=== PATIENT | male | born 1945 | race Caucasian/White ===

== ENCOUNTER 2017-01-31 20:17 | Emergency (ER) | payer MEDICARE ==
[2017-01-31 20:42] VITALS: RESP 18
[2017-01-31] MEDS ORDERED: RX INFO: IV CONTRAST WAS GIVEN 1 EACH MISC MISCELLANE PRN (20:49)
[2017-01-31 21:46] LABS: Basophils # (A) 0.1 k/uL (0-0.2); Basophils % (A) 1 %; CH 26.7; CHCM 32.7; Eosinophils # (A) 0.5 k/uL (0-0.7); Eosinophils % (A) 5 %; HCT 34.7 % (39.0-53.0); HDW 2.99; HGB 11.7 gm/dL (13.0-17.5); Luc # (Auto) 0.22; Luc % (Auto) 2; Lymphocytes # (A) 2.4 k/uL (1.0-4.8); Lymphocytes % (A) 26 %; MCH 27.7 pg (25.0-35.0); MCHC 33.8 g/dL (31.0-37.0); MCV 82.1 fL (80.0-100.0); Monocytes # (A) 0.6 k/uL (0-1.0); Monocytes % (A) 6 %; Neutrophils # (A) 5.6 k/uL (1.3-7.7); Neutrophils % (A) 60 %; RBC 4.22 m/uL (4.30-5.90); RDW 13.6 % (11.5-15.5); WBC 9.3 k/uL (3.8-10.6); WBC (Perox) 9.37
[2017-01-31 21:48] LABS: Appearance,Urine Turbid (Clear); Bilirubin,Urine Negative (Negative); Glucose,Urine (UA) 4+ (Negative); Ketones,Urine Negative (Negative); Leukocyte Esterase,Urine Large (Negative); Nitrite,Urine Positive (Negative); PH, Urine 5.5 (5.0-8.0); Particle Count 62348; Protein,Urine 2+ (Negative); RBC,Urine >182 /hpf (0-5); Specific Gravity,Urine 1.014 (1.001-1.035); UA Billing (MACRO vs. MICRO) MICRO; Urobilinogen,Urine <2.0 mg/dL (<2.0); WBC,Urine >182 /hpf (0-5)
[2017-01-31 22:07] LABS: INR 1.1 (<1.1); Partial Thromboplastin Time 26.6 sec (22.0-30.0); Prothrombin Time 11.2 sec (9.0-12.0)
[2017-01-31 22:24] LABS: Anion Gap 14 mmol/L; Blood Urea Nitrogen 19 mg/dL (9-20); Calcium 9.1 mg/dL (8.4-10.2); Carbon Dioxide 23 mmol/L (22-30); Chloride 102 mmol/L (98-107); Glucose 229 mg/dL (74-99); Non-African American GFR(MDRD) >60 (>60 ml/min/1.73 sqM); Potassium 4.3 mmol/L (3.5-5.1); Sodium 139 mmol/L (137-145)
--- NOTE | 2017-01-31 23:39 | CT ---
Exam: CT ABDOMEN + PELVIS With Contrast History: Hematuria. History of bladder cancer. Comparison: None provided. Technique: Continuous axial images of the abdomen and pelvis are obtained after administration of intravenous contrast. Coronal and sagittal reformatting was provided. Findings: There is consolidation in the right lower lobe suspicious for pneumonia in the right clinical setting. Recommend follow-up after appropriate therapy to ensure resolution and exclude the possibility of an underlying malignancy. High attenuation material in the gallbladder probably represents biliary excretion of intravenous contrast. Sludge is considered less likely. The liver, spleen, pancreas, adrenal glands, and left kidney show no substantial abnormality. There is borderline hydronephrosis of the right kidney with minimal right perirenal edema. No radiopaque ureteral stone is seen. Minimal right hydroureter is identified. There is diffuse wall thickening of the urinary bladder, even when allowing for underdistention. The prostate measures approximately 5 cm in transverse dimension. There is no dilated loop of bowel to suggest obstruction. A large amount of stool is seen in the colon, could represent mild constipation. The appendix is unremarkable. Calcific atherosclerosis is seen. No evidence for aortic aneurysm or dissection. No lymphadenopathy identified. No aggressive appearing osseous process noted. Minimal erosion and subcortical sclerosis at L4- L5 is probably due to degenerative disc disease. Impression: 1. Wall thickening of the urinary bladder, suspicious for malignancy. Correlate with urinalysis. 2. Borderline right hydronephrosis. No radiopaque ureteral stones. 3. Nonspecific consolidation in the right lower lobe may be due to aspiration or pneumonia. Recommend follow-up 6 weeks after appropriate therapy to ensure resolution and exclude underlying malignancy. DLP = 1571.20 mGycm One or more of the following dose reduction techniques were used: automated exposure control, adjustment of the mA and/or kV according to patient size, use of iterative reconstruction technique.
--- NOTE | 2017-02-01 00:17 | ED ---
General Adult HPI - General Chief complaint: Urogenital Stated complaint: Possible Bladder Infection Time Seen by Provider: 01/31/17 20:34 Source: family, EMS, RN notes reviewed Mode of arrival: EMS Limitations: altered mental status - History of Present Illness Initial comments: 69-year-old male with past medical history of CAD, CVA, remote history of bladder carcinoma presents with hematuria. Patient is cared for by his daughter and . He is currently on Cymbalta status post stroke. Patient's daughter first noticed pink urine in his depends which became more bloody today. She denies fever. Patient does not have a Costello catheter. He is not currently on any treatment for bladder cancer. Patient is unable to contribute to history. - Related Data Previous Rx's Medication Instructions Recorded Ciprofloxacin HCl [Cipro] 500 mg PO Q12HR #20 tablet 02/01/17 Allergies Allergy/AdvReac Type Severity Reaction Status Date / Time Sulfa (Sulfonamide Allergy Unknown Verified 01/31/17 20:45 Antibiotics) Review of Systems ROS Statement: Those systems with pertinent positive or pertinent negative responses have been documented in the HPI. ROS Other: All systems not noted in ROS Statement are negative. Respiratory: Denies: cough Gastrointestinal: Denies: nausea, vomiting Genitourinary: Reports: hematuria Past Medical History Past Medical History: Cancer, CVA/TIA, Diabetes Mellitus Additional Past Medical History / Comment(s): bladder cancer, Stroke, Black spots on lung. History of Any Multi-Drug Resistant Organisms: None Reported Past Surgical History: Bladder Surgery, Heart Catheterization With Stent Additional Past Surgical History / Comment(s): Open heart surgery, bipass, Past Psychological History: No Psychological Hx Reported Smoking Status: Former smoker Past Alcohol Use History: None Reported Past Drug Use History: None Reported General Exam Limitations: altered mental status General appearance: in no apparent distress Head exam: Present: atraumatic, normocephalic Eye exam: Present: normal appearance, PERRL ENT exam: Present: mucous membranes moist Respiratory exam: Present: normal lung sounds bilaterally. Absent: respiratory distress Cardiovascular Exam: Present: regular rate, normal rhythm GI/Abdominal exam: Present: soft. Absent: distended, tenderness exam: Present: normal inspection. Absent: testicular tenderness, urethral discharge, scrotal swelling, vertical testicular lie Neurological exam: Present: altered, other (Patient at baseline mental status) Psychiatric exam: Present: flat affect Skin exam: Present: warm, dry Course Vital Signs 01/31/17 01/31/17 01/31/17 20:35 21:44 23:12 Temperature 97.7 F Pulse Rate 68 71 73 Respiratory 18 18 18 Rate Blood Pressure 166/79 145/69 177/82 O2 Sat by Pulse 97 97 97 Oximetry 01/31/17 23:57 Temperature Pulse Rate 76 Respiratory 18 Rate Blood Pressure 165/81 O2 Sat by Pulse 96 Oximetry Medical Decision Making - Medical Decision Making 71-year-old male presenting with hematuria. Patient is a result of her stroke prophylaxis. He does have a history of CVA and is unable to contribute to the history. Patient's daughter who takes care of him states he had pink progressing to read urine over the past 24 hours. There is no external penile lesions, no signs of trauma. Computed tomography scan of the abdomen and pelvis reveals thickening of the bladder, mild right-sided hydro-. Urinalysis is positive for nitrates, and elevated diureses and RBCs. Urine culture is sent. Case is discussed with urology on-call in the patient will be started on antibiotics and discharged for outpatient follow-up. Patient's daughter will bring her father for evaluation with worsening symptoms or hemorrhage. 71-year-old male with hematuria, likely secondary to urinary tract infection. Bladder thickening on x-ray may be chronic or maybe related to recurrent malignancy. Patient will follow-up with urology as an outpatient. - Lab Data Result diagrams: 01/31/17 21:15 01/31/17 22:00 Lab Results 01/31/17 01/31/17 01/31/17 Range/Units 21:15 21:15 22:00 WBC 9.3 (3.8-10.6) k/uL RBC 4.22 L (4.30-5.90) m/uL Hgb 11.7 L (13.0-17.5) gm/dL Hct 34.7 L (39.0-53.0) % MCV 82.1 (80.0-100.0) fL MCH 27.7 (25.0-35.0) pg MCHC 33.8 (31.0-37.0) g/dL RDW 13.6 (11.5-15.5) % Plt Count 226 (150-450) k/uL Neutrophils % 60 % Lymphocytes % 26 % Monocytes % 6 % Eosinophils % 5 % Basophils % 1 % Neutrophils # 5.6 (1.3-7.7) k/uL Lymphocytes # 2.4 (1.0-4.8) k/uL Monocytes # 0.6 (0-1.0) k/uL Eosinophils # 0.5 (0-0.7) k/uL Basophils # 0.1 (0-0.2) k/uL PT (9.0-12.0) sec INR (<1.1) APTT (22.0-30.0) sec Sodium (137-145) mmol/L Potassium (3.5-5.1) mmol/L Chloride (98-107) mmol/L Carbon Dioxide (22-30) mmol/L Anion Gap mmol/L BUN (9-20) mg/dL Creatinine (0.66-1.25) mg/dL Est GFR (MDRD) Af Amer (>60 ml/min/1.73 sqM) Est GFR (MDRD) Non-Af (>60 ml/min/1.73 sqM) Glucose (74-99) mg/dL Calcium (8.4-10.2) mg/dL Urine Color Light Red Urine Appearance Turbid (Clear) Urine pH 5.5 (5.0-8.0) Ur Specific Strawberry 1.014 (1.001-1.035) Urine Protein 2+ H (Negative) Urine Glucose (UA) 4+ H (Negative) Urine Ketones Negative (Negative) Urine Blood Large H (Negative) Urine Nitrite Positive (Negative) Urine Bilirubin Negative (Negative) Urine Urobilinogen <2.0 (<2.0) mg/dL Ur Leukocyte Esterase Large H (Negative) Urine RBC >182 H (0-5) /hpf Urine WBC >182 H (0-5) /hpf Urine WBC Clumps Many H (None) /hpf Blood Type AB Positive Blood Type Recheck CABO Indicated Antibody Screen NEGATIVE Spec Expiration Date 02/03/2017231401/31/17 01/31/17 Range/Units 22:00 22:00 WBC (3.8-10.6) k/uL RBC (4.30-5.90) m/uL Hgb (13.0-17.5) gm/dL Hct (39.0-53.0) % MCV (80.0-100.0) fL MCH (25.0-35.0) pg MCHC (31.0-37.0) g/dL RDW (11.5-15.5) % Plt Count (150-450) k/uL Neutrophils % % Lymphocytes % % Monocytes % % Eosinophils % % Basophils % % Neutrophils # (1.3-7.7) k/uL Lymphocytes # (1.0-4.8) k/uL Monocytes # (0-1.0) k/uL Eosinophils # (0-0.7) k/uL Basophils # (0-0.2) k/uL PT 11.2 (9.0-12.0) sec INR 1.1 (<1.1) APTT 26.6 (22.0-30.0) sec Sodium 139 (137-145) mmol/L Potassium 4.3 (3.5-5.1) mmol/L Chloride 102 (98-107) mmol/L Carbon Dioxide 23 (22-30) mmol/L Anion Gap 14 mmol/L BUN 19 (9-20) mg/dL Creatinine 0.80 (0.66-1.25) mg/dL Est GFR (MDRD) Af Amer >60 (>60 ml/min/1.73 sqM) Est GFR (MDRD) Non-Af >60 (>60 ml/min/1.73 sqM) Glucose 229 H (74-99) mg/dL Calcium 9.1 (8.4-10.2) mg/dL Urine Color Urine Appearance (Clear) Urine pH (5.0-8.0) Ur Specific Strawberry (1.001-1.035) Urine Protein (Negative) Urine Glucose (UA) (Negative) Urine Ketones (Negative) Urine Blood (Negative) Urine Nitrite (Negative) Urine Bilirubin (Negative) Urine Urobilinogen (<2.0) mg/dL Ur Leukocyte Esterase (Negative) Urine RBC (0-5) /hpf Urine WBC (0-5) /hpf Urine WBC Clumps (None) /hpf Blood Type Blood Type Recheck Antibody Screen Spec Expiration Date Disposition Clinical Impression: Urinary tract infection, Hematuria due to acute cystitis, Epididymitis Disposition: HOME SELF-CARE Condition: Good Instructions: Urinary Tract Infection in Men (ED) Prescriptions: Ciprofloxacin HCl [Cipro] 500 mg PO Q12HR #20 tablet Referrals: Rg Glynn MD [Primary Care Provider] - 1-2 days Sandeep Kulkarni MD [STAFF PHYSICIAN] - 1-2 days Time of Disposition: 00:17
[2017-02-01 00:36] VITALS: BP 164/79; PULSE 75; TEMP 97.4
== END 2017-02-01 00:59 | disposition home or self-care (01) ==
LOC: EC 20:17
DX: N30.01 Acute cystitis with hematuria (principal); N45.1 Epididymitis; R41.82 Altered mental status, unspecified; Z87.891 Personal history of nicotine dependence; Z79.899 Other long term (current) drug therapy; Z88.2 Allergy status to sulfonamides; Z85.51 Personal history of malignant neoplasm of bladder; Z86.73 Personal history of transient ischemic attack (TIA), and cerebral infarction without residual deficits; Z98.890 Other specified postprocedural states
CPT/HCPCS: 51798; 36415; 86900; 86901; 80048; 85025; 85610; 85730; 86850; 81001; 87086; 87077; 87186; 74177; 99284; Q9967

== ENCOUNTER → 2017-02-19 | Outpatient (CLI) | payer MEDICARE ==
[2017-02-19 10:00] LABS: Basophils # (A) 0.1 k/uL (0-0.2); Basophils % (A) 1 %; CH 26.8; CHCM 32.5; Eosinophils # (A) 0.4 k/uL (0-0.7); Eosinophils % (A) 5 %; HCT 37.9 % (39.0-53.0); HDW 2.69; HGB 12.3 gm/dL (13.0-17.5); Luc # (Auto) 0.14; Luc % (Auto) 2; Lymphocytes # (A) 2.1 k/uL (1.0-4.8); Lymphocytes % (A) 23 %; MCH 26.9 pg (25.0-35.0); MCHC 32.4 g/dL (31.0-37.0); MCV 82.9 fL (80.0-100.0); Mean Platelet Volume 8.5; Monocytes # (A) 0.5 k/uL (0-1.0); Monocytes % (A) 5 %; Neutrophils # (A) 5.7 k/uL (1.3-7.7); Neutrophils % (A) 64 %; RBC 4.57 m/uL (4.30-5.90); RDW 14.1 % (11.5-15.5); WBC 8.9 k/uL (3.8-10.6); WBC (Perox) 8.69
[2017-02-19 11:02] LABS: ALT 33 U/L (21-72); AST 18 U/L (17-59); Alkaline Phosphatase 118 U/L (38-126); Anion Gap 13 mmol/L; Blood Urea Nitrogen 10 mg/dL (9-20); Carbon Dioxide 28 mmol/L (22-30); Chloride 101 mmol/L (98-107); Cholesterol 109 mg/dL (<200); Creatine Kinase 26 U/L (55-170); Glucose 137 mg/dL (74-99); HDL Cholesterol 48 mg/dL (40-60); Non-African American GFR(MDRD) >60 (>60 ml/min/1.73 sqM); Potassium 4.6 mmol/L (3.5-5.1); Sodium 142 mmol/L (137-145); Total Bilirubin 0.9 mg/dL (0.2-1.3); Total Protein 7.1 g/dL (6.3-8.2); Triglycerides 121 mg/dL (<150)
== END ==
LOC: LABWHC1 08:35
PROVIDERS: ATTEND Family Medicine
DX: E78.5 Hyperlipidemia, unspecified (principal); Z12.5 Encounter for screening for malignant neoplasm of prostate; Z11.59 Encounter for screening for other viral diseases
CPT/HCPCS: 80061; 80053; 82550; 85025; 36415; G0103

== ENCOUNTER 2017-02-28 17:32 | Inpatient (IN) | payer MEDICARE ==
[2017-02-28 17:52] VITALS: RESP 18
[2017-02-28 18:07] LABS: Basophils # (A) 0.1 k/uL (0-0.2); Basophils % (A) 1 %; CHCM 32.8; Eosinophils # (A) 0.4 k/uL (0-0.7); Eosinophils % (A) 4 %; HCT 32.5 % (39.0-53.0); HDW 2.72; HGB 10.6 gm/dL (13.0-17.5); Luc # (Auto) 0.15; Luc % (Auto) 2; Lymphocytes % (A) 21 %; MCHC 32.6 g/dL (31.0-37.0); MCV 82.9 fL (80.0-100.0); Mean Platelet Volume 8.4; Monocytes # (A) 0.5 k/uL (0-1.0); Monocytes % (A) 5 %; Neutrophils # (A) 6.6 k/uL (1.3-7.7); Neutrophils % (A) 68 %; RBC 3.92 m/uL (4.30-5.90); RDW 14.3 % (11.5-15.5); WBC 9.8 k/uL (3.8-10.6); WBC (Perox) 10.19
[2017-02-28 18:21] LABS: INR 1.1 (<1.2); Partial Thromboplastin Time 26.6 sec (22.0-30.0); Prothrombin Time 11.1 sec (9.0-12.0)
[2017-02-28 18:22] LABS: ALT 29 U/L (21-72); AST 13 U/L (17-59); Alkaline Phosphatase 101 U/L (38-126); Anion Gap 10 mmol/L; Blood Urea Nitrogen 14 mg/dL (9-20); Calcium 8.8 mg/dL (8.4-10.2); Carbon Dioxide 27 mmol/L (22-30); Chloride 102 mmol/L (98-107); Glucose 208 mg/dL (74-99); Magnesium 1.2 mg/dL (1.6-2.3); Non-African American GFR(MDRD) >60 (>60 ml/min/1.73 sqM); Potassium 4.2 mmol/L (3.5-5.1); Sodium 139 mmol/L (137-145); Total Bilirubin 0.5 mg/dL (0.2-1.3); Total Protein 6.1 g/dL (6.3-8.2)
[2017-02-28 18:31] LABS: Creatine Kinase 26 U/L (55-170)
[2017-02-28 18:44] LABS: Creatine Kinase MB 0.6 ng/mL (0.0-2.4); Troponin I <0.012 ng/mL (0.000-0.034)
[2017-02-28] MEDS ORDERED: ASPIRIN 325 MG TAB PO STA (19:10)
--- NOTE | 2017-02-28 19:13 | XR ---
EXAMINATION TYPE: XR chest 2V DATE OF EXAM: 02/28/2017 COMPARISON: CT abdomen and pelvis January 31, 2017. HISTORY: Chest pain and irregular heartbeat. TECHNIQUE: Frontal and lateral views of the chest are obtained. FINDINGS: Sternal wires are present. Metallic Aortic valve is noted. There is chronic parenchymal ch ryan with right infrahilar triangular wedge-shaped opacity on frontal view less well seen on lateral view. This appears to correspond to peripheral round atelectasis or infiltrate on recent CT. Underlyi ng mass is not excluded. Consider nonemergent PET/CT correlation. No new infiltrate, pleural effusion , or pneumothorax is seen. The cardiac silhouette size is within normal limits. The osseous structu res are intact. IMPRESSION: Chronic posterior right basilar triangular shaped consolidation. No new infiltrate is s een.
[2017-02-28] MEDS: MAGNESIUM SULFATE-D5W PMX 1 GM in DEXTROSE/WATER 1 100ML.BAG IVPB SCH ×2 (19:39→22:30)
[2017-02-28 19:46] LABS: Glucose,Whole Blood 193 mg/dL (75-99)
[2017-02-28] MEDS ORDERED: NALOXONE 0.4 MG/ML 1 ML VIAL IV PRN (19:50)
[2017-02-28] MEDS ORDERED: ONDANSETRON 4 MG/2 ML VIAL IVP PRN (19:50)
--- NOTE | 2017-02-28 20:13 | ED ---
General Adult HPI - General Chief complaint: Chest Pain Stated complaint: Chest Pain Time Seen by Provider: 02/28/17 17:34 Source: patient, family, EMS, RN notes reviewed, old records reviewed Mode of arrival: EMS Limitations: no limitations - History of Present Illness Initial comments: 71-year-old male with history of CAD status post CABG, CVA with residual aphasia and remote history of bladder cancer presents with chest pain. Patient is a poor historian. He is unable to articulate his exact symptoms. He is able to answer some basic questions. Denies chest pain at the time my evaluation. Denies nausea or radiating symptoms. Patient's is at bedside , she states he was holding his chest complaining of pain. This is atypical for the patient. He has not had a cardiac workup in many years. - Related Data Home Medications Medication Instructions Recorded Confirmed Albuterol Sulfate [Proventil Hfa] 1 - 2 puff INHALATION RT-Q6H PRN 02/28/1712/10 Amoxicillin/Potassium Clav 1 tab PO Q12HR 02/28/17 02/28/17 [Augmentin 875-125 Tablet] Apixaban [Eliquis] 5 mg PO BID 02/28/17 02/28/17 Aspirin 81 mg PO MOFR 02/28/17 02/28/17 Atorvastatin Calcium [Lipitor] 40 mg PO HS 02/28/17 02/28/17 Cranberry Fruit Extract [Cranberry] 500 mg PO BID 02/28/17 02/28/17 Docusate [Colace] 100 mg PO DAILY PRN 02/28/17 02/28/17 Insulin Glargine [Lantus] 22 unit SQ BID 02/28/17 02/28/17 Metoprolol Tartrate [Lopressor] 25 mg PO BID 02/28/17 02/28/17 Multivitamins, Thera [Multivitamin 1 tab PO DAILY 02/28/17 02/28/17 (formulary)] Nortriptyline HCl [Pamelor] 25 mg PO HS 02/28/17 02/28/17 Omeprazole [PriLOSEC] 40 mg PO DAILY 02/28/17 02/28/17 metFORMIN HCL [metFORMIN HCL ER] 1,000 mg PO DAILY 02/28/17 02/28/17 sitaGLIPtin [Januvia] 100 mg PO DAILY 02/28/17 02/28/17 Allergies Allergy/AdvReac Type Severity Reaction Status Date / Time Sulfa (Sulfonamide Allergy Unknown Verified 02/28/17 18:02 Antibiotics) Review of Systems ROS Statement: Those systems with pertinent positive or pertinent negative responses have been documented in the HPI. ROS Other: All systems not noted in ROS Statement are negative. Past Medical History Past Medical History: Cancer, CVA/TIA, Diabetes Mellitus Additional Past Medical History / Comment(s): bladder cancer, Stroke, Black spots on lung. History of Any Multi-Drug Resistant Organisms: None Reported Past Surgical History: Bladder Surgery, Heart Catheterization With Stent Additional Past Surgical History / Comment(s): Open heart surgery, bypass, Past Psychological History: No Psychological Hx Reported Smoking Status: Former smoker Past Alcohol Use History: None Reported Past Drug Use History: None Reported General Exam Limitations: no limitations General appearance: alert, in no apparent distress Head exam: Present: atraumatic, normocephalic Eye exam: Present: normal appearance, PERRL ENT exam: Present: mucous membranes moist Neck exam: Present: normal inspection, full ROM. Absent: meningismus Respiratory exam: Present: normal lung sounds bilaterally. Absent: respiratory distress Cardiovascular Exam: Present: regular rate, normal rhythm GI/Abdominal exam: Present: soft. Absent: distended, tenderness Extremities exam: Present: normal inspection, normal capillary refill. Absent: pedal edema Neurological exam: Present: alert. Absent: motor sensory deficit Psychiatric exam: Present: normal affect, normal mood Skin exam: Present: warm, dry. 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 No old EKG to compare. Medical Decision Making - Medical Decision Making 71-year-old male presenting with chest pain. Patient is not able to give a complete history due to his baseline mental status and history of CVA. Patient is able to state that his chest pain is resolving emergency department. EKG shows right bundle branch block, nonspecific changes, there is no old EKG for comparison. Chest x-ray shows no acute process. Laboratory studies reveal stable hemoglobin improved from previous ER visit, initial cardiac enzymes are unremarkable. Patient is given an aspirin. Laboratory studies do reveal a magnesium level I.2 which is replaced. Given the patient's inability to articulate exactly history of his chest pain. He will be placed in observation for serial troponins and cardiology evaluation. Diagnosis: Chest pain - Lab Data Result diagrams: 02/28/17 17:57 02/28/17 17:57 Lab Results 02/28/17 02/28/17 02/28/17 Range/Units 17:57 17:57 17:57 WBC 9.8 (3.8-10.6) k/uL RBC 3.92 L (4.30-5.90) m/uL Hgb 10.6 L (13.0-17.5) gm/dL Hct 32.5 L (39.0-53.0) % MCV 82.9 (80.0-100.0) fL MCH 27.0 (25.0-35.0) pg MCHC 32.6 (31.0-37.0) g/dL RDW 14.3 (11.5-15.5) % Plt Count 273 (150-450) k/uL Neutrophils % 68 % Lymphocytes % 21 % Monocytes % 5 % Eosinophils % 4 % Basophils % 1 % Neutrophils # 6.6 (1.3-7.7) k/uL Lymphocytes # 2.0 (1.0-4.8) k/uL Monocytes # 0.5 (0-1.0) k/uL Eosinophils # 0.4 (0-0.7) k/uL Basophils # 0.1 (0-0.2) k/uL PT (9.0-12.0) sec INR (<1.2) APTT (22.0-30.0) sec Sodium 139 (137-145) mmol/L Potassium 4.2 (3.5-5.1) mmol/L Chloride 102 (98-107) mmol/L Carbon Dioxide 27 (22-30) mmol/L Anion Gap 10 mmol/L BUN 14 (9-20) mg/dL Creatinine 0.80 (0.66-1.25) mg/dL Est GFR (MDRD) Af Amer >60 (>60 ml/min/1.73 sqM) Est GFR (MDRD) Non-Af >60 (>60 ml/min/1.73 sqM) Glucose 208 H (74-99) mg/dL POC Glucose (mg/dL) (75-99) mg/dL POC Glu Insurance Sales Specialist ID Calcium 8.8 (8.4-10.2) mg/dL Magnesium 1.2 L (1.6-2.3) mg/dL Total Bilirubin 0.5 (0.2-1.3) mg/dL AST 13 L (17-59) U/L ALT 29 (21-72) U/L Alkaline Phosphatase 101 (38-126) U/L Total Creatine Kinase 26 L (55-170) U/L CK-MB (CK-2) 0.6 (0.0-2.4) ng/mL CK-MB (CK-2) Rel Index 2.3 Troponin I <0.012 (0.000-0.034) ng/mL NT-Pro-B Natriuret Pep pg/mL Total Protein 6.1 L (6.3-8.2) g/dL Albumin 3.4 L (3.5-5.0) g/dL Lipase 18 L (23-300) U/L 02/28/17 02/28/17 02/28/17 Range/Units 17:57 17:57 19:39 WBC (3.8-10.6) k/uL RBC (4.30-5.90) m/uL Hgb (13.0-17.5) gm/dL Hct (39.0-53.0) % MCV (80.0-100.0) fL MCH (25.0-35.0) pg MCHC (31.0-37.0) g/dL RDW (11.5-15.5) % Plt Count (150-450) k/uL Neutrophils % % Lymphocytes % % Monocytes % % Eosinophils % % Basophils % % Neutrophils # (1.3-7.7) k/uL Lymphocytes # (1.0-4.8) k/uL Monocytes # (0-1.0) k/uL Eosinophils # (0-0.7) k/uL Basophils # (0-0.2) k/uL PT 11.1 (9.0-12.0) sec INR 1.1 (<1.2) APTT 26.6 (22.0-30.0) sec Sodium (137-145) mmol/L Potassium (3.5-5.1) mmol/L Chloride (98-107) mmol/L Carbon Dioxide (22-30) mmol/L Anion Gap mmol/L BUN (9-20) mg/dL Creatinine (0.66-1.25) mg/dL Est GFR (MDRD) Af Amer (>60 ml/min/1.73 sqM) Est GFR (MDRD) Non-Af (>60 ml/min/1.73 sqM) Glucose (74-99) mg/dL POC Glucose (mg/dL) 193 H (75-99) mg/dL POC Glu Insurance Sales Specialist ID Reyna Youngblood Calcium (8.4-10.2) mg/dL Magnesium (1.6-2.3) mg/dL Total Bilirubin (0.2-1.3) mg/dL AST (17-59) U/L ALT (21-72) U/L Alkaline Phosphatase (38-126) U/L Total Creatine Kinase (55-170) U/L CK-MB (CK-2) (0.0-2.4) ng/mL CK-MB (CK-2) Rel Index Troponin I (0.000-0.034) ng/mL NT-Pro-B Natriuret Pep 679 pg/mL Total Protein (6.3-8.2) g/dL Albumin (3.5-5.0) g/dL Lipase (23-300) U/L Disposition Clinical Impression: Chest pain Disposition: ADMITTED IP TO THIS [facility] Condition: Stable Referrals: None,Stated [Primary Care Provider] - 1-2 days Decision to Admit Reason: Admit from EC Decision Date: 02/28/17 Decision Time: 20:10
[2017-02-28] MEDS: INSULIN GLARGINE 100 UNIT/ML 10 ML VIAL SQ SCH (21:31)
[2017-02-28 21:32] LABS: Glucose,Whole Blood 165 mg/dL (75-99)
[2017-02-28 21:38] VITALS: BMI 24.6
[2017-02-28] MEDS: APIXABAN 5 MG TAB PO SCH (22:06)
[2017-02-28] MEDS: ATORVASTATIN 40 MG TAB PO SCH (22:06)
[2017-02-28] MEDS: METOPROLOL TARTRATE 25 MG TAB PO SCH (22:06)
[2017-02-28] MEDS: DEXTROSE 5%-0.45% NACL 1,000 ML IV SCH (22:31)
[2017-03-01 00:02] LABS: Creatine Kinase 25 U/L (55-170)
[2017-03-01 00:15] LABS: Creatine Kinase MB 0.6 ng/mL (0.0-2.4); Troponin I <0.012 ng/mL (0.000-0.034)
[2017-03-01 06:41] LABS: Glucose,Whole Blood 153 mg/dL (75-99)
[2017-03-01 07:08] LABS: Basophils # (A) 0.1 k/uL (0-0.2); Basophils % (A) 1 %; CH 26.9; CHCM 32.4; Eosinophils # (A) 0.3 k/uL (0-0.7); Eosinophils % (A) 3 %; HCT 34.1 % (39.0-53.0); HDW 2.73; Luc # (Auto) 0.14; Luc % (Auto) 1; Lymphocytes # (A) 1.8 k/uL (1.0-4.8); Lymphocytes % (A) 17 %; MCH 26.9 pg (25.0-35.0); MCHC 32.4 g/dL (31.0-37.0); MCV 83.3 fL (80.0-100.0); Mean Platelet Volume 8.6; Monocytes # (A) 0.5 k/uL (0-1.0); Monocytes % (A) 5 %; Neutrophils # (A) 7.6 k/uL (1.3-7.7); Neutrophils % (A) 73 %; RBC 4.09 m/uL (4.30-5.90); RDW 14.1 % (11.5-15.5); WBC 10.5 k/uL (3.8-10.6); WBC (Perox) 10.98
[2017-03-01 07:32] LABS: Anion Gap 9 mmol/L; Blood Urea Nitrogen 12 mg/dL (9-20); Calcium 9.1 mg/dL (8.4-10.2); Carbon Dioxide 29 mmol/L (22-30); Chloride 102 mmol/L (98-107); Glucose 165 mg/dL (74-99); Magnesium 1.6 mg/dL (1.6-2.3); Non-African American GFR(MDRD) >60 (>60 ml/min/1.73 sqM); Potassium 4.1 mmol/L (3.5-5.1); Sodium 140 mmol/L (137-145)
[2017-03-01 07:33] LABS: Creatine Kinase 24 U/L (55-170)
[2017-03-01 07:45] LABS: Creatine Kinase MB 0.6 ng/mL (0.0-2.4); Troponin I <0.012 ng/mL (0.000-0.034)
[2017-03-01] MEDS: INSULIN GLARGINE 100 UNIT/ML 10 ML VIAL SQ SCH ×2 (09:13→20:28)
[2017-03-01] MEDS: METOPROLOL TARTRATE 25 MG TAB PO SCH ×2 (09:14→20:20)
[2017-03-01] MEDS: APIXABAN 5 MG TAB PO SCH ×2 (09:14→20:20)
[2017-03-01 10:07] LABS: Hemoglobin A1C 9.2 % (4.2-6.1)
[2017-03-01 11:49] LABS: Glucose,Whole Blood 138 mg/dL (75-99)
--- NOTE | 2017-03-01 12:19 | P.CRDCN ---
History of Present Illness Consult date: 03/01/17 Chief complaint: Chest discomfort History of present illness: This is a pleasant 72-year-old male patient who never seen a leather sponger here in town who used to see a leather sponger at [place] was brought by his to the hospital because of chest discomfort. The patient suffered from a large stroke in June 2016 and since then he has been almost bedridden and wheelchair-bound. The story was taken from his was bedside with him. The patient has very poor communication to take the history from. He was at home yesterday when he started experiencing chest discomfort for. The decided to bring him to the emergency room. The EKG showed sinus rhythm with RBBB. The cardiac enzymes were checked and came in to be unremarkable. Please note that the patient is known to have CAD where he underwent CABG and stenting in the past at [place] but we don't have any details on that at this point. In view of the patient's poor functional status I recommended proceeding with a conservative medical approach and medical treatment only. I'm going to add Imdur to the current medical treatment. Obtain an echocardiogram was Doppler. Follow-up with the patient. Past Medical History Past Medical History: Cancer, CVA/TIA, Diabetes Mellitus Additional Past Medical History / Comment(s): bladder cancer, Stroke, Black spots on lung. difficulty with speech and balance after stroke History of Any Multi-Drug Resistant Organisms: None Reported Past Surgical History: Bladder Surgery, Coronary Bypass/CABG, Heart Catheterization With Stent Additional Past Surgical History / Comment(s): Open heart surgery, bypass, aortic valve replacement, loop recorder Past Anesthesia/Blood Transfusion Reactions: No Reported Reaction Date of Last Stent Placement:: 1989 Past Psychological History: No Psychological Hx Reported Smoking Status: Former smoker Past Alcohol Use History: None Reported Past Drug Use History: None Reported - Past Family History Father Family Medical History: Cancer Additional Family Medical History / Comment(s): prostate cancer Mother Family Medical History: Dementia, Hypertension Medications and Allergies Home Medications Medication Instructions Recorded Confirmed Type Albuterol Sulfate [Proventil Hfa] 1 - 2 puff INHALATION RT-Q6H PRN 02/28/1712/10 History Amoxicillin/Potassium Clav 1 tab PO Q12HR 02/28/17 02/28/17 History [Augmentin 875-125 Tablet] Apixaban [Eliquis] 5 mg PO BID 02/28/17 02/28/17 History Aspirin 81 mg PO MOFR 02/28/17 02/28/17 History Atorvastatin Calcium [Lipitor] 40 mg PO HS 02/28/17 02/28/17 History Cranberry Fruit Extract [Cranberry] 500 mg PO BID 02/28/17 02/28/17 History Docusate [Colace] 100 mg PO DAILY PRN 02/28/17 02/28/17 History Insulin Glargine [Lantus] 22 unit SQ BID 02/28/17 02/28/17 History Metoprolol Tartrate [Lopressor] 25 mg PO BID 02/28/17 02/28/17 History Multivitamins, Thera [Multivitamin 1 tab PO DAILY 02/28/17 02/28/17 History (formulary)] Nortriptyline HCl [Pamelor] 25 mg PO HS 02/28/17 02/28/17 History Omeprazole [PriLOSEC] 40 mg PO DAILY 02/28/17 02/28/17 History metFORMIN HCL [metFORMIN HCL ER] 1,000 mg PO DAILY 02/28/17 02/28/17 History sitaGLIPtin [Januvia] 100 mg PO DAILY 02/28/17 02/28/17 History Allergies Allergy/AdvReac Type Severity Reaction Status Date / Time Sulfa (Sulfonamide Allergy Unknown Verified 02/28/17 18:02 Antibiotics) Physical Exam Vitals: Vital Signs Temp Pulse Pulse Pulse Resp BP BP 03/01/17 11:51 96.7 F L 65 18 164/89 03/01/17 08:00 96.7 F L 69 18 146/74 03/01/17 04:00 97.1 F L 66 18 147/75 03/01/17 00:00 97.0 F L 70 18 140/76 02/28/17 21:32 98.1 F 72 18 156/88 02/28/17 21:20 98.1 F 72 18 156/88 02/28/17 20:33 97.3 F L 68 18 158/67 02/28/17 19:06 97.7 F 69 18 161/71 02/28/17 18:00 65 02/28/17 17:48 98.5 F 66 18 169/68 Pulse Ox 03/01/17 11:51 100 03/01/17 08:00 98 03/01/17 04:00 100 03/01/17 00:00 100 02/28/17 21:32 98 02/28/17 21:20 98 02/28/17 20:33 97 02/28/17 19:06 99 02/28/17 18:00 02/28/17 17:48 100 Intake and Output 02/28/17 03/01/17 03/01/17 22:59 06:59 14:59 Intake Total 550 Balance 550 Intake: Intake, IV Titration 550 Amount Dextrose 5%-0.45% NaCl 1, 450 000 ml @ 75 mls/hr IV . [id number] [facility] Rx#:[id number] Magnesium Sulfate-D5w Pmx 100 1 gm In Dextrose/Water 1 100ml.bag @ 100 mls/hr IVPB Q1H [facility] Rx#: [id number] Other: Weight 82.5 kg 83 kg - Constitutional General appearance: no acute distress - Respiratory Respiratory: bilateral: diminished - Cardiovascular Rhythm: regular Heart sounds: normal: S1, S2 Results 03/01/17 06:17 03/01/17 06:17 Cardiac Enzymes 02/28/17 02/28/17 02/28/17 Range/Units 17:57 17:57 23:28 AST 13 L (17-59) U/L CK-MB (CK-2) 0.6 0.6 (0.0-2.4) ng/mL Troponin I <0.012 <0.012 (0.000-0.034) ng/mL 03/01/17 Range/Units 06:17 AST (17-59) U/L CK-MB (CK-2) 0.6 (0.0-2.4) ng/mL Troponin I <0.012 (0.000-0.034) ng/mL Coagulation 02/28/17 Range/Units 17:57 PT 11.1 (9.0-12.0) sec APTT 26.6 (22.0-30.0) sec CBC 02/28/17 03/01/17 Range/Units 17:57 06:17 WBC 9.8 10.5 (3.8-10.6) k/uL RBC 3.92 L 4.09 L (4.30-5.90) m/uL Hgb 10.6 L 11.0 L (13.0-17.5) gm/dL Hct 32.5 L 34.1 L (39.0-53.0) % Plt Count 273 274 (150-450) k/uL Comprehensive Metabolic Panel 02/28/17 03/01/17 Range/Units 17:57 06:17 Sodium 139 140 (137-145) mmol/L Potassium 4.2 4.1 (3.5-5.1) mmol/L Chloride 102 102 (98-107) mmol/L Carbon Dioxide 27 29 (22-30) mmol/L BUN 14 12 (9-20) mg/dL Creatinine 0.80 0.76 (0.66-1.25) mg/dL Glucose 208 H 165 H (74-99) mg/dL Calcium 8.8 9.1 (8.4-10.2) mg/dL AST 13 L (17-59) U/L ALT 29 (21-72) U/L Alkaline Phosphatase 101 (38-126) U/L Total Protein 6.1 L (6.3-8.2) g/dL Albumin 3.4 L (3.5-5.0) g/dL Current Medications Generic Name Dose Route Start Last Admin Trade Name Freq PRN Reason Stop Dose Admin Apixaban 5 mg 02/28/17 21:00 03/01/17 09:14 Eliquis PO 5 mg BID [facility] Administration Aspirin 81 mg 03/02/17 19:53 Aspirin PO MOFR [facility] Atorvastatin Calcium 40 mg 02/28/17 21:00 02/28/17 22:06 Lipitor PO 40 mg HS [facility] Administration Dextrose/Sodium Chloride 1,000 mls @ 75 mls/hr 02/28/17 20:00 02/28/17 22:31 Dextrose 5%-1/2ns Iv Soln IV 75 mls/hr .[id number] [facility] Administration Insulin Glargine 22 unit 02/28/17 21:00 03/01/17 09:13 Lantus SQ Not Given BID [facility] Metoprolol Tartrate 25 mg 02/28/17 21:00 03/01/17 09:14 Lopressor PO 25 mg BID [facility] Administration Naloxone HCl 0.2 mg 02/28/17 19:50 Narcan IV Q2M PRN Opioid Reversal Ondansetron HCl 4 mg 02/28/17 19:50 Zofran IVP Q8HR PRN Nausea And Vomiting Intake and Output 02/28/17 03/01/17 03/01/17 22:59 06:59 14:59 Intake Total 550 Balance 550 Intake: Intake, IV Titration 550 Amount Dextrose 5%-0.45% NaCl 1, 450 000 ml @ 75 mls/hr IV . [id number] [facility] Rx#:[id number] Magnesium Sulfate-D5w Pmx 100 1 gm In Dextrose/Water 1 100ml.bag @ 100 mls/hr IVPB Q1H [facility] Rx#: [id number] Other: Weight 82.5 kg 83 kg 03/01/17 06:17 03/01/17 06:17 Assessment and Plan Plan: This is a pleasant 71-year-old gentleman with a known CAD and prior CABG and stenting as well as prior history of stroke with a consequences of poor functional capacity presented to the hospital with chest discomfort. He was ruled out for acute coronary event. I recommended to proceed was a conservative medical approach. I will add Imdur to the current medical treatment. Obtain an echo was Doppler. Follow-up with the patient.
[2017-03-01] MEDS ORDERED: ALBUTEROL NEBULIZED 2.5 MG/3 ML INHALATION PRN (13:04)
[2017-03-01] MEDS ORDERED: DOCUSATE 100 MG CAP PO PRN (13:04)
--- NOTE | 2017-03-01 14:38 | P.HPIM ---
History of Present Illness 71-year-old gentleman came with previous history of coronary artery disease and CABG in [place] [facility] came in with complaints of chest pain brought in by his patient is externally poor historian patient had similar chest pain apparently yesterday which improved at this point of time patient was evaluated by cardiology. Patient had right bundle branch block on the EKG without any significant acute ST-T wave changes. Patient troponins are negative. Patient when questioned further he still has minimal chest pain started after eating a. To be gastroesophageal reflux disease in the epigastric area appears to be acid burn. Patient had a major stroke in June 2016 after which patient has significant memory issues and speech abnormalities because of which is a poor historian and patient is mostly wheelchair bound and extremely poor functional status secondary to stroke. Cardiology evaluated the patient is recommending conservative medical management with addition of him due to his present medical regimen. Patient blood sugars were low and patient was started on D5 because of which I'm holding his sitagliptin and metformin will be continued patient D5 will be discontinued at this time. Review of Systems Rest of the review of systems as mentioned above and patient is extremely poor historian as mentioned above. Past Medical History Past Medical History: Cancer, CVA/TIA, Diabetes Mellitus Additional Past Medical History / Comment(s): bladder cancer, Stroke, Black spots on lung. difficulty with speech and balance after stroke History of Any Multi-Drug Resistant Organisms: None Reported Past Surgical History: Bladder Surgery, Coronary Bypass/CABG, Heart Catheterization With Stent Additional Past Surgical History / Comment(s): Open heart surgery, bypass, aortic valve replacement, loop recorder Past Anesthesia/Blood Transfusion Reactions: No Reported Reaction Date of Last Stent Placement:: 1989 Past Psychological History: No Psychological Hx Reported Smoking Status: Former smoker Past Alcohol Use History: None Reported Past Drug Use History: None Reported - Past Family History Father Family Medical History: Cancer Additional Family Medical History / Comment(s): prostate cancer Mother Family Medical History: Dementia, Hypertension Medications and Allergies Home Medications Medication Instructions Recorded Confirmed Type Albuterol Sulfate [Proventil Hfa] 1 - 2 puff INHALATION RT-Q6H PRN 02/28/1712/10 History Amoxicillin/Potassium Clav 1 tab PO Q12HR 02/28/17 02/28/17 History [Augmentin 875-125 Tablet] Apixaban [Eliquis] 5 mg PO BID 02/28/17 02/28/17 History Aspirin 81 mg PO MOFR 02/28/17 02/28/17 History Atorvastatin Calcium [Lipitor] 40 mg PO HS 02/28/17 02/28/17 History Cranberry Fruit Extract [Cranberry] 500 mg PO BID 02/28/17 02/28/17 History Docusate [Colace] 100 mg PO DAILY PRN 02/28/17 02/28/17 History Insulin Glargine [Lantus] 22 unit SQ BID 02/28/17 02/28/17 History Metoprolol Tartrate [Lopressor] 25 mg PO BID 02/28/17 02/28/17 History Multivitamins, Thera [Multivitamin 1 tab PO DAILY 02/28/17 02/28/17 History (formulary)] Nortriptyline HCl [Pamelor] 25 mg PO HS 02/28/17 02/28/17 History Omeprazole [PriLOSEC] 40 mg PO DAILY 02/28/17 02/28/17 History metFORMIN HCL [metFORMIN HCL ER] 1,000 mg PO DAILY 02/28/17 02/28/17 History sitaGLIPtin [Januvia] 100 mg PO DAILY 02/28/17 02/28/17 History Allergies Allergy/AdvReac Type Severity Reaction Status Date / Time Sulfa (Sulfonamide Allergy Unknown Verified 02/28/17 18:02 Antibiotics) Physical Exam Vitals: Vital Signs Temp Pulse Pulse Pulse Resp BP BP 03/01/17 11:51 96.7 F L 65 18 164/89 03/01/17 08:00 96.7 F L 69 18 146/74 03/01/17 04:00 97.1 F L 66 18 147/75 03/01/17 00:00 97.0 F L 70 18 140/76 02/28/17 21:32 98.1 F 72 18 156/88 02/28/17 21:20 98.1 F 72 18 156/88 02/28/17 20:33 97.3 F L 68 18 158/67 02/28/17 19:06 97.7 F 69 18 161/71 02/28/17 18:00 65 02/28/17 17:48 98.5 F 66 18 169/68 Pulse Ox 03/01/17 11:51 100 03/01/17 08:00 98 03/01/17 04:00 100 03/01/17 00:00 100 02/28/17 21:32 98 02/28/17 21:20 98 02/28/17 20:33 97 02/28/17 19:06 99 02/28/17 18:00 02/28/17 17:48 100 Intake and Output 02/28/17 03/01/17 03/01/17 22:59 06:59 14:59 Intake Total 550 Balance 550 Intake: Intake, IV Titration 550 Amount Dextrose 5%-0.45% NaCl 1, 450 000 ml @ 75 mls/hr IV . [id number] [facility] Rx#:[id number] Magnesium Sulfate-D5w Pmx 100 1 gm In Dextrose/Water 1 100ml.bag @ 100 mls/hr IVPB Q1H [facility] Rx#: [id number] Other: Weight 82.5 kg 83 kg PHYSICAL EXAMINATION: GENERAL: The patient is alert and able to assess his orientation because of above-mentioned reasons patient does have significant speech abnormalities which are chronic, not in any acute distress. Well developed, well nourished. HEENT: Pupils are round and equally reacting to light. EOMI. No scleral icterus. No conjunctival pallor. Normocephalic, atraumatic. No pharyngeal erythema. No thyromegaly. CARDIOVASCULAR: S1 and S2 present. No murmurs, rubs, or gallops. PULMONARY: Chest is clear to auscultation, no wheezing or crackles. ABDOMEN: Soft, nontender, nondistended, normoactive bowel sounds. No palpable organomegaly. MUSCULOSKELETAL: No joint swelling or deformity. EXTREMITIES: No cyanosis, clubbing, or pedal edema. NEUROLOGICAL: Gross neurological examination did not reveal any new focal deficits. SKIN: No rashes. Results CBC & Chem 7: 03/01/17 06:17 03/01/17 06:17 Labs: Abnormal Lab Results - Last 24 Hours (Table) 02/28/17 02/28/17 02/28/17 Range/Units 17:57 17:57 17:57 RBC 3.92 L (4.30-5.90) m/uL Hgb 10.6 L (13.0-17.5) gm/dL Hct 32.5 L (39.0-53.0) % Glucose 208 H (74-99) mg/dL POC Glucose (mg/dL) (75-99) mg/dL Hemoglobin A1c (4.2-6.1) % Magnesium 1.2 L (1.6-2.3) mg/dL AST 13 L (17-59) U/L Total Creatine Kinase 26 L (55-170) U/L Total Protein 6.1 L (6.3-8.2) g/dL Albumin 3.4 L (3.5-5.0) g/dL Lipase 18 L (23-300) U/L 02/28/17 02/28/17 02/28/17 Range/Units 19:39 21:31 23:28 RBC (4.30-5.90) m/uL Hgb (13.0-17.5) gm/dL Hct (39.0-53.0) % Glucose (74-99) mg/dL POC Glucose (mg/dL) 193 H 165 H (75-99) mg/dL Hemoglobin A1c (4.2-6.1) % Magnesium (1.6-2.3) mg/dL AST (17-59) U/L Total Creatine Kinase 25 L (55-170) U/L Total Protein (6.3-8.2) g/dL Albumin (3.5-5.0) g/dL Lipase (23-300) U/L 03/01/17 03/01/17 03/01/17 Range/Units 06:13 : 06:17 RBC 4.09 L (4.30-5.90) m/uL Hgb 11.0 L (13.0-17.5) gm/dL Hct 34.1 L (39.0-53.0) % Glucose 165 H (74-99) mg/dL POC Glucose (mg/dL) 153 H (75-99) mg/dL Hemoglobin A1c (4.2-6.1) % Magnesium (1.6-2.3) mg/dL AST (17-59) U/L Total Creatine Kinase (55-170) U/L Total Protein (6.3-8.2) g/dL Albumin (3.5-5.0) g/dL Lipase (23-300) U/L 08/06/17 08/06/17 08/06/17 Range/Units 06:17 06:17 11:47 RBC (4.30-5.90) m/uL Hgb (13.0-17.5) gm/dL Hct (39.0-53.0) % Glucose (74-99) mg/dL POC Glucose (mg/dL) 138 H (75-99) mg/dL Hemoglobin A1c 9.2 H (4.2-6.1) % Magnesium (1.6-2.3) mg/dL AST (17-59) U/L Total Creatine Kinase 24 L (55-170) U/L Total Protein (6.3-8.2) g/dL Albumin (3.5-5.0) g/dL Lipase (23-300) U/L Thrombosis Risk Factor Assmnt - Choose All That Apply Each Risk Factor Represents 2 Points: Age 61-74 years Thrombosis Risk Factor Assessment Total Risk Factor Score: 2 Thrombosis Risk Factor Assessment Level: Low Risk Assessment and Plan Plan: #1 chest pain: Appears to be gastroesophageal reflux disease although patient is an not a reliable historian cardiology evaluated the patient and added isosorbide mononitrate to his regimen unstable angina cannot be ruled out at this point of time. Patient will be started on Protonix.. #2 cerebrovascular accident last year. Continue with antibiotic therapy and a statin. #3 coronary artery disease status post coronary artery bypass grafting in the past: Continue with his home regimen along with isosorbide mononitrate #4 type 2 diabetes mellitus: Low blood sugars this can use it and continue metformin. #5 history of bladder cancer which is in remission. #6 extremely poor functional status due to his previous stroke and possible vascular dementia
[2017-03-01] MEDS: DEXTROSE 5%-0.45% NACL 1,000 ML IV SCH ×2 (14:48→20:27)
[2017-03-01] MEDS: metFORMIN 500 MG TAB PO SCH (17:19)
[2017-03-01 17:22] LABS: Glucose,Whole Blood 204 mg/dL (75-99)
[2017-03-01] MEDS: ATORVASTATIN 40 MG TAB PO SCH (20:20)
[2017-03-01 20:21] LABS: Glucose,Whole Blood 253 mg/dL (75-99)
[2017-03-01] MEDS ORDERED: NON-FORMULARY DRUG (Cranberry Fruit Extract [Cranberry] 500 MG) PO SCH (21:00)
[2017-03-01] MEDS ORDERED: NORTRIPTYLINE 25 MG CAP PO SCH (21:00)
[2017-03-02 05:58] LABS: Glucose,Whole Blood 123 mg/dL (75-99)
[2017-03-02] MEDS: metFORMIN 500 MG TAB PO SCH (06:14)
[2017-03-02] MEDS: METOPROLOL TARTRATE 25 MG TAB PO SCH (08:19)
[2017-03-02] MEDS: INSULIN GLARGINE 100 UNIT/ML 10 ML VIAL SQ SCH (08:19)
[2017-03-02] MEDS: APIXABAN 5 MG TAB PO SCH (08:20)
[2017-03-02] MEDS ORDERED: ISOSORBIDE MONONITRATE ER 30 MG TAB.ER.24H PO SCH (09:00)
[2017-03-02 10:29] LABS: Glucose,Whole Blood 132 mg/dL (75-99)
[2017-03-02] MEDS: DEXTROSE 5%-0.45% NACL 1,000 ML IV SCH (10:49)
[2017-03-02 11:25] LABS: Glucose,Whole Blood 150 mg/dL (75-99)
[2017-03-02] MEDS: MAGNESIUM SULFATE-D5W PMX 1 GM in DEXTROSE/WATER 1 100ML.BAG IVPB SCH ×2 (11:40→12:46)
--- NOTE | 2017-03-02 12:29 | P.PN ---
Subjective Principal diagnosis: CAD This is a pleasant 72-year-old male patient who never seen a network director here in town who used to see a network director at [facility] was brought by his to the hospital because of chest discomfort. The patient suffered from a large stroke in June 2016 and since then he has been almost bedridden and wheelchair-bound. The story was taken from his was bedside with him. The patient has very poor communication to take the history from. He was at home yesterday when he started experiencing chest discomfort for. The decided to bring him to the emergency room. The EKG showed sinus rhythm with RBBB. The cardiac enzymes were checked and came in to be unremarkable. Please note that the patient is known to have CAD where he underwent CABG and stenting in the past at [place] but we don't have any details on that at this point. In view of the patient's poor functional status I recommended proceeding with a conservative medical approach and medical treatment only. The echocardiogram still pending. The patient was started on Imdur. Objective - Vital Signs Vital signs: Vital Signs Temp 98.1 F 03/02/17 08:20 Pulse 77 03/02/17 08:20 Resp 18 03/02/17 08:20 BP 128/65 03/02/17 08:20 Pulse Ox 93 L 03/02/17 08:20 Intake & Output 03/01/17 03/02/17 03/02/17 18:59 06:59 18:59 Intake Total 600 360 Balance 600 360 Weight 82 kg Intake: Intake, IV Titration 600 Amount Dextrose 5%-0.45% NaCl 1, 600 000 ml @ 75 mls/hr IV . [id number] [facility] Rx#:[id number] Oral 360 Other: # Voids 1 - Constitutional General appearance: Present: no acute distress - Respiratory Respiratory: bilateral: diminished - Cardiovascular Rhythm: regular Heart sounds: normal: S1, S2 - Labs CBC & Chem 7: 03/01/17 06:17 03/01/17 06:17 Labs: Abnormal Lab Results - Last 24 Hours (Table) 03/01/17 03/01/17 03/02/17 Range/Units 17:05 20:19 05:56 POC Glucose (mg/dL) 204 H 253 H 123 H (75-99) mg/dL 03/02/17 03/02/17 Range/Units 10:15 11:23 POC Glucose (mg/dL) 132 H 150 H (75-99) mg/dL Assessment and Plan Plan: This is a pleasant 71-year-old gentleman with a known CAD and prior CABG and stenting as well as prior history of stroke with a consequences of poor functional capacity presented to the hospital with chest discomfort. He was ruled out for acute coronary event. I recommended to proceed was a conservative medical approach. Continues Imdur. Obtain an echo was Doppler. Follow-up with the patient.
[2017-03-02 12:38] VITALS: BP 115/63; PULSE 68; TEMP 97.4
--- NOTE | 2017-03-02 14:38 | P.DS ---
Providers Date of admission: 02/28/17 19:50 Attending physician: Keysha Christianson Consults: 02/28/17 19:51 Consult Physician Urgent Consulting Provider: Silvia Tsai Consult Reason/Comments: Chest Pain Do you want consulting provider notified?: Yes, Notify in am Primary care physician: Stated None Hospital Course: 71-year-old gentleman came with previous history of coronary artery disease and CABG in [facility] came in with complaints of chest pain brought in by his patient is externally poor historian patient had similar chest pain apparently yesterday which improved at this point of time patient was evaluated by cardiology. Patient had right bundle branch block on the EKG without any significant acute ST-T wave changes. Patient troponins are negative. Patient when questioned further he still has minimal chest pain started after eating a. To be gastroesophageal reflux disease in the epigastric area appears to be acid burn. Patient had a major stroke in June 2016 after which patient has significant memory issues and speech abnormalities because of which is a poor historian and patient is mostly wheelchair bound and extremely poor functional status secondary to stroke. Cardiology evaluated the patient is recommending conservative medical management with addition of him due to his present medical regimen. Patient blood sugars were low and patient was started on D5 because of which I'm holding his sitagliptin and metformin will be continued patient D5 will be discontinued at this time. 03/02/2017 Patient is clinically doing well no more chest pain. Patient will be discharged today. GENERAL: The patient is alert and able to assess his orientation because of above-mentioned reasons patient does have significant speech abnormalities which are chronic, not in any acute distress. Well developed, well nourished. HEENT: Pupils are round and equally reacting to light. EOMI. No scleral icterus. No conjunctival pallor. Normocephalic, atraumatic. No pharyngeal erythema. No thyromegaly. CARDIOVASCULAR: S1 and S2 present. No murmurs, rubs, or gallops. PULMONARY: Chest is clear to auscultation, no wheezing or crackles. ABDOMEN: Soft, nontender, nondistended, normoactive bowel sounds. No palpable organomegaly. MUSCULOSKELETAL: No joint swelling or deformity. EXTREMITIES: No cyanosis, clubbing, or pedal edema. NEUROLOGICAL: Gross neurological examination did not reveal any new focal deficits. SKIN: No rashes. #1 chest pain: Appears to be gastroesophageal reflux disease although patient is an not a reliable historian cardiology evaluated the patient and added isosorbide mononitrate to his regimen unstable angina cannot be ruled out at this point of time. Patient will continue his Protonix upon discharge #2 cerebrovascular accident last year. Continue with antibiotic therapy and a statin. #3 coronary artery disease status post coronary artery bypass grafting in the past: Continue with his home regimen along with isosorbide mononitrate #4 type 2 diabetes mellitus: Low blood sugars this can use it and continue metformin. #5 history of bladder cancer which is in remission. #6 extremely poor functional status due to his previous stroke and possible vascular dementia Patient Condition at Discharge: Stable Plan - Discharge Summary New Discharge Prescriptions: New Isosorbide Mononitrate ER [Imdur] 30 mg PO DAILY #30 tab Continue sitaGLIPtin [Januvia] 100 mg PO DAILY metFORMIN HCL [metFORMIN HCL ER] 1,000 mg PO DAILY Cranberry Fruit Extract [Cranberry] 500 mg PO BID Multivitamins, Thera [Multivitamin (formulary)] 1 tab PO DAILY Docusate [Colace] 100 mg PO DAILY PRN PRN Reason: Constipation Omeprazole [PriLOSEC] 40 mg PO DAILY Albuterol Sulfate [Proventil Hfa] 1 - 2 puff INHALATION RT-Q6H PRN PRN Reason: Shortness Of Breath Nortriptyline HCl [Pamelor] 25 mg PO HS Metoprolol Tartrate [Lopressor] 25 mg PO BID Atorvastatin Calcium [Lipitor] 40 mg PO HS Aspirin 81 mg PO MOFR Apixaban [Eliquis] 5 mg PO BID Changed Insulin Glargine [Lantus] 10 unit SQ HS #0 Discontinued Amoxicillin/Potassium Clav [Augmentin 875-125 Tablet] 1 tab PO Q12HR Discharge Medication List Albuterol Sulfate [Proventil Hfa] 1 - 2 puff INHALATION RT-Q6H PRN 02/28/17 [ History] Apixaban [Eliquis] 5 mg PO BID 02/28/17 [History] Aspirin 81 mg PO MOFR 02/28/17 [History] Atorvastatin Calcium [Lipitor] 40 mg PO HS 02/28/17 [History] Cranberry Fruit Extract [Cranberry] 500 mg PO BID 02/28/17 [History] Docusate [Colace] 100 mg PO DAILY PRN 02/28/17 [History] Metoprolol Tartrate [Lopressor] 25 mg PO BID 02/28/17 [History] Multivitamins, Thera [Multivitamin (formulary)] 1 tab PO DAILY 02/28/17 [History ] Nortriptyline HCl [Pamelor] 25 mg PO HS 02/28/17 [History] Omeprazole [PriLOSEC] 40 mg PO DAILY 02/28/17 [History] metFORMIN HCL [metFORMIN HCL ER] 1,000 mg PO DAILY 02/28/17 [History] sitaGLIPtin [Januvia] 100 mg PO DAILY 02/28/17 [History] Insulin Glargine [Lantus] 10 unit SQ HS #0 03/02/17 [Rx] Isosorbide Mononitrate ER [Imdur] 30 mg PO DAILY #30 tab 03/02/17 [Rx] Follow up Appointment(s)/Referral(s): [facility], [NON-STAFF] - None,Stated [Primary Care Provider] - 3 Days Patient Instructions/Handouts: Chest Pain (DC) Discharge Disposition: HOME WITH HOME HEALTH SERVICES
--- NOTE | 2017-03-02 16:20 | ECHOF ---
Referral Reason:chest pain MEASUREMENTS -------- HEIGHT: 177.8 cm WEIGHT: 81.6 kg BP: 133/83 RVIDd: 3.2 cm (< 3.3) IVSd: 1.1 cm (0.6 - 1.1) LVIDd: 4.0 cm (3.9 - 5.3) LVPWd: 1.2 cm (0.6 - 1.1) IVSs: 1.6 cm LVIDs: 3.0 cm LVPWs: 1.4 cm LA Diam: 3.9 cm (2.7 - 3.8) Ao Diam: 3.1 cm (2.0 - 3.7) MV EXCURSION: 9.892 mm (> 18.000) MV EF SLOPE: 27 mm/s (70 - 150) EPSS: 0.5 cm MV E Gilberto: 0.53 m/s MV DecT: 444 ms MV A Gilberto: 0.72 m/s MV E/A Ratio: 0.74 AV maxP.89 mmHg AV meanP.04 mmHg RAP: 5.00 mmHg RVSP: 24.64 mmHg FINDINGS -------- Sinus rhythm. This was a technically difficult study with suboptimal views. The left ventricular size is normal. There is borderline concentric left ventricular hypertrophy. Overall left ventricular systolic function is normal with, an EF between 60 - 65 %. The right ventricle is normal in size. The left atrial size is normal. The right atrium was not well visualized. 1.5mg of Definity was utilized for enhancement of images Peak/mean gradient across the Aortic Valve is 11.89mmHg / 7.04mmHg. Normally functioning bioprosthetic valve. Mild mitral annular calcification present. Mild tricuspid regurgitation present. Right ventricular systolic pressure is normal at < 35 mmHg. There is no pulmonic regurgitation present. The aortic root size is normal. Normal inferior vena cava with normal inspiratory collapse consistent with estimated right atrial pressure of 5 mmHg. There is no pericardial effusion. CONCLUSIONS -------- 1. Sinus rhythm. 2. Peak/mean gradient across the Aortic Valve is 11.89mmHg / 7.04mmHg. 3. Normally functioning bioprosthetic valve. 4. Mild mitral annular calcification present. 5. Mild tricuspid regurgitation present. 6. Right ventricular systolic pressure is normal at < 35 mmHg. 7. There is no pulmonic regurgitation present. 8. The aortic root size is normal. 9. Normal inferior vena cava with normal inspiratory collapse consistent with estimated right atrial pressure of 5 mmHg. 10. There is no pericardial effusion. 11. This was a technically difficult study with suboptimal views. 12. The left ventricular size is normal. 13. There is borderline concentric left ventricular hypertrophy. 14. Overall left ventricular systolic function is normal with, an EF between 60 - 65 %. 15. The right ventricle is normal in size. 16. The left atrial size is normal. 17. The right atrium was not well visualized. 18. 1.5mg of Definity was utilized for enhancement of images PLUMBING INSPECTOR: Isabel Fernández RDCS
[2017-03-02] MEDS ORDERED: ASPIRIN 81 MG CHEW PO SCH (19:53)
== END 2017-03-02 14:34 | disposition home health service (06) | DRG 303 ==
LOC: EC 17:32 → 6SEL 19:50
PROVIDERS: ADMIT Hospitalist; ATTEND Hospitalist
DX: I25.110 Atherosclerotic heart disease of native coronary artery with unstable angina pectoris (principal); F01.50 Vascular dementia, unspecified severity, without behavioral disturbance, psychotic disturbance, mood disturbance, and anxiety; E11.9 Type 2 diabetes mellitus without complications; K21.9 Gastro-esophageal reflux disease without esophagitis; I45.10 Unspecified right bundle-branch block; I69.393 Ataxia following cerebral infarction; I69.328 Other speech and language deficits following cerebral infarction; I69.320 Aphasia following cerebral infarction; Z85.51 Personal history of malignant neoplasm of bladder; Z95.1 Presence of aortocoronary bypass graft; Z99.3 Dependence on wheelchair; Z79.899 Other long term (current) drug therapy; Z79.82 Long term (current) use of aspirin; Z79.4 Long term (current) use of insulin; Z79.01 Long term (current) use of anticoagulants; Z80.42 Family history of malignant neoplasm of prostate; Z82.49 Family history of ischemic heart disease and other diseases of the circulatory system; Z87.891 Personal history of nicotine dependence; Z95.2 Presence of prosthetic heart valve; Z86.79 Personal history of other diseases of the circulatory system; Z88.2 Allergy status to sulfonamides; Z95.5 Presence of coronary angioplasty implant and graft; Z81.8 Family history of other mental and behavioral disorders
CPT/HCPCS: 36415; 71020; 80048; 80053; 82550; 82553; 83036; 83690; 83735; 83880; 84484; 85025; 85610; 85730; 93005; 93306; 96365; 99285

== ENCOUNTER 2017-03-03 14:28 | Inpatient (IN) | payer MEDICARE ==
[2017-03-03 15:00] LABS: Basophils # (A) 0.1 k/uL (0-0.2); Basophils % (A) 1 %; CH 27.1; CHCM 32.7; Eosinophils # (A) 0.3 k/uL (0-0.7); Eosinophils % (A) 3 %; HCT 32.6 % (39.0-53.0); HDW 2.69; HGB 10.3 gm/dL (13.0-17.5); Luc # (Auto) 0.22; Luc % (Auto) 3; Lymphocytes % (A) 25 %; MCH 26.4 pg (25.0-35.0); MCHC 31.6 g/dL (31.0-37.0); MCV 83.3 fL (80.0-100.0); Mean Platelet Volume 8.6; Monocytes # (A) 0.5 k/uL (0-1.0); Monocytes % (A) 6 %; Neutrophils % (A) 62 %; RBC 3.91 m/uL (4.30-5.90); RDW 14.4 % (11.5-15.5); WBC 8.1 k/uL (3.8-10.6); WBC (Perox) 8.77
[2017-03-03 15:10] LABS: ALT 25 U/L (21-72); AST 15 U/L (17-59); Alkaline Phosphatase 95 U/L (38-126); Anion Gap 11 mmol/L; Blood Urea Nitrogen 15 mg/dL (9-20); Calcium 8.7 mg/dL (8.4-10.2); Carbon Dioxide 25 mmol/L (22-30); Chloride 103 mmol/L (98-107); Glucose 226 mg/dL (74-99); INR 1.1 (<1.2); Non-African American GFR(MDRD) >60 (>60 ml/min/1.73 sqM); Partial Thromboplastin Time 25.8 sec (22.0-30.0); Potassium 4.2 mmol/L (3.5-5.1); Prothrombin Time 11.3 sec (9.0-12.0); Sodium 139 mmol/L (137-145); Total Bilirubin 0.6 mg/dL (0.2-1.3); Total Protein 6.1 g/dL (6.3-8.2)
[2017-03-03 15:25] LABS: Creatine Kinase 24 U/L (55-170)
--- NOTE | 2017-03-03 15:33 | CT ---
EXAMINATION TYPE: CT brain wo con DATE OF EXAM: 03/03/2017 COMPARISON: NONE HISTORY: Altered mental status. CT DLP: 1159.00 mGycm Automated exposure control for dose reduction was used. FINDINGS: There is extensive generalized degenerative change. Periventricular low attenuation is nonspecific bu t most typical remote microvascular ischemia. Focal area of abnormal signal within the basal ganglia suggestive of remote lacunar infarction. No midline shift or mass effect. No acute hemorrhage. Changes of chronic sinusitis noted. Calvarium intact. IMPRESSION: DEGENERATIVE AND NONSPECIFIC WHITE MATTER CHANGES. MOST LIKELY IN THE BASES REMOTE MICROVASCULAR ISCH EMIA. IF THERE IS CONCERN FOR ACUTE ISCHEMIA CORRELATE WITH MRI CLINICALLY WARRANTED.
--- NOTE | 2017-03-03 15:35 | XR ---
EXAMINATION TYPE: XR chest 2V DATE OF EXAM: 03/03/2017 COMPARISON: Prior chest x-ray 02/28/[address] 01/31/2017 HISTORY: Altered mental status TECHNIQUE: Frontal and lateral views of the chest are obtained. FINDINGS: Patient is rotated. Patient is post median sternotomy. Cardiomediastinal silhouette, pulmo nary vascularity and anastasiya are stable. Chronic pleural thickening suspected at the right costophrenic angle. There is an overlying recorder. Patient is status post cardiac valve replacement. Prominent hector ng volumes compatible with underlying COPD. IMPRESSION: Findings in the right lung base may represent round atelectasis. Follow-up to assess for stability. Postop changes.
[2017-03-03 15:37] LABS: Creatine Kinase MB 0.6 ng/mL (0.0-2.4); Troponin I <0.012 ng/mL (0.000-0.034)
[2017-03-03] MEDS ORDERED: ASPIRIN 325 MG TAB PO STA (16:43)
[2017-03-03] MEDS ORDERED: DOCUSATE 100 MG CAP PO PRN (16:47)
--- NOTE | 2017-03-03 16:56 | ED ---
General Adult HPI - General Chief complaint: Weakness Stated complaint: Altered Mental Status Time Seen by Provider: 03/03/17 14:34 Source: family, EMS, RN notes reviewed, old records reviewed Mode of arrival: EMS Limitations: language barrier, altered mental status - History of Present Illness Initial comments: 72-year-old male presents with right arm weakness. Patient awoke at 9 AM with these symptoms. He is accompanied by his who is able to give history. Patient has baseline aphasia and dementia. Patient had previous stroke with right upper extremity weakness according to his which resolved with physical therapy. This morning he was unable to move his right arm at all. This improved throughout the morning at the time of arrival patient has equal bilateral upper extremity strength. Patient's denies any nausea vomiting or diarrhea. Patient was evaluated several days ago in the hospital for chest pain. Denies any recurrent chest pain. According to patient's his mental status is at baseline. Patient will answer simple questions. But complete history is difficult secondary to aphasia and dementia. - Related Data Home Medications Medication Instructions Recorded Confirmed Albuterol Sulfate [Proventil Hfa] 1 - 2 puff INHALATION RT-Q6H PRN 02/28/1703/12 Apixaban [Eliquis] 5 mg PO BID 02/28/17 03/03/17 Aspirin 81 mg PO MOFR 02/28/17 03/03/17 Atorvastatin Calcium [Lipitor] 40 mg PO HS 02/28/17 03/03/17 Cranberry Fruit Extract [Cranberry] 500 mg PO BID 02/28/17 03/03/17 Docusate [Colace] 100 mg PO DAILY PRN 02/28/17 03/03/17 Metoprolol Tartrate [Lopressor] 25 mg PO BID 02/28/17 03/03/17 Multivitamins, Thera [Multivitamin 1 tab PO DAILY 02/28/17 03/03/17 (formulary)] Nortriptyline HCl [Pamelor] 25 mg PO HS 02/28/17 03/03/17 Omeprazole [PriLOSEC] 40 mg PO DAILY 02/28/17 03/03/17 metFORMIN HCL [metFORMIN HCL ER] 1,000 mg PO DAILY 02/28/17 03/03/17 sitaGLIPtin [Januvia] 100 mg PO DAILY 02/28/17 03/03/17 Previous Rx's Medication Instructions Recorded Insulin Glargine [Lantus] 10 unit SQ HS #0 03/02/17 Isosorbide Mononitrate ER [Imdur] 30 mg PO DAILY #30 tab 03/02/17 Allergies Allergy/AdvReac Type Severity Reaction Status Date / Time Sulfa (Sulfonamide Allergy Unknown Verified 03/03/17 15:09 Antibiotics) Review of Systems ROS Statement: Those systems with pertinent positive or pertinent negative responses have been documented in the HPI. Limitations: ROS unobtainable due to patients medical condition Past Medical History Past Medical History: Cancer, CVA/TIA, Diabetes Mellitus Additional Past Medical History / Comment(s): bladder cancer, Stroke, Black spots on lung. difficulty with speech and balance after stroke History of Any Multi-Drug Resistant Organisms: None Reported Past Surgical History: Bladder Surgery, Coronary Bypass/CABG, Heart Catheterization With Stent Additional Past Surgical History / Comment(s): Open heart surgery, bypass, aortic valve replacement, loop recorder Past Anesthesia/Blood Transfusion Reactions: No Reported Reaction Date of Last Stent Placement:: 1989 Past Psychological History: No Psychological Hx Reported Smoking Status: Former smoker Past Alcohol Use History: None Reported Past Drug Use History: None Reported - Past Family History Father Family Medical History: Cancer Additional Family Medical History / Comment(s): prostate cancer Mother Family Medical History: Dementia, Hypertension General Exam Limitations: language barrier, altered mental status General appearance: alert, in no apparent distress Head exam: Present: atraumatic, normocephalic Eye exam: Present: normal appearance, PERRL, EOMI. Absent: scleral icterus ENT exam: Present: normal exam, mucous membranes moist Neck exam: Present: normal inspection. Absent: tenderness, meningismus Respiratory exam: Present: normal lung sounds bilaterally. Absent: respiratory distress Cardiovascular Exam: Present: regular rate, normal rhythm GI/Abdominal exam: Present: soft. Absent: distended, tenderness, guarding Extremities exam: Present: normal inspection, normal capillary refill. Absent: pedal edema Neurological exam: Present: alert (No facial weakness, bilateral upper extremities are weak, however symmetric, bilateral lower extremities show no focal weakness) Psychiatric exam: Present: normal affect, normal mood Skin exam: Present: warm, dry. Absent: cyanosis, diaphoretic Course Vital Signs 03/03/17 03/03/17 14:39 15:38 Temperature 97.0 F L 97.1 F L Pulse Rate 71 81 Pulse Rate [ 88 Manual Qa Tester ] Respiratory 18 18 Rate Blood Pressure 167/79 156/70 O2 Sat by Pulse 99 98 Oximetry EKG Findings - EKG Comments: EKG Findings:: EKG shows normal sinus rhythm ventricular 72, MN interval 202, QRS 138, QTC 43, there is a right bundle branch block, no signs of acute ischemia Medical Decision Making - Medical Decision Making 71-year-old male presenting with right upper extremity weakness. Patient's neurological examination is nonfocal, there is no gaze deviation, no facial asymmetry or facial droop, bilateral upper extremities are weak but symmetric, bilateral lower extremities symmetric. By history the patient did have flaccid right upper extremity paralysis, according to his he was unable to move this arm at all. He does have a history of CVA and according to his his previous stroke left his right arm weak, however improved with physical therapy. Head CT shows no intracranial hemorrhage or acute process, chest x-ray is negative for focal pneumonia or acute finding. Laboratory studies are unremarkable. Patient is given bedside swallow study and given full-strength aspirin. Patient will be admitted for neurology evaluation. Diagnosis: TIA - Lab Data Result diagrams: 03/03/17 14:51 03/03/17 14:51 Lab Results 03/03/17 03/03/17 03/03/17 Range/Units 14:51 14:51 14:51 WBC 8.1 (3.8-10.6) k/uL RBC 3.91 L (4.30-5.90) m/uL Hgb 10.3 L (13.0-17.5) gm/dL Hct 32.6 L (39.0-53.0) % MCV 83.3 (80.0-100.0) fL MCH 26.4 (25.0-35.0) pg MCHC 31.6 (31.0-37.0) g/dL RDW 14.4 (11.5-15.5) % Plt Count 267 (150-450) k/uL Neutrophils % 62 % Lymphocytes % 25 % Monocytes % 6 % Eosinophils % 3 % Basophils % 1 % Neutrophils # 5.0 (1.3-7.7) k/uL Lymphocytes # 2.0 (1.0-4.8) k/uL Monocytes # 0.5 (0-1.0) k/uL Eosinophils # 0.3 (0-0.7) k/uL Basophils # 0.1 (0-0.2) k/uL PT (9.0-12.0) sec INR (<1.2) APTT (22.0-30.0) sec Sodium 139 (137-145) mmol/L Potassium 4.2 (3.5-5.1) mmol/L Chloride 103 (98-107) mmol/L Carbon Dioxide 25 (22-30) mmol/L Anion Gap 11 mmol/L BUN 15 (9-20) mg/dL Creatinine 0.77 (0.66-1.25) mg/dL Est GFR (MDRD) Af Amer >60 (>60 ml/min/1.73 sqM) Est GFR (MDRD) Non-Af >60 (>60 ml/min/1.73 sqM) Glucose 226 H (74-99) mg/dL Calcium 8.7 (8.4-10.2) mg/dL Total Bilirubin 0.6 (0.2-1.3) mg/dL AST 15 L (17-59) U/L ALT 25 (21-72) U/L Alkaline Phosphatase 95 (38-126) U/L Total Creatine Kinase 24 L (55-170) U/L CK-MB (CK-2) 0.6 (0.0-2.4) ng/mL CK-MB (CK-2) Rel Index 2.5 Troponin I <0.012 (0.000-0.034) ng/mL Total Protein 6.1 L (6.3-8.2) g/dL Albumin 3.5 (3.5-5.0) g/dL 03/03/17 Range/Units 14:51 WBC (3.8-10.6) k/uL RBC (4.30-5.90) m/uL Hgb (13.0-17.5) gm/dL Hct (39.0-53.0) % MCV (80.0-100.0) fL MCH (25.0-35.0) pg MCHC (31.0-37.0) g/dL RDW (11.5-15.5) % Plt Count (150-450) k/uL Neutrophils % % Lymphocytes % % Monocytes % % Eosinophils % % Basophils % % Neutrophils # (1.3-7.7) k/uL Lymphocytes # (1.0-4.8) k/uL Monocytes # (0-1.0) k/uL Eosinophils # (0-0.7) k/uL Basophils # (0-0.2) k/uL PT 11.3 (9.0-12.0) sec INR 1.1 (<1.2) APTT 25.8 (22.0-30.0) sec Sodium (137-145) mmol/L Potassium (3.5-5.1) mmol/L Chloride (98-107) mmol/L Carbon Dioxide (22-30) mmol/L Anion Gap mmol/L BUN (9-20) mg/dL Creatinine (0.66-1.25) mg/dL Est GFR (MDRD) Af Amer (>60 ml/min/1.73 sqM) Est GFR (MDRD) Non-Af (>60 ml/min/1.73 sqM) Glucose (74-99) mg/dL Calcium (8.4-10.2) mg/dL Total Bilirubin (0.2-1.3) mg/dL AST (17-59) U/L ALT (21-72) U/L Alkaline Phosphatase (38-126) U/L Total Creatine Kinase (55-170) U/L CK-MB (CK-2) (0.0-2.4) ng/mL CK-MB (CK-2) Rel Index Troponin I (0.000-0.034) ng/mL Total Protein (6.3-8.2) g/dL Albumin (3.5-5.0) g/dL Disposition Clinical Impression: TIA (transient ischemic attack) Disposition: ADMITTED IP TO THIS [facility] Condition: Stable Referrals: Rg Valdes MD [Primary Care Provider] - 1-2 days Decision to Admit Reason: Admit from EC Decision Date: 03/03/17 Decision Time: 16:55
[2017-03-03] MEDS: SODIUM CHLORIDE 0.9% 1,000 ML IV SCH (17:10)
[2017-03-03 20:49] LABS: Glucose,Whole Blood 125 mg/dL (75-99)
--- NOTE | 2017-03-03 21:11 | US ---
EXAMINATION TYPE: US carotid duplex BILAT DATE OF EXAM: 03/03/2017 COMPARISON: NONE CLINICAL HISTORY: Stenosis. EXAM MEASUREMENTS: RIGHT: Peak Systolic Velocity (PSV) cm/sec ----- Right CCA: 42 ----- Right ICA: 88.9 ----- Right ECA: 90.5 ICA/CCA ratio: 2.1 RIGHT: End Diastole cm/sec ----- Right CCA: 8.6 ----- Right ICA: 21.9 ----- Right ECA: 0 LEFT: Peak Systolic Velocity (PSV) cm/sec ----- Left CCA: 67.1 ----- Left ICA: 105 ----- Left ECA: 101.8 ICA/CCA ratio: 1.6 LEFT: End Diastole cm/sec ----- Left CCA: 14.8 ----- Left ICA: 17 ----- Left ECA: 6.1 VERTEBRALS (direction of flow): Right Vertebral: Antegrade Left Vertebral: Antegrade Exam limited due to patient unable to move neck IMPRESSION: Exam is slightly limited secondary to patient mobility. 1. Mildly elevated right internal carotid artery to common carotid artery ratio and minimal richardson scal e plaquing of the right carotid artery and carotid bulb corresponding to stenosis of approximately 50 %. 2. No evidence of hemodynamically significant stenosis on the left.
[2017-03-03] MEDS: APIXABAN 5 MG TAB PO SCH (21:45)
[2017-03-03] MEDS: NORTRIPTYLINE 25 MG CAP PO SCH (21:45)
[2017-03-03] MEDS: INSULIN GLARGINE 100 UNIT/ML 10 ML VIAL SQ SCH (21:45)
[2017-03-03] MEDS: METOPROLOL TARTRATE 25 MG TAB PO SCH (21:45)
[2017-03-03] MEDS: ATORVASTATIN 40 MG TAB PO SCH (21:45)
[2017-03-04 06:00] LABS: Glucose,Whole Blood 111 mg/dL (75-99)
[2017-03-04 06:19] LABS: Cholesterol 100 mg/dL (<200); HDL Cholesterol 35 mg/dL (40-60)
[2017-03-04] MEDS: APIXABAN 5 MG TAB PO SCH ×2 (08:46→20:39)
[2017-03-04] MEDS: METOPROLOL TARTRATE 25 MG TAB PO SCH ×2 (08:46→20:39)
[2017-03-04] MEDS: LINAGLIPTIN 5 MG TABLET PO SCH (08:46)
[2017-03-04] MEDS: metFORMIN 500 MG TAB PO SCH ×2 (08:46→18:41)
[2017-03-04] MEDS: ASPIRIN 325 MG TAB PO SCH (08:47)
--- NOTE | 2017-03-04 10:02 | CONS ---
DATE OF CONSULTATION: 03/03/2017 CHIEF COMPLAINT: Stroke. HISTORY OF PRESENT ILLNESS: Mr. Jalloh is a pleasant 71-year-old male who is being evaluated today on 03/03/2017 by the Neurology Service per the request of Dr. Beverly for a stroke. The patient was brought into [facility] emergency room after he was noticed to be having right arm weakness. The patient is a poor historian and no family member is present at the time of my evaluation. According to the chart, the patient has a previous history of a stroke which left him with right upper extremity weakness but this did resolve after extensive physical therapy. He has also been having recurrent chest pain but a recent workup was negative for any acute heart disease. A CT scan of the brain was done on this admission which showed no acute abnormalities. There was evidence of small vessel ischemic changes. His CBC shows anemia with a hemoglobin of 10.3 and hematocrit of 32%. His comprehensive metabolic profile was normal except for hyperglycemia at 226. At the time of my evaluation, the patient is sitting up in his bed and appears to be in no acute distress. He appears to be having a mixed aphasia but his baseline is unknown. PAST MEDICAL HISTORY: Stroke, paroxysmal atrial fibrillation, diabetes, bladder cancer, coronary artery disease, history of coronary artery bypass grafting, history of aortic valve replacement, history of bladder surgery. SOCIAL HISTORY: The patient is a former smoker. There is no history of any alcohol or drug use. FAMILY HISTORY: Positive for cancer, dementia and hypertension. Home medications reviewed in the chart. ALLERGIES: SULFA DRUGS. REVIEW OF SYSTEMS: Unable to obtain due to mixed aphagia. PHYSICAL EXAM: Vital signs show a temperature of 97.1, pulse 71, respiration 18, blood pressure 182/84. GENERAL APPEARANCE: The patient is a well-developed, elderly male who appears to be in no acute distress. HEENT: Normocephalic, atraumatic, no obvious facial asymmetry is seen. Neck is supple with no masses felt. CARDIOVASCULAR: Regular rate and rhythm. ABDOMEN: Nontender, nondistended. Extremities showed trace edema with no clubbing seen. NEUROLOGICAL EXAM: The patient is awake and oriented to person only. Language testing showed reduced fluency and difficulty with naming and repetition. He also has some difficulties with comprehension as he sometimes follows simple commands and other times does not during the examination. Strength appears to be 4+/5 in the right upper extremity and 5-/5 elsewhere. No tremors or seizure- like activity is seen. No facial asymmetry is noticed on cranial nerve testing. IMPRESSION: 1. Acute ischemic stroke, left middle cerebral artery distribution. 2 Mixed aphagia. 3. Right upper extremity weakness. 4. Paroxysmal atrial fibrillation. 5. Anemia. RECOMMENDATION: The patient does appear to have suffered an acute ischemic stroke with mild right upper extremity weakness and a mixed aphagia. Again, his exact baseline is unknown but he is having language difficulties on my examination. The patient is already on anticoagulation therapy with Eliquis and he is also on aspirin 81 mg daily. He is not having any swallowing difficulties. Continue aspirin and Eliquis. I do recommend a Cardiology consultation. I will order an MRI of the brain without contrast along with a fasting lipid panel, EEG, and serum homocysteine level. I will consult Speech Therapy and Physical Therapy. Continue IV hydration as tolerated. I will continue to follow with you. Further recommendations to follow. Thank you for allowing me to participate in the care of your patient. If you have any questions, please feel free to contact me. CHADD
[2017-03-04] MEDS ORDERED: ALBUTEROL NEBULIZED 2.5 MG/3 ML INHALATION PRN (11:15)
[2017-03-04 11:52] LABS: Glucose,Whole Blood 122 mg/dL (75-99)
--- NOTE | 2017-03-04 11:57 | P.HPIM ---
History of Present Illness 71-year-old gentleman was recently discharged from my service after he was evaluated for chest pain. Patient started having weakness history morning in the left upper arm patient does have increase in weakness upon exam on my exam yesterday he had 4 x 5 strength now around 2 x 5 strength in the left upper limb. Patient had history of massive cerebrovascular accident around number June last year with residual weakness in the right side. Patient right limb strength does not did not appear to have changed. Patient is extremely poor historian because of which I'm not able to get any kind of history from the patient. Patient chest pain is questionable at this time. Patient was evaluated for this chest pain during his previous hospitalization and cardiology recommended isosorbide mononitrate. Which will be continued. Patient is already on anticoagulation with aliquis and also aspirin. The patient is already on statin as well was evaluated by neurology unable to get an MRI because of his of the monitor he has. Nothing much can be done except for physical therapy because of which will obtain physical therapy consultation patient may need to be discharged to subacute rehabilitation. Review of Systems Unable to obtain due to his clinical condition and rest of the review of systems are negative except those mentioned in HPI Past Medical History Past Medical History: Coronary Artery Disease (CAD), Cancer, CVA/TIA, Diabetes Mellitus, Hyperlipidemia, Hypertension Additional Past Medical History / Comment(s): bladder cancer, PT POOR HISTORIAN SINCE Stroke JUN 2016.HAS difficulty with speech and balance after stroke affected rt side(did recieved pt ), previously charted "black spots on lung" History of Any Multi-Drug Resistant Organisms: None Reported Past Surgical History: Bladder Surgery, Coronary Bypass/CABG, Heart Catheterization With Stent Additional Past Surgical History / Comment(s): Open heart surgery, bypass, aortic valve replacement, loop recorder Past Anesthesia/Blood Transfusion Reactions: No Reported Reaction Date of Last Stent Placement:: 1989 Smoking Status: Former smoker - Past Family History Father Family Medical History: Cancer Additional Family Medical History / Comment(s): prostate cancer Mother Family Medical History: Dementia, Hypertension Medications and Allergies Home Medications Medication Instructions Recorded Confirmed Type Albuterol Sulfate [Proventil Hfa] 1 - 2 puff INHALATION RT-Q6H PRN 02/28/1703/12 History Apixaban [Eliquis] 5 mg PO BID 02/28/17 03/03/17 History Aspirin 81 mg PO MOFR 02/28/17 03/03/17 History Atorvastatin Calcium [Lipitor] 40 mg PO HS 02/28/17 03/03/17 History Cranberry Fruit Extract [Cranberry] 500 mg PO BID 02/28/17 03/03/17 History Docusate [Colace] 100 mg PO DAILY PRN 02/28/17 03/03/17 History Metoprolol Tartrate [Lopressor] 25 mg PO BID 02/28/17 03/03/17 History Multivitamins, Thera [Multivitamin 1 tab PO DAILY 02/28/17 03/03/17 History (formulary)] Nortriptyline HCl [Pamelor] 25 mg PO HS 02/28/17 03/03/17 History Omeprazole [PriLOSEC] 40 mg PO DAILY 02/28/17 03/03/17 History metFORMIN HCL [metFORMIN HCL ER] 1,000 mg PO DAILY 02/28/17 03/03/17 History sitaGLIPtin [Januvia] 100 mg PO DAILY 02/28/17 03/03/17 History Allergies Allergy/AdvReac Type Severity Reaction Status Date / Time Sulfa (Sulfonamide Allergy Unknown Verified 03/03/17 15:09 Antibiotics) Physical Exam Vitals: Vital Signs Temp Pulse Pulse Pulse Resp BP BP 03/04/17 08:00 97.7 F 74 16 03/04/17 03:28 96.9 F L 65 17 03/04/17 00:00 97.1 F L 60 17 178/83 03/03/17 20:00 97.1 F L 72 17 03/03/17 19:11 163/106 03/03/17 17:44 198/90 03/03/17 17:40 97.1 F L 71 18 182/84 03/03/17 16:52 97.9 F 71 18 173/60 03/03/17 15:38 97.1 F L 81 88 18 156/70 03/03/17 14:39 97.0 F L 71 18 167/79 BP Pulse Ox 03/04/17 08:00 180/73 98 03/04/17 03:28 196/87 97 03/04/17 00:00 180/84 95 03/03/17 20:00 123/58 96 03/03/17 19:11 03/03/17 17:44 03/03/17 17:40 99 03/03/17 16:52 03/03/17 15:38 98 03/03/17 14:39 99 Intake and Output 03/03/17 03/04/17 03/04/17 22:59 06:59 14:59 Intake Total 50 400 Balance 50 400 Intake: IV 50 400 Sodium Chloride 0.9% 1, 50 400 000 ml @ 50 mls/hr IV . Q20H [facility] Rx#:[id number] Other: Voiding Method Diaper Diaper Diaper # Voids 2 Weight 82 kg PHYSICAL EXAMINATION: GENERAL: The patient is alert and unable to assess orientation, not in any acute distress. Well developed, well nourished. HEENT: Pupils are round and equally reacting to light. EOMI. No scleral icterus. No conjunctival pallor. Normocephalic, atraumatic. No pharyngeal erythema. No thyromegaly. CARDIOVASCULAR: S1 and S2 present. No murmurs, rubs, or gallops. PULMONARY: Chest is clear to auscultation, no wheezing or crackles. ABDOMEN: Soft, nontender, nondistended, normoactive bowel sounds. No palpable organomegaly. MUSCULOSKELETAL: No joint swelling or deformity. EXTREMITIES: No cyanosis, clubbing, or pedal edema. NEUROLOGICAL: Patient has aphasia which is chronic. May be a little bit worse compared to previous hospitalization. Patient has 2 x 5 strength in the right upper extremity and 4 x 5 strength in the right lower extremity. SKIN: No rashes. Results CBC & Chem 7: 03/03/17 14:51 03/03/17 14:51 Labs: Abnormal Lab Results - Last 24 Hours (Table) 03/03/17 03/03/17 03/03/17 Range/Units 14:51 14:51 14:51 RBC 3.91 L (4.30-5.90) m/uL Hgb 10.3 L (13.0-17.5) gm/dL Hct 32.6 L (39.0-53.0) % Glucose 226 H (74-99) mg/dL POC Glucose (mg/dL) (75-99) mg/dL AST 15 L (17-59) U/L Total Creatine Kinase 24 L (55-170) U/L Total Protein 6.1 L (6.3-8.2) g/dL HDL Cholesterol (40-60) mg/dL 03/03/17 03/04/17 03/04/17 Range/Units 20:47 05:40 05:55 RBC (4.30-5.90) m/uL Hgb (13.0-17.5) gm/dL Hct (39.0-53.0) % Glucose (74-99) mg/dL POC Glucose (mg/dL) 125 H 111 H (75-99) mg/dL AST (17-59) U/L Total Creatine Kinase (55-170) U/L Total Protein (6.3-8.2) g/dL HDL Cholesterol 35 L (40-60) mg/dL Thrombosis Risk Factor Assmnt - Choose All That Apply Each Factor Represents 1 point: Medical pt on bed rest Other Risk Factors: Yes Each Risk Factor Represents 2 Points: Age 61-74 years, Patient confined to bed, Malignancy Other congenital or acquired thrombophilia - If yes, enter type in comment: No Thrombosis Risk Factor Assessment Total Risk Factor Score: 7 Thrombosis Risk Factor Assessment Level: High Risk Assessment and Plan Plan: 1 cerebrovascular accident, he appears to have new stroke involving the left cerebral hemisphere and right side of the body. Patient is already on anticoagulations statin be on which nothing can be done but patient may benefit from physical therapy and discharged to subacute rehabilitation. #2 atrial fibrillation presently rate controlled patient is on anti-correlation as mentioned above 3 Questionable history of chest pain patient was evaluated by cardiology during previous hospitalization and no further intervention is being planned except for review. Dose of which can be increased upon discharge. #4 coronary artery disease. #5 type 2 diabetes mellitus: Patient will continue his home regimen. His blood sugars are well controlled now. Titration depending on blood sugars. #6 history of bladder cancer in remission #7 next and a poor function status and possible vascular dementia patient definitely will benefit from subacute rehabilitation since his new stroke.
--- NOTE | 2017-03-04 16:57 | P.PN ---
Subjective Principal diagnosis: Patient is a pleasant 71-year-old male who is being followed by the neurology service for stroke. Patient had right arm weakness and was brought to the emergency room for further evaluation. Patient is a poor historian and no family members present at the time of my evaluation. According to staff and chart, patient has history of prior stroke with left him with right upper extremity weakness. Reportedly, patient had recent negative workup for any acute heart disease. Computed tomography scan of the brain was done on admission which showed no acute abnormalities. CT did show evidence of small vessel ischemic changes. At the time of my evaluation, patient is resting comfortably in bed and appears to be in no acute distress. Patient is minimally conversant. No family or caregivers present at this time to confirm what his baseline actually is. Objective - Vital Signs Vital signs: Vital Signs Temp 99.0 F 03/04/17 16:00 Pulse 78 03/04/17 16:00 Resp 17 03/04/17 16:00 BP 188/88 03/04/17 11:46 Pulse Ox 98 03/04/17 16:00 Intake & Output 03/03/17 03/04/17 03/04/17 18:59 06:59 18:59 Intake Total 450 550 Balance 450 550 Weight 82.1 kg 82 kg Intake: IV 450 Sodium Chloride 0.9% 1, 450 000 ml @ 50 mls/hr IV . Q20H [facility] Rx#:[id number] Intake, IV Titration 350 Amount Sodium Chloride 0.9% 1, 350 000 ml @ 50 mls/hr IV . Q20H [facility] Rx#:[id number] Oral 200 Other: Voiding Method Diaper Diaper # Voids 2 - Exam PHYSICAL EXAM: GENERAL APPEARANCE: Patient is a well-developed, male who appears to be in no acute distress. HEENT: Normocephalic, atraumatic, no facial asymmetry is seen. Neck is supple with no masses felt. CARDIOVASCULAR: Regular rate and rhythm. ABDOMEN: Nontender, nondistended. EXTREMITIES: Show no edema or clubbing. NEUROLOGICAL EXAM: Patient is awake, alert, and oriented to person and place. Patient cannot recall the year. Patient intermittently follows simple commands. Patient has difficulty with naming and repetition. Strength is 5-/5 in all 4 extremities. No obvious facial asymmetry is noted on cranial nerve testing. No tremors or seizure-like activity is noted. - Labs CBC & Chem 7: 03/03/17 14:51 03/03/17 14:51 Labs: Abnormal Lab Results - Last 24 Hours (Table) 03/03/17 03/04/17 03/04/17 Range/Units 20:47 05:40 05:55 POC Glucose (mg/dL) 125 H 111 H (75-99) mg/dL HDL Cholesterol 35 L (40-60) mg/dL 03/04/17 Range/Units 11:44 POC Glucose (mg/dL) 122 H (75-99) mg/dL HDL Cholesterol (40-60) mg/dL Assessment and Plan Plan: Impression: 1. Acute ischemic stroke, left middle cerebral artery distribution 2. Mixed aphasia 3. Right upper extremity weakness 4. Paroxysmal atrial fibrillation 5. Anemia Recommendation: Patient does appear to have suffered an acute ischemic stroke with mild right upper extremity weakness and mixed aphasia. Patient continues to have language difficulties on exam. I recommend continuing Eliquis and aspirin 81 mg daily. MRI has been ordered and results are pending. Homocystine level was 8.9 which is within normal limits. Fasting lipid panel was within normal limits except for low HDL of 35. EEG was done. Carotid Doppler showed no hemodynamically significant stenosis but does show approximately 50% stenosis of the right carotid artery. Continue speech therapy and physical therapy. Continue medical management. I will continue to follow with you. Further recommendations to follow. I performed an examination of the patient and discussed the management with the ROOFING TECHNICIAN. I have reviewed the ROOFING TECHNICIAN notes and agree with the findings and plan of care.
--- NOTE | 2017-03-04 17:08 | MR ---
MR brain without contrast HISTORY: Cerebral vascular accident, altered mental status Multiplanar multisequence imaging through the brain and correlated to CT brain 03/03/2017 There is motion on the exam. Fast brain protocol utilized. There is a small focus of restricted diffusion present within the region of the caudate nuclear tail on the left compatible with subacute infarct. There is no hemorrhage or hydrocephalus. Cortical atrop hy is present. There is extensive white matter demyelination in the periventricular white matter conf luent and scattered on inversion recovery T2-weighted sequences, similar signal changes within the po ns. The corpus callosum, pituitary, cervical medullary junction, cerebellopontine angles are within n ormal limits. The orbits show symmetric appearance. IMPRESSION: Small focus of subacute infarct, evidence of chronic small vessel ischemia and age-relate d atrophy. Follow-up as indicated.
[2017-03-04] MEDS: SODIUM CHLORIDE 0.9% 1,000 ML IV SCH (18:13)
[2017-03-04] MEDS: ATORVASTATIN 40 MG TAB PO SCH (20:39)
[2017-03-04] MEDS: NORTRIPTYLINE 25 MG CAP PO SCH (20:39)
[2017-03-04 20:55] LABS: Glucose,Whole Blood 178 mg/dL (75-99)
[2017-03-04] MEDS: INSULIN GLARGINE 100 UNIT/ML 10 ML VIAL SQ SCH (21:45)
[2017-03-05 05:39] LABS: Glucose,Whole Blood 127 mg/dL (75-99)
--- NOTE | 2017-03-05 05:44 | EEG ---
DATE OF SERVICE: 03/04/2017 REASON FOR TESTING: Stroke and altered mental status. DESCRIPTION OF THE PROCEDURE: This EEG was performed using a 21-channel digital electroencephalograph, following international 10-20 system. DESCRIPTION OF THE RECORDING: From the beginning of the tracing, and with the patient's eyes closed, the background rhythm was mostly consisting of 7 Hz theta frequency in the posterior occipital leads. No obvious asymmetry is seen. Photic stimulation was performed with no driving response seen. No pathological waves were elicited. Hyperventilation was not performed. Occasional movement artifacts are seen. The patient remains awake throughout the tracing. No epileptiform discharges were seen. His EKG lead showed a regular rate and rhythm. INTERPRETATION: This awake EEG is abnormal due to the presence of generalized slowing of the background rhythm, mostly in a theta range. This is consistent with mild encephalopathy. No epileptiform discharges were seen. The absence of epileptiform discharges does not rule out the diagnosis of epilepsy, therefore clinical correlation is recommended. MTDD
[2017-03-05] MEDS ORDERED: PANTOPRAZOLE 40 MG TABLET PO SCH (07:30)
[2017-03-05 07:52] VITALS: TEMP 97.7
[2017-03-05] MEDS ORDERED: ISOSORBIDE MONONITRATE ER 30 MG TAB.ER.24H PO SCH (09:00)
[2017-03-05] MEDS: metFORMIN 500 MG TAB PO SCH (09:35)
[2017-03-05] MEDS: LINAGLIPTIN 5 MG TABLET PO SCH (09:36)
[2017-03-05] MEDS: METOPROLOL TARTRATE 25 MG TAB PO SCH (09:36)
[2017-03-05] MEDS: ASPIRIN 325 MG TAB PO SCH (09:36)
[2017-03-05] MEDS: SODIUM CHLORIDE 0.9% 1,000 ML IV SCH (09:36)
[2017-03-05] MEDS: APIXABAN 5 MG TAB PO SCH (09:36)
[2017-03-05 11:27] LABS: Glucose,Whole Blood 188 mg/dL (75-99)
--- NOTE | 2017-03-05 15:54 | P.PN ---
Subjective Principal diagnosis: Patient is a pleasant 71-year-old male who is being followed by the neurology service for stroke. Patient had right arm weakness and was brought to the emergency room for further evaluation. Patient is a poor historian and no family members present at the time of my evaluation. According to staff and chart, patient has history of prior stroke with left him with right upper extremity weakness. Reportedly, patient had recent negative workup for any acute heart disease. Computed tomography scan of the brain was done on admission which showed no acute abnormalities. CT did show evidence of small vessel ischemic changes. At the time of my evaluation, patient is resting comfortably in bed and appears to be in no acute distress. Patient is minimally conversant. No family or caregivers present at this time to confirm what his baseline actually is. 03/05/2017 Patient is a pleasant 71-year-old male who is being followed by the neurology service for stroke. Patient is right arm weakness has significantly improved since admission. Patient continues to have speech difficulties which is not new for him. is at the bedside providing helpful information. states patient is 90% back to baseline. informs me he has been dysphasic since his stroke in June. Patient follows commands intermittently. At the time of my evaluation, patient's resting comfortably in bed and appears to be in no acute distress. Objective - Vital Signs Vital signs: Vital Signs Temp 97.7 F 03/05/17 07:30 Pulse 65 03/05/17 11:57 Resp 12 03/05/17 11:58 BP 138/68 03/05/17 11:57 Pulse Ox 99 03/05/17 11:57 Intake & Output 03/04/17 03/05/17 03/05/17 18:59 06:59 18:59 Intake Total 550 60 Balance 550 60 Weight 88 kg Intake: Intake, IV Titration 350 Amount Sodium Chloride 0.9% 1, 350 000 ml @ 50 mls/hr IV . Q20H [facility] Rx#:[id number] Oral 200 60 Other: Voiding Method Diaper Diaper Diaper # Voids 1 2 - Exam PHYSICAL EXAM: GENERAL APPEARANCE: Patient is a well-developed, male who appears to be in no acute distress. HEENT: Normocephalic, atraumatic, no facial asymmetry is seen. Neck is supple with no masses felt. CARDIOVASCULAR: Regular rate and rhythm. ABDOMEN: Nontender, nondistended. EXTREMITIES: Show no edema or clubbing. NEUROLOGICAL EXAM: Patient is awake, alert, and oriented to person only. Patient states he is in [place].. Patient cannot recall the year. Patient intermittently follows simple commands. Patient has difficulty with naming and repetition. Strength is 5-/5 in all 4 extremities. No obvious facial asymmetry is noted on cranial nerve testing. No tremors or seizure-like activity is noted. - Labs CBC & Chem 7: 03/03/17 14:51 03/03/17 14:51 Labs: Abnormal Lab Results - Last 24 Hours (Table) 03/04/17 03/05/17 03/05/17 Range/Units 20:53 05:37 11:21 POC Glucose (mg/dL) 178 H 127 H 188 H (75-99) mg/dL Assessment and Plan Plan: Impression: 1. Acute ischemic stroke, left middle cerebral artery distribution 2. Mixed aphasia 3. Right upper extremity weakness 4. Paroxysmal atrial fibrillation 5. Anemia Recommendation: Patient does appear to have suffered an acute ischemic stroke with mild right upper extremity weakness and mixed aphasia. Patient continues to have language difficulties on exam. I recommend continuing Eliquis and aspirin 81 mg daily. MRI shows small focus of subacute infarct within the region of the caudate nuclear tail. No active hemorrhage or hydrocephalus is seen. There is evidence of chronic small vessel ischemia and age-related atrophy. Homocystine level was 8.9 which is within normal limits. Fasting lipid panel was within normal limits except for low HDL of 35. EEG was done. Carotid Doppler showed no hemodynamically significant stenosis but does show approximately 50% stenosis of the right carotid artery. I recommend he follow up with vascular surgery. Continue speech therapy and physical therapy. Continue medical management. Patient is stable from a neurological standpoint for discharge. I will continue to follow with you on an as-needed basis. I performed an examination of the patient and discussed the management with the NURSING SPECIALIST. I have reviewed the NURSING SPECIALIST notes and agree with the findings and plan of care.
[2017-03-05 16:02] VITALS: BP 142/65; PULSE 67; RESP 16
--- NOTE | 2017-03-05 16:25 | P.DS ---
Providers Date of admission: 03/03/17 16:44 Attending physician: Nito Beverly Consults: 03/03/17 16:46 Consult Physician Urgent Consulting Provider: Buster Hall Consult Reason/Comments: CVA/TIA Do you want consulting provider notified?: Yes Primary care physician: Rg Rubio [facility] Course: 71-year-old gentleman was recently discharged from my service after he was evaluated for chest pain. Patient started having weakness history morning in the left upper arm patient does have increase in weakness upon exam on my exam yesterday he had 4 x 5 strength now around 2 x 5 strength in the left upper limb. Patient had history of massive cerebrovascular accident around number June last year with residual weakness in the right side. Patient right limb strength does not did not appear to have changed. Patient is extremely poor historian because of which I'm not able to get any kind of history from the patient. Patient chest pain is questionable at this time. Patient was evaluated for this chest pain during his previous hospitalization and cardiology recommended isosorbide mononitrate. Which will be continued. Patient is already on anticoagulation with aliquis and also aspirin. The patient is already on statin as well was evaluated by neurology unable to get an MRI because of his of the monitor he has. Nothing much can be done except for physical therapy because of which will obtain physical therapy consultation patient may need to be discharged to subacute rehabilitation. 03/05/2017 Patient is admitted for recurrent stroke. Patient is being discharged to subacute rehabilitation today. MRI did show a small subacute stroke the caudate nucleus. Patient weakness on my exam remains the same but as per the family patient is at her at his baseline or close to baseline. Patient will be set discharged to subacute recommendation today.PHYSICAL EXAMINATION: GENERAL: The patient is alert and unable to assess orientation, not in any acute distress. Well developed, well nourished. HEENT: Pupils are round and equally reacting to light. EOMI. No scleral icterus. No conjunctival pallor. Normocephalic, atraumatic. No pharyngeal erythema. No thyromegaly. CARDIOVASCULAR: S1 and S2 present. No murmurs, rubs, or gallops. PULMONARY: Chest is clear to auscultation, no wheezing or crackles. ABDOMEN: Soft, nontender, nondistended, normoactive bowel sounds. No palpable organomegaly. MUSCULOSKELETAL: No joint swelling or deformity. EXTREMITIES: No cyanosis, clubbing, or pedal edema. NEUROLOGICAL: Patient has aphasia which is chronic. May be a little bit worse compared to previous hospitalization. Patient has 2 x 5 strength in the right upper extremity and 4 x 5 strength in the right lower extremity. SKIN: No rashes. Plan: 1 cerebrovascular accident, he appears to have new subacute stroke involving the left caudate nucleus and right side of the body. Patient is already on anticoagulations statin be on which nothing can be done but patient may benefit from physical therapy and discharged to subacute rehabilitation. #2 atrial fibrillation presently rate controlled patient is on anti-correlation as mentioned above 3 Questionable history of chest pain patient was evaluated by cardiology during previous hospitalization and no further intervention is being planned except for review. Dose of which can be increased upon discharge. Denied any chest pain today #4 coronary artery disease. #5 type 2 diabetes mellitus: Patient will continue his home regimen. His blood sugars are well controlled now. Titration depending on blood sugars. #6 history of bladder cancer in remission #7 next and a poor function status and possible vascular dementia patient definitely will benefit from subacute rehabilitation since his new stroke. Patient Condition at Discharge: Stable Plan - Discharge Summary New Discharge Prescriptions: Continue sitaGLIPtin [Januvia] 100 mg PO DAILY metFORMIN HCL [metFORMIN HCL ER] 1,000 mg PO DAILY Cranberry Fruit Extract [Cranberry] 500 mg PO BID Multivitamins, Thera [Multivitamin (formulary)] 1 tab PO DAILY Docusate [Colace] 100 mg PO DAILY PRN PRN Reason: Constipation Omeprazole [PriLOSEC] 40 mg PO DAILY Albuterol Sulfate [Proventil Hfa] 1 - 2 puff INHALATION RT-Q6H PRN PRN Reason: Shortness Of Breath Nortriptyline HCl [Pamelor] 25 mg PO HS Metoprolol Tartrate [Lopressor] 25 mg PO BID Atorvastatin Calcium [Lipitor] 40 mg PO HS Aspirin 81 mg PO MOFR Apixaban [Eliquis] 5 mg PO BID Isosorbide Mononitrate ER [Imdur] 30 mg PO DAILY #30 tab Insulin Glargine [Lantus] 10 unit SQ HS #0 Discharge Medication List Albuterol Sulfate [Proventil Hfa] 1 - 2 puff INHALATION RT-Q6H PRN 02/28/17 [ History] Apixaban [Eliquis] 5 mg PO BID 02/28/17 [History] Aspirin 81 mg PO MOFR 02/28/17 [History] Atorvastatin Calcium [Lipitor] 40 mg PO HS 02/28/17 [History] Cranberry Fruit Extract [Cranberry] 500 mg PO BID 02/28/17 [History] Docusate [Colace] 100 mg PO DAILY PRN 02/28/17 [History] Metoprolol Tartrate [Lopressor] 25 mg PO BID 02/28/17 [History] Multivitamins, Thera [Multivitamin (formulary)] 1 tab PO DAILY 02/28/17 [History ] Nortriptyline HCl [Pamelor] 25 mg PO HS 02/28/17 [History] Omeprazole [PriLOSEC] 40 mg PO DAILY 02/28/17 [History] metFORMIN HCL [metFORMIN HCL ER] 1,000 mg PO DAILY 02/28/17 [History] sitaGLIPtin [Januvia] 100 mg PO DAILY 02/28/17 [History] Insulin Glargine [Lantus] 10 unit SQ HS #0 03/02/17 [Rx] Isosorbide Mononitrate ER [Imdur] 30 mg PO DAILY #30 tab 03/02/17 [Rx] Follow up Appointment(s)/Referral(s): Rg Valdes MD [Primary Care Provider] - 1-2 days Buster Hall MD [STAFF PHYSICIAN] - 2 Weeks Discharge Disposition: TRANSFER TO SNF/ECF
== END 2017-03-05 16:24 | DRG 65 ==
LOC: EC 14:28 → 6SEL 16:44
PROVIDERS: ADMIT Internal Medicine; ATTEND Internal Medicine
DX: I63.9 Cerebral infarction, unspecified (principal); I69.351 Hemiplegia and hemiparesis following cerebral infarction affecting right dominant side; E11.65 Type 2 diabetes mellitus with hyperglycemia; R47.01 Aphasia; I48.0 Paroxysmal atrial fibrillation; I69.321 Dysphasia following cerebral infarction; F01.50 Vascular dementia, unspecified severity, without behavioral disturbance, psychotic disturbance, mood disturbance, and anxiety; I10 Essential (primary) hypertension; E78.5 Hyperlipidemia, unspecified; I25.10 Atherosclerotic heart disease of native coronary artery without angina pectoris; I65.21 Occlusion and stenosis of right carotid artery; D64.9 Anemia, unspecified; I69.328 Other speech and language deficits following cerebral infarction; I45.10 Unspecified right bundle-branch block; I67.9 Cerebrovascular disease, unspecified; R07.9 Chest pain, unspecified; Z85.51 Personal history of malignant neoplasm of bladder; Z79.01 Long term (current) use of anticoagulants; Z79.899 Other long term (current) drug therapy; Z79.82 Long term (current) use of aspirin; Z87.891 Personal history of nicotine dependence; Z82.49 Family history of ischemic heart disease and other diseases of the circulatory system; Z80.42 Family history of malignant neoplasm of prostate; Z95.2 Presence of prosthetic heart valve; Z95.1 Presence of aortocoronary bypass graft; Z88.2 Allergy status to sulfonamides; Z79.4 Long term (current) use of insulin; Z82.0 Family history of epilepsy and other diseases of the nervous system; Z74.01 Bed confinement status
CPT/HCPCS: 36415; 70450; 70551; 71020; 80053; 80061; 82550; 82553; 83090; 84484; 85025; 85610; 85730; 93005; 93880; 95819

== ENCOUNTER 2017-03-09 09:01 | Inpatient (IN) | payer MEDICARE ==
[2017-03-09] MEDS ORDERED: SODIUM CHLORIDE 0.9% 1,000 ML IV STA (09:17)
[2017-03-09] MEDS ORDERED: FAMOTIDINE 20 MG/2 ML VIAL IV STA (09:19)
--- NOTE | 2017-03-09 09:21 | ED ---
GI Bleed HPI - General Chief complaint: GI Bleed Stated complaint: Vomiting Time Seen by Provider: 03/09/17 09:01 Source: EMS, RN notes reviewed Mode of arrival: EMS Limitations: altered mental status - History of Present Illness Initial comments: This is a 71-year-old male with a history of CVA who is nonverbal who apparently started developing coffee-ground emesis last evening of persistent the morning. He was brought in by EMS for evaluation. Patient is unable to converse. No reports of any other problems at this time the patient is on Casimiro WELCH complaint: coffee ground emesis - Related Data Home Medications Medication Instructions Recorded Confirmed Albuterol Sulfate [Proventil Hfa] 1 - 2 puff INHALATION RT-Q6H PRN 02/28/17 Apixaban [Eliquis] 5 mg PO BID 02/28/17 03/09/17 Aspirin 81 mg PO MOFR 02/28/17 03/09/17 Atorvastatin Calcium [Lipitor] 40 mg PO HS 02/28/17 03/09/17 Cranberry Fruit Extract [Cranberry] 500 mg PO BID 02/28/17 03/09/17 Docusate [Colace] 100 mg PO DAILY PRN 02/28/17 03/09/17 Metoprolol Tartrate [Lopressor] 25 mg PO BID 02/28/17 03/09/17 Multivitamins, Thera [Multivitamin 1 tab PO DAILY 02/28/17 03/09/17 (formulary)] Nortriptyline HCl [Pamelor] 25 mg PO HS 02/28/17 03/09/17 Omeprazole [PriLOSEC] 40 mg PO DAILY 02/28/17 03/09/17 metFORMIN HCL [metFORMIN HCL ER] 1,000 mg PO DAILY 02/28/17 03/09/17 sitaGLIPtin [Januvia] 100 mg PO DAILY 02/28/17 03/09/17 Allergies Allergy/AdvReac Type Severity Reaction Status Date / Time Sulfa (Sulfonamide Allergy Unknown Verified 03/09/17 09:51 Antibiotics) Review of Systems ROS Statement: Those systems with pertinent positive or pertinent negative responses have been documented in the HPI. ROS Other: All systems not noted in ROS Statement are negative. Limitations: ROS unobtainable due to patients medical condition Past Medical History Past Medical History: Coronary Artery Disease (CAD), Cancer, CVA/TIA, Diabetes Mellitus, Hyperlipidemia, Hypertension Additional Past Medical History / Comment(s): bladder cancer, PT POOR HISTORIAN SINCE Stroke JUN 2016.HAS difficulty with speech and balance after stroke affected rt side(did recieved pt ), previously charted "black spots on lung" History of Any Multi-Drug Resistant Organisms: None Reported Past Surgical History: Bladder Surgery, Coronary Bypass/CABG, Heart Catheterization With Stent Additional Past Surgical History / Comment(s): Open heart surgery, bypass, aortic valve replacement, loop recorder Past Anesthesia/Blood Transfusion Reactions: No Reported Reaction Date of Last Stent Placement:: 1989 Past Psychological History: No Psychological Hx Reported Smoking Status: Former smoker - Past Family History Father Family Medical History: Cancer Additional Family Medical History / Comment(s): prostate cancer Mother Family Medical History: Dementia, Hypertension General Exam - General Exam Comments Initial Comments: This is a well-developed well-nourished awake but lethargic male he is nonverbal Limitations: altered mental status General appearance: alert, lethargic Head exam: Present: atraumatic, normocephalic, normal inspection Eye exam: Present: normal appearance, PERRL, EOMI. Absent: scleral icterus, conjunctival injection, periorbital swelling ENT exam: Present: mucous membranes dry Neck exam: Present: normal inspection. Absent: tenderness, meningismus, lymphadenopathy Respiratory exam: Present: normal lung sounds bilaterally. Absent: respiratory distress, wheezes, rales, rhonchi, stridor Cardiovascular Exam: Present: regular rate, normal rhythm, normal heart sounds. Absent: systolic murmur, diastolic murmur, rubs, gallop, clicks GI/Abdominal exam: Present: soft, normal bowel sounds. Absent: distended, tenderness, guarding, rebound, rigid Rectal exam: Present: normal inspection, normal rectal tone, other (No gross blood or is evidence of a sacral decubitus however.) exam: Present: normal inspection Extremities exam: Present: normal inspection, full ROM, normal capillary refill. Absent: tenderness, pedal edema, joint swelling, calf tenderness Back exam: Present: normal inspection Neurological exam: Present: alert, oriented X3, CN II-XII intact Psychiatric exam: Present: normal affect, normal mood Skin exam: Present: warm, dry, intact, pallor. Absent: rash Course Vital Signs 03/09/17 03/09/17 03/09/17 09:04 09:36 10:06 Temperature 97.0 F L Pulse Rate 87 84 82 Respiratory 20 Rate Blood Pressure 171/98 212/88 174/82 O2 Sat by Pulse 93 L 98 99 Oximetry Medical Decision Making - Medical Decision Making I did discuss findings with patient family as well as with Dr. Solis. Patient be admitted with GI consultation. - Lab Data Result diagrams: 03/09/17 09:16 03/09/17 09:16 Lab Results 03/09/17 03/09/17 03/09/17 Range/Units 09:16 09:16 09:16 WBC 17.7 H (3.8-10.6) k/uL RBC 4.45 (4.30-5.90) m/uL Hgb 12.1 L (13.0-17.5) gm/dL Hct 36.1 L (39.0-53.0) % MCV 81.1 (80.0-100.0) fL MCH 27.2 (25.0-35.0) pg MCHC 33.5 (31.0-37.0) g/dL RDW 14.0 (11.5-15.5) % Plt Count 319 (150-450) k/uL Neutrophils % 89 % Lymphocytes % 7 % Monocytes % 3 % Eosinophils % 1 % Basophils % 0 % Neutrophils # 15.7 H (1.3-7.7) k/uL Lymphocytes # 1.2 (1.0-4.8) k/uL Monocytes # 0.5 (0-1.0) k/uL Eosinophils # 0.1 (0-0.7) k/uL Basophils # 0.1 (0-0.2) k/uL PT (9.0-12.0) sec INR (<1.2) APTT (22.0-30.0) sec Sodium 139 (137-145) mmol/L Potassium 5.1 (3.5-5.1) mmol/L Chloride 99 (98-107) mmol/L Carbon Dioxide 29 (22-30) mmol/L Anion Gap 11 mmol/L BUN 19 (9-20) mg/dL Creatinine 0.92 (0.66-1.25) mg/dL Est GFR (MDRD) Af Amer >60 (>60 ml/min/1.73 sqM) Est GFR (MDRD) Non-Af >60 (>60 ml/min/1.73 sqM) Glucose 206 H (74-99) mg/dL Calcium 9.3 (8.4-10.2) mg/dL Magnesium 1.4 L (1.6-2.3) mg/dL Total Bilirubin 0.9 (0.2-1.3) mg/dL AST 18 (17-59) U/L ALT 31 (21-72) U/L Alkaline Phosphatase 123 (38-126) U/L Total Creatine Kinase 39 L (55-170) U/L CK-MB (CK-2) 0.6 (0.0-2.4) ng/mL CK-MB (CK-2) Rel Index 1.5 Troponin I <0.012 (0.000-0.034) ng/mL Total Protein 7.1 (6.3-8.2) g/dL Albumin 4.1 (3.5-5.0) g/dL Stool Occult Blood (Negative) Blood Type Blood Type Recheck Antibody Screen Spec Expiration Date 03/09/17 03/09/17 03/09/17 Range/Units 09:16 09:16 09:33 WBC (3.8-10.6) k/uL RBC (4.30-5.90) m/uL Hgb (13.0-17.5) gm/dL Hct (39.0-53.0) % MCV (80.0-100.0) fL MCH (25.0-35.0) pg MCHC (31.0-37.0) g/dL RDW (11.5-15.5) % Plt Count (150-450) k/uL Neutrophils % % Lymphocytes % % Monocytes % % Eosinophils % % Basophils % % Neutrophils # (1.3-7.7) k/uL Lymphocytes # (1.0-4.8) k/uL Monocytes # (0-1.0) k/uL Eosinophils # (0-0.7) k/uL Basophils # (0-0.2) k/uL PT 11.3 (9.0-12.0) sec INR 1.1 (<1.2) APTT 25.5 (22.0-30.0) sec Sodium (137-145) mmol/L Potassium (3.5-5.1) mmol/L Chloride (98-107) mmol/L Carbon Dioxide (22-30) mmol/L Anion Gap mmol/L BUN (9-20) mg/dL Creatinine (0.66-1.25) mg/dL Est GFR (MDRD) Af Amer (>60 ml/min/1.73 sqM) Est GFR (MDRD) Non-Af (>60 ml/min/1.73 sqM) Glucose (74-99) mg/dL Calcium (8.4-10.2) mg/dL Magnesium (1.6-2.3) mg/dL Total Bilirubin (0.2-1.3) mg/dL AST (17-59) U/L ALT (21-72) U/L Alkaline Phosphatase (38-126) U/L Total Creatine Kinase (55-170) U/L CK-MB (CK-2) (0.0-2.4) ng/mL CK-MB (CK-2) Rel Index Troponin I (0.000-0.034) ng/mL Total Protein (6.3-8.2) g/dL Albumin (3.5-5.0) g/dL Stool Occult Blood Negative (Negative) Blood Type AB Positive Blood Type Recheck No Antibody Screen NEGATIVE Spec Expiration Date 03/12/2017 - 3842 - Radiology Data Radiology results: report reviewed (I did review the imaging and reports no acute findings.), image reviewed Disposition Clinical Impression: Upper GI bleed, Coffee ground emesis, History of CVA (cerebrovascular accident) Disposition: ADMITTED IP TO THIS [facility] Condition: Stable Referrals: Ruy Park MD [STAFF PHYSICIAN] - 1-2 days
[2017-03-09 09:29] LABS: Basophils # (A) 0.1 k/uL (0-0.2); Basophils % (A) 0 %; CH 26.4; CHCM 32.7; Eosinophils # (A) 0.1 k/uL (0-0.7); Eosinophils % (A) 1 %; HCT 36.1 % (39.0-53.0); HGB 12.1 gm/dL (13.0-17.5); Luc # (Auto) 0.12; Luc % (Auto) 1; Lymphocytes # (A) 1.2 k/uL (1.0-4.8); Lymphocytes % (A) 7 %; MCH 27.2 pg (25.0-35.0); MCHC 33.5 g/dL (31.0-37.0); MCV 81.1 fL (80.0-100.0); Mean Platelet Volume 8.3; Monocytes # (A) 0.5 k/uL (0-1.0); Monocytes % (A) 3 %; Neutrophils # (A) 15.7 k/uL (1.3-7.7); Neutrophils % (A) 89 %; RBC 4.45 m/uL (4.30-5.90); WBC 17.7 k/uL (3.8-10.6); WBC (Perox) 17.79
[2017-03-09 09:42] LABS: ALT 31 U/L (21-72); AST 18 U/L (17-59); Alkaline Phosphatase 123 U/L (38-126); Anion Gap 11 mmol/L; Blood Urea Nitrogen 19 mg/dL (9-20); Calcium 9.3 mg/dL (8.4-10.2); Carbon Dioxide 29 mmol/L (22-30); Chloride 99 mmol/L (98-107); Glucose 206 mg/dL (74-99); Magnesium 1.4 mg/dL (1.6-2.3); Non-African American GFR(MDRD) >60 (>60 ml/min/1.73 sqM); Potassium 5.1 mmol/L (3.5-5.1); Sodium 139 mmol/L (137-145); Total Bilirubin 0.9 mg/dL (0.2-1.3); Total Protein 7.1 g/dL (6.3-8.2)
[2017-03-09 09:47] LABS: INR 1.1 (<1.2); Partial Thromboplastin Time 25.5 sec (22.0-30.0); Prothrombin Time 11.3 sec (9.0-12.0)
[2017-03-09 10:02] LABS: Creatine Kinase 39 U/L (55-170)
[2017-03-09 10:15] LABS: Creatine Kinase MB 0.6 ng/mL (0.0-2.4); Troponin I <0.012 ng/mL (0.000-0.034)
--- NOTE | 2017-03-09 11:12 | XR ---
EXAMINATION TYPE: XR abdomen acute w cxr DATE OF EXAM: 03/09/2017 COMPARISON: 01/31/2017 CT abdomen pelvis an chest radiograph dated 03/03/2017. HISTORY: Vomiting TECHNIQUE: Supine, upright, and left side down lateral decubitus views of the abdomen are obtained. FINDINGS: There is improved visualization of the right hemidiaphragm on the examination with minimal right basilar atelectasis remaining. The images and interpreted as the aortic knob appears to be on the right on today's imaging but is located on the left on prior images. Intact midline sternotomy wi res are seen. Degenerative changes are appreciated of the thoracic spine and acromioclavicular joints . There is no evidence for pneumoperitoneum. The bowel gas pattern is unremarkable as there is air thr oughout nondilated small and large bowel. No differential air-fluid levels. Calcific atheromatous ch anges are seen in the abdominal aorta and its branches. Degenerative changes are appreciated of the l umbosacral junction. IMPRESSION: 1. No acute intra-abdominal process. 2. Improving right basilar atelectasis in comparison to the prior exam.
[2017-03-09] MEDS ORDERED: NALOXONE 0.4 MG/ML 1 ML VIAL IV PRN (11:22)
[2017-03-09] MEDS: SODIUM CHLORIDE 0.9% 1,000 ML IV SCH ×2 (13:42→21:57)
[2017-03-09] MEDS: IPRATROPIUM-ALBUTEROL 3 ML NEB INHALATION SCH ×2 (16:53→20:46)
[2017-03-09 16:54] LABS: Basophils # (A) 0.1 k/uL (0-0.2); Basophils % (A) 0 %; CH 27.7; CHCM 34.3; Eosinophils # (A) 0.3 k/uL (0-0.7); Eosinophils % (A) 1 %; HDW 2.71; HGB 11.9 gm/dL (13.0-17.5); Luc % (Auto) 1; Lymphocytes # (A) 2.1 k/uL (1.0-4.8); Lymphocytes % (A) 9 %; MCH 26.8 pg (25.0-35.0); MCHC 33.1 g/dL (31.0-37.0); MCV 81.1 fL (80.0-100.0); Mean Platelet Volume 9.6; Monocytes % (A) 5 %; Neutrophils # (A) 19.1 k/uL (1.3-7.7); Neutrophils % (A) 84 %; RBC 4.44 m/uL (4.30-5.90); RDW 14.9 % (11.5-15.5); WBC 22.8 k/uL (3.8-10.6); WBC (Perox) 24.69
[2017-03-09] MEDS ORDERED: ALBUTEROL NEBULIZED 2.5 MG/3 ML INHALATION PRN (18:08)
[2017-03-09] MEDS ORDERED: HYDROcodone/APAP 5-325MG 1 EACH TAB PO PRN (18:09)
[2017-03-09] MEDS ORDERED: LORazepam 0.5 MG TAB PO PRN (18:09)
[2017-03-09 20:35] LABS: Glucose,Whole Blood 140 mg/dL (75-99)
[2017-03-09 20:56] LABS: Hemoglobin A1C 8.8 % (4.2-6.1)
[2017-03-09] MEDS: INSULIN LISPRO (humaLOG) 300 UNIT/3 ML VIAL SQ SCH (21:56)
[2017-03-09] MEDS: MELATONIN 3 MG TABLET PO SCH (21:57)
[2017-03-09] MEDS: NORTRIPTYLINE 25 MG CAP PO SCH (21:57)
[2017-03-09] MEDS: PANTOPRAZOLE 40 MG/10 ML VIAL IV SCH (21:57)
[2017-03-09] MEDS: METOPROLOL TARTRATE 25 MG TAB PO SCH (21:57)
[2017-03-10] MEDS: IPRATROPIUM-ALBUTEROL 3 ML NEB INHALATION SCH ×4 (03:31→19:15)
--- NOTE | 2017-03-10 06:01 | HP ---
DATE OF SERVICE: 03/09/2017 CHIEF COMPLAINTS: Vomiting and GI bleed. HISTORY OF PRESENT ILLNESS: This 71-year-old gentleman with a past medical history of multiple medical problems including atrial fibrillation, history of CAD, diabetes mellitus, GERD being followed by [facility]. He is living in [facility]. The patient apparently had episodes of vomiting and cough. Urinalysis and the patient was taken to [facility] and admitted for further evaluation. The patient is apparently taking Eliquis also. The patient is currently nonverbal and unable to provide a detailed history. The patient needs assisted with all activities of daily living per chart. Most of the history taken by my discussion with staff and review of the chart. Eliquis has been stopped. The hemoglobin was found to be 11.9. The patient also had high white count. There is no history of any fever, rigors. No history of trauma. PAST MEDICAL HISTORY: History of atrial fibrillation, CAD, CVA, TIA, diabetes mellitus and GERD. Home medications are: 1. Januvia 100 mg p.o. daily. 2. Metformin 1000 mg daily. 3. Prilosec 40 mg daily. 4. Pamelor 25 mg daily. 5. Multivitamin. 6. Lopressor 25 b.i.d. 7. Colace 100 mg p.o. daily. 8. Cranberry 500 mg p.o. b.i.d. 9. Lipitor 40 mg p.o. q.h.s. 10. Aspirin 81 mg Thursday and Thursday. 11. Eliquis 5 mg p.o. b.i.d. 12. Proventil 1 to 2 puffs q.6 p.r.n. ALLERGIES: SULFA. FAMILY HISTORY: History of prostate cancer. SOCIAL HISTORY: Previous history of smoking. No history of current smoking or alcohol intake. REVIEW OF SYSTEMS: Could not be taken because of the change in mental status. PHYSICAL EXAM: The patient is conscious, nonverbal. Pulse 88, blood pressure 169/77, respirations 18, temperature 98.9, pulse ox 97% on 2 L. HEENT: Conjunctivae normal. Oral mucosa moist. NECK: No jugular venous distention. No carotid bruit. No lymph node enlargement. CARDIOVASCULAR: S1 and S2 muffled. RESPIRATORY: Breath sounds diminished at the bases. A few scattered rhonchi. ABDOMEN: Soft. Nontender. No mass palpable. No guarding. No rigidity. LEGS: No edema. No swelling. NERVOUS SYSTEM: No focal deficit. SKIN: No ulcers, rashes or bleeding. Labs are the abdomen chest x-ray, no acute abdominal process, right basilar atelectasis. WBC 22.8. Glucose 206. ASSESSMENT: 1. Acute upper gastrointestinal bleeding with acute blood loss anemia. 2. High WBC for evaluation. 3. Rule out aspiration pneumonia. 4. History of atrial fibrillation. 5. Diabetes mellitus type 2. 6. Hypertension. 7. Hyperlipidemia. RECOMMENDATIONS AND DISCUSSION: In this 71-year-old gentleman presented with multiple medical problems. I will monitor the patient closely. I would recommend hold antiplatelets and Eliquis. Otherwise, Gastroenterology evaluation for possible endoscopies. Otherwise, we will monitor the blood sugars closely. Proton pump inhibitors. I would also recommend repeat labs and basic labs also. We will continue to monitor. See orders for further details. Repeats labs, H&H q.6. Discussed with staff. CHADD
[2017-03-10 07:01] LABS: Glucose,Whole Blood 124 mg/dL (75-99)
[2017-03-10 08:51] LABS: Basophils # (A) 0.1 k/uL (0-0.2); Basophils % (A) 1 %; CH 27.1; CHCM 32.4; Eosinophils # (A) 0.4 k/uL (0-0.7); Eosinophils % (A) 4 %; HDW 2.56; HGB 10.2 gm/dL (13.0-17.5); Luc # (Auto) 0.15; Luc % (Auto) 1; Lymphocytes # (A) 1.8 k/uL (1.0-4.8); Lymphocytes % (A) 17 %; MCH 26.9 pg (25.0-35.0); MCV 84.1 fL (80.0-100.0); Mean Platelet Volume 8.6; Monocytes # (A) 0.6 k/uL (0-1.0); Monocytes % (A) 5 %; Neutrophils # (A) 7.9 k/uL (1.3-7.7); Neutrophils % (A) 72 %; RDW 14.9 % (11.5-15.5); WBC 10.9 k/uL (3.8-10.6); WBC (Perox) 11.96
[2017-03-10] MEDS: INSULIN LISPRO (humaLOG) 300 UNIT/3 ML VIAL SQ SCH ×4 (08:55→20:51)
[2017-03-10] MEDS: LINAGLIPTIN 5 MG TABLET PO SCH (08:56)
[2017-03-10] MEDS: METOPROLOL TARTRATE 25 MG TAB PO SCH ×2 (08:56→20:51)
[2017-03-10] MEDS: PANTOPRAZOLE 40 MG/10 ML VIAL IV SCH ×2 (08:56→20:52)
[2017-03-10 09:06] LABS: Anion Gap 10 mmol/L; Blood Urea Nitrogen 18 mg/dL (9-20); Carbon Dioxide 25 mmol/L (22-30); Chloride 105 mmol/L (98-107); Glucose 111 mg/dL (74-99); Non-African American GFR(MDRD) >60 (>60 ml/min/1.73 sqM); Potassium 4.5 mmol/L (3.5-5.1); Sodium 140 mmol/L (137-145)
--- NOTE | 2017-03-10 10:15 | P.CONS ---
History of Present Illness - Reason for Consult Consult date: 03/10/17 Upper GI bleed Requesting physician: Keysha Christianson - History of Present Illness 71-year-old male resident [facility] admitted with reports of coffee-ground emesis x 1. History of atrial fibrillation, multiple CVAs with recurrence as recent as 3 weeks ago, dysphsia right-sided weakness maintained on Eliquis. Additional past medical history bladder carcinoma, diabetes, hypertension, hyperlipidemia, CABG, pacemaker, PCI stent. History obtained from patient's . About a month ago patient had several emesis at home that were dark in color. No reports of melena or hematochezia. Apparently he's had this happen to him in the past about 2 years ago underwent EGD with no evidence of peptic ulcer disease. He was recently hospitalized and discharged 5 days ago secondary to acute CVA. He has been on ELiquis since May for the last 10 months. No reports of abdominal pain. No recurrence of coffee-ground emesis since admission. Last dose of Eliquis yesterday morning. Admission white count 17.7 increased to 22.8 presently 10.9. Hemoglobin 12.1 presently 10.2. INR 1.1. Stool occult blood negative. BUN 19. Creatinine 0.9. Review of Systems Obtained from patient's spouse secondary to dysphasia Constitutional: Denies fever, chills, sweats, weight gain, or loss. HEENT: Negative for migraines, blurred vision or loss, earaches, drainage, tinnitus, oral mucosal lesions, dysphagia, or odynophagia. Cardiac: A. fib. CAD. Hyperlipidemia. Hypertension. Negative for chest pain , arrhythmias, or palpitation. Respiratory: Negative for shortness of breath, hemoptysis, cough, or sputum production. Gastrointestinal: See HPI for pertinent findings. Genitourinary: Bladder cancer. Negative for hematuria, urgency, frequency, polyuria, dysuria, or penile discharge. Musculoskeletal: CVA with right-sided weakness. Negative for muscle aches, swelling, arthritis, and arthralgias. Neurologic: Negative for stroke or TIA. Endocrine: Diabetes. Negative for thyroid problems. Skin: Negative for rash or itching. Psychiatric: Negative history for depression and anxiety All systems: negative (See HPI) Past Medical History Past Medical History: Atrial Fibrillation, Coronary Artery Disease (CAD), Cancer , CVA/TIA, Diabetes Mellitus, GERD/Reflux, Hyperlipidemia, Hypertension Additional Past Medical History / Comment(s): Pt recently admitted to [facility] [place] on 03/03/17 with weakness L upper arm, CVA, afib. Other hx: Bladder cancer with surgery, CVAs x3-PT POOR HISTORIAN SINCE last stroke in JUN 2016-has difficulty with speech and balance after stroke affected rt side-pt says yes/no but not always accurately, NIDDM type II, UTI. History of Any Multi-Drug Resistant Organisms: None Reported Past Surgical History: Bladder Surgery, Coronary Bypass/CABG, Heart Catheterization With Stent Additional Past Surgical History / Comment(s): 1994 3 vessel CABG with aortic valve surgery, loop recorder, Past Anesthesia/Blood Transfusion Reactions: No Reported Reaction Date of Last Stent Placement:: 1989 Smoking Status: Former smoker - Past Family History Father Family Medical History: Cancer Additional Family Medical History / Comment(s): prostate cancer Mother Family Medical History: Dementia, Hypertension Medications and Allergies Home Medications Medication Instructions Recorded Confirmed Type Albuterol Sulfate [Proventil Hfa] 1 - 2 puff INHALATION RT-Q6H PRN 02/28/17 History Apixaban [Eliquis] 5 mg PO BID 02/28/17 03/09/17 History Aspirin 81 mg PO MOFR 02/28/17 03/09/17 History Atorvastatin Calcium [Lipitor] 40 mg PO HS 02/28/17 03/09/17 History Cranberry Fruit Extract [Cranberry] 500 mg PO BID 02/28/17 03/09/17 History Docusate [Colace] 100 mg PO DAILY PRN 02/28/17 03/09/17 History Metoprolol Tartrate [Lopressor] 25 mg PO BID 02/28/17 03/09/17 History Multivitamins, Thera [Multivitamin 1 tab PO DAILY 02/28/17 03/09/17 History (formulary)] Nortriptyline HCl [Pamelor] 25 mg PO HS 02/28/17 03/09/17 History Omeprazole [PriLOSEC] 40 mg PO DAILY 02/28/17 03/09/17 History metFORMIN HCL [metFORMIN HCL ER] 1,000 mg PO DAILY 02/28/17 03/09/17 History sitaGLIPtin [Januvia] 100 mg PO DAILY 02/28/17 03/09/17 History Allergies Allergy/AdvReac Type Severity Reaction Status Date / Time Sulfa (Sulfonamide Allergy Unknown Verified 03/09/17 09:51 Antibiotics) Physical Exam Vitals: Vital Signs Temp Pulse Pulse Resp BP BP Pulse Ox 03/10/17 08:00 70 18 03/10/17 07:10 72 03/10/17 07:08 91 L 03/10/17 07:00 97.9 F 70 18 121/59 93 L 03/10/17 06:59 70 03/10/17 00:00 84 16 03/09/17 22:20 98.8 F 84 16 155/73 97 03/09/17 15:12 20 03/09/17 15:00 98.9 F 88 18 169/77 97 03/09/17 13:21 98.4 F 87 20 180/76 99 03/09/17 12:51 87 18 168/72 97 03/09/17 10:06 82 174/82 99 Intake and Output 03/09/17 03/10/17 03/10/17 22:59 06:59 14:59 Other: Voiding Method Diaper Diaper Diaper Incontinent Incontinent Incontinent # Voids 2 2 Weight 70.76 kg General appearance: The patient is alert, in no acute distress. Dysphasia. HET: Head is normocephalic and atraumatic. Pupils are equal and reactive. Oropharynx is clear without lesions. Neck: Supple without lymphadenopathy. Trachea midline. Heart: S1 S2. Regular rate and rhythm. Lungs: No crackles or wheezes are heard. Abdomen: Soft, nontender, nondistended with bowel sounds. No peritoneal signs. No palpable organomegaly or masses. Extremities: Normal skin color and turgor. No cyanosis, rash, ulceration, clubbing, or edema. Radial and pedal pulses are 2/4 bilaterally. Neurological: Right-sided weakness. Results CBC & Chem 7: 03/10/17 08:19 03/10/17 08:19 Labs: Abnormal Lab Results - Last 24 Hours (Table) 03/09/17 03/09/17 03/09/17 Range/Units 09:16 09:16 16:25 WBC 22.8 H (3.8-10.6) k/uL RBC (4.30-5.90) m/uL Hgb 11.9 L (13.0-17.5) gm/dL Hct 36.0 L (39.0-53.0) % Neutrophils # 19.1 H (1.3-7.7) k/uL Glucose (74-99) mg/dL POC Glucose (mg/dL) (75-99) mg/dL Hemoglobin A1c 8.8 H (4.2-6.1) % Total Creatine Kinase 39 L (55-170) U/L 03/09/17 03/10/17 03/10/17 Range/Units 20:26 06:59 08:19 WBC 10.9 H (3.8-10.6) k/uL RBC 3.80 L (4.30-5.90) m/uL Hgb 10.2 L (13.0-17.5) gm/dL Hct 32.0 L (39.0-53.0) % Neutrophils # 7.9 H (1.3-7.7) k/uL Glucose (74-99) mg/dL POC Glucose (mg/dL) 140 H 124 H (75-99) mg/dL Hemoglobin A1c (4.2-6.1) % Total Creatine Kinase (55-170) U/L 03/10/17 Range/Units 08:19 WBC (3.8-10.6) k/uL RBC (4.30-5.90) m/uL Hgb (13.0-17.5) gm/dL Hct (39.0-53.0) % Neutrophils # (1.3-7.7) k/uL Glucose 111 H (74-99) mg/dL POC Glucose (mg/dL) (75-99) mg/dL Hemoglobin A1c (4.2-6.1) % Total Creatine Kinase (55-170) U/L Assessment and Plan (1) Coffee ground emesis Narrative/Plan: 71-year-old male with a history of multiple comorbidities including atrial fibrillation and multiple CVA with most recent about 3 weeks ago maintained on antiplatelet medication Eliquis presents with acute GI bleed 1 time episode of coffee-ground emesis without recurrence with a drop in hemoglobin from 12.1- 10.2. Possible peptic ulcer disease possible gastritis possible esophagitis. Status: Acute (2) History of CVA (cerebrovascular accident) Status: Acute (3) Acute blood loss anemia Status: Acute (4) Leukocytosis Status: Acute Plan: 1. Case discussed with Dr. Christianson. Casimiro has been on hold for 24 hours. We' ll proceed with EGD evaluation tomorrow morning. Continue to hold antiplatelet medication. Clear liquid diet nothing by mouth after midnight. Protonix 40 mg IV twice daily. is agreeable with plan a care and provides consent for EGD. We'll follow closely with you. CBC monitoring. The health safety engineer has discussed the risks, benefits and alternative therapies for the above-mentioned procedure and for both sedation/analgesia as well as necessary blood product administration, if indicated, as they pertain to this patient. The patient's spouse has indicated understanding and acceptance of the risks and procedures discussed. Thank you for this kind referral and the opportunity to participate in the care of your patient. This consultation was discussed with Dr. Gonzalez. The impression and plan of care have been directed as dictated.
[2017-03-10 11:18] LABS: Glucose,Whole Blood 115 mg/dL (75-99)
[2017-03-10 17:12] LABS: Glucose,Whole Blood 123 mg/dL (75-99)
[2017-03-10] MEDS: SODIUM CHLORIDE 0.9% 1,000 ML IV SCH (17:13)
[2017-03-10 20:40] LABS: Glucose,Whole Blood 152 mg/dL (75-99)
[2017-03-10] MEDS: MELATONIN 3 MG TABLET PO SCH (20:51)
[2017-03-10] MEDS: NORTRIPTYLINE 25 MG CAP PO SCH (20:51)
--- NOTE | 2017-03-10 23:01 | XR ---
EXAM: XR Chest, 1 View CLINICAL HISTORY: Reason: pneumonia TECHNIQUE: Frontal view of the chest. COMPARISON: Chest radiograph on 03/03/2017 FINDINGS: Lungs/pleura: Consolidation in the right lower lung with small right pleural effusion. No pneumothorax. Heart/mediastinum: Stable. Median sternotomy changes. Soft tissues: Recorder device projected over the left mid hemithorax. Bones: No acute fracture. Degenerative changes of the acromioclavicular joints. Upper abdomen: Normal. IMPRESSION: Findings concerning for right middle lobe and/or right lower lobe pneumonia with small right pleural effusion.
[2017-03-10] MEDS ORDERED: IPRATROPIUM-ALBUTEROL 3 ML NEB INHALATION PRN (23:04)
[2017-03-11] MEDS: SODIUM CHLORIDE 0.9% 1,000 ML IV SCH ×2 (06:17→17:07)
[2017-03-11] MEDS: IPRATROPIUM-ALBUTEROL 3 ML NEB INHALATION SCH ×3 (07:28→18:58)
[2017-03-11 07:41] LABS: Glucose,Whole Blood 125 mg/dL (75-99)
[2017-03-11 08:14] LABS: Basophils # (A) 0.1 k/uL (0-0.2); Basophils % (A) 1 %; CH 27.2; CHCM 32.5; Eosinophils # (A) 0.4 k/uL (0-0.7); Eosinophils % (A) 5 %; HCT 31.6 % (39.0-53.0); HDW 2.61; HGB 9.8 gm/dL (13.0-17.5); Luc # (Auto) 0.15; Luc % (Auto) 2; Lymphocytes # (A) 1.6 k/uL (1.0-4.8); Lymphocytes % (A) 20 %; MCH 26.1 pg (25.0-35.0); MCV 84.2 fL (80.0-100.0); Mean Platelet Volume 8.5; Monocytes # (A) 0.5 k/uL (0-1.0); Monocytes % (A) 7 %; Neutrophils # (A) 5.1 k/uL (1.3-7.7); Neutrophils % (A) 65 %; RBC 3.75 m/uL (4.30-5.90); RDW 14.9 % (11.5-15.5); WBC 7.9 k/uL (3.8-10.6); WBC (Perox) 7.91
[2017-03-11 08:22] LABS: Anion Gap 11 mmol/L; Blood Urea Nitrogen 16 mg/dL (9-20); Calcium 8.6 mg/dL (8.4-10.2); Carbon Dioxide 23 mmol/L (22-30); Chloride 106 mmol/L (98-107); Glucose 109 mg/dL (74-99); Non-African American GFR(MDRD) >60 (>60 ml/min/1.73 sqM); Potassium 4.1 mmol/L (3.5-5.1); Sodium 140 mmol/L (137-145)
[2017-03-11] MEDS: INSULIN LISPRO (humaLOG) 300 UNIT/3 ML VIAL SQ SCH ×4 (09:45→20:41)
[2017-03-11] MEDS: PANTOPRAZOLE 40 MG/10 ML VIAL IV SCH ×2 (09:47→20:41)
[2017-03-11 11:48] LABS: Glucose,Whole Blood 112 mg/dL (75-99)
--- NOTE | 2017-03-11 11:55 | PN ---
DATE OF SERVICE: 03/10/17 This 71-year-old gentleman was admitted with vomiting and upper GI bleeding is scheduled for EGD tomorrow by Gastroenterology. No chest pain. No palpitations. No fever. Hemoglobin 10.2. On exam, the patient is confused. Pulse 68. Blood pressure 159/72. Respiratory rate 16. Temperature 97.9 degrees. Pulse ox 97% on room air. HEENT: Conjunctivae pale. Oral mucosa moist. Neck: No JVD. No carotid bruit. No lymph node enlargement. CARDIOVASCULAR: S1, S2 muffled. Respiratory: Breath sounds diminished at the bases. A few scattered rhonchi. No crackles. Abdomen soft, nontender. LEGS: No edema. No swelling. PSYCHOLOGY TECHNICIAN: Unchanged. LABS: Hemoglobin 10.8, white count 10.9. Accu-Cheks noted. ASSESSMENT: 1. Acute upper gastrointestinal bleeding with blood loss anemia, rule out peptic ulcer disease. 2. For EGD. 3. Elevated WBC, possibly reactive. 4. Atrial fibrillation. 5. Aspiration pneumonia, unlikely. 6. Diabetes mellitus Type 2. 7. Hypertension. 8. Hyperlipidemia. RECOMMENDATIONS AND DISCUSSION: Recommend to continue the current medications, continue monitoring and symptomatic treatment, otherwise at this time I would recommend a chest x-ray also. Otherwise, continue to monitor. Further recommendations to follow. See orders for further details. MTDD
[2017-03-11] MEDS ORDERED: IV FLUID CONTINUATION 1,000 ML IV ONE (12:46)
[2017-03-11] MEDS ORDERED: PROPOFOL 10 MG/ML 20 ML VIAL IV ONE (12:56)
--- NOTE | 2017-03-11 13:04 | P.PCN ---
Date of Procedure: 03/11/17 Preoperative Diagnosis: Postoperative Diagnosis: Procedure(s) Performed: BRIEF HISTORY: Patient is a 71-year-old, pleasant, white male, with recent history of CVA few weeks ago presently on eliquis was admitted to the hospital with acute upper GI bleed. He is hence scheduled for an upper endoscopy to evaluate further.. PROCEDURE PERFORMED: Esophagogastroduodenoscopy. PREOPERATIVE DIAGNOSIS: Acute upper GI bleed. IV sedation per anesthesia. PROCEDURE: After informed consent was obtained, the patient was brought into the endoscopy unit. IV sedation was administered by Anesthesia under continuous monitoring. Initially the Olympus GIF-140 video endoscope was inserted into the mouth. Esophagus intubated without any difficulty. It was gradually advanced into the stomach and duodenum and carefully examined. The bulb and the second part of the duodenum appeared normal. The scope at this time was withdrawn to the stomach, adequately insufflated with air, and upon careful examination, mucosa of the antrum, body, cardia and the fundus appeared normal. The scope was then withdrawn into the esophagus. Small hiatal hernia noted. The GE junction was located at 39 cm from the incisors. There were multiple linear erosions and ulcerations noted in the distal esophagus with exudates but no active bleeding. The proximal esophagus appeared normal and the patient tolerated the procedure well. IMPRESSION: 1. Small hiatal hernia. 2. LA grade C reflux esophagitis. RECOMMENDATIONS: The findings of this examination were discussed with the patient as his family. He will be continued on Protonix 40 mg twice daily and diet will be advanced as tolerated. Eliquis can be resumed today as there is no evidence of active bleeding. Implants: Indications for Procedure: Operative Findings: Description of Procedure:
[2017-03-11] MEDS: LACTATED RINGERS 1,000 ML IV SCH (17:05)
[2017-03-11] MEDS: METOPROLOL TARTRATE 25 MG TAB PO SCH ×2 (17:06→20:41)
[2017-03-11] MEDS: LINAGLIPTIN 5 MG TABLET PO SCH (17:07)
[2017-03-11 17:32] LABS: Glucose,Whole Blood 141 mg/dL (75-99)
--- NOTE | 2017-03-11 19:00 | PN ---
DATE OF SERVICE: 03/11/17 This 71 -year-old gentleman who was admitted with acute upper GI bleeding also had apparent EGD today. EGD by Dr. Gonzalez showed small hiatal hernia and Grade C esophageal esophagitis. No chest pain. No palpitations. No fever. On exam, the patient is conscious but confused. Pulse 74. Blood pressure 171/77. Respiratory rate 18. Temperature 97.4 degrees. Pulse ox 97% on room air. HEENT: Conjunctivae normal. Neck: No JVD. CARDIOVASCULAR: S1, S2. Respiratory: Breath sounds diminished at the bases. No rhonchi and no crackles. Abdomen soft, nontender. LEGS: No edema. No swelling. BOTTLE CARRIER: No focal deficits. LABS: WBC 7.9, hemoglobin 9.8. ASSESSMENT: 1. Acute upper gastrointestinal bleeding with blood loss anemia, possibly small hiatal hernia and reflux esophagitis on the EGD. 2. Elevated WBC possibly reactive. 3. Atrial fibrillation. 4. Aspiration pneumonia, unlikely. 5. Diabetes mellitus Type 2. 6. Hypertension. 7. Hyperlipidemia. RECOMMENDATIONS AND DISCUSSION: Recommend to continue the current medications, continue with monitoring and symptomatic treatment. Otherwise, at this time, advance the diet and if the patient tolerates the diet, I would send the patient to ECF. No anticoagulants and antiplatelet agents at this time. Prognosis guarded. Further recommendations to follow. [facility]
[2017-03-11 19:56] LABS: Glucose,Whole Blood 129 mg/dL (75-99)
[2017-03-11] MEDS: NORTRIPTYLINE 25 MG CAP PO SCH (20:41)
[2017-03-11] MEDS: MELATONIN 3 MG TABLET PO SCH (20:41)
[2017-03-12] MEDS: SODIUM CHLORIDE 0.9% 1,000 ML IV SCH ×2 (06:19→21:33)
[2017-03-12] MEDS: LACTATED RINGERS 1,000 ML IV SCH (06:22)
[2017-03-12 06:43] LABS: Glucose,Whole Blood 115 mg/dL (75-99)
[2017-03-12] MEDS: INSULIN LISPRO (humaLOG) 300 UNIT/3 ML VIAL SQ SCH ×4 (07:06→21:34)
[2017-03-12] MEDS: LINAGLIPTIN 5 MG TABLET PO SCH (07:09)
[2017-03-12] MEDS: PANTOPRAZOLE 40 MG/10 ML VIAL IV SCH ×2 (07:09→21:34)
[2017-03-12] MEDS: METOPROLOL TARTRATE 25 MG TAB PO SCH ×2 (07:09→21:34)
[2017-03-12] MEDS: IPRATROPIUM-ALBUTEROL 3 ML NEB INHALATION SCH ×3 (07:33→21:42)
[2017-03-12 07:49] LABS: Basophils # (A) 0.1 k/uL (0-0.2); Basophils % (A) 1 %; CH 27.4; CHCM 32.4; Eosinophils # (A) 0.4 k/uL (0-0.7); Eosinophils % (A) 5 %; HCT 32.4 % (39.0-53.0); HDW 2.65; HGB 10.3 gm/dL (13.0-17.5); Luc # (Auto) 0.16; Luc % (Auto) 2; Lymphocytes # (A) 1.3 k/uL (1.0-4.8); Lymphocytes % (A) 16 %; MCHC 31.8 g/dL (31.0-37.0); Mean Platelet Volume 8.8; Monocytes # (A) 0.5 k/uL (0-1.0); Monocytes % (A) 6 %; Neutrophils # (A) 5.8 k/uL (1.3-7.7); Neutrophils % (A) 71 %; RBC 3.82 m/uL (4.30-5.90); RDW 14.8 % (11.5-15.5); WBC 8.1 k/uL (3.8-10.6); WBC (Perox) 8.44
[2017-03-12 07:55] LABS: Anion Gap 11 mmol/L; Blood Urea Nitrogen 11 mg/dL (9-20); Calcium 8.9 mg/dL (8.4-10.2); Carbon Dioxide 25 mmol/L (22-30); Chloride 105 mmol/L (98-107); Glucose 115 mg/dL (74-99); Non-African American GFR(MDRD) >60 (>60 ml/min/1.73 sqM); Potassium 3.9 mmol/L (3.5-5.1); Sodium 141 mmol/L (137-145)
--- NOTE | 2017-03-12 11:23 | P.PN ---
Subjective Principal diagnosis: Coffee-ground emesis GI bleed Status post EGD findings a small hiatal hernia LA grade C reflux esophagitis. No recurrence of coffee-ground emesis hematemesis or melena. Hemoglobin 10.3. Objective - Vital Signs Vital signs: Vital Signs Temp 97.7 F 03/12/17 07:00 Pulse 76 03/12/17 07:46 Resp 16 03/12/17 07:00 BP 183/86 03/12/17 07:00 Pulse Ox 97 03/12/17 07:00 Intake & Output 03/11/17 03/12/17 03/12/17 18:59 06:59 18:59 Intake Total 200 650 Balance 200 650 Weight 70.76 kg 70.76 kg Intake: IV 200 600 Sodium Chloride 0.9% 1, 600 000 ml @ 75 mls/hr IV . [id number] [facility] Rx#:[id number] Oral 50 Other: Voiding Method Diaper Diaper Diaper Incontinent Incontinent Incontinent # Voids 1 1 1 - Exam General appearance: The patient is alert, oriented, in no acute distress. Dysphasia. HET: Head is normocephalic and atraumatic. Pupils are equal and reactive. Oropharynx is clear without lesions. Neck: Supple without lymphadenopathy. Trachea midline. Heart: S1 S2. Regular rate and rhythm. Lungs: No crackles or wheezes are heard. Abdomen: Soft, nontender, nondistended with bowel sounds. No peritoneal signs. No palpable organomegaly or masses. Extremities: Normal skin color and turgor. No cyanosis, rash, ulceration, clubbing, or edema. Radial and pedal pulses are 2/4 bilaterally. Neurological: Right side weakness. - Labs CBC & Chem 7: 03/12/17 06:55 03/12/17 06:55 Labs: Abnormal Lab Results - Last 24 Hours (Table) 03/11/17 03/11/17 03/11/17 Range/Units 11:46 17:24 19:55 RBC (4.30-5.90) m/uL Hgb (13.0-17.5) gm/dL Hct (39.0-53.0) % Glucose (74-99) mg/dL POC Glucose (mg/dL) 112 H 141 H 129 H (75-99) mg/dL 03/12/17 03/12/17 03/12/17 Range/Units 06:41 06:55 06:55 RBC 3.82 L (4.30-5.90) m/uL Hgb 10.3 L (13.0-17.5) gm/dL Hct 32.4 L (39.0-53.0) % Glucose 115 H (74-99) mg/dL POC Glucose (mg/dL) 115 H (75-99) mg/dL Assessment and Plan (1) Coffee ground emesis Narrative/Plan: Acute upper GI bleed coffee-ground emesis secondary to LA grade C reflux esophagitis exacerbated by antiplatelet indications. Status: Acute (2) History of CVA (cerebrovascular accident) Status: Acute (3) Acute blood loss anemia Status: Acute (4) Leukocytosis Status: Acute Plan: 1. Diet as tolerated. Protonix 40 mg twice daily. Resume Eliquis today. RTO 2 -3 weeks for reevaluation. We'll sign off. Assessment and plan a care discussed with Dr. Gonzalez.
[2017-03-12 11:30] LABS: Glucose,Whole Blood 245 mg/dL (75-99)
[2017-03-12 16:53] LABS: Glucose,Whole Blood 169 mg/dL (75-99)
[2017-03-12 20:42] LABS: Glucose,Whole Blood 157 mg/dL (75-99)
[2017-03-12 21:30] VITALS: RESP 18
[2017-03-12] MEDS: MELATONIN 3 MG TABLET PO SCH (21:33)
[2017-03-12] MEDS: APIXABAN 5 MG TAB PO SCH (21:33)
[2017-03-12] MEDS: NORTRIPTYLINE 25 MG CAP PO SCH (21:34)
--- NOTE | 2017-03-12 23:13 | PN ---
DATE OF SERVICE: 03/12/2017 This 71-year-old gentleman who was admitted with acute upper GI bleeding also had a hiatal hernia. The patient is being closely monitored at this time. Gastroenterology has seen the patient. Hemoglobin is 10.3 at this time. No fever. No cough. On exam, the patient is confused. Pulse is 97, blood pressure 143/69, respiration 16, temperature 97.9, pulse ox 93% on room air. HEENT: Conjunctivae normal. NECK: No jugular venous distention. CARDIOVASCULAR: S1, S2 muffled. RESPIRATORY: Breath sounds diminished at the bases. A few scattered rhonchi and crackles. ABDOMEN: Soft. Non-tender. LEGS: No edema. No swelling. NERVOUS SYSTEM: No focal deficit. LABS: WBC 8.3, hemoglobin 10.3. Accu-Cheks 245. ASSESSMENT: 1. Acute upper gastrointestinal bleeding with blood loss anemia with a possible small hiatal hernia and reflux esophagitis on EGD. 2. Elevated white count, possibly reactive. 3. Atrial fibrillation. 4. Aspiration pneumonia unlikely. 5. Diabetes mellitus, type 2. 6. Hypertension, essential. 7. Hyperlipidemia. RECOMMENDATIONS AND DISCUSSION: I recommend to continue current medications, continue with the monitoring, symptomatic treatment. Otherwise, at this time we will monitor the patient closely. Repeat labs. annual campaign manager and hospital social worker for discharge planning. PT/OT is evaluating and recommending continued rehab. Once again, the prognosis is guarded. Further recommendations to follow. MTDD
[2017-03-13 06:44] LABS: Basophils # (A) 0.1 k/uL (0-0.2); Basophils % (A) 1 %; CH 27.2; CHCM 32.1; Eosinophils # (A) 0.4 k/uL (0-0.7); Eosinophils % (A) 5 %; HCT 33.6 % (39.0-53.0); HDW 2.72; HGB 10.6 gm/dL (13.0-17.5); Luc # (Auto) 0.18; Luc % (Auto) 2; Lymphocytes # (A) 1.9 k/uL (1.0-4.8); Lymphocytes % (A) 23 %; MCH 26.9 pg (25.0-35.0); MCHC 31.6 g/dL (31.0-37.0); Mean Platelet Volume 8.8; Monocytes # (A) 0.6 k/uL (0-1.0); Monocytes % (A) 7 %; Neutrophils % (A) 61 %; RBC 3.96 m/uL (4.30-5.90); RDW 14.8 % (11.5-15.5); WBC 8.2 k/uL (3.8-10.6)
[2017-03-13 07:04] LABS: Anion Gap 11 mmol/L; Blood Urea Nitrogen 9 mg/dL (9-20); Calcium 8.7 mg/dL (8.4-10.2); Carbon Dioxide 23 mmol/L (22-30); Chloride 107 mmol/L (98-107); Glucose 118 mg/dL (74-99); Non-African American GFR(MDRD) >60 (>60 ml/min/1.73 sqM); Potassium 3.7 mmol/L (3.5-5.1); Sodium 141 mmol/L (137-145)
[2017-03-13 07:40] LABS: Glucose,Whole Blood 119 mg/dL (75-99)
[2017-03-13] MEDS: APIXABAN 5 MG TAB PO SCH (08:02)
[2017-03-13] MEDS: LINAGLIPTIN 5 MG TABLET PO SCH (08:02)
[2017-03-13] MEDS: INSULIN LISPRO (humaLOG) 300 UNIT/3 ML VIAL SQ SCH ×2 (08:02→12:50)
[2017-03-13] MEDS: PANTOPRAZOLE 40 MG/10 ML VIAL IV SCH (08:02)
[2017-03-13] MEDS: METOPROLOL TARTRATE 25 MG TAB PO SCH (08:02)
[2017-03-13] MEDS: LACTATED RINGERS 1,000 ML IV SCH (08:11)
[2017-03-13] MEDS: SODIUM CHLORIDE 0.9% 1,000 ML IV SCH (08:12)
[2017-03-13 08:27] VITALS: TEMP 98.6
[2017-03-13] MEDS: IPRATROPIUM-ALBUTEROL 3 ML NEB INHALATION SCH ×2 (08:50→11:23)
[2017-03-13 11:20] VITALS: BP 154/78
[2017-03-13 11:35] VITALS: PULSE 70
[2017-03-13 11:53] LABS: Glucose,Whole Blood 169 mg/dL (75-99)
--- NOTE | 2017-03-13 12:35 | P.DS ---
Providers Date of admission: 03/10/17 13:57 Expected date of discharge: 03/13/17 Attending physician: Timoteo Christianson Consults: Dr. Angie Gonzalez Primary care physician: Rg Rubio [facility] Course: Final Diagnoses: 1.Acute upper GI bleed with blood loss anemia, possible small hiatal hernia and reflux esophagitis per EGD 2. Atrial fibrillation 3. Aspiration pneumonia, unlikely 4. Diabetes mellitus II 5. Essential hypertension 6. Hyperlipidemia Hospital course this is a 71-year-old gentleman admitted with acute upper GI bleed, hiatal hernia in a patient with recent CVA. Evaluated by GI, underwent EGD with findings as mentioned above. Patient has been cleared for discharge by GI. Patient is being discharged in a stable condition with guarded prognosis to subacute rehab. The impression and plan of care has been dictated as directed as a scribe. : I performed a H&P examination of this patient and discussed the same with the dictator. I agree with the dictator's note. Any additional findings/opinions/ etc. will be noted. Patient Condition at Discharge: Stable Plan - Discharge Summary New Discharge Prescriptions: New Albuterol Nebulized [Ventolin Nebulized] 2 mg INHALATION Q4H PRN neb PRN Reason: Shortness Of Breath HYDROcodone/APAP 5-325MG [[place] 5-325] 1 each PO Q6HR PRN #20 tab PRN Reason: Pain Ipratropium-Albuterol Nebulize [Duoneb 0.5 mg-3 mg/3 ml Soln] 3 ml INHALATION RT-TID neb LORazepam [Ativan] 0.5 mg PO Q8HR PRN #10 tab PRN Reason: Anxiety Pantoprazole Sodium [Protonix] 40 mg PO BID #60 tablet. Sucralfate [Carafate] 1 gm PO ACHS #1 tab INSULIN LISPRO (HumaLOG) [humaLOG] 0 unit SQ ACHS #1 vial Continue sitaGLIPtin [Januvia] 100 mg PO DAILY metFORMIN HCL [metFORMIN HCL ER] 1,000 mg PO DAILY Cranberry Fruit Extract [Cranberry] 500 mg PO BID Multivitamins, Thera [Multivitamin (formulary)] 1 tab PO DAILY Nortriptyline HCl [Pamelor] 25 mg PO HS Metoprolol Tartrate [Lopressor] 25 mg PO BID Atorvastatin Calcium [Lipitor] 40 mg PO HS Discontinued Docusate [Colace] 100 mg PO DAILY PRN PRN Reason: Constipation Omeprazole [PriLOSEC] 40 mg PO DAILY Albuterol Sulfate [Proventil Hfa] 1 - 2 puff INHALATION RT-Q6H PRN PRN Reason: Shortness Of Breath Aspirin 81 mg PO MOFR Apixaban [Eliquis] 5 mg PO BID Discharge Medication List Atorvastatin Calcium [Lipitor] 40 mg PO HS 02/28/17 [History] Cranberry Fruit Extract [Cranberry] 500 mg PO BID 02/28/17 [History] Metoprolol Tartrate [Lopressor] 25 mg PO BID 02/28/17 [History] Multivitamins, Thera [Multivitamin (formulary)] 1 tab PO DAILY 02/28/17 [History ] Nortriptyline HCl [Pamelor] 25 mg PO HS 02/28/17 [History] metFORMIN HCL [metFORMIN HCL ER] 1,000 mg PO DAILY 02/28/17 [History] sitaGLIPtin [Januvia] 100 mg PO DAILY 02/28/17 [History] Albuterol Nebulized [Ventolin Nebulized] 2 mg INHALATION Q4H PRN neb 03/11/17 [ Rx] HYDROcodone/APAP 5-325MG [[place] 5-325] 1 each PO Q6HR PRN #20 tab 03/11/17 [Rx] INSULIN LISPRO (HumaLOG) [humaLOG] 0 unit SQ ACHS #1 vial 03/11/17 [Rx] Ipratropium-Albuterol Nebulize [Duoneb 0.5 mg-3 mg/3 ml Soln] 3 ml INHALATION RT -TID neb 03/11/17 [Rx] LORazepam [Ativan] 0.5 mg PO Q8HR PRN #10 tab 03/11/17 [Rx] Pantoprazole Sodium [Protonix] 40 mg PO BID #60 tablet. 03/11/17 [Rx] Sucralfate [Carafate] 1 gm PO ACHS #1 tab 03/11/17 [Rx] Follow up Appointment(s)/Referral(s): Ruy Park MD [STAFF PHYSICIAN] - 3 Days Angie Gonzalez MD [STAFF PHYSICIAN] - 2 Weeks Activity/Diet/Wound Care/Special Instructions: [place] [facility] Hold Eliquis and aspirin 1 week, then resume Eliquis 5 mg by mouth one twice a day Diet: soft [place], consistent carb Accu-Cheks before meals and at bedtime Activity: limited TIll F/U CBC, BMP in 3 days
== END 2017-03-13 14:50 | DRG 378 ==
LOC: EC 09:01 → 5MS5E 11:22 → OBSVTOIN 03-10 13:57 → 5MS5E 03-12 22:11
PROVIDERS: ADMIT Internal Medicine; ATTEND Internal Medicine
PROC: 0DJ08ZZ Inspection of Upper Intestinal Tract, Via Natural or Artificial Opening Endoscopic (ICD-10-PCS; principal; 2017-03-11 13:25)
DX: K92.2 Gastrointestinal hemorrhage, unspecified (principal); D62 Acute posthemorrhagic anemia; I48.91 Unspecified atrial fibrillation; E11.9 Type 2 diabetes mellitus without complications; D72.829 Elevated white blood cell count, unspecified; E78.5 Hyperlipidemia, unspecified; I10 Essential (primary) hypertension; I25.10 Atherosclerotic heart disease of native coronary artery without angina pectoris; K21.0 Gastro-esophageal reflux disease with esophagitis; K44.9 Diaphragmatic hernia without obstruction or gangrene; R32 Unspecified urinary incontinence; I69.928 Other speech and language deficits following unspecified cerebrovascular disease; I69.998 Other sequelae following unspecified cerebrovascular disease; Z79.01 Long term (current) use of anticoagulants; Z79.82 Long term (current) use of aspirin; Z79.84 Long term (current) use of oral hypoglycemic drugs; Z79.899 Other long term (current) drug therapy; Z88.2 Allergy status to sulfonamides; Z95.2 Presence of prosthetic heart valve; Z95.1 Presence of aortocoronary bypass graft; Z87.891 Personal history of nicotine dependence; Z95.5 Presence of coronary angioplasty implant and graft; Z85.51 Personal history of malignant neoplasm of bladder; Z82.49 Family history of ischemic heart disease and other diseases of the circulatory system
CPT/HCPCS: 36415; 43235; 71010; 74022; 80048; 80053; 82272; 82550; 82553; 83036; 83735; 84484; 85025; 85610; 85730; 86850; 86900; 86901; 94640; 94760; 96361; 96374; 99285

== ENCOUNTER 2017-03-31 20:44 | Emergency (ER) | payer MEDICARE ==
[2017-03-31 21:05] VITALS: RESP 18
--- NOTE | 2017-03-31 21:08 | ED ---
General Adult HPI - General Chief complaint: Fall Stated complaint: Fall Time Seen by Provider: 03/31/17 20:59 Source: patient, family, EMS, RN notes reviewed Mode of arrival: EMS Limitations: altered mental status - History of Present Illness Initial comments: Patient is a pleasant 71-year-old male presenting to the emergency department following a fall. Patient is on oral anticoagulation secondary to history of four strokes. Patient reportedly rolled out of bed. Patient states he did strike his head. Patient denies loss of consciousness. Patient denies any headache or any other concerns. No pain at this time. No neck or back pain. No extremity injury. Patient does have right arm weakness chronically from previous stroke. Family is present. Family states he does appear to be his normal mental status and does not normally know which year it is - Related Data Home Medications Medication Instructions Recorded Confirmed Atorvastatin Calcium [Lipitor] 40 mg PO HS 02/28/17 03/31/17 Metoprolol Tartrate [Lopressor] 25 mg PO BID 02/28/17 03/31/17 Multivitamins, Thera [Multivitamin 1 tab PO DAILY 02/28/17 03/31/17 (formulary)] Nortriptyline HCl [Pamelor] 25 mg PO DAILY 02/28/17 03/31/17 sitaGLIPtin [Januvia] 100 mg PO DAILY 02/28/17 03/31/17 Albuterol Nebulized [Ventolin 2.5 mg INHALATION RT-Q4H PRN 03/31/17 03/31/17 Nebulized] Apixaban [Eliquis] 5 mg PO BID 03/31/17 03/31/17 Bisacodyl [Dulcolax] 10 mg RECTAL DAILY PRN 03/31/17 03/31/17 Cranberry Fruit Concentrate 450 mg PO BID 03/31/17 03/31/17 [Cranberry] HYDROcodone/APAP 5-325MG [[place] 1 tab PO Q6HR PRN 03/31/17 03/31/17 5-325] INSULIN LISPRO (HumaLOG) [humaLOG] See Protocol SQ ACHS 03/31/17 03/31/17 Magnesium Hydroxide [Milk of 2,400 mg PO DAILY PRN 03/31/17 03/31/17 Magnesia] Magnesium Oxide [Mag-Ox] 400 mg PO Q48H 03/31/17 03/31/17 Na Phos,M-B/Na Phos,Di-Ba [Fleet 133 ml RECTAL DAILY PRN 03/31/17 03/31/17 Adult] metFORMIN HCL [Glucophage] 500 mg PO BID 03/31/17 03/31/17 Previous Rx's Medication Instructions Recorded Ipratropium-Albuterol Nebulize 3 ml INHALATION RT-TID neb 03/11/17 [Duoneb 0.5 mg-3 mg/3 ml Soln] LORazepam [Ativan] 0.5 mg PO Q8HR PRN #10 tab 03/11/17 Pantoprazole Sodium [Protonix] 40 mg PO BID #60 tablet. 03/11/17 Sucralfate [Carafate] 1 gm PO ACHS #1 tab 03/11/17 Allergies Allergy/AdvReac Type Severity Reaction Status Date / Time Sulfa (Sulfonamide Allergy Unknown Verified 03/31/17 21:21 Antibiotics) Review of Systems ROS Statement: Those systems with pertinent positive or pertinent negative responses have been documented in the HPI. ROS Other: All systems not noted in ROS Statement are negative. Constitutional: Denies: fever Eyes: Denies: eye pain ENT: Denies: ear pain Respiratory: Denies: cough Cardiovascular: Denies: chest pain Endocrine: Denies: fatigue Gastrointestinal: Denies: abdominal pain Genitourinary: Denies: dysuria Musculoskeletal: Denies: back pain Skin: Denies: rash Neurological: Denies: headache, weakness, confusion Past Medical History Past Medical History: Atrial Fibrillation, Coronary Artery Disease (CAD), Cancer , CVA/TIA, Diabetes Mellitus, GERD/Reflux, Hyperlipidemia, Hypertension Additional Past Medical History / Comment(s): Pt recently admitted to [facility] on 03/03/17 with weakness L upper arm, CVA, afib. Other hx: Bladder cancer with surgery, CVAs x3-PT POOR HISTORIAN SINCE last stroke in JUN 2016-has difficulty with speech and balance after stroke affected rt side-pt says yes/no but not always accurately, NIDDM type II, UTI. 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, loop recorder, Past Anesthesia/Blood Transfusion Reactions: No Reported Reaction Date of Last Stent Placement:: 1989 Past Psychological History: No Psychological Hx Reported Smoking Status: Former smoker Past Alcohol Use History: None Reported Past Drug Use History: None Reported - Past Family History Father Family Medical History: Cancer Additional Family Medical History / Comment(s): prostate cancer Mother Family Medical History: Dementia, Hypertension General Exam Limitations: altered mental status General appearance: alert, in no apparent distress Head exam: Present: atraumatic, normocephalic, normal inspection Eye exam: Present: normal appearance, PERRL, EOMI. Absent: nystagmus ENT exam: Present: normal oropharynx Neck exam: Present: normal inspection. Absent: tenderness Respiratory exam: Present: normal lung sounds bilaterally Cardiovascular Exam: Present: regular rate, normal rhythm GI/Abdominal exam: Present: soft. Absent: tenderness Extremities exam: Present: normal inspection Back exam: Present: normal inspection. Absent: tenderness, vertebral tenderness Neurological exam: Present: alert, CN II-XII intact Expanded Neurological exam: Present: protecting the airway Patient oriented to: Present: person, place. Absent: time Cranial nerves: EOM's Intact: Normal Sensory exam: Upper Extremity Light Touch: Normal, Lower Extremity Light Touch: Normal Motor strength exam: RUE: 4, LUE: 5, RLE: 5, LLE: 5 Eye Response: (4) open spontaneously Motor Response: (6) obeys commands Verbal Response: (5) oriented Psychiatric exam: Present: normal affect, normal mood Skin exam: Present: normal color Course Vital Signs 03/31/17 21:01 Temperature 97.4 F L Pulse Rate 70 Respiratory 18 Rate Blood Pressure 175/78 O2 Sat by Pulse 95 Oximetry - Reevaluation(s) Reevaluation #1: 03/31/17 20:48 Case was discussed with Dr. Bo Medical Decision Making - Medical Decision Making Patient reevaluated and resting comfortably in bed. Patient and family updated on results. Also updated on chest x-ray results and need for follow-up regarding this. - Lab Data Lab Results 03/31/17 Range/Units 21:31 POC Glucose (mg/dL) 188 H (75-99) mg/dL POC Glu Production Director ID Inessa Alvarado - Radiology Data Radiology results: image reviewed (Computed tomography scan of the brain shows no acute process. X-ray of the pelvis shows no acute fracture. Chest x-ray shows persistent right lung base consolidation.) Disposition Clinical Impression: Fall Disposition: HOME SELF-CARE Condition: Stable Instructions: Fall Prevention for Older Adults (ED) Additional Instructions: Please hold eliquis for the next 2 days. Return for change in mental status, worsening symptoms or other concerns. Please have primary care physician follow -up on chest x-ray results. Referrals: Ruy Park MD [Primary Care Provider] - 1-2 days Time of Disposition: 21:58
--- NOTE | 2017-03-31 21:30 | XR ---
PROCEDURE: XR pelvis AP view DATE AND TIME: 03/31/2017 9:13 PM REFERRING PHYSICIAN: Larry Worrell DO CLINICAL INDICATION: PHH, Pain TECHNIQUE: Department protocol. COMPARISON: None FINDINGS: There is no fracture or malalignment. There are no focal skeletal findings. No advanced hip osteoarth ritis. The soft tissues are unremarkable. IMPRESSION: NO ACUTE PROCESS.
[2017-03-31 21:32] LABS: Glucose,Whole Blood 188 mg/dL (75-99)
--- NOTE | 2017-03-31 21:33 | XR ---
EXAMINATION TYPE: XR chest 1V portable DATE OF EXAM: 03/31/2017 COMPARISON: 03/10/2017 HISTORY: Pain post fall TECHNIQUE: Single AP upright frontal view of the chest is obtained. FINDINGS: The previously seen triangular consolidative opacity conforming to the superior segment of the right lower lobe shows interval improvement in its overall inflation when compared to the prior s tudy. The lungs are otherwise clear. Pleural spaces are negative. Sternal sutures and mediastinal clips noted. Cardiomediastinal silhouette otherwise unremarkable, as are the bones and soft tissues. IMPRESSION: RIGHT LUNG BASE CONSOLIDATIVE OPACITY REMAINS, BUT THERE IS INTERVAL IMPROVEMENT. WOULD SUGGEST [facility] FOLLOW-UP RADIOGRAPHS TO PROVE RESOLUTION.
--- NOTE | 2017-03-31 21:42 | CT ---
EXAMINATION TYPE: CT brain wo con DATE OF EXAM: 03/31/2017 COMPARISON: 03/03/2017 HISTORY: Unwitnessed fall from bed. CT DLP: 1115.00 mGycm Automated exposure control for dose reduction was used. EXAMINATION TYPE: CT brain wo con DATE OF EXAM: 03/31/2017 HISTORY: Unwitnessed fall from bed. CT DLP: 1115.00 mGycm. Automated Exposure Control for Dose Reduction was Utilized. TECHNIQUE: CT scan of the head is performed without contrast. COMPARISON: None. FINDINGS: There is no acute intracranial hemorrhage or definite new attenuation defect, and there i s no mass or mass effect. There is no encephalomalacia. The calvarium is unremarkable. The globes are intact and the paranasal sinuses and middle ear cavities and mastoid sinus air cells a re clear. IMPRESSION: NO ACUTE PROCESS.
[2017-03-31 23:00] VITALS: BP 168/70; PULSE 68; TEMP 98
== END 2017-03-31 23:00 | disposition home or self-care (01) ==
LOC: EC 20:44
DX: M62.81 Muscle weakness (generalized) (principal); Z04.3 Encounter for examination and observation following other accident; I25.10 Atherosclerotic heart disease of native coronary artery without angina pectoris; I48.91 Unspecified atrial fibrillation; E11.9 Type 2 diabetes mellitus without complications; K21.9 Gastro-esophageal reflux disease without esophagitis; E78.5 Hyperlipidemia, unspecified; I10 Essential (primary) hypertension; Z85.51 Personal history of malignant neoplasm of bladder; Z86.73 Personal history of transient ischemic attack (TIA), and cerebral infarction without residual deficits; Z87.891 Personal history of nicotine dependence; Z79.01 Long term (current) use of anticoagulants; Z79.4 Long term (current) use of insulin; Z79.899 Other long term (current) drug therapy; Z88.2 Allergy status to sulfonamides; W06.XXXA Fall from bed, initial encounter
CPT/HCPCS: 36415; 70450; 71010; 72170; 99284

== ENCOUNTER 2017-04-03 18:57 | Emergency (ER) | payer MEDICARE ==
[2017-04-03 20:03] LABS: Basophils # (A) 0.1 k/uL (0-0.2); Basophils % (A) 1 %; CH 26.2; Eosinophils # (A) 0.4 k/uL (0-0.7); Eosinophils % (A) 4 %; HCT 31.1 % (39.0-53.0); HDW 2.71; HGB 10.3 gm/dL (13.0-17.5); Luc # (Auto) 0.23; Luc % (Auto) 2; Lymphocytes # (A) 1.7 k/uL (1.0-4.8); Lymphocytes % (A) 17 %; MCH 27.2 pg (25.0-35.0); MCHC 33.1 g/dL (31.0-37.0); MCV 82.3 fL (80.0-100.0); Mean Platelet Volume 9.3; Monocytes # (A) 0.6 k/uL (0-1.0); Monocytes % (A) 6 %; Neutrophils # (A) 6.6 k/uL (1.3-7.7); Neutrophils % (A) 69 %; RBC 3.78 m/uL (4.30-5.90); RDW 13.9 % (11.5-15.5); WBC 9.6 k/uL (3.8-10.6); WBC (Perox) 9.59
[2017-04-03 20:15] LABS: Anion Gap 10 mmol/L; Blood Urea Nitrogen 23 mg/dL (9-20); Calcium 8.8 mg/dL (8.4-10.2); Carbon Dioxide 24 mmol/L (22-30); Chloride 99 mmol/L (98-107); Glucose 267 mg/dL (74-99); Non-African American GFR(MDRD) >60 (>60 ml/min/1.73 sqM); Potassium 5.2 mmol/L (3.5-5.1); Sodium 133 mmol/L (137-145)
[2017-04-03 20:17] LABS: INR 1.1 (<1.2)
--- NOTE | 2017-04-03 20:33 | CT ---
EXAMINATION TYPE: CT facial bones wo con DATE OF EXAM: 04/03/2017 COMPARISON: NONE HISTORY: Fall injury with abrasions to nose. CT DLP: 655.4 mGycm Automated exposure control for dose reduction was used. TECHNIQUE: CT scan of the sinuses is performed without contrast, axial images are obtained, coronal r eformatted images are also reviewed. FINDINGS: There is mild mucosal thickening floor of the right maxillary sinus. There is mucosal thick ening in the right side of the sphenoid sinus. The orbital margins are intact. There is no sign of a blowout fracture. There is bilateral patency of the ostiomeatal complex. There is mild mucosal thicke glo in the frontal and anterior ethmoid sinuses. Zygomatic arches are intact. There is slight deform ity of the right side of the nasal bone that could be a nondisplaced fracture.. The maxilla is intact . IMPRESSION: There is evidence for mild pansinusitis. Possible nasal bone nondisplaced fracture.
--- NOTE | 2017-04-03 20:36 | CT ---
EXAMINATION TYPE: CT brain alea mar con DATE OF EXAM: 04/03/2017 COMPARISON: CT brain 03/31/2017 HISTORY: Fall injury with abrasions to nose. CT DLP: 1312.4 mGycm Automated exposure control for dose reduction was used. TECHNIQUE: CT scan of the head and cervical spine are performed without contrast. FINDINGS: There is cerebral cortical atrophy. There is no mass effect nor midline shift. There is n o sign of intracranial hemorrhage. The calvarium is intact. The cervical vertebra fairly normal alignment. There is a few millimeter anterior subluxation of C4 i n relation to C5. There is mild facet arthropathy in the mid and lower cervical spine. I see no compr ession fracture. Skull base is intact. IMPRESSION: Cerebral atrophy. No acute intracranial abnormality. No change compared to old exam. Mild spondylotic changes in the cervical spine. No fracture seen.
--- NOTE | 2017-04-03 21:13 | ED ---
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 The patient fell around 3 PM today. Initially he had some bleeding from his nose however was easily stopped with pressure. Patient has severe debility at baseline secondary to his stroke. Per the patient's , the patient has been acting at his baseline mentation and functionality since the fall. There are no other issues currently - Related Data Home Medications Medication Instructions Recorded Confirmed Atorvastatin Calcium [Lipitor] 40 mg PO HS 02/28/17 04/03/17 Metoprolol Tartrate [Lopressor] 25 mg PO BID 02/28/17 04/03/17 Multivitamins, Thera [Multivitamin 1 tab PO DAILY 02/28/17 04/03/17 (formulary)] Nortriptyline HCl [Pamelor] 25 mg PO DAILY 02/28/17 04/03/17 sitaGLIPtin [Januvia] 100 mg PO DAILY 02/28/17 04/03/17 Albuterol Nebulized [Ventolin 2.5 mg INHALATION RT-Q4H PRN 03/31/17 04/03/17 Nebulized] Apixaban [Eliquis] 5 mg PO BID 03/31/17 04/03/17 Bisacodyl [Dulcolax] 10 mg RECTAL DAILY PRN 03/31/17 04/03/17 Cranberry Fruit Concentrate 450 mg PO BID 03/31/17 04/03/17 [Cranberry] HYDROcodone/APAP 5-325MG [Cohutta 1 tab PO Q6HR PRN 03/31/17 04/03/17 5-325] INSULIN LISPRO (HumaLOG) [humaLOG] See Protocol SQ ACHS 03/31/17 04/03/17 Magnesium Hydroxide [Milk of 2,400 mg PO DAILY PRN 03/31/17 04/03/17 Magnesia] Magnesium Oxide [Mag-Ox] 400 mg PO Q48H 03/31/17 04/03/17 Na Phos,M-B/Na Phos,Di-Ba [Fleet 133 ml RECTAL DAILY PRN 03/31/17 04/03/17 Adult] metFORMIN HCL [Glucophage] 500 mg PO BID 03/31/17 04/03/17 Previous Rx's Medication Instructions Recorded Ipratropium-Albuterol Nebulize 3 ml INHALATION RT-TID neb 03/11/17 [Duoneb 0.5 mg-3 mg/3 ml Soln] LORazepam [Ativan] 0.5 mg PO Q8HR PRN #10 tab 03/11/17 Pantoprazole Sodium [Protonix] 40 mg PO BID #60 tablet. 03/11/17 Sucralfate [Carafate] 1 gm PO ACHS #1 tab 03/11/17 Allergies Allergy/AdvReac Type Severity Reaction Status Date / Time Sulfa (Sulfonamide Allergy Unknown Verified 04/03/17 19:12 Antibiotics) Review of Systems ROS Statement: Those systems with pertinent positive or pertinent negative responses have been documented in the HPI. Review of systems was not obtained secondary to patient's nonverbal state. ROS Other: All systems not noted in ROS Statement are negative. Past Medical History Past Medical History: Atrial Fibrillation, Coronary Artery Disease (CAD), Cancer , CVA/TIA, Diabetes Mellitus, GERD/Reflux, Hyperlipidemia, Hypertension Additional Past Medical History / Comment(s): Pt recently admitted to [facility] on 03/03/17 with weakness L upper arm, CVA, afib. Other hx: Bladder cancer with surgery, CVAs x3-PT POOR HISTORIAN SINCE last stroke in JUN 2016-has difficulty with speech and balance after stroke affected rt side-pt says yes/no but not always accurately, NIDDM type II, UTI. History of Any Multi-Drug Resistant Organisms: None Reported Past Surgical History: Bladder Surgery, Coronary Bypass/CABG, Heart Catheterization With Stent Additional Past Surgical History / Comment(s): 1994 3 vessel CABG with aortic valve surgery, loop recorder, Past Anesthesia/Blood Transfusion Reactions: No Reported Reaction Date of Last Stent Placement:: 1989 Past Psychological History: No Psychological Hx Reported Smoking Status: Former smoker Past Alcohol Use History: None Reported Past Drug Use History: None Reported - Past Family History Father Family Medical History: Cancer Additional Family Medical History / Comment(s): prostate cancer Mother Family Medical History: Dementia, Hypertension General Exam Limitations: altered mental status, physical limitation General appearance: alert, in no apparent distress Head exam: Present: other (Patient has dried blood around his bilateral nares. Nose is mildly swollen. There is no raccoon eyes, or ibarra sign.) Eye exam: Present: normal appearance, PERRL ENT exam: Present: normal exam, normal oropharynx, mucous membranes moist Neck exam: Present: normal inspection Respiratory exam: Present: decreased breath sounds. Absent: respiratory distress, wheezes Cardiovascular Exam: Present: regular rate, normal rhythm, normal heart sounds GI/Abdominal exam: Present: soft. Absent: distended, tenderness Rectal exam: Present: deferred Extremities exam: Present: normal inspection Back exam: Present: normal inspection Neurological exam: Present: alert, other (Patient is unable to answer questions. Patient is awake and appears to be alert as to what is happening around the room.) Psychiatric exam: Present: normal affect, normal mood Skin exam: Present: warm, dry, intact Course Vital Signs 04/03/17 18:59 Temperature 97.8 F Pulse Rate 78 Respiratory 20 Rate Blood Pressure 153/70 O2 Sat by Pulse 96 Oximetry Medical Decision Making - Medical Decision Making Patient presents with a chief complaint of fall, on Eliquis. Patient has severe debility at baseline secondary to a cerebellar CVA that happened in June last year. Patient has a recent history of falls and had a recent CAT scan. Patient will be sent for CT of the head and neck and facial bones. 9:[address] of the head and neck show no acute intracranial or cervical process. There is noted diffuse atrophy which is unchanged from prior exam. CT of the facial bones show a possible closed nondisplaced nasal bone fracture. I discussed this case with Dr. Flower with the trauma surgery team at [facility]. We discussed admission for observation and rescan versus discharge home. It was agreed upon that the patient has adequate supervision at home, and the necessary staff to determine whether or not he is altered from baseline. Care plan was discussed with the , showed decision-making was used to determine that the patient will be discharged home with close follow-up to PCP, or return to the emergency department if his symptoms worsen or change in anyway. - Lab Data Result diagrams: 04/03/17 19:49 04/03/17 19:49 Lab Results 04/03/17 04/03/17 04/03/17 Range/Units 19:49 19:49 19:49 WBC 9.6 (3.8-10.6) k/uL RBC 3.78 L (4.30-5.90) m/uL Hgb 10.3 L (13.0-17.5) gm/dL Hct 31.1 L (39.0-53.0) % MCV 82.3 (80.0-100.0) fL MCH 27.2 (25.0-35.0) pg MCHC 33.1 (31.0-37.0) g/dL RDW 13.9 (11.5-15.5) % Plt Count 253 (150-450) k/uL Neutrophils % 69 % Lymphocytes % 17 % Monocytes % 6 % Eosinophils % 4 % Basophils % 1 % Neutrophils # 6.6 (1.3-7.7) k/uL Lymphocytes # 1.7 (1.0-4.8) k/uL Monocytes # 0.6 (0-1.0) k/uL Eosinophils # 0.4 (0-0.7) k/uL Basophils # 0.1 (0-0.2) k/uL PT 11.0 (9.0-12.0) sec INR 1.1 (<1.2) Sodium 133 L (137-145) mmol/L Potassium 5.2 H (3.5-5.1) mmol/L Chloride 99 (98-107) mmol/L Carbon Dioxide 24 (22-30) mmol/L Anion Gap 10 mmol/L BUN 23 H (9-20) mg/dL Creatinine 1.05 (0.66-1.25) mg/dL Est GFR (MDRD) Af Amer >60 (>60 ml/min/1.73 sqM) Est GFR (MDRD) Non-Af >60 (>60 ml/min/1.73 sqM) Glucose 267 H (74-99) mg/dL Calcium 8.8 (8.4-10.2) mg/dL Disposition Clinical Impression: Fall, Nasal bone fracture Disposition: HOME SELF-CARE Condition: Good Instructions: Fall Prevention for Older Adults (ED) Referrals: Ruy Park MD [Primary Care Provider] - 1-2 days
[2017-04-03 21:32] VITALS: BP 143/71; PULSE 71; RESP 18; TEMP 98.1
== END 2017-04-03 21:32 | disposition home or self-care (01) ==
LOC: EC 18:57
DX: S02.2XXA Fracture of nasal bones, initial encounter for closed fracture (principal); I25.10 Atherosclerotic heart disease of native coronary artery without angina pectoris; E11.9 Type 2 diabetes mellitus without complications; E78.5 Hyperlipidemia, unspecified; I10 Essential (primary) hypertension; Z85.51 Personal history of malignant neoplasm of bladder; Z86.73 Personal history of transient ischemic attack (TIA), and cerebral infarction without residual deficits; Z87.891 Personal history of nicotine dependence; Z88.2 Allergy status to sulfonamides; Z79.84 Long term (current) use of oral hypoglycemic drugs; Z79.899 Other long term (current) drug therapy; Z79.01 Long term (current) use of anticoagulants; Z79.4 Long term (current) use of insulin; W19.XXXA Unspecified fall, initial encounter; Y92.129 Unspecified place in nursing home as the place of occurrence of the external cause
CPT/HCPCS: 36415; 70450; 70486; 72125; 80048; 85025; 85610; 99284

== ENCOUNTER → 2017-05-07 | Outpatient (CLI) | payer MEDICARE ==
--- NOTE | 2017-05-07 07:11 | MR ---
EXAMINATION TYPE: MR brain wo/w con DATE OF EXAM: 05/07/2017 COMPARISON: 03/04/2017 HISTORY: TIA TECHNIQUE: Multiplanar, multisequence images of the brain and brainstem is performed without and with IV contras t, utilizing 7.5 mL intravenous Gadavist . FINDINGS: Diffusion weighted images demonstrate no evidence of a recent infarct or other diffusion ab normality. There is no extra-axial fluid collection or significant white matter signal abnormality. There is extensive evidence of degenerative change. Changes of chronic mastoiditis and sinusitis note d. Diffuse and numerous focal areas of abnormal signal within the white matter noted. Abnormal signal in the barbie and cerebellar peduncles noted. Findings nonspecific but most typical remote ischemic ch ryan. Tiny punctate area of enhancement adjacent to the third ventricle on the left nonspecific. Measures 1 to 2 mm. No corresponding abnormality seen on FLAIR or T2 imaging. Abnormal signal within the basal ganglia region bilaterally may represent prominent Virchow-Silvestre spa carol or tiny remote Craniocervical junction maintained. Sella turcica has a normal appearance. IMPRESSION: 1. Extensive degenerative and nonspecific white matter changes most typical remote ischemic change st able from the previous exam. 2. Abnormal signal involving the barbie and cerebellar peduncles are also stable. Differential would in clude demyelinating process or remote ischemia. 3. Tiny punctate area of enhancement involving the left thalamus adjacent to the left margin of the t hird ventricle measuring 2 mm. This is of questionable significance may be vascular. Short-term follo w-up exam could be obtained to assess stability. Area to small to characterize.
== END | disposition home or self-care (01) ==
LOC: RADMRIMAIN 05:40
PROVIDERS: ATTEND Psychiatry & Neurology Pain Medicine
DX: R90.82 White matter disease, unspecified (principal)
CPT/HCPCS: 70553; A9581

== ENCOUNTER 2017-08-12 15:50 | Emergency (ER) | payer MEDICARE, OTHER ==
[2017-08-12 16:03] VITALS: RESP 18
[2017-08-12] MEDS ORDERED: SODIUM CHLORIDE 0.9% 1,000 ML IV SCH (16:15)
--- NOTE | 2017-08-12 16:15 | ED ---
General Adult HPI - General Chief complaint: Recheck/Abnormal Lab/Rx Stated complaint: ABNORMAL LABS Time Seen by Provider: 08/12/17 15:57 Source: patient, family, EMS, RN notes reviewed, old records reviewed Mode of arrival: EMS Limitations: no limitations - History of Present Illness Initial comments: Chief complaint and history of present illness this is a 71-year-old male who has been at home for one week after being a assisted for extended period time. Yesterday was seen by his family doctor. Labs are drawn. reports she received a call from Dr. Baxter come the hospital for evaluation of abnormal labs, elevated white count of over 20,000. Patient does not have fever or any complaints of any infections. - Related Data Home Medications Medication Instructions Recorded Confirmed Metoprolol Tartrate [Lopressor] 25 mg PO BID 02/28/17 08/12/17 sitaGLIPtin [Januvia] 100 mg PO BID 02/28/17 08/12/17 Apixaban [Eliquis] 5 mg PO BID 03/31/17 08/12/17 INSULIN LISPRO (HumaLOG) [humaLOG] 2 unit SQ TID 03/31/17 08/12/17 Atorvastatin [Lipitor] 80 mg PO HS 06/24/17 08/12/17 Nortriptyline [Pamelor] 20 mg PO HS 06/24/17 08/12/17 Pantoprazole Sodium [Protonix] 40 mg PO BID@0800,1700 06/24/17 08/12/17 Carbidopa-Levodopa 25-100 mg 1 tab PO TID 08/12/17 08/12/17 [Sinemet 25-100 mg] Insulin Glargine [Lantus] 10 unit SQ HS 08/12/17 08/12/17 Lactulose 10 gm PO BID 08/12/17 08/12/17 Ubidecarenone [Coenzyme Q10] 60 mg PO BID 08/12/17 08/12/17 Previous Rx's Medication Instructions Recorded Repaglinide [Prandin] 0.5 mg PO AC-TID #1 tablet 06/29/17 metFORMIN HCL [Glucophage] 1,000 mg PO BID-W/MEALS tab 06/29/17 Levofloxacin [Levaquin] 500 mg PO DAILY #6 tab 08/12/17 Allergies Allergy/AdvReac Type Severity Reaction Status Date / Time Sulfa (Sulfonamide Allergy Unknown Verified 08/12/17 16:21 Antibiotics) Review of Systems ROS Statement: Those systems with pertinent positive or pertinent negative responses have been documented in the HPI. Review of systems. Patient denying any visual acuity changes no headache no stiff neck no chest pain or cough no sensation of shortness of breath. No abdominal pain no nausea no vomiting or diarrhea. No pain anywhere. No skin infections or abscesses. All systems reviewed. Past medical processing significant for heart disease, A. fib on L [place], asbestos exposure, bladder cancer where he keeps having tumors removed from the bladder. And strokes. The patient is insulin-dependent diabetic. Surgeries include bladder tumors, triple bypass, valve replacement and stents. Patient's also had a plate placed in his left forearm from her fracture. Family history Brother had lung cancer. Patient has ALLERGIES to sulfa. The patient quit smoking 2 years ago. Denies alcohol use. ROS Other: All systems not noted in ROS Statement are negative. Past Medical History Past Medical History: Atrial Fibrillation, Coronary Artery Disease (CAD), Cancer , CVA/TIA, Diabetes Mellitus, GERD/Reflux, Hyperlipidemia Additional Past Medical History / Comment(s): Pt recently admitted to [facility] on 03/03/17 with weakness L upper arm, CVA, afib. Other hx: Bladder cancer with surgery, CVAs x3-PT POOR HISTORIAN SINCE last stroke in JUN 2016-has difficulty with speech and balance after stroke affected rt side-pt says yes/no but not always accurately, NIDDM type II, UTI. History of Any Multi-Drug Resistant Organisms: None Reported Past Surgical History: Bladder Surgery, Coronary Bypass/CABG, Heart Catheterization With Stent Additional Past Surgical History / Comment(s): 1994 3 vessel CABG with aortic valve surgery, loop recorder, Past Anesthesia/Blood Transfusion Reactions: No Reported Reaction Date of Last Stent Placement:: 1989 Past Psychological History: No Psychological Hx Reported Smoking Status: Former smoker Past Alcohol Use History: None Reported Past Drug Use History: None Reported - Past Family History Father Family Medical History: Cancer Additional Family Medical History / Comment(s): prostate cancer Mother Family Medical History: Dementia, Hypertension General Exam - General Exam Comments Initial Comments: General: The patient is awake no change in general mental state per . He has had strokes in the past. The patient is incontinent and wears diapers. No blood was noted in the urine. Vital signs temp 99.1 pulse 89 respiratory rate 18 pulse ox 96% room air blood pressure 171/76 Eye: Pupils are equal, round and reactive to light, extra-ocular movements are intact ; there is normal conjunctiva bilaterally. No signs of icterus. Evidence of bilateral cataract removal. Ears, nose, mouth and throat: Mildly dry mucous membranes. Neck: The neck is supple, there is no tenderness . Cardiovascular: There is a regular rate and rhythm. Systolic murmur. Respiratory: Lungs are clear to auscultation, respirations are non-labored, breath sounds are equal. No wheezes, stridor, rales, or rhonchi. Gastrointestinal: Soft, non-distended, non-tender abdomen without masses or organomegaly noted. There is no rebound or guarding present. No CVA tenderness. Bowel sounds are unremarkable. Back: There is no tenderness to palpation in the midline. There is no obvious deformity. No rashes noted. Musculoskeletal: Normal ROM, no tenderness, There is no pedal edema. There is no calf tenderness or swelling. Sensation intact. Pulses equal bilaterally 2+. Neurological: Neurologically unchanged at previous strokes. Answers questions appropriately. No new deficits per . Skin: Skin is warm and dry and no rashes or lesions are noted. Psychiatric: Cooperative, flat affect post stroke. Limitations: no limitations Course Vital Signs 08/12/17 08/12/17 08/12/17 15:54 16:21 16:39 Temperature 99.1 F 98.0 F Pulse Rate 89 88 Respiratory 18 18 Rate Blood Pressure 171/76 143/63 O2 Sat by Pulse 96 97 Oximetry 08/12/17 17:30 Temperature Pulse Rate 83 Respiratory 18 Rate Blood Pressure 133/62 O2 Sat by Pulse 96 Oximetry Medical Decision Making - Medical Decision Making A she'll be placed on Medical decision making; the patient doesn't have any complaints but while at his doctor's office and elevated white count yesterday. Repeated today is 15.7 hemoglobin hematocrit similar to what it was yesterday. Kidney function similar. Today's urinalysis shows positive leukoesterase ,8 reds ,greater than 180 white cells. This be cultured. At this time the patient will be placed on Levaquin and patient prefer to go home than stay in hospital. Vital signs remained stable. The mom away for be given a container for repeat urinalysis to 3 days after he finishes antibiotics. 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 - Lab Data Result diagrams: 08/12/17 16:36 08/12/17 16:36 Lab Results 08/12/17 08/12/17 08/12/17 Range/Units 16:36 16:36 16:36 WBC 15.7 H (3.8-10.6) k/uL RBC 3.70 L (4.30-5.90) m/uL Hgb 9.0 L (13.0-17.5) gm/dL Hct 28.9 L (39.0-53.0) % MCV 78.1 L (80.0-100.0) fL MCH 24.4 L (25.0-35.0) pg MCHC 31.2 (31.0-37.0) g/dL RDW 16.1 H (11.5-15.5) % Plt Count 262 (150-450) k/uL Neutrophils % 77 % Lymphocytes % 14 % Monocytes % 5 % Eosinophils % 2 % Basophils % 1 % Neutrophils # 12.1 H (1.3-7.7) k/uL Lymphocytes # 2.2 (1.0-4.8) k/uL Monocytes # 0.9 (0-1.0) k/uL Eosinophils # 0.3 (0-0.7) k/uL Basophils # 0.1 (0-0.2) k/uL Anisocytosis Slight Sodium 142 (137-145) mmol/L Potassium 3.9 (3.5-5.1) mmol/L Chloride 102 (98-107) mmol/L Carbon Dioxide 27 (22-30) mmol/L Anion Gap 13 mmol/L BUN 24 H (9-20) mg/dL Creatinine 1.02 (0.66-1.25) mg/dL Est GFR (MDRD) Af Amer >60 (>60 ml/min/1.73 sqM) Est GFR (MDRD) Non-Af >60 (>60 ml/min/1.73 sqM) Glucose 103 H (74-99) mg/dL Calcium 9.1 (8.4-10.2) mg/dL Total Bilirubin 0.7 (0.2-1.3) mg/dL AST 22 (17-59) U/L ALT 24 (21-72) U/L Alkaline Phosphatase 103 (38-126) U/L Total Protein 6.6 (6.3-8.2) g/dL Albumin 3.7 (3.5-5.0) g/dL Urine Color Yellow Urine Appearance Cloudy (Clear) Urine pH 5.5 (5.0-8.0) Ur Specific [place] 1.017 (1.001-1.035) Urine Protein 2+ H (Negative) Urine Glucose (UA) Trace H (Negative) Urine Ketones Negative (Negative) Urine Blood Small H (Negative) Urine Nitrite Positive (Negative) Urine Bilirubin Negative (Negative) Urine Urobilinogen <2.0 (<2.0) mg/dL Ur Leukocyte Esterase Large H (Negative) Urine RBC 8 H (0-5) /hpf Urine WBC >182 H (0-5) /hpf Urine WBC Clumps Many H (None) /hpf Ur Squamous Epith Cells 1 (0-4) /hpf Hyaline Casts 21 H (0-2) /lpf Urine Mucus Rare H (None) /hpf Disposition Clinical Impression: Urinary tract infection Disposition: HOME SELF-CARE Condition: Stable Instructions: Urinary Tract Infection in Men (ED) Additional Instructions: Increased fluid. Take medications daily. 2-3 days after he finished antibiotics collect a urine sample and return the sample to the hospital laboratory. Follow-up with your family physician as directed or return emergency room as needed Prescriptions: Levofloxacin [Levaquin] 500 mg PO DAILY #6 tab Referrals: Ruy Park MD [Primary Care Provider] - 1-2 days Time of Disposition: 17:59
[2017-08-12 16:40] VITALS: TEMP 98
[2017-08-12 16:59] LABS: Anisocytosis Slight; Basophils # (A) 0.1 k/uL (0-0.2); Basophils % (A) 1 %; Eosinophils # (A) 0.3 k/uL (0-0.7); Eosinophils % (A) 2 %; HCT 28.9 % (39.0-53.0); Lymphocytes # (A) 2.2 k/uL (1.0-4.8); Lymphocytes % (A) 14 %; MCH 24.4 pg (25.0-35.0); MCHC 31.2 g/dL (31.0-37.0); MCV 78.1 fL (80.0-100.0); Mean Platelet Volume 8.6; Monocytes # (A) 0.9 k/uL (0-1.0); Monocytes % (A) 5 %; Neutrophils # (A) 12.1 k/uL (1.3-7.7); Neutrophils % (A) 77 %; Platelet Count 262 k/uL (150-450); RDW 16.1 % (11.5-15.5); WBC 15.7 k/uL (3.8-10.6)
--- NOTE | 2017-08-12 17:04 | XR ---
EXAMINATION TYPE: XR chest 2V DATE OF EXAM: 08/12/2017 COMPARISON: 06/25/2017 HISTORY: Asbestos exposure TECHNIQUE: Frontal and lateral views of the chest are obtained. FINDINGS: There is some pleural thickening along the right lower lateral chest wall. There is blunti ng of right costophrenic angle. There is some patchy infiltrate at the lateral right lung base. Left lung is clear. There are sternal wires. Heart is shifted slightly to the right side. The bony thorax appears intact. IMPRESSION: There is pleural thickening and infiltrate and volume loss on the right side that has pr ogressed compared to last exam. Follow-up is recommended. No heart failure.
[2017-08-12 17:05] LABS: ALT 24 U/L (21-72); AST 22 U/L (17-59); Albumin 3.7 g/dL (3.5-5.0); Alkaline Phosphatase 103 U/L (38-126); Anion Gap 13 mmol/L; Blood Urea Nitrogen 24 mg/dL (9-20); Calcium 9.1 mg/dL (8.4-10.2); Carbon Dioxide 27 mmol/L (22-30); Chloride 102 mmol/L (98-107); Glucose 103 mg/dL (74-99); Potassium 3.9 mmol/L (3.5-5.1); Sodium 142 mmol/L (137-145); Total Bilirubin 0.7 mg/dL (0.2-1.3); Total Protein 6.6 g/dL (6.3-8.2)
[2017-08-12 17:17] LABS: Hyaline Casts,Urine 21 /lpf (0-2); Mucus,Urine Rare /hpf; RBC,Urine 8 /hpf (0-5); WBC,Urine >182 /hpf (0-5)
[2017-08-12 17:25] LABS: Appearance,Urine Cloudy (Clear); Bilirubin,Urine Negative (Negative); Blood,Urine Small (Negative); Color,Urine Yellow; Glucose,Urine (UA) Trace (Negative); Ketones,Urine Negative (Negative); Leukocyte Esterase,Urine Large (Negative); Nitrite,Urine Positive (Negative); PH, Urine 5.5 (5.0-8.0); Protein,Urine 2+ (Negative); Specific Gravity,Urine 1.017 (1.001-1.035); Squamous Epithelial Cell,Urine 1 /hpf (0-4); Urobilinogen,Urine <2.0 mg/dL (<2.0)
[2017-08-12 17:31] VITALS: BP 133/62; PULSE 83
[2017-08-12] MEDS ORDERED: LEVOFLOXACIN 500 MG TAB PO STA (17:52)
== END 2017-08-12 19:01 | disposition home or self-care (01) ==
LOC: EC 15:50
DX: N39.0 Urinary tract infection, site not specified (principal); I48.91 Unspecified atrial fibrillation; I25.10 Atherosclerotic heart disease of native coronary artery without angina pectoris; E11.9 Type 2 diabetes mellitus without complications; K21.9 Gastro-esophageal reflux disease without esophagitis; E78.5 Hyperlipidemia, unspecified; Z85.51 Personal history of malignant neoplasm of bladder; Z86.73 Personal history of transient ischemic attack (TIA), and cerebral infarction without residual deficits; Z87.891 Personal history of nicotine dependence; Z79.4 Long term (current) use of insulin; Z79.01 Long term (current) use of anticoagulants; Z79.899 Other long term (current) drug therapy; Z88.2 Allergy status to sulfonamides
CPT/HCPCS: 36415; 51701; 71046; 80053; 81001; 85025; 87077; 87086; 87186; 99284

== ENCOUNTER 2017-09-07 11:36 | Inpatient (IN) | payer MEDICARE ==
[2017-09-07] MEDS ORDERED: SODIUM CHLORIDE 0.9% 1,000 ML IV ONE ×2 (11:40)
--- NOTE | 2017-09-07 11:48 | ED ---
Altered Mental Status HPI - General Stated Complaint: Altered Mental Status Time Seen by Provider: 09/07/17 11:36 Source: EMS, RN notes reviewed, old records reviewed Mode of arrival: EMS - History of Present Illness Initial Comments: This is a 72-year-old male was brought in by EMS from home with reports of progressively worsening mental status over last several days. He's had a fever per paramedics she was noted have a blood pressure of 81/42 this remain even after 500 mL bolus he does have a history of a recent urinary tract infection and did have a Costello catheter removed 5 days ago. Patient is a poor historian there appears be no focal deficits however. No reports of trauma. No other reports available at this time MD Complaint: altered mental status - Related Data Home Medications Medication Instructions Recorded Confirmed Metoprolol Tartrate [Lopressor] 25 mg PO BID 02/28/17 09/07/17 sitaGLIPtin [Januvia] 100 mg PO DAILY 02/28/17 09/07/17 Apixaban [Eliquis] 5 mg PO BID 03/31/17 09/07/17 Atorvastatin [Lipitor] 80 mg PO HS 06/24/17 09/07/17 Nortriptyline [Pamelor] 10 mg PO HS 06/24/17 09/07/17 Pantoprazole Sodium [Protonix] 40 mg PO BID@0800,1700 06/24/17 09/07/17 Carbidopa-Levodopa 25-100 mg 1 tab PO TID 08/12/17 09/07/17 [Sinemet 25-100 mg] Insulin Glargine [Lantus] 10 unit SQ HS 08/12/17 09/07/17 Ubidecarenone [Coenzyme Q10] 60 mg PO BID 08/12/17 09/07/17 Amoxicillin 500 mg PO Q8H 09/07/17 09/07/17 Aspirin EC [Ecotrin Low Dose] 81 mg PO DAILY 09/07/17 09/07/17 Cranberry Fruit Extract [Cranberry] 200 mg PO DAILY 09/07/17 09/07/17 Insulin Lispro [humaLOG Kwikpen] 2 unit SQ AC-TID 09/07/17 09/07/17 Multivitamins, Thera [Multivitamin 1 tab PO DAILY 09/07/17 09/07/17 (formulary)] Tamsulosin [Flomax] 0.4 mg PO DAILY 09/07/17 09/07/17 metFORMIN HCL [metFORMIN HCL] 1,000 mg PO BID 09/07/17 09/07/17 Previous Rx's Medication Instructions Recorded Repaglinide [Prandin] 0.5 mg PO AC-TID #1 tablet 06/29/17 Allergies Allergy/AdvReac Type Severity Reaction Status Date / Time Sulfa (Sulfonamide Allergy Unknown Verified 08/12/17 16:21 Antibiotics) Review of Systems ROS Statement: Those systems with pertinent positive or pertinent negative responses have been documented in the HPI. ROS Other: All systems not noted in ROS Statement are negative. Limitations: ROS unobtainable due to patients medical condition Past Medical History Past Medical History: Atrial Fibrillation, Coronary Artery Disease (CAD), Cancer , CVA/TIA, Diabetes Mellitus, GERD/Reflux, Hyperlipidemia Additional Past Medical History / Comment(s): Pt recently admitted to [facility] on 03/03/17 with weakness L upper arm, CVA, afib. Other hx: Bladder cancer with surgery, CVAs x3-PT POOR HISTORIAN SINCE last stroke in JUN 2016-has difficulty with speech and balance after stroke affected rt side-pt says yes/no but not always accurately, NIDDM type II, UTI. History of Any Multi-Drug Resistant Organisms: None Reported Past Surgical History: Bladder Surgery, Coronary Bypass/CABG, Heart Catheterization With Stent Additional Past Surgical History / Comment(s): 1994 3 vessel CABG with aortic valve surgery, loop recorder, Past Anesthesia/Blood Transfusion Reactions: No Reported Reaction Date of Last Stent Placement:: 1989 Past Psychological History: No Psychological Hx Reported Smoking Status: Former smoker Past Alcohol Use History: None Reported Past Drug Use History: None Reported - Past Family History Father Family Medical History: Cancer Additional Family Medical History / Comment(s): prostate cancer Mother Family Medical History: Dementia, Hypertension General Exam - General Exam Comments Initial Comments: This is a well-developed well-nourished awake alert but lethargic male General appearance: alert, lethargic Head exam: Present: atraumatic, normocephalic, normal inspection Eye exam: Present: normal appearance, PERRL, EOMI. Absent: scleral icterus, conjunctival injection, periorbital swelling ENT exam: Present: mucous membranes dry Neck exam: Present: normal inspection. Absent: tenderness, meningismus, lymphadenopathy Respiratory exam: Present: decreased breath sounds, other (Some right lower lobe crepitus). Absent: respiratory distress, wheezes, rales, rhonchi, stridor Cardiovascular Exam: Present: tachycardia. Absent: systolic murmur, diastolic murmur, rubs, gallop, clicks GI/Abdominal exam: Present: soft, normal bowel sounds. Absent: distended, tenderness, guarding, rebound, rigid, bruit, pulsatile mass, hernia Extremities exam: Present: normal inspection, full ROM, normal capillary refill. Absent: tenderness, pedal edema, joint swelling, calf tenderness Back exam: Present: normal inspection Neurological exam: Present: alert, altered, CN II-XII intact Psychiatric exam: Present: other (Unable to fully evaluate) Skin exam: Present: warm, dry, intact, normal color. Absent: rash Course Vital Signs 09/07/17 09/07/17 09/07/17 11:39 11:51 13:39 Temperature 98.6 F Pulse Rate 95 96 Respiratory 20 18 Rate Blood Pressure 121/56 106/66 O2 Sat by Pulse 100 99 100 Oximetry 09/07/17 09/07/17 09/07/17 14:00 15:00 15:50 Temperature 97.8 F Pulse Rate 93 90 96 Respiratory 20 20 18 Rate Blood Pressure 108/70 125/62 128/65 O2 Sat by Pulse 97 98 97 Oximetry - Reevaluation(s) Reevaluation #1: 09/07/17 16:47 I did reevaluate patient several occasions I did discuss the findings with the patient's and the patient. Patient showed no change he had no complaints of chest pain he does demonstrate evidence of right lower lobe pneumonia dehydration renal insufficiency and a markedly elevated troponin with no EKG changes. Medical Decision Making - Medical Decision Making I did discuss findings the patient's the patient is a no code per advanced directives. Patient will be admitted for treatment of pneumonia non-ST elevation myocardial infarction and dehydration. I did discuss the case with Dr. Mares as well as with Dr. Nicole from cardiology. - Lab Data Result diagrams: 09/07/17 11:45 09/07/17 11:45 Lab Results 09/07/17 09/07/17 09/07/17 Range/Units 11:45 11:45 11:45 WBC 23.2 H (3.8-10.6) k/uL RBC 3.87 L (4.30-5.90) m/uL Hgb 9.5 L (13.0-17.5) gm/dL Hct 30.6 L (39.0-53.0) % MCV 79.1 L (80.0-100.0) fL MCH 24.4 L (25.0-35.0) pg MCHC 30.9 L (31.0-37.0) g/dL RDW 15.2 (11.5-15.5) % Plt Count 238 (150-450) k/uL Neutrophils % (Manual) 76 % Band Neutrophils % 13 % Lymphocytes % (Manual) 3 % Monocytes % (Manual) 4 % Metamyelocytes % 4 % Myelocytes % 1 % Neutrophils # (Manual) 20.60 H (1.3-7.7) k/uL Lymphocytes # (Manual) 0.70 L (1.0-4.8) k/uL Monocytes # (Manual) 0.93 (0-1.0) k/uL Metamyelocytes # (Man) 0.93 H (0) k/uL Myelocytes # (Manual) 0.23 H (0) k/uL Nucleated RBCs 0 (0-0) /100 WBC Manual Slide Review Performed Toxic Granulation Present Hypochromasia Slight Poikilocytosis (manual Present PT (9.0-12.0) sec INR (<1.2) APTT (22.0-30.0) sec Sodium (137-145) mmol/L Potassium (3.5-5.1) mmol/L Chloride (98-107) mmol/L Carbon Dioxide (22-30) mmol/L Anion Gap mmol/L BUN (9-20) mg/dL Creatinine (0.66-1.25) mg/dL Est GFR (MDRD) Af Amer (>60 ml/min/1.73 sqM) Est GFR (MDRD) Non-Af (>60 ml/min/1.73 sqM) Glucose (74-99) mg/dL Lactic Ac Sepsis Rflx Plasma Lactic Acid Jatin 4.6 H* (0.7-2.0) mmol/L Calcium (8.4-10.2) mg/dL Magnesium (1.6-2.3) mg/dL Total Bilirubin (0.2-1.3) mg/dL AST (17-59) U/L ALT (21-72) U/L Alkaline Phosphatase (38-126) U/L Ammonia <9 (<30) umol/L Total Creatine Kinase 336 H (55-170) U/L CK-MB (CK-2) 12.8 H* (0.0-2.4) ng/mL CK-MB (CK-2) Rel Index 3.8 Troponin I 7.320 H* (0.000-0.034) ng/mL Total Protein (6.3-8.2) g/dL Albumin (3.5-5.0) g/dL Lipase (23-300) U/L Urine Color Urine Appearance (Clear) Urine pH (5.0-8.0) Ur Specific [place] (1.001-1.035) Urine Protein (Negative) Urine Glucose (UA) (Negative) Urine Ketones (Negative) Urine Blood (Negative) Urine Nitrite (Negative) Urine Bilirubin (Negative) Urine Urobilinogen (<2.0) mg/dL Ur Leukocyte Esterase (Negative) Urine RBC (0-5) /hpf Urine WBC (0-5) /hpf Urine WBC Clumps (None) /hpf Ur Squamous Epith Cells (0-4) /hpf Urine Bacteria (None) /hpf Hyaline Casts (0-2) /lpf Urine Opiates Screen (NotDetected) Ur Oxycodone Screen (NotDetected) Urine Methadone Screen (NotDetected) Ur Propoxyphene Screen (NotDetected) Ur Barbiturates Screen (NotDetected) U Tricyclic Antidepress (NotDetected) Ur Phencyclidine Scrn (NotDetected) Ur Amphetamines Screen (NotDetected) U Methamphetamines Scrn (NotDetected) U Benzodiazepines Scrn (NotDetected) Urine Cocaine Screen (NotDetected) U Marijuana (THC) Screen (NotDetected) 09/07/17 09/07/17 09/07/17 Range/Units 11:45 11:45 11:45 WBC (3.8-10.6) k/uL RBC (4.30-5.90) m/uL Hgb (13.0-17.5) gm/dL Hct (39.0-53.0) % MCV (80.0-100.0) fL MCH (25.0-35.0) pg MCHC (31.0-37.0) g/dL RDW (11.5-15.5) % Plt Count (150-450) k/uL Neutrophils % (Manual) % Band Neutrophils % % Lymphocytes % (Manual) % Monocytes % (Manual) % Metamyelocytes % % Myelocytes % % Neutrophils # (Manual) (1.3-7.7) k/uL Lymphocytes # (Manual) (1.0-4.8) k/uL Monocytes # (Manual) (0-1.0) k/uL Metamyelocytes # (Man) (0) k/uL Myelocytes # (Manual) (0) k/uL Nucleated RBCs (0-0) /100 WBC Manual Slide Review Toxic Granulation Hypochromasia Poikilocytosis (manual PT 12.9 H (9.0-12.0) sec INR 1.4 H (<1.2) APTT 30.8 H (22.0-30.0) sec Sodium 143 (137-145) mmol/L Potassium 3.7 (3.5-5.1) mmol/L Chloride 102 (98-107) mmol/L Carbon Dioxide 25 (22-30) mmol/L Anion Gap 16 mmol/L BUN 21 H (9-20) mg/dL Creatinine 1.30 H (0.66-1.25) mg/dL Est GFR (MDRD) Af Amer >60 (>60 ml/min/1.73 sqM) Est GFR (MDRD) Non-Af 54 (>60 ml/min/1.73 sqM) Glucose 96 (74-99) mg/dL Lactic Ac Sepsis Rflx Plasma Lactic Acid Jatin (0.7-2.0) mmol/L Calcium 8.5 (8.4-10.2) mg/dL Magnesium 0.7 L* (1.6-2.3) mg/dL Total Bilirubin 1.1 (0.2-1.3) mg/dL AST 44 (17-59) U/L ALT 21 (21-72) U/L Alkaline Phosphatase 123 (38-126) U/L Ammonia (<30) umol/L Total Creatine Kinase (55-170) U/L CK-MB (CK-2) (0.0-2.4) ng/mL CK-MB (CK-2) Rel Index Troponin I (0.000-0.034) ng/mL Total Protein 6.7 (6.3-8.2) g/dL Albumin 3.6 (3.5-5.0) g/dL Lipase 11 L (23-300) U/L Urine Color Yellow Urine Appearance Cloudy (Clear) Urine pH 5.5 (5.0-8.0) Ur Specific [place] 1.016 (1.001-1.035) Urine Protein 2+ H (Negative) Urine Glucose (UA) Negative (Negative) Urine Ketones Trace H (Negative) Urine Blood Moderate H (Negative) Urine Nitrite Negative (Negative) Urine Bilirubin Negative (Negative) Urine Urobilinogen 3.0 (<2.0) mg/dL Ur Leukocyte Esterase Large H (Negative) Urine RBC 25 H (0-5) /hpf Urine WBC 176 H (0-5) /hpf Urine WBC Clumps Few H (None) /hpf Ur Squamous Epith Cells 1 (0-4) /hpf Urine Bacteria Occasional H (None) /hpf Hyaline Casts 8 H (0-2) /lpf Urine Opiates Screen Not Detected (NotDetected) Ur Oxycodone Screen Not Detected (NotDetected) Urine Methadone Screen Not Detected (NotDetected) Ur Propoxyphene Screen Not Detected (NotDetected) Ur Barbiturates Screen Not Detected (NotDetected) U Tricyclic Antidepress Detected H (NotDetected) Ur Phencyclidine Scrn Not Detected (NotDetected) Ur Amphetamines Screen Not Detected (NotDetected) U Methamphetamines Scrn Not Detected (NotDetected) U Benzodiazepines Scrn Not Detected (NotDetected) Urine Cocaine Screen Not Detected (NotDetected) U Marijuana (THC) Screen Not Detected (NotDetected) 09/07/17 Range/Units 13:12 WBC (3.8-10.6) k/uL RBC (4.30-5.90) m/uL Hgb (13.0-17.5) gm/dL Hct (39.0-53.0) % MCV (80.0-100.0) fL MCH (25.0-35.0) pg MCHC (31.0-37.0) g/dL RDW (11.5-15.5) % Plt Count (150-450) k/uL Neutrophils % (Manual) % Band Neutrophils % % Lymphocytes % (Manual) % Monocytes % (Manual) % Metamyelocytes % % Myelocytes % % Neutrophils # (Manual) (1.3-7.7) k/uL Lymphocytes # (Manual) (1.0-4.8) k/uL Monocytes # (Manual) (0-1.0) k/uL Metamyelocytes # (Man) (0) k/uL Myelocytes # (Manual) (0) k/uL Nucleated RBCs (0-0) /100 WBC Manual Slide Review Toxic Granulation Hypochromasia Poikilocytosis (manual PT (9.0-12.0) sec INR (<1.2) APTT (22.0-30.0) sec Sodium (137-145) mmol/L Potassium (3.5-5.1) mmol/L Chloride (98-107) mmol/L Carbon Dioxide (22-30) mmol/L Anion Gap mmol/L BUN (9-20) mg/dL Creatinine (0.66-1.25) mg/dL Est GFR (MDRD) Af Amer (>60 ml/min/1.73 sqM) Est GFR (MDRD) Non-Af (>60 ml/min/1.73 sqM) Glucose (74-99) mg/dL Lactic Ac Sepsis Rflx Y Plasma Lactic Acid Jatin (0.7-2.0) mmol/L Calcium (8.4-10.2) mg/dL Magnesium (1.6-2.3) mg/dL Total Bilirubin (0.2-1.3) mg/dL AST (17-59) U/L ALT (21-72) U/L Alkaline Phosphatase (38-126) U/L Ammonia (<30) umol/L Total Creatine Kinase (55-170) U/L CK-MB (CK-2) (0.0-2.4) ng/mL CK-MB (CK-2) Rel Index Troponin I (0.000-0.034) ng/mL Total Protein (6.3-8.2) g/dL Albumin (3.5-5.0) g/dL Lipase (23-300) U/L Urine Color Urine Appearance (Clear) Urine pH (5.0-8.0) Ur Specific [place] (1.001-1.035) Urine Protein (Negative) Urine Glucose (UA) (Negative) Urine Ketones (Negative) Urine Blood (Negative) Urine Nitrite (Negative) Urine Bilirubin (Negative) Urine Urobilinogen (<2.0) mg/dL Ur Leukocyte Esterase (Negative) Urine RBC (0-5) /hpf Urine WBC (0-5) /hpf Urine WBC Clumps (None) /hpf Ur Squamous Epith Cells (0-4) /hpf Urine Bacteria (None) /hpf Hyaline Casts (0-2) /lpf Urine Opiates Screen (NotDetected) Ur Oxycodone Screen (NotDetected) Urine Methadone Screen (NotDetected) Ur Propoxyphene Screen (NotDetected) Ur Barbiturates Screen (NotDetected) U Tricyclic Antidepress (NotDetected) Ur Phencyclidine Scrn (NotDetected) Ur Amphetamines Screen (NotDetected) U Methamphetamines Scrn (NotDetected) U Benzodiazepines Scrn (NotDetected) Urine Cocaine Screen (NotDetected) U Marijuana (THC) Screen (NotDetected) - EKG Data -: EKG Interpreted by Me (Sinus rhythm rate of 95. Interval 166 QRS duration 1: 30 QT since QTC of 39) EKG shows normal: sinus rhythm - Radiology Data Radiology results: report reviewed (X-ray shows evidence a right lower lobe infiltrate.), image reviewed Critical Care Time Critical Care Time: Yes Critical Care Time: 39 is a critical care time which includes initial presentation with history physical labs x-rays monitoring the EMS run and discussed with paramedics after arrival. Reevaluation patient several occasions discussion the patient weighs discussion with the cardiology service and with Dr. Mares. Admission orders and documentation of the above. Disposition Clinical Impression: Non-ST elevation myocardial infarction (NSTEMI), Right lower lobe pneumonia, Dehydration, Metabolic encephalopathy, Renal insufficiency Disposition: ADMITTED IP TO THIS HOSP Condition: Serious Referrals: Ruy Park MD [Primary Care Provider] - 1-2 days
[2017-09-07 12:24] LABS: HCT 30.6 % (39.0-53.0); HGB 9.5 gm/dL (13.0-17.5); Hypochromasia Slight; MCH 24.4 pg (25.0-35.0); MCHC 30.9 g/dL (31.0-37.0); MCV 79.1 fL (80.0-100.0); Mean Platelet Volume 8.8; Platelet Count 238 k/uL (150-450); RBC 3.87 m/uL (4.30-5.90); RDW 15.2 % (11.5-15.5); WBC 23.2 k/uL (3.8-10.6)
[2017-09-07 12:30] LABS: INR 1.4 (<1.2); Partial Thromboplastin Time 30.8 sec (22.0-30.0); Prothrombin Time 12.9 sec (9.0-12.0)
[2017-09-07 12:39] LABS: Appearance,Urine Cloudy (Clear); Bacteria,Urine Occasional /hpf; Bilirubin,Urine Negative (Negative); Blood,Urine Moderate (Negative); Color,Urine Yellow; Glucose,Urine (UA) Negative (Negative); Hyaline Casts,Urine 8 /lpf (0-2); Ketones,Urine Trace (Negative); Leukocyte Esterase,Urine Large (Negative); Nitrite,Urine Negative (Negative); PH, Urine 5.5 (5.0-8.0); Protein,Urine 2+ (Negative); RBC,Urine 25 /hpf (0-5); Specific Gravity,Urine 1.016 (1.001-1.035); Squamous Epithelial Cell,Urine 1 /hpf (0-4); WBC,Urine 176 /hpf (0-5)
[2017-09-07 12:43] LABS: ALT 21 U/L (21-72); AST 44 U/L (17-59); Albumin 3.6 g/dL (3.5-5.0); Alkaline Phosphatase 123 U/L (38-126); Anion Gap 16 mmol/L; Blood Urea Nitrogen 21 mg/dL (9-20); Calcium 8.5 mg/dL (8.4-10.2); Carbon Dioxide 25 mmol/L (22-30); Chloride 102 mmol/L (98-107); Glucose 96 mg/dL (74-99); Lipase 11 U/L (23-300); Potassium 3.7 mmol/L (3.5-5.1); Sodium 143 mmol/L (137-145); Total Bilirubin 1.1 mg/dL (0.2-1.3); Total Protein 6.7 g/dL (6.3-8.2)
[2017-09-07 12:44] LABS: Ammonia <9 umol/L (<30)
[2017-09-07 12:48] LABS: Band Neutrophils % 13 %; Metamyelocytes # (M) 0.93 k/uL (0); Metamyelocytes % 4 %; Monocytes # (M) 0.93 k/uL (0-1.0); Myelocytes # (M) 0.23 k/uL (0); Myelocytes % 1 %; Neutrophils % (M) 76 %; Nucleated Red Blood Cells 0 /100 WBC (0-0); Poikilocytosis (M) Present; Total Cells Counted 200; Toxic Granulation Present
[2017-09-07 12:50] LABS: Amphetamine Screen,Urine Not Detected (NotDetected); Barbiturate Screen,Urine Not Detected (NotDetected); Benzodiazepines Screen,Urine Not Detected (NotDetected); Cocaine Screen,Urine Not Detected (NotDetected); Methadone Screen, Urine Not Detected (NotDetected); Opiate Screen,Urine Not Detected (NotDetected); Oxycodone Screen, Urine Not Detected (NotDetected); Phencyclidine Screen,Urine Not Detected (NotDetected); Tricyclic Antidepressant,Urine Detected (NotDetected); Urn Cannabinoid Scrn Not Detected (NotDetected)
--- NOTE | 2017-09-07 12:52 | CT ---
EXAMINATION TYPE: CT brain wo con DATE OF EXAM: 09/07/2017 COMPARISON: 04/13/2017 INDICATION: Patient poor historian. Patient unresponsive at time of exam. DLP: 1150 mGycm, Automated exposure control for dose reduction was used. CONTRAST: None CT of the brain is performed utilizing 3 mm thick sections through the posterior fossa and 3 mm thick sections through the remaining calvarium. Study is performed within 24 hours of arrival to the hosp ital. No abnormal hyperdensity is present to suggest an acute intracranial hemorrhage. No mass lesion is evident. No acute infarcts are evident. Periventricular white matter hypodensity is present, likely on the bas is of chronic white matter ischemic changes. Couple of punctate hypodensities are within the left bas al ganglion and left garcia radiata could be some perivascular spaces or tiny old lacunar infarcts. Ventricles and sulci are prominent for the patient age. Paranasal sinuses and mastoid air cells within the [id number] are clear. IMPRESSIONS: 1. Atrophy with periventricular white matter ischemic changes. 2. No acute intracranial process. 3. Note is made of some mucosal thickening within ethmoid air cells.
--- NOTE | 2017-09-07 12:54 | XR ---
EXAMINATION TYPE: XR chest 2V DATE OF EXAM: 09/07/2017 COMPARISON: 08/12/2017 INDICATION: Altered mental status TECHNIQUE: Frontal and lateral views of the chest are obtained. FINDINGS: The heart size is normal. The pulmonary vasculature is normal. There is opacification over the medial right lung. Right heart border appears well visualized. This i s likely posterior. There is blunting of the right costophrenic angle.. IMPRESSION: 1. Right lower lobe infiltrate with small right pleural effusion. Findings are worsened. Continued fo llow-up is recommended.
[2017-09-07 13:11] LABS: Creatine Kinase MB 12.8 ng/mL (0.0-2.4)
[2017-09-07 13:12] LABS: Lactic Acid, Venous 4.6 mmol/L (0.7-2.0); Magnesium 0.7 mg/dL (1.6-2.3); Troponin I 7.32 ng/mL (0.000-0.034)
[2017-09-07] MEDS ORDERED: PIPERACILLIN-TAZOBACTAM 3.375 GM in DEXTROSE/WATER 1 50ML.BAG IVPB STA (15:11)
[2017-09-07] MEDS ORDERED: MAGNESIUM SULFATE-D5W PMX 1 GM in DEXTROSE/WATER 1 100ML.BAG IVPB ONE (15:11)
[2017-09-07] MEDS ORDERED: LEVOFLOXACIN 750MG-D5W PMX 750 MG in DEXTROSE/WATER 1 150ML.BAG IVPB STA (16:51)
[2017-09-07] MEDS ORDERED: PNEUMONIA PROTOCOL UTILIZED 1 EACH MISC PO PRN (16:51)
[2017-09-07] MEDS ORDERED: NITROGLYCERIN SL TABS 0.4 MG TAB SUBLINGUAL PRN (16:54)
[2017-09-07] MEDS: metFORMIN 500 MG TAB PO SCH (18:22)
[2017-09-07] MEDS: PANTOPRAZOLE 40 MG TABLET PO SCH (18:22)
[2017-09-07] MEDS: INSULIN ASPART 100 UNIT/ML 1 ML 10 ML VIAL SQ SCH (18:22)
[2017-09-07] MEDS: REPAGLINIDE 1 MG TAB PO SCH (18:23)
[2017-09-07 18:34] LABS: Glucose,Whole Blood 160 mg/dL (75-99)
[2017-09-07 19:10] LABS: Creatine Kinase MB 15.3 ng/mL (0.0-2.4); Troponin I 6.9 ng/mL (0.000-0.034)
[2017-09-07] MEDS: SODIUM CHLORIDE 0.9% 1,000 ML IV SCH (19:53)
[2017-09-07] MEDS ORDERED: IPRATROPIUM-ALBUTEROL 3 ML NEB INHALATION SCH (20:00)
[2017-09-07] MEDS ORDERED: IPRATROPIUM-ALBUTEROL 3 ML NEB INHALATION PRN (20:12)
[2017-09-07] MEDS ORDERED: UBIDECARENONE 60 MG PO SCH (21:00)
[2017-09-07] MEDS ORDERED: INSULIN DETEMIR 100 UNIT/ML 10 ML VIAL SQ SCH (21:00)
[2017-09-07 22:00] LABS: Glucose,Whole Blood 181 mg/dL (75-99)
[2017-09-07] MEDS: ATORVASTATIN 80 MG TAB PO SCH (22:08)
[2017-09-07] MEDS: METOPROLOL TARTRATE 25 MG TAB PO SCH (22:08)
[2017-09-07] MEDS: APIXABAN 5 MG TAB PO SCH (22:08)
[2017-09-07] MEDS: CARBIDOPA-LEVODOPA 25-100 MG 1 EACH TAB PO SCH (22:09)
[2017-09-07] MEDS: NORTRIPTYLINE 10 MG CAP PO SCH (22:09)
[2017-09-08] MEDS ORDERED: PIPERACILLIN-TAZOBACTAM 3.375 GM in DEXTROSE/WATER 1 50ML.BAG IVPB SCH
--- NOTE | 2017-09-08 00:20 | XR ---
EXAMINATION TYPE: XR chest 1V portable DATE OF EXAM: 09/07/2017 COMPARISON: Today HISTORY: Possible aspiration. Short of breath TECHNIQUE: Single frontal view of the chest is obtained. FINDINGS: There is pulmonary interstitial and alveolar edema. There is pleural thickening on the rig ht lateral chest wall and consolidation posteriorly in the right lower lobe. There are chest leads. H eart size is normal. IMPRESSION: There is pulmonary edema similar to exam earlier today. There is increasing pleural thic kening along the right lateral chest wall. There is right posterior pulmonary consolidation without c hange that raises the possibility of a pulmonary infarct.
[2017-09-08 00:56] LABS: Creatine Kinase MB 15.4 ng/mL (0.0-2.4)
[2017-09-08 00:57] LABS: Troponin I 5.16 ng/mL (0.000-0.034)
[2017-09-08 04:26] LABS: Anion Gap 13 mmol/L; Blood Urea Nitrogen 31 mg/dL (9-20); Calcium 7.5 mg/dL (8.4-10.2); Carbon Dioxide 24 mmol/L (22-30); Chloride 104 mmol/L (98-107); Cholesterol 59 mg/dL (<200); Glucose 139 mg/dL (74-99); HDL Cholesterol 36 mg/dL (40-60); LDL Cholesterol,Calculated 9 mg/dL (0-99); Sodium 141 mmol/L (137-145); Triglycerides 71 mg/dL (<150)
[2017-09-08] MEDS: metFORMIN 500 MG TAB PO SCH ×2 (04:37→17:01)
[2017-09-08] MEDS: REPAGLINIDE 1 MG TAB PO SCH ×3 (04:37→17:01)
[2017-09-08] MEDS: SODIUM CHLORIDE 0.9% 1,000 ML IV SCH ×3 (04:37→21:56)
[2017-09-08] MEDS: INSULIN ASPART 100 UNIT/ML 1 ML 10 ML VIAL SQ SCH ×3 (04:37→17:00)
[2017-09-08 05:07] LABS: Basophils % (A) 0 %; Eosinophils % (A) 0 %; HCT 26.3 % (39.0-53.0); Hypochromasia Slight; Lymphocytes # (A) 0.5 k/uL (1.0-4.8); Lymphocytes % (A) 3 %; MCH 24.1 pg (25.0-35.0); MCHC 30.3 g/dL (31.0-37.0); MCV 79.4 fL (80.0-100.0); Mean Platelet Volume 7.9; Monocytes # (A) 0.7 k/uL (0-1.0); Monocytes % (A) 4 %; Neutrophils # (A) 17.3 k/uL (1.3-7.7); Neutrophils % (A) 93 %; Platelet Count 163 k/uL (150-450); RBC 3.31 m/uL (4.30-5.90); RDW 15.3 % (11.5-15.5); WBC 18.6 k/uL (3.8-10.6)
--- NOTE | 2017-09-08 06:06 | HP ---
HISTORY AND PHYSICAL DATE OF ADMISSION: 09/07/2017 PRESENTING COMPLAINT: Lethargic. HISTORY OF PRESENTING COMPLAINT: This is a 72-year-old patient whose chronic stable medical conditions include atrial fibrillation, diabetes, hypertension, hyperlipidemia, medical debility as per notes in June. The patient at baseline able to take a few steps with a walker. Speech is slow, sometimes garbled. Has some right-sided weakness. Patient normally a poor historian who does wear diapers. The patient was brought in to the ER because patient was having some mental status changes. Apparently, some low-grade fever. The patient really cannot tell me much. Per the ER notes, the patient's blood pressure was 81/42 by the paramedics and patient did get a 500 mL bolus. The patient did have a recent UTI and did have a Costello catheter removed 5 days ago, another one was placed in the ER. REVIEW OF SYSTEMS: The patient does not talk. PAST MEDICAL HISTORY: Atrial fibrillation, coronary artery disease, stroke, diabetes mellitus type 2, GERD, hyperlipidemia, bladder cancer with surgery, stroke x3, baseline dysarthria and poor balance after stroke. PAST SURGICAL HISTORY: Bladder surgery, coronary artery bypass, cardiac cath with stent, aortic valve surgery, loop recorder. SOCIAL HISTORY: The patient needs supervision, normally could feed himself. The patient stopped smoking in 2015, smoked for about 56 years. No alcohol history. The patient was brought in from his home. HOME MEDICATIONS: 1. Sinemet 25/100 one tablet p.o. t.i.d. 2. Lipitor 80 mg q.h.s. 3. Eliquis 5 mg b.i.d. 4. CO Q10, 60 mg b.i.d. 5. Flomax 0.4 mg p.o. daily. 6. Cranberry extract 200 mg p.o. daily. 7. Prandin 0.5 p.o. t.i.d. 8. Protonix 40 mg p.o. b.i.d. 9. Januvia 100 mg p.o. daily. 10.Pamelor 10 mg q.h.s. 11.Multivitamin 1 tablet p.o. daily. 12.Lopressor 25 p.o. b.i.d. 13.Metformin 1000 mg p.o. b.i.d. 14.Humalog KwikPen 2 units subcu a.c. t.i.d. 15.Lantus 10 units subcu q.h.s. 16.Aspirin 81 mg p.o. daily. 17.Amoxicillin 500 mg q.8. ALLERGIES: SULFA. PHYSICAL EXAMINATION: On examination, vital signs on presentation: Temperature 98.6, pulse 95, respirations 20, blood pressure 121/56, pulse ox 100% on room. GENERAL APPEARANCE: Average build, lying in bed, awake, attempting to say occasional words, mumbling. EYES: Pupils equal. Conjunctivae normal. HENT: External appearance of nose and ears normal. Oral cavity dry mucous membrane/ NECK: JVD unable to assess. Mass not palpable. RESPIRATORY: Effort normal. LUNGS: Diminished breath sounds. CARDIOVASCULAR: First and second sounds normal. No edema. ABDOMEN: Soft, nontender. Liver and spleen not palpable. LYMPHATIC: No lymph node palpable in the neck or axillae. PSYCHIATRY: Unable to assess. NEUROLOGICAL: Patient has got dysarthria. No facial asymmetry. He is moving all his limbs. INVESTIGATIONS: White count 23.2, hemoglobin 9.5, increased neutrophils. Potassium 3.7, BUN 21, creatinine 1.30. Troponin was 7.3, repeat 6.9. UA positive for leukocyte esterase. EKG right bundle branch block pattern. ASSESSMENT: 1. Acute non-Q-wave myocardial infarction in the patient with known coronary artery disease. 2. Acute urinary tract infection in a patient secondary to Costello catheter, just had a Costello catheter 3 days ago. 3. Right bundle branch block. 4. Paroxysmal atrial fibrillation, history of the same. 5. Diabetes mellitus type 2, chronically on insulin. 6. Hyperlipidemia. 7. Essential hypertension. 8. Coronary artery disease, prior history of stent and coronary artery bypass. 9. Right-sided weakness from prior stroke. 10.Idiopathic Parkinson disease. 11.Chronic medical debility, needs assistance. 12.CODE STATUS: DNR. 13.Right lower lobe infiltrate reported on the chest x-ray, could be pneumonia; hence will cover for gram negative organism. PLAN: Patient did get a dose of Levaquin and Zosyn in the ER. Will DC the Levaquin. Keep the patient on Zosyn. Accu-Cheks will be closely followed. Will gently hydrate the patient. The patient's overall prognosis is guarded. Family is at the bedside. Will do aspiration precautions and feeding with assistance. Prognosis not good. The patient is already on Eliquis for history of atrial fibrillation. MMODL / IJN: [id number] /
[2017-09-08 06:31] LABS: Glucose,Whole Blood 150 mg/dL (75-99)
[2017-09-08] MEDS ORDERED: Magnesium Replacement Protocol 1 EACH MISC MISCELLANE PRN (07:04)
[2017-09-08] MEDS: PANTOPRAZOLE 40 MG TABLET PO SCH ×2 (08:02→17:00)
[2017-09-08] MEDS: APIXABAN 5 MG TAB PO SCH ×2 (08:02→20:36)
[2017-09-08] MEDS: METOPROLOL TARTRATE 25 MG TAB PO SCH ×2 (08:03→20:37)
[2017-09-08] MEDS: MULTIVITAMINS, THERA 1 EACH TAB PO SCH (08:03)
[2017-09-08] MEDS: TAMSULOSIN 0.4 MG CAP.ER.24H PO SCH (08:03)
[2017-09-08] MEDS: CARBIDOPA-LEVODOPA 25-100 MG 1 EACH TAB PO SCH ×3 (08:03→20:37)
[2017-09-08] MEDS: LINAGLIPTIN 5 MG TABLET PO SCH (08:04)
[2017-09-08] MEDS: MAGNESIUM SULFATE-D5W PMX 1 GM in DEXTROSE/WATER 1 100ML.BAG IVPB SCH ×5 (08:10→13:06)
[2017-09-08] MEDS: cefTRIAXone IN SWFI 1,000 MG/10 ML SYRINGE IVP SCH (08:35)
[2017-09-08] MEDS: IPRATROPIUM-ALBUTEROL 3 ML NEB INHALATION SCH ×4 (08:45→21:25)
[2017-09-08] MEDS ORDERED: ASPIRIN 325 MG TAB PO SCH (09:00)
[2017-09-08] MEDS ORDERED: NON-FORMULARY DRUG (Aspirin Ec 81 MG) PO SCH (09:00)
--- NOTE | 2017-09-08 10:05 | P.CRDCN ---
History of Present Illness Consult date: 09/08/17 Requesting physician: Adi Mares Chief complaint: Right-sided weakness and mental status changes History of present illness: This is a 72-year-old gentleman who has recently moved to this area with his , he follows with Dr. Tsai in the office as an outpatient. He is mostly nonverbal from prior CVAs, history was obtained from the daughter and who are at bedside. Patient does have history of prior CVAs, diabetes, hypertension, hyperlipidemia, history of bladder cancer, coronary artery disease with prior bypass surgery and stent placement, aortic valve surgery, prior pacemaker, which according to the daughter had to be removed because of severe infection, Parkinson's disease, paroxysmal atrial fibrillation for which he takes Eliquis, he also has a loop recorder in place, which was placed by a assistant secretary in the [facility]. Patient also recently had some difficulty with urinating, and had a Costello catheter in place. According to the daughter, he's been pulling a lot on his catheter, so she recently removed it. The daughter states that the patient over the past 24-48 hours has had significant decrease in appetite, yesterday, she states that he had significant weakness on the right side of his body, they were trying to get him up into his wheelchair, and he just leaned forward to the right. It appeared to her as though he had another stroke. He also was staring off into space, and not responding to them like he usually does. For this reason EMS was called and the patient was brought to the hospital for further evaluation. Patient does have mild expressive aphasia and difficulty with balance after his strokes. On EMS arrival, blood pressure was 80/40, heart rate in the 90s, respirations 12. Oxygenation 82%, temperature 101.4. EKG on arrival here showed a normal sinus rhythm with a right bundle branch block pattern and nonspecific ST-T wave changes. Chest x-ray showed a right lower lobe infiltrate with small right pleural effusion. Repeat chest x-ray performed showed pulmonary edema with increasing pleural thickening. Blood pressure 120/64, heart rate in the 80s, 95 % on 4 L of oxygen. White blood cell count 23,000 on admission, 18,000 this morning. Hemoglobin down to 8 this morning. Platelet count 163. Sodium 141, potassium 4.0, BUN 31, creatinine 1.2. Magnesium level I.0. It was 0.7 on admission. Troponins 7.3, 6.9, 5.1. His UA shows large amount of leukocyte Estrace 2+ protein. Influenza A and B-. At the time of my examination this morning, patient is nonverbal, denies chest pain. Past Medical History Past Medical History: Atrial Fibrillation, Coronary Artery Disease (CAD), Cancer , CVA/TIA, Diabetes Mellitus, GERD/Reflux, Hyperlipidemia Additional Past Medical History / Comment(s): Pt recently admitted to [facility] on 03/03/17 with weakness L upper arm, CVA, afib. Other hx: Bladder cancer with surgery, CVAs x3-PT POOR HISTORIAN SINCE last stroke in JUN 2016-has difficulty with speech and balance after stroke affected rt side-pt says yes/no but not always accurately, NIDDM type II, UTI. History of Any Multi-Drug Resistant Organisms: None Reported Past Surgical History: Bladder Surgery, Coronary Bypass/CABG, Heart Catheterization With Stent Additional Past Surgical History / Comment(s): 1994 3 vessel CABG with aortic valve surgery, loop recorder, Past Anesthesia/Blood Transfusion Reactions: No Reported Reaction Date of Last Stent Placement:: 1989 Past Psychological History: No Psychological Hx Reported Additional Psychological History / Comment(s): Pt currently residing at [facility] for rehab. He is up in wheelchair and needs assist with all ADLs. He says yes/ no and not always accurate with his answer. Smoking Status: Former smoker Past Alcohol Use History: None Reported Additional Past Alcohol Use History / Comment(s): started smoking 1958 and quit 2015 Past Drug Use History: None Reported - Past Family History Father Family Medical History: Cancer Additional Family Medical History / Comment(s): prostate cancer Mother Family Medical History: Dementia, Hypertension Medications and Allergies Home Medications Medication Instructions Recorded Confirmed Type Metoprolol Tartrate [Lopressor] 25 mg PO BID 02/28/17 09/07/17 History sitaGLIPtin [Januvia] 100 mg PO DAILY 02/28/17 09/07/17 History Apixaban [Eliquis] 5 mg PO BID 03/31/17 09/07/17 History Atorvastatin [Lipitor] 80 mg PO HS 06/24/17 09/07/17 History Nortriptyline [Pamelor] 10 mg PO HS 06/24/17 09/07/17 History Pantoprazole Sodium [Protonix] 40 mg PO BID@0800,1700 06/24/17 09/07/17 History Repaglinide [Prandin] 0.5 mg PO AC-TID #1 tablet 06/29/17 09/07/17 Rx Carbidopa-Levodopa 25-100 mg 1 tab PO TID 08/12/17 09/07/17 History [Sinemet 25-100 mg] Insulin Glargine [Lantus] 10 unit SQ HS 08/12/17 09/07/17 History Ubidecarenone [Coenzyme Q10] 60 mg PO BID 08/12/17 09/07/17 History Amoxicillin 500 mg PO Q8H 09/07/17 09/07/17 History Aspirin EC [Ecotrin Low Dose] 81 mg PO DAILY 09/07/17 09/07/17 History Cranberry Fruit Extract [Cranberry] 200 mg PO DAILY 09/07/17 09/07/17 History Insulin Lispro [humaLOG Kwikpen] 2 unit SQ AC-TID 09/07/17 09/07/17 History Multivitamins, Thera [Multivitamin 1 tab PO DAILY 09/07/17 09/07/17 History (formulary)] Tamsulosin [Flomax] 0.4 mg PO DAILY 09/07/17 09/07/17 History metFORMIN HCL [metFORMIN HCL] 1,000 mg PO BID 09/07/17 09/07/17 History Allergies Allergy/AdvReac Type Severity Reaction Status Date / Time Sulfa (Sulfonamide Allergy Unknown Verified 08/12/17 16:21 Antibiotics) Physical Exam Vitals: Vital Signs Temp Pulse Pulse Resp BP BP Pulse Ox 09/08/17 09:15 96 09/08/17 08:47 88 95 09/08/17 08:00 98.8 F 89 20 121/64 95 09/08/17 04:00 97.3 F L 98 20 104/58 97 09/08/17 00:25 96.4 F L 119 H 20 147/68 95 09/07/17 21:09 97.2 F L 90 16 111/69 99 09/07/17 20:00 97.7 F 100 18 114/56 95 09/07/17 19:18 89 16 115/58 99 09/07/17 18:00 89 20 111/54 98 09/07/17 17:00 94 18 103/74 98 09/07/17 15:50 97.8 F 96 18 128/65 97 09/07/17 15:00 90 20 125/62 98 09/07/17 14:00 93 20 108/70 97 09/07/17 13:39 96 18 106/66 100 09/07/17 11:51 99 09/07/17 11:39 98.6 F 95 20 121/56 100 Intake and Output 09/07/17 09/08/17 09/08/17 22:59 06:59 14:59 Intake Total 800 Output Total 400 Balance 400 Intake: IV 800 Sodium Chloride 0.9% 1, 800 000 ml @ 100 mls/hr IV . Q10H [facility] Rx#:[id number] Output: Urine 400 Other: Voiding Method Indwelling Catheter Indwelling Catheter Weight 87 kg PHYSICAL EXAMINATION: HEENT: Head is atraumatic, normocephalic. Pupils equal, round. Neck is supple. There is elevated jugular venous pressure. HEART EXAMINATION: Heart S1 and S2 systolic ejection murmur is heard CHEST EXAMINATION: Lungs reveal crackles to bilateral bases. ABDOMEN: Soft, nontender. Bowel sounds are heard. No organomegaly noted. EXTREMITIES: 2+ peripheral pulses with no evidence of peripheral edema and no calf tenderness noted. NEUROLOGIC [patient is awake, alert , aphasic Results 09/08/17 03:29 09/08/17 03:29 Cardiac Enzymes 09/07/17 09/07/17 09/07/17 Range/Units 11:45 11:45 18:01 AST 44 (17-59) U/L CK-MB (CK-2) 12.8 H* 15.3 H* (0.0-2.4) ng/mL Troponin I 7.320 H* 6.900 H* (0.000-0.034) ng/mL 09/07/17 Range/Units 23:27 AST (17-59) U/L CK-MB (CK-2) 15.4 H* (0.0-2.4) ng/mL Troponin I 5.160 H* (0.000-0.034) ng/mL Coagulation 09/07/17 Range/Units 11:45 PT 12.9 H (9.0-12.0) sec APTT 30.8 H (22.0-30.0) sec Lipids 09/08/17 Range/Units 03:29 Triglycerides 71 (<150) mg/dL Cholesterol 59 (<200) mg/dL HDL Cholesterol 36 L (40-60) mg/dL CBC 09/07/17 09/08/17 Range/Units 11:45 03:29 WBC 23.2 H 18.6 H (3.8-10.6) k/uL RBC 3.87 L 3.31 L (4.30-5.90) m/uL Hgb 9.5 L 8.0 L D (13.0-17.5) gm/dL Hct 30.6 L 26.3 L (39.0-53.0) % Plt Count 238 163 (150-450) k/uL Comprehensive Metabolic Panel 09/07/17 09/08/17 Range/Units 11:45 03:29 Sodium 143 141 (137-145) mmol/L Potassium 3.7 4.0 (3.5-5.1) mmol/L Chloride 102 104 (98-107) mmol/L Carbon Dioxide 25 24 (22-30) mmol/L BUN 21 H 31 H (9-20) mg/dL Creatinine 1.30 H 1.20 (0.66-1.25) mg/dL Glucose 96 139 H (74-99) mg/dL Calcium 8.5 7.5 L (8.4-10.2) mg/dL AST 44 (17-59) U/L ALT 21 (21-72) U/L Alkaline Phosphatase 123 (38-126) U/L Total Protein 6.7 (6.3-8.2) g/dL Albumin 3.6 (3.5-5.0) g/dL Current Medications Generic Name Dose Route Start Last Admin Trade Name Freq PRN Reason Stop Dose Admin Albuterol/Ipratropium 3 ml 09/08/17 08:00 09/08/17 08:45 Duoneb 0.5 Mg-3 Mg/3 Ml Soln INHALATION 3 ml RT-QID ROSELIA Administration Albuterol/Ipratropium 3 ml 09/07/17 20:12 Duoneb 0.5 Mg-3 Mg/3 Ml Soln INHALATION RT-Q2H PRN Shortness Of Breath Or Wheezing Apixaban 5 mg 09/07/17 21:00 09/08/17 08:02 Eliquis PO 5 mg BID ROSELIA Administration Aspirin 325 mg 09/08/17 09:00 09/08/17 08:03 Aspirin PO 325 mg DAILY ROSELIA Administration Atorvastatin Calcium 80 mg 09/07/17 21:00 09/07/17 22:08 Lipitor PO 80 mg HS ROSELIA Administration Carbidopa/Levodopa 1 each 09/07/17 22:00 09/08/17 08:03 Sinemet 25-100 PO 1 each TID ROSELIA Administration Ceftriaxone Sodium 1,000 mg 09/08/17 09:00 09/08/17 08:35 Rocephin IVP 1,000 mg Q24HR ROSELIA Administration Sodium Chloride 1,000 mls @ 100 mls/hr 09/07/17 17:00 09/08/17 04:37 Saline 0.9% IV Not Given .Q10H ROSELIA Magnesium Sulfate/Dextrose 1 100 mls @ 100 mls/hr 09/08/17 08:00 09/08/17 08: 10 gm/ IV Solution IVPB 09/08/17 10:59 100 mls/hr Q1H ROSELIA Administration Insulin Aspart 2 unit 09/07/17 17:30 09/08/17 04:37 Novolog SQ Not Given AC-TID ROSELIA Insulin Detemir 10 unit 09/08/17 06:13 Levemir SQ HS [facility] Linagliptin 5 mg 09/08/17 09:00 09/08/17 08:04 Tradjenta PO Not Given DAILY ROSELIA Metformin HCl 1,000 mg 09/07/17 17:30 09/08/17 04:37 Glucophage PO Not Given AC-BID [facility] Metoprolol Tartrate 25 mg 09/07/17 21:00 09/08/17 08:03 Lopressor PO 25 mg BID ROSELIA Administration Miscellaneous Information 1 each 09/07/17 16:51 Pneumonia Protocol Utilized PO ONCE PRN Per Protocol Miscellaneous Information 1 each 09/08/17 07:04 Magnesium Per Protocol MISCELLANE DAILY PRN Per Protocol Protocol Multivitamins 1 each 09/08/17 12:00 09/08/17 08:03 Theragran PO 1 each DAILY@1200 ROSELIA Administration Nitroglycerin 0.4 mg 09/07/17 16:54 Nitrostat SUBLINGUAL Q5M PRN Chest Pain Nortriptyline HCl 10 mg 09/07/17 21:00 09/07/17 22:09 Pamelor PO 10 mg HS ROSELIA Administration Pantoprazole Sodium 40 mg 09/07/17 17:00 09/08/17 08:02 Protonix PO 40 mg BID@0800,1700 ROSELIA Administration Repaglinide 0.5 mg 09/07/17 17:30 09/08/17 04:37 Prandin PO Not Given AC-TID ROSELIA Tamsulosin HCl 0.4 mg 09/08/17 09:00 09/08/17 08:03 Flomax PO 0.4 mg DAILY ROSELIA Administration Intake and Output 09/07/17 09/08/17 09/08/17 22:59 06:59 14:59 Intake Total 800 Output Total 400 Balance 400 Intake: IV 800 Sodium Chloride 0.9% 1, 800 000 ml @ 100 mls/hr IV . Q10H [facility] Rx#:[id number] Output: Urine 400 Other: Voiding Method Indwelling Catheter Indwelling Catheter Weight 87 kg 09/08/17 03:29 09/08/17 03:29 EKG Interpretations (text) EKG shows a normal sinus rhythm with a right bundle branch block pattern and nonspecific ST-T wave changes Assessment and Plan Plan: Assessment and plan #1 worsening mental status changes with associated right-sided weakness. #2 history of prior CVAs with residual mild expressive aphasia #3 Parkinson's #4 possible non-Q-wave myocardial infarction #5 known history of coronary artery disease with prior bypass surgery and aortic valve replacement #6Hypertension #7 hyperlipidemia #8 diabetes #9 paroxysmal atrial fibrillation on Eliquis for anticoagulation #10 anemia #11 sepsis with possible pneumonia, positive UTI #12 hypomagnesemia Plan We will obtain records from the office. We will also request an echocardiogram with Doppler study be performed. Decrease aspirin to 81 mg daily, continue Lipitor 80, metoprolol, replace magnesium. Continue maximal medical therapy. DNP note has been reviewed, I agree with a documented findings and plan of care. Patient was seen and examined.
--- NOTE | 2017-09-08 10:43 | ECHOF ---
Referral Reason:assess lvf MEASUREMENTS -------- HEIGHT: 177.8 cm WEIGHT: 86.6 kg BP: 121/64 RVIDd: 3.4 cm (< 3.3) IVSd: 1.4 cm (0.6 - 1.1) LVIDd: 3.1 cm (3.9 - 5.3) LVPWd: 1.3 cm (0.6 - 1.1) IVSs: 1.4 cm LVIDs: 2.2 cm LVPWs: 2.1 cm LA Diam: 4.5 cm (2.7 - 3.8) MV E Gilberto: 0.61 m/s MV DecT: 326 ms MV A Gilberto: 0.79 m/s MV E/A Ratio: 0.77 AV maxP.74 mmHg AV meanP.36 mmHg RAP: 15.00 mmHg RVSP: 42.83 mmHg FINDINGS -------- Sinus rhythm. This was a technically difficult study with suboptimal views. The left ventricular size is normal. There is mild concentric left ventricular hypertrophy. Overa ll left ventricular systolic function is low-normal with, an EF between 50 - 55 %. The right ventricle is normal in size and function. The left atrium is mildly dilated. The right atrium is normal in size. Normally functioning bioprosthetic valve. There is trivial regurgitation of the bioprosthetic aorti c valve. Mild mitral annular calcification present. Moderate mitral regurgitation is present. Moderate tricuspid regurgitation present. There is mild pulmonary hypertension. The right ventric ular systolic pressure, as measured by Doppler, is 42.83mmHg. The pulmonic valve was not well visualized. The aortic root size is normal. The inferior vena cava is dilated with poor inspiratory collapse which is consistent with estimated r ight atrial pressure of 20 mmHg. There is no pericardial effusion. CONCLUSIONS -------- 1. Sinus rhythm. 2. This was a technically difficult study with suboptimal views. 3. The left ventricular size is normal. 4. There is mild concentric left ventricular hypertrophy. 5. Overall left ventricular systolic function is low-normal with, an EF between 50 - 55 %. 6. Normally functioning bioprosthetic valve. 7. There is trivial regurgitation of the bioprosthetic aortic valve. 8. Mild mitral annular calcification present. 9. Moderate mitral regurgitation is present. 10. Moderate tricuspid regurgitation present. 11. There is mild pulmonary hypertension. 12. The pulmonic valve was not well visualized. 13. The aortic root size is normal. 14. The inferior vena cava is dilated with poor inspiratory collapse which is consistent with estimat ed right atrial pressure of 20 mmHg. 15. There is no pericardial effusion. RESIDENTIAL REAL ESTATE SALES MANAGER: Familia Artis RDCS
[2017-09-08 11:56] LABS: Glucose,Whole Blood 166 mg/dL (75-99)
--- NOTE | 2017-09-08 14:54 | P.PN ---
Progress Note - Text Progress Note Date: 09/08/17 DATE OF SERVICE: 09/08/2017 PRESENTING COMPLAINT: Mental status changes HISTORY OF PRESENT ILLNESS: 72-year-old male with a history of right-sided weakness from previous stroke. Presented to the emergency department because patient had some mental status changes with low-grade fever. And blood pressure was 81/42 patient received a 500 mL bolus en Route. Patient did have a UTI recently Costello catheter was removed 5 days ago. Another one was placed in the emergency department. Labs revealed elevated troponin and UA positive for leukocyte esterase, admitted for the same. INTERVAL HISTORY: 09/08/2017 Lying in bed daughter and at the bedside. Patient doesn't talk much nods his head answers yes and no questions. Appetite is been good, eating about 75% % of his meal. No complaints of chest pain or shortness of breath. Echocardiogram performed this morning. Primarily bedbound requires assistance for transfers and for moving about in the bed. Last BM prior to admission. REVIEW OF SYSTEMS: Unable to assess patient doesn't speak. CURRENT MEDICATIONS DuoNeb, Eliquis, aspirin, Lipitor, Sinemet, Rocephin, NovoLog, insulin detemir, treated gentle, Glucophage, Lopressor, Theragran-M vitamin, Nitrostat, nortriptyline, Protonix, Prandin, Flomax. PHYSICAL EXAM VITAL SIGNS: Temperature 98.7, pulse 80, respirations 20, blood pressure 101/57, oxygen saturation 97% on 4 L. GENERAL APPEARANCE: Lying in bed, not in distress. HENT: Normocephalic, JVD not raised. Mass not palpable. Oral cavity normal, external appearance of ears and nose normal. EYES:Pupils equal. Conjunctiva normal. RESPIRATORY: Respiratory effort normal. Lungs clear to auscultation. CARDIOVASCULAR: First and second sounds normal. No edema. ABDOMEN: Soft. Liver and spleen not palpable. No tenderness. No mass palpable. GENITOURINARY: Costello catheter in place draining clear yellow urine. PSYCHIATRY: Unable to assess due to patient's current condition. NEUROLOGIC: Patient has dysarthria no facial asymmetry is able to move all of his limbs. INVESTIGATIONS: LABS:White blood cell count 18.6, hemoglobin 8.0, BUN 31, creatinine 1.20, Accu- Cheks noted. Lactic acid 2.1, calcium 7.5, Echocardiogram: Sinus rhythm, EF between 50 and 55%, mild concentric left ventricular hypertrophy, trivial regurgitation of the bioprosthetic aortic valve. ASSESSMENT: -Acute non-Q wave myocardial infarction in a patient with known coronary artery disease. -Acute urinary tract infection in a patient secondary to Costello catheter, just had a Costello catheter 3 days ago. -Right bundle branch block. -Paroxysmal atrial fibrillation history of the same, currently sinus rhythm -Diabetes mellitus type 2, chronically on insulin. -Hyperlipidemia. -Essential hypertension. -Coronary artery disease prior history of stent and coronary artery bypass. 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 -Idiopathic Parkinson's disease. -Chronic medical debility, needs assistance. -CODE STATUS DO NOT RESUSCITATE. -Right lower lobe infiltrate reported on chest x-ray could be pneumonia. Hence we'll cover for gram-negative organism. -Sepsis, present on admission, probably combination of urinary tract infection and pneumonia. -Chronic medical debility. -Chronic metabolic encephalopathy. -Moderate mitral and tricuspid regurgitation, nonrheumatic. PLAN: Continue maximal medical therapy per cardiology. Eliquis to continue for history of atrial fibrillation. We'll continue the patient's IV Zosyn monitor Accu-Cheks and provide gentle hydration. Patient will remain on aspiration precaution and require feeding assistance. Plan of care discussed at the bedside we'll continue to monitor closely. Discharge planning for the next 1-2 days. Family is agreeable. RESEARCH INSTRUCTOR statement: Patient was seen and examined by nurse practitioner Fátima Alcaraz and all elements of the case discussed with attending Dr. Mares
[2017-09-08 16:54] LABS: Glucose,Whole Blood 166 mg/dL (75-99)
[2017-09-08] MEDS ORDERED: LEVOFLOXACIN 750MG-D5W PMX 750 MG in DEXTROSE/WATER 1 150ML.BAG IVPB SCH (17:00)
--- NOTE | 2017-09-08 19:28 | PN ---
PROGRESS NOTE DATE OF SERVICE: 09/08/2017. ATTENDING NOTE: The patient seen and examined by me. I discussed with my nurse practitioner, Rachel Lissa. The patient admitted with acute AZ, acute UTI, pneumonia and acute AZ. at the bedside. The patient is able to say a few more words, did eat a little bit. EXAMINATION: Afebrile, pulse 80, respirations 20, blood pressure 101/57, pulse 97% on 4L. Lying in bed, awake. EYES: Pupils equal. Conjunctivae normal. HEENT: External nose and ears normal. Oral cavity: Dry mucous membranes. NECK: JVD unable to assess. Mass not palpable. Respiratory effort increased. LUNGS: Diminished breath sounds. CARDIOVASCULAR: First and second sounds normal. No edema. ABDOMEN: Soft, nontender. Liver and spleen not palpable. PSYCHIATRY: Unable to assess. NEUROLOGICAL: Follows some simple commands. Speech is rather slow. INVESTIGATIONS: White count 8.6, hemoglobin 8. Potassium 4, BUN 31, creatinine 1.20. Lactic acid 2.1, magnesium 1.0. Troponin 5.1. ASSESSMENT: 1. Acute non-Q-wave myocardial infarction in a patient known coronary artery disease. 2. Acute urinary tract infection in a patient secondary to Costello catheter, just had a Costello catheter placed 3 days ago. 3. Right bundle branch block. 4. Paroxysmal atrial fibrillation. 5. Diabetes mellitus type 2, chronically on insulin. 6. Hyperlipidemia. 7. Essential hypertension. 8. Coronary artery prior history of stent and coronary artery bypass. 9. Right-sided weakness from prior stroke. 10.Idiopathic Parkinson disease. 11.Chronic medical debility, needs assistance. 12.CODE STATUS: DO NOT RESUSCITATE. 13.Right lower lobe pneumonia suspect gram-negative organism. 14.Sepsis, present on admission, probably combination of urinary tract infection and from pneumonia. 15.Chronic medical debility. 16.Chronic metabolic encephalopathy. 17.Moderate mitral and tricuspid regurgitation, nonrheumatic. PLAN: Patient to be continued on DuoNeb, Sinemet, magnesium replacement. The patient is on IV ceftriaxone, getting some IV fluids. 2D echocardiogram showed EF of 50%-55%. Care was discussed with at the bedside. Overall prognosis is guarded. Continue with antibiotics. MMODL / IJN: [id number] /
--- NOTE | 2017-09-08 20:01 | XR ---
EXAMINATION TYPE: XR chest 1V DATE OF EXAM: 09/08/2017 COMPARISON: Yesterday HISTORY: Short of breath TECHNIQUE: Single frontal view of the chest is obtained. FINDINGS: There is pulmonary interstitial and alveolar edema. There is patchy consolidation in the r ight lower lobe. There are chest leads. There is some blunting of right costophrenic angle. IMPRESSION: There is pulmonary edema with right pleural effusion. This could relate to congestive he art failure. There is overall improved aeration of the right lung base compared to yesterday. Pulmona ry edema is slightly worse on the left side compared to yesterday.
[2017-09-08] MEDS: ATORVASTATIN 80 MG TAB PO SCH (20:36)
[2017-09-08] MEDS: NORTRIPTYLINE 10 MG CAP PO SCH (20:37)
[2017-09-08 20:44] LABS: Glucose,Whole Blood 158 mg/dL (75-99)
[2017-09-08] MEDS: INSULIN DETEMIR 100 UNIT/ML 10 ML VIAL SQ SCH (20:47)
[2017-09-08] MEDS ORDERED: DILTIAZEM 125 MG in SODIUM CHLORIDE 0.9% 100 ML IV SCH (22:00)
[2017-09-08 22:26] LABS: Appearance,Urine Cloudy (Clear); Bacteria,Urine Rare /hpf; Bilirubin,Urine Negative (Negative); Blood,Urine Small (Negative); Color,Urine Yellow; Glucose,Urine (UA) Negative (Negative); Hyaline Casts,Urine 1 /lpf (0-2); Ketones,Urine Negative (Negative); Leukocyte Esterase,Urine Large (Negative); Mucus,Urine Rare /hpf; Nitrite,Urine Negative (Negative); Protein,Urine 1+ (Negative); RBC,Urine 6 /hpf (0-5); Specific Gravity,Urine 1.017 (1.001-1.035); Squamous Epithelial Cell,Urine <1 /hpf (0-4); Urobilinogen,Urine <2.0 mg/dL (<2.0); WBC,Urine 55 /hpf (0-5)
[2017-09-09] MEDS: ACETAMINOPHEN TAB 325 MG TAB PO PRN (00:06)
[2017-09-09 05:59] LABS: Glucose,Whole Blood 110 mg/dL (75-99)
[2017-09-09] MEDS: metFORMIN 500 MG TAB PO SCH ×2 (06:01→17:23)
[2017-09-09] MEDS: INSULIN ASPART 100 UNIT/ML 1 ML 10 ML VIAL SQ SCH ×3 (06:01→17:23)
[2017-09-09] MEDS: REPAGLINIDE 1 MG TAB PO SCH ×3 (06:01→17:23)
[2017-09-09] MEDS: CARBIDOPA-LEVODOPA 25-100 MG 1 EACH TAB PO SCH ×3 (08:08→20:28)
[2017-09-09] MEDS: ASPIRIN 81 MG PO SCH (08:08)
[2017-09-09] MEDS: METOPROLOL TARTRATE 25 MG TAB PO SCH (08:08)
[2017-09-09] MEDS: TAMSULOSIN 0.4 MG CAP.ER.24H PO SCH (08:08)
[2017-09-09] MEDS: APIXABAN 5 MG TAB PO SCH ×2 (08:09→20:28)
[2017-09-09] MEDS: PANTOPRAZOLE 40 MG TABLET PO SCH ×2 (08:09→17:23)
[2017-09-09] MEDS: cefTRIAXone IN SWFI 1,000 MG/10 ML SYRINGE IVP SCH (08:09)
[2017-09-09] MEDS: LINAGLIPTIN 5 MG TABLET PO SCH (08:09)
[2017-09-09] MEDS ORDERED: METOPROLOL TARTRATE 25 MG TAB PO ONE (08:45)
--- NOTE | 2017-09-09 09:02 | P.PN ---
Subjective Progress Note Date: 09/09/17 This is a 72-year-old gentleman who has recently moved to this area with his , he follows with Dr. Tsai in the office as an outpatient. He is mostly nonverbal from prior CVAs, history was obtained from the daughter and who are at bedside. Patient does have history of prior CVAs, diabetes, hypertension, hyperlipidemia, history of bladder cancer, coronary artery disease with prior bypass surgery and stent placement, aortic valve surgery, prior pacemaker, which according to the daughter had to be removed because of severe infection, Parkinson's disease, paroxysmal atrial fibrillation for which he takes Eliquis, he also has a loop recorder in place, which was placed by a burn table operator in the [facility]. Patient also recently had some difficulty with urinating, and had a Costello catheter in place. According to the daughter, he's been pulling a lot on his catheter, so she recently removed it. The daughter states that the patient over the past 24-48 hours has had significant decrease in appetite, yesterday, she states that he had significant weakness on the right side of his body, they were trying to get him up into his wheelchair, and he just leaned forward to the right. It appeared to her as though he had another stroke. He also was staring off into space, and not responding to them like he usually does. For this reason EMS was called and the patient was brought to the hospital for further evaluation. Patient does have mild expressive aphasia and difficulty with balance after his strokes. On EMS arrival, blood pressure was 80/40, heart rate in the 90s, respirations 12. Oxygenation 82%, temperature 101.4. EKG on arrival here showed a normal sinus rhythm with a right bundle branch block pattern and nonspecific ST-T wave changes. Chest x-ray showed a right lower lobe infiltrate with small right pleural effusion. Repeat chest x-ray performed showed pulmonary edema with increasing pleural thickening. Blood pressure 120/64, heart rate in the 80s, 95 % on 4 L of oxygen. White blood cell count 23,000 on admission, 18,000 this morning. Hemoglobin down to 8 this morning. Platelet count 163. Sodium 141, potassium 4.0, BUN 31, creatinine 1.2. Magnesium level I.0. It was 0.7 on admission. Troponins 7.3, 6.9, 5.1. His UA shows large amount of leukocyte Estrace 2+ protein. Influenza A and B-. At the time of my examination this morning, patient is nonverbal, denies chest pain. 09/09/2017 Patient seen and examined this morning, continues to be aphasic, does open eyes in response to voice. Blood pressure 128/60 with a heart rate of 110. As x- ray performed this morning reveals pulmonary edema with a right-sided pleural effusion. Overall improved aeration from the right long as compared with yesterday. Pulmonary edema is worse on the left side as compared with yesterday. Patient was initiated on a Cardizem drip through the night last night, we will discontinue the Cardizem drip and increase his dose of Lopressor this morning. We will also give the patient 2 doses of IV Lasix today. Check lytes BUN and creatinine in the morning. Objective - Vital Signs Vital signs: Vital Signs Temp 97.5 F L 09/09/17 08:00 Pulse 110 H 09/09/17 08:00 Resp 20 09/09/17 08:00 BP 128/58 09/09/17 08:00 Pulse Ox 98 09/09/17 08:00 Intake & Output 09/08/17 09/09/17 09/09/17 18:59 06:59 18:59 Intake Total 100 1680 Output Total 400 575 Balance -300 1105 Weight 84 kg Intake: IV 1680 Diltiazem 125 mg In 80 Sodium Chloride 0.9% 100 ml @ 10 MG/HR 10 mls/hr IV .[id number] ROSELIA Rx#: [id number] Sodium Chloride 0.9% 1, 1600 000 ml @ 100 mls/hr IV . Q10H ROSELIA Rx#:[id number] Oral 100 Output: Urine 400 575 Other: Voiding Method Indwelling Catheter Indwelling Catheter - Exam PHYSICAL EXAMINATION: HEENT: Head is atraumatic, normocephalic. Pupils equal, round. Neck is supple. There is elevated jugular venous pressure. HEART EXAMINATION: Heart S1 and S2 systolic ejection murmur is heard CHEST EXAMINATION: Lungs reveal crackles to bilateral bases. ABDOMEN: Soft, nontender. Bowel sounds are heard. No organomegaly noted. EXTREMITIES: 2+ peripheral pulses with no evidence of peripheral edema and no calf tenderness noted. NEUROLOGIC [patient is awake, alert , aphasic - Labs CBC & Chem 7: 09/08/17 03:29 09/08/17 03:29 Labs: Abnormal Lab Results - Last 24 Hours (Table) 09/08/17 09/08/17 09/08/17 Range/Units 11:54 16:39 20:42 POC Glucose (mg/dL) 166 H 166 H 158 H (75-99) mg/dL Urine Protein (Negative) Urine Blood (Negative) Ur Leukocyte Esterase (Negative) Urine RBC (0-5) /hpf Urine WBC (0-5) /hpf Urine Bacteria (None) /hpf Urine Mucus (None) /hpf 09/08/17 09/09/17 Range/Units 22:00 05:58 POC Glucose (mg/dL) 110 H (75-99) mg/dL Urine Protein 1+ H (Negative) Urine Blood Small H (Negative) Ur Leukocyte Esterase Large H (Negative) Urine RBC 6 H (0-5) /hpf Urine WBC 55 H (0-5) /hpf Urine Bacteria Rare H (None) /hpf Urine Mucus Rare H (None) /hpf Microbiology - Last 24 Hours (Table) 09/08/17 22:00 Urine Culture - Preliminary Urine,Voided 09/07/17 18:01 Blood Culture Gram Stain - Preliminary Blood Blood Culture - Preliminary Gram Neg Bacilli 09/07/17 11:45 Blood Culture Gram Stain - Preliminary Blood Blood Culture - Preliminary Gram Neg Bacilli 09/07/17 18:01 Blood Culture - Preliminary Blood No Growth after 24 hours 09/07/17 11:45 Blood Culture - Preliminary Blood No Growth after 24 hours Assessment and Plan Plan: Assessment and plan #1 worsening mental status changes with associated right-sided weakness. #2 history of prior CVAs with residual mild expressive aphasia #3 Parkinson's #4 possible non-Q-wave myocardial infarction #5 known history of coronary artery disease with prior bypass surgery and aortic valve replacement #6Hypertension #7 hyperlipidemia #8 diabetes #9 paroxysmal atrial fibrillation on Eliquis for anticoagulation #10 anemia #11 sepsis with possible pneumonia, positive UTI #12 hypomagnesemia Plan EKG was performed this morning which revealed an ejection fraction of 50-55%. Chest x-ray revealed worsening pulmonary edema. We will give the patient IV Lasix today, check lytes BUN and creatinine in the morning. Heart rate to the night last night up into the 120s, patient was initiated on a Cardizem drip. We will discontinue the Cardizem drip today and increase the patient's dose of beta lilia. DNP note has been reviewed, I agree with a documented findings and plan of care. Patient was seen and examined.
[2017-09-09] MEDS: IPRATROPIUM-ALBUTEROL 3 ML NEB INHALATION SCH ×4 (09:04→19:40)
[2017-09-09] MEDS: SODIUM CHLORIDE 0.9% 1,000 ML IV SCH ×2 (09:26→20:26)
[2017-09-09] MEDS: FUROSEMIDE 10 MG/ML 4 ML VIAL IV SCH ×2 (09:26→20:27)
[2017-09-09 11:38] LABS: Glucose,Whole Blood 104 mg/dL (75-99)
[2017-09-09] MEDS: MULTIVITAMINS, THERA 1 EACH TAB PO SCH (12:18)
[2017-09-09] MEDS: CEFEPIME 2 GM in SODIUM CHLORIDE 0.9% 50 ML IVPB SCH (15:42)
--- NOTE | 2017-09-09 16:28 | P.PN ---
Progress Note - Text Progress Note Date: 09/09/17 DATE OF SERVICE: 09/09/2017 PRESENTING COMPLAINT: Mental status changes HISTORY OF PRESENT ILLNESS: 72-year-old male with a history of right-sided weakness from previous stroke. Presented to the emergency department because patient had some mental status changes with low-grade fever. And blood pressure was 81/42 patient received a 500 mL bolus en Route. Patient did have a UTI recently Costello catheter was removed 5 days ago. Another one was placed in the emergency department. Labs revealed elevated troponin and UA positive for leukocyte esterase, admitted for the same. INTERVAL HISTORY: 09/09/2017: Lying in bed at bedside. Patient tracks with his eyes but does not really speak much nods his head sometimes to yes and no questions answers inconsistently. Patient had dropped into atrial fibrillation Cardizem drip initiated by cardiology. Remains in atrial fibrillation this morning. Rate in the low 100s to 1 teens. No chest pain or shortness of breath. Requires one-to- one supervision for meals has a good appetite eating between 75 and 100% of his meals. Primarily bedbound requires transfer assistance for moving about the bed. Urine culture Last BM prior to admission. 09/08/2017 Lying in bed daughter and at the bedside. Patient doesn't talk much nods his head answers yes and no questions. Appetite is been good, eating about 75% % of his meal. No complaints of chest pain or shortness of breath. Echocardiogram performed this morning. Primarily bedbound requires assistance for transfers and for moving about in the bed. Last BM prior to admission. REVIEW OF SYSTEMS: Unable to assess patient doesn't speak. CURRENT MEDICATIONS DuoNeb, Eliquis, aspirin, Lipitor, Sinemet, Rocephin, NovoLog, insulin detemir, treated gentle, Glucophage, Lopressor, Theragran-M vitamin, Nitrostat, nortriptyline, Protonix, Prandin, Flomax. PHYSICAL EXAM VITAL SIGNS: Temperature 97.5, pulse 110, respiratory rate 20, blood pressure 128/58, oxygen saturation 98% on 6 L. GENERAL APPEARANCE: Lying in bed, not in distress. HENT: Normocephalic, JVD not raised. Mass not palpable. Oral cavity normal, external appearance of ears and nose normal. EYES:Pupils equal. Conjunctiva normal. RESPIRATORY: Respiratory effort mildly increased. Lungs diminished to auscultation with occasional cough. CARDIOVASCULAR: First and second sounds normal. No edema. ABDOMEN: Soft. Liver and spleen not palpable. No tenderness. No mass palpable. GENITOURINARY: Costello catheter in place draining clear yellow urine. PSYCHIATRY: Unable to assess due to patient's current condition. NEUROLOGIC: Patient has dysarthria no facial asymmetry is able to move all of his limbs. INVESTIGATIONS: LABS: None new Echocardiogram: Sinus rhythm, EF between 50 and 55%, mild concentric left ventricular hypertrophy, trivial regurgitation of the bioprosthetic aortic valve. ASSESSMENT: -Acute non-Q wave myocardial infarction in a patient with known coronary artery disease. -Acute urinary tract infection in a patient secondary to Costello catheter, just had a Costello catheter 3 days ago. -Right bundle branch block. -Paroxysmal atrial fibrillation history of the same, went back into atrial fibrillation overnight. -Diabetes mellitus type 2, chronically on insulin. -Hyperlipidemia. -Essential hypertension. -Coronary artery disease prior history of stent and coronary artery bypass. 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 -Idiopathic Parkinson's disease. -Chronic medical debility, needs assistance. -CODE STATUS DO NOT RESUSCITATE. -Right lower lobe infiltrate suspect gram-negative organism. -Sepsis, present on admission, probably combination of urinary tract infection and pneumonia. -Chronic medical debility. -Chronic metabolic encephalopathy. -Moderate mitral and tricuspid regurgitation, nonrheumatic. PLAN: Chest x-ray revealed worsening pulmonary edema, received IV Lasix per cardiology. Eliquis to continue for atrial fibrillation. IV Cardizem drip discontinued patient's beta lilia increased per cardiology. We'll continue the patient's IV Zosyn, await urine culture sensitivities to direct antibiotic therapy. monitor Accu-Cheks and provide gentle hydration. Patient will remain on aspiration precaution and require feeding assistance. Plan of care discussed at the bedside we'll continue to monitor closely. Discharge planning for the next 1-2 days. Family is agreeable. He will return to home with home care [employer] statement: Patient was seen and examined by nurse practitioner Fátima Alcaraz and all elements of the case discussed with attending Dr. Mares
[2017-09-09 16:34] LABS: Glucose,Whole Blood 149 mg/dL (75-99)
--- NOTE | 2017-09-09 18:51 | PN ---
PROGRESS NOTE DATE OF SERVICE: 09/09/2017. ATTENDING NOTE: This patient was seen and examined by me. I discussed the case with the nurse practitioner Ms. Alcaraz. Patient was admitted with acute non-Q-wave NV, acute UTI. Actually he is more awake. His is feeding him. The patient went into atrial fibrillation with rapid ventricular rate. On examination, afebrile, pulse 120, respiration 18, blood pressure 93/54, pulse ox 91% on 3 L. GENERAL APPEARANCE: Sitting up. More awake. LUNGS: Decreased breath sounds. CARDIOVASCULAR: Heart sounds irregular. White count 18.6, hemoglobin 8, potassium 4.0, BUN 31, creatinine 1.20. Labs are from yesterday. Telemetry shows atrial fibrillation with rapid ventricular rate. ASSESSMENT: 1. Acute non-Q-wave myocardial infarction. 2. Acute urinary tract infection in a patient from Costello catheter. 3. Sepsis with positive blood culture showing Gram-negative bacilli. 4. Possible right lower lobe pneumonia. 5. Paroxysmal atrial fibrillation, currently in atrial fibrillation with rate uncontrolled. PLAN: Patient is on IV cefepime; also on Lopressor 50 mg b.i.d. He is getting Lasix. Follow with Cardiology. They have increased the dose of beta lilia. Prognosis guarded. MMODL / IJN: [id number] /
[2017-09-09] MEDS: METOPROLOL TARTRATE 50 MG TAB PO SCH (20:26)
[2017-09-09] MEDS: ATORVASTATIN 80 MG TAB PO SCH (20:27)
[2017-09-09] MEDS: NORTRIPTYLINE 10 MG CAP PO SCH (20:28)
[2017-09-09] MEDS: SENNOSIDES-DOCUSATE SODIUM 1 EACH TAB PO SCH (20:32)
[2017-09-09 21:11] LABS: Glucose,Whole Blood 156 mg/dL (75-99)
[2017-09-09] MEDS: INSULIN DETEMIR 100 UNIT/ML 10 ML VIAL SQ SCH (21:23)
--- NOTE | 2017-09-09 21:50 | CONS ---
CONSULTATION DATE OF SERVICE: 09/09/2017. REASON FOR CONSULTATION: Gram-negative bacteremia. HISTORY OF PRESENT ILLNESS: The patient is a 72-year-old male who was brought into the ER at [facility] on September 07 by the EMS who were called in for the patient having mental status changes. Apparently the patient did have a fever and the patient noted to be hypertensive on arrival to the EMS with a blood pressure of 81/42 systolic. The patient did receive fluid bolus 500 mL and has been transferred to the [facility] ER for further evaluation. On arrival to the ER, the patient did not have fever, subsequently did spike a fever of 101.7 on 09/08/2017. The patient was tachycardic on presentation. By the time he arrived to the hospital, the blood pressure was 90 systolic. He did have a white count of 23.2 with a left shift. Patient's urine has been significantly positive with large leukocyte esterase, many WBC. Influenza serology was negative and the patient did have blood cultures obtained which did come back positive with a gram-negative bacilli. He was started on Rocephin. ID was consulted for further recommendation regarding antibiotic therapy. All of this information has been obtained from prior review of the chart with the nursing staff, as the patient is currently unable to provide any reliable history. Did not answer simple questions. Apparently the patient did have a history of Costello catheter placement that was removed about 5 days ago. Not very clear if the patient having a problem with retention and was admitted through outpatient setting with an oral antibiotic, name not documented. REVIEW OF SYSTEMS: Could not be obtained because of his underlying mental status. Positive points have been mentioned in HPI. PAST MEDICAL HISTORY: Significant for coronary artery disease, atrial fibrillation, history of bladder cancer, CVA, TIA, diabetes mellitus, gastroesophageal reflux disease, hyperlipidemia, history of recurrent UTIs, possible history of bladder surgery, coronary artery bypass grafting, previous stent. Did have a loop recorder. SOCIAL HISTORY: No history of smoking. No drinking, drug use. FAMILY HISTORY: Father had history of prostate cancer. Mother had dementia and hypertension. ALLERGIES: To SULFA. MEDICATION: Include the patient is currently on: 1. Tylenol. 2. DuoNeb. 3. Eliquis. 4. Aspirin. 5. Lipitor. 6. Sinemet. 7. Rocephin. 8. Lasix. 9. NovoLog. 10.Levemir. 11.Tradjenta. 12.Glucophage. 13.Lopressor. 14.Lipitor. EXAMINATION: Blood pressure is 105/59 with a pulse of 99, temperature of 98.9, T-max is 101. He is 96% on 2L nasal cannula. General description is an elderly male lying in bed in no distress. No tachypnea or accessory muscle for respiration use. HEENT shows pallor. No scleral icterus. Oral mucous membranes are dry and no pharyngeal erythema or thrush. NECK: Trachea central. No thyromegaly. LUNGS: Unlabored breathing. Clear to auscultation anteriorly. No wheeze or crackle. HEART: S1, S2. Regular rate and rhythm. No murmur. ABDOMEN: Soft. The patient noticed to be slightly tender in the right upper quadrant area. There is no guarding. No rigidity. No organomegaly. EXTREMITIES: No edema of feet. SKIN: No rash or mass palpable. NEUROLOGICAL: Patient currently lethargic. Orientation and mental exam could not be complete because of his underlying mental condition. LABS: Hemoglobin 8, white count 18.3, admission hematocrit is 23.2. BUN of 31, creatinine 1.20. Lactic acid was 2.21. Electrolytes have been normal. Liver enzymes not significantly elevated. Urine has been significantly positive many WBC with the cultures currently pending. Influenza serology was negative. Sputum culture negative. Blood cultures with gram-negative bacilli. DIAGNOSTIC IMPRESSION AND PLAN: 1. Patient in the hospital with sepsis in a patient who did have a fever of 101.7. He has tachycardia, hypotension, elevated white count, meeting criteria for systemic inflammatory response syndrome. Source is urinary in a patient who did have a blood culture positive x2, likely secondary to urinary source. The patient did have a history of a bladder cancer, making it a complicated urinary tract infection, also urinary retention, as patient seemed to have a Costello catheter in outpatient setting that has been removed about 5 days ago and has been treated in the outpatient setting with an oral antibiotic concerning for likely a resistant gram-negative pathogen. 2. Patient noted to have SULFA ALLERGY that will limit number of antibiotics that could be safely used. 3. The associated comorbid conditions that complicate underlying infection including diabetes, bladder cancer and loop recorder in setting of bacteremia. PLAN: 1. We will obtain ultrasound of the kidneys and bladder in view of his tenderness in right upper quadrant area and also to make sure no evidence of any structural abnormality that may be related to persistence or worsening of the gram-negative UTI and bacteremia. 2. Discontinue the Rocephin. 3. We will start the patient cefepime 2 g q.12 hours. Waiting for the final ID of this pathogen. 4. Gentle IV fluid. 5. We will follow up on his clinical condition as well as cultures for adjusting medications further. Thank you for this consultation. Will follow this patient along with you. ANAI / IJN: [id number] / MTDD
[2017-09-10] MEDS: CEFEPIME 2 GM in SODIUM CHLORIDE 0.9% 50 ML IVPB SCH ×2 (00:12→08:40)
[2017-09-10 05:54] LABS: Glucose,Whole Blood 96 mg/dL (75-99)
[2017-09-10] MEDS: SODIUM CHLORIDE 0.9% 1,000 ML IV SCH ×2 (06:03→18:23)
[2017-09-10] MEDS: INSULIN ASPART 100 UNIT/ML 1 ML 10 ML VIAL SQ SCH ×3 (06:03→17:09)
[2017-09-10 06:23] LABS: Basophils % (A) 0 %; Eosinophils # (A) 0.3 k/uL (0-0.7); Eosinophils % (A) 2 %; HCT 24.7 % (39.0-53.0); HGB 7.6 gm/dL (13.0-17.5); Hypochromasia Slight; Lymphocytes # (A) 0.9 k/uL (1.0-4.8); Lymphocytes % (A) 6 %; MCHC 30.8 g/dL (31.0-37.0); Mean Platelet Volume 9.4; Monocytes # (A) 0.6 k/uL (0-1.0); Monocytes % (A) 4 %; Neutrophils # (A) 11.9 k/uL (1.3-7.7); Neutrophils % (A) 84 %; Platelet Count 187 k/uL (150-450); RBC 3.17 m/uL (4.30-5.90); RDW 15.3 % (11.5-15.5); WBC 14.1 k/uL (3.8-10.6)
[2017-09-10 06:44] LABS: Anion Gap 13 mmol/L; Blood Urea Nitrogen 28 mg/dL (9-20); Calcium 8.1 mg/dL (8.4-10.2); Carbon Dioxide 23 mmol/L (22-30); Chloride 107 mmol/L (98-107); Glucose 91 mg/dL (74-99); Potassium 3.5 mmol/L (3.5-5.1); Sodium 143 mmol/L (137-145)
--- NOTE | 2017-09-10 08:28 | US ---
EXAMINATION TYPE: US abdomen complete DATE OF EXAM: 09/10/2017 COMPARISON: CT 01/31/2017 CLINICAL HISTORY: right upper quadrant tenderness , bacteremia. Very difficult exam. Patient is a poo r historian, cannot roll onto his side, cannot take a deep breath in and hold. EXAM MEASUREMENTS: Liver Length: 19.7 cm Gallbladder Wall: 0.4 cm CBD: 0.3 cm Spleen: 10.7 cm Right Kidney: 11.0 x 5.4 x 5.5 cm Left Kidney: 11.1 x 5.7 x 4.8 cm Pancreas: Tail obscured by overlying bowel gas, visualized portions show no abnormality Liver: wnl Gallbladder: Sludge visualized. Gallbladder wall appears thickened with some probable pericholecysti c fluid Evidence for sonographic Renteria's sign: No CBD: wnl as visualized Spleen: wnl Right Kidney: No hydronephrosis or masses seen Left Kidney: Limited visualization due to overlying bowel, visualized portions show no hydronephrosi s, no cystic or solid mass Upper IVC: wnl Abd Aorta: Atherosclerotic changes visualized There is a tiny amount of free fluid visualized adjacent to the liver The liver is homogenous. The intrahepatic portion of the IVC is within normal limits. Common bile du ct is unremarkable. The visualized portions of the pancreas are homogenous. The spleen is unremarka ble. Kidneys are symmetric and free of hydronephrosis. No renal lesions are seen. IMPRESSION: 1. Gallbladder wall thickening with sludge and pericholecystic fluid.
[2017-09-10] MEDS: REPAGLINIDE 1 MG TAB PO SCH ×3 (08:40→17:05)
[2017-09-10] MEDS: CARBIDOPA-LEVODOPA 25-100 MG 1 EACH TAB PO SCH ×3 (08:41→19:48)
[2017-09-10] MEDS: metFORMIN 500 MG TAB PO SCH ×2 (08:41→17:05)
[2017-09-10] MEDS: FUROSEMIDE 10 MG/ML 4 ML VIAL IV SCH ×2 (08:41→19:47)
[2017-09-10] MEDS: LINAGLIPTIN 5 MG TABLET PO SCH (08:42)
[2017-09-10] MEDS: ASPIRIN 81 MG PO SCH (08:42)
[2017-09-10] MEDS: APIXABAN 5 MG TAB PO SCH ×2 (08:42→19:48)
[2017-09-10] MEDS: METOPROLOL TARTRATE 50 MG TAB PO SCH ×4 (08:43→19:48)
[2017-09-10] MEDS: SENNOSIDES-DOCUSATE SODIUM 1 EACH TAB PO SCH ×2 (08:44→19:48)
[2017-09-10] MEDS: TAMSULOSIN 0.4 MG CAP.ER.24H PO SCH (08:44)
[2017-09-10] MEDS: PANTOPRAZOLE 40 MG TABLET PO SCH ×2 (08:46→17:09)
[2017-09-10] MEDS: IPRATROPIUM-ALBUTEROL 3 ML NEB INHALATION SCH ×4 (09:38→20:51)
[2017-09-10] MEDS: ERTAPENEM 1 GM in SODIUM CHLORIDE 0.9% 50 ML IVPB SCH (11:17)
[2017-09-10 11:42] LABS: Glucose,Whole Blood 94 mg/dL (75-99)
[2017-09-10] MEDS: MULTIVITAMINS, THERA 1 EACH TAB PO SCH (11:57)
--- NOTE | 2017-09-10 15:17 | P.PN ---
Subjective Progress Note Date: 09/10/17 This is a 72-year-old gentleman who has recently moved to this area with his , he follows with Dr. Tsai in the office as an outpatient. He is mostly nonverbal from prior CVAs, history was obtained from the daughter and who are at bedside. Patient does have history of prior CVAs, diabetes, hypertension, hyperlipidemia, history of bladder cancer, coronary artery disease with prior bypass surgery and stent placement, aortic valve surgery, prior pacemaker, which according to the daughter had to be removed because of severe infection, Parkinson's disease, paroxysmal atrial fibrillation for which he takes Eliquis, he also has a loop recorder in place, which was placed by a merchandise associate in the [facility]. Patient also recently had some difficulty with urinating, and had a Costello catheter in place. According to the daughter, he's been pulling a lot on his catheter, so she recently removed it. The daughter states that the patient over the past 24-48 hours has had significant decrease in appetite, yesterday, she states that he had significant weakness on the right side of his body, they were trying to get him up into his wheelchair, and he just leaned forward to the right. It appeared to her as though he had another stroke. He also was staring off into space, and not responding to them like he usually does. For this reason EMS was called and the patient was brought to the hospital for further evaluation. Patient does have mild expressive aphasia and difficulty with balance after his strokes. On EMS arrival, blood pressure was 80/40, heart rate in the 90s, respirations 12. Oxygenation 82%, temperature 101.4. EKG on arrival here showed a normal sinus rhythm with a right bundle branch block pattern and nonspecific ST-T wave changes. Chest x-ray showed a right lower lobe infiltrate with small right pleural effusion. Repeat chest x-ray performed showed pulmonary edema with increasing pleural thickening. Blood pressure 120/64, heart rate in the 80s, 95 % on 4 L of oxygen. White blood cell count 23,000 on admission, 18,000 this morning. Hemoglobin down to 8 this morning. Platelet count 163. Sodium 141, potassium 4.0, BUN 31, creatinine 1.2. Magnesium level I.0. It was 0.7 on admission. Troponins 7.3, 6.9, 5.1. His UA shows large amount of leukocyte Estrace 2+ protein. Influenza A and B-. At the time of my examination this morning, patient is nonverbal, denies chest pain. 09/09/2017 Patient seen and examined this morning, continues to be aphasic, does open eyes in response to voice. Blood pressure 128/60 with a heart rate of 110. As x- ray performed this morning reveals pulmonary edema with a right-sided pleural effusion. Overall improved aeration from the right long as compared with yesterday. Pulmonary edema is worse on the left side as compared with yesterday. Patient was initiated on a Cardizem drip through the night last night, we will discontinue the Cardizem drip and increase his dose of Lopressor this morning. We will also give the patient 2 doses of IV Lasix today. Check lytes BUN and creatinine in the morning. 09/10/2017 Cardiology was asked to see the patient again today, because the heart rate this morning was noted to be up in the 120 range, blood pressure slightly elevated. The patient was on metoprolol 50 mg 1 tablet 3 times a day, we will increase that dose to 3 times a day today. Objective - Vital Signs Vital signs: Vital Signs Temp 97.6 F 09/10/17 11:25 Pulse 84 09/10/17 13:04 Resp 18 09/10/17 12:00 BP 160/72 09/10/17 11:25 Pulse Ox 98 09/10/17 11:25 Intake & Output 09/09/17 09/10/17 09/10/17 18:59 06:59 18:59 Intake Total 180 400 600 Output Total 1225 1275 Balance -1045 -875 600 Weight 85 kg Intake: IV 200 Sodium Chloride 0.9% 1, 200 000 ml @ 100 mls/hr IV . Q10H [facility] Rx#:[id number] Intake, IV Titration 200 600 Amount Cefepime 2 gm In Sodium 50 Chloride 0.9% 50 ml @ 100 mls/hr IVPB Q12HR [facility] Rx #:[id number] Ertapenem 1 gm In Sodium 50 Chloride 0.9% 50 ml @ 100 mls/hr IVPB DAILY [facility] Rx #:[id number] Sodium Chloride 0.9% 1, 200 500 000 ml @ 100 mls/hr IV . Q10H [facility] Rx#:[id number] Oral 180 Output: Urine 1225 1275 Other: Voiding Method Indwelling Catheter Indwelling Catheter Indwelling Catheter - Exam PHYSICAL EXAMINATION: HEENT: Head is atraumatic, normocephalic. Pupils equal, round. Neck is supple. There is elevated jugular venous pressure. HEART EXAMINATION: Heart S1 and S2 systolic ejection murmur is heard CHEST EXAMINATION: Lungs reveal crackles to bilateral bases. ABDOMEN: Soft, nontender. Bowel sounds are heard. No organomegaly noted. EXTREMITIES: 2+ peripheral pulses with no evidence of peripheral edema and no calf tenderness noted. NEUROLOGIC [patient is awake, alert , aphasic - Labs CBC & Chem 7: 09/10/17 05:33 09/10/17 05:33 Labs: Abnormal Lab Results - Last 24 Hours (Table) 09/09/17 09/09/17 09/10/17 Range/Units 16:31 21:07 05:33 WBC 14.1 H (3.8-10.6) k/uL RBC 3.17 L (4.30-5.90) m/uL Hgb 7.6 L (13.0-17.5) gm/dL Hct 24.7 L (39.0-53.0) % MCV 78.0 L (80.0-100.0) fL MCH 24.0 L (25.0-35.0) pg MCHC 30.8 L (31.0-37.0) g/dL Neutrophils # 11.9 H (1.3-7.7) k/uL Lymphocytes # 0.9 L (1.0-4.8) k/uL BUN (9-20) mg/dL POC Glucose (mg/dL) 149 H 156 H (75-99) mg/dL Calcium (8.4-10.2) mg/dL 09/10/17 Range/Units 05:33 WBC (3.8-10.6) k/uL RBC (4.30-5.90) m/uL Hgb (13.0-17.5) gm/dL Hct (39.0-53.0) % MCV (80.0-100.0) fL MCH (25.0-35.0) pg MCHC (31.0-37.0) g/dL Neutrophils # (1.3-7.7) k/uL Lymphocytes # (1.0-4.8) k/uL BUN 28 H (9-20) mg/dL POC Glucose (mg/dL) (75-99) mg/dL Calcium 8.1 L (8.4-10.2) mg/dL Microbiology - Last 24 Hours (Table) 09/07/17 11:45 Blood Culture - Preliminary Blood No Growth after 72 hours 09/07/17 18:01 Blood Culture Gram Stain - Final Blood Blood Culture - Final Escherichia coli 09/07/17 11:45 Blood Culture Gram Stain - Final Blood Blood Culture - Final Escherichia coli 09/08/17 22:00 Urine Culture - Final Urine,Voided 09/07/17 18:01 Blood Culture - Preliminary Blood No Growth after 48 hours Assessment and Plan Plan: Assessment and plan #1 worsening mental status changes with associated right-sided weakness. #2 history of prior CVAs with residual mild expressive aphasia #3 Parkinson's #4 possible non-Q-wave myocardial infarction #5 known history of coronary artery disease with prior bypass surgery and aortic valve replacement #6Hypertension #7 hyperlipidemia #8 diabetes #9 paroxysmal atrial fibrillation on Eliquis for anticoagulation #10 anemia #11 sepsis with possible pneumonia, positive UTI #12 hypomagnesemia Plan We will increase the metoprolol to 50 mg one tablet by mouth 3 times a day today. We will follow him along with you now on an as-needed basis only, please don't hesitate to call with any questions. DNP note has been reviewed, I agree with a documented findings and plan of care. Patient was seen and examined.
--- NOTE | 2017-09-10 15:23 | P.GSCN ---
<Christine Villegas - Last Filed: 09/10/17 14:48> History of Present Illness Consult date: 09/10/17 History of present illness: 72-year-old male being seen at the request of the attending for a surgical eval after an ultrasound of the abdomen showed a gallbladder wall thickening with sludge and.pericholecystic fluid. Patient has multiple comorbidities. Is a poor historian cannot get health history from the patient. The health history has been obtained from interviewing the at the bedside and reviewing prior computerized records. The is the patient's care provider at home. Patient has had a prior stroke resulting in right side deficit with weakness and paralysis. According to the the patient has limited mobility can take a few steps with a walker but predominantly wheelchair bedbound. Patient presented on the day of admission to the emergency room with mental status changes a low-grade temp. According to the at the bedside patient has not been experiencing any abdominal pain. The states it is hard to evaluate whether he is actually having abdominal pain because the patient predominantly is nonverbal answers yes no Past medical history chronic atrial fibrillation, coronary artery disease, CVA, diabetes, hyperlipidemia, esophageal reflux. Past surgical history coronary artery bypass grafting, bladder surgery, aortic valve replacement, coronary stents. Review of Systems not able to verbalize not able to obtain Past Medical History Past Medical History: Atrial Fibrillation, Coronary Artery Disease (CAD), Cancer , CVA/TIA, Diabetes Mellitus, GERD/Reflux, Hyperlipidemia Additional Past Medical History / Comment(s): Pt recently admitted to [facility] on 03/03/17 with weakness L upper arm, CVA, afib. Other hx: Bladder cancer with surgery, CVAs x3-PT POOR HISTORIAN SINCE last stroke in JUN 2016-has difficulty with speech and balance after stroke affected rt side-pt says yes/no but not always accurately, NIDDM type II, UTI. History of Any Multi-Drug Resistant Organisms: ESBL Year Discovered:: 09/07/17 MDRO Source:: blood ESBL Past Surgical History: Bladder Surgery, Coronary Bypass/CABG, Heart Catheterization With Stent Additional Past Surgical History / Comment(s): 1994 3 vessel CABG with aortic valve surgery, loop recorder, Past Anesthesia/Blood Transfusion Reactions: No Reported Reaction Date of Last Stent Placement:: 1989 Past Psychological History: No Psychological Hx Reported Additional Psychological History / Comment(s): Pt currently residing at [facility] for rehab. He is up in wheelchair and needs assist with all ADLs. He says yes/ no and not always accurate with his answer. Smoking Status: Former smoker Past Alcohol Use History: None Reported Additional Past Alcohol Use History / Comment(s): started smoking 1958 and quit 2015 Past Drug Use History: None Reported - Past Family History Father Family Medical History: Cancer Additional Family Medical History / Comment(s): prostate cancer Mother Family Medical History: Dementia, Hypertension Medications and Allergies Home Medications Medication Instructions Recorded Confirmed Type Metoprolol Tartrate [Lopressor] 25 mg PO BID 02/28/17 09/07/17 History sitaGLIPtin [Januvia] 100 mg PO DAILY 02/28/17 09/07/17 History Apixaban [Eliquis] 5 mg PO BID 03/31/17 09/07/17 History Atorvastatin [Lipitor] 80 mg PO HS 06/24/17 09/07/17 History Nortriptyline [Pamelor] 10 mg PO HS 06/24/17 09/07/17 History Pantoprazole Sodium [Protonix] 40 mg PO BID@0800,1700 06/24/17 09/07/17 History Repaglinide [Prandin] 0.5 mg PO AC-TID #1 tablet 06/29/17 09/07/17 Rx Carbidopa-Levodopa 25-100 mg 1 tab PO TID 08/12/17 09/07/17 History [Sinemet 25-100 mg] Insulin Glargine [Lantus] 10 unit SQ HS 08/12/17 09/07/17 History Ubidecarenone [Coenzyme Q10] 60 mg PO BID 08/12/17 09/07/17 History Amoxicillin 500 mg PO Q8H 09/07/17 09/07/17 History Aspirin EC [Ecotrin Low Dose] 81 mg PO DAILY 09/07/17 09/07/17 History Cranberry Fruit Extract [Cranberry] 200 mg PO DAILY 09/07/17 09/07/17 History Insulin Lispro [humaLOG Kwikpen] 2 unit SQ AC-TID 09/07/17 09/07/17 History Multivitamins, Thera [Multivitamin 1 tab PO DAILY 09/07/17 09/07/17 History (formulary)] Tamsulosin [Flomax] 0.4 mg PO DAILY 09/07/17 09/07/17 History metFORMIN HCL [metFORMIN HCL] 1,000 mg PO BID 09/07/17 09/07/17 History Allergies Allergy/AdvReac Type Severity Reaction Status Date / Time Sulfa (Sulfonamide Allergy Unknown Verified 08/12/17 16:21 Antibiotics) Surgical - Exam Vital Signs Temp Pulse Resp BP Pulse Ox 98.6 F 95 20 121/56 100 09/07/17 11:39 09/07/17 11:39 09/07/17 11:39 09/07/17 11:39 09/07/17 11:39 GENERAL APPEARANCE: 72-year-old male eyes closed opens to verbal stimuli nonverbal, in no acute distress. VITAL SIGNS: Reviewed HEENT: Head is normocephalic and atraumatic. Pupils are equal and reactive. The nares are patent. Oropharynx is clear without lesions. NECK: Supple without lymphadenopathy. Traches midline. HEART: S1, S2. Irregular monitor A. fib rate controlled LUNGS: No crackles or wheezes are heard. Adequate air movement bilaterally ABDOMEN: Soft, nontender, nondistended with good bowel sounds. No peritoneal signs. No palpable organomegaly or masses. No facial grimaces with palpitation to the abdominal wall no stool indwelling Costello catheter in place EXTREMITIES: Right side weakness with paralysis limited mobility no edema noted to the bilateral lower extremities Results - Labs 09/10/17 05:33 09/10/17 05:33 Abnormal Lab Results - Last 24 Hours (Table) 09/09/17 09/09/17 09/10/17 Range/Units 16:31 21:07 05:33 WBC 14.1 H (3.8-10.6) k/uL RBC 3.17 L (4.30-5.90) m/uL Hgb 7.6 L (13.0-17.5) gm/dL Hct 24.7 L (39.0-53.0) % MCV 78.0 L (80.0-100.0) fL MCH 24.0 L (25.0-35.0) pg MCHC 30.8 L (31.0-37.0) g/dL Neutrophils # 11.9 H (1.3-7.7) k/uL Lymphocytes # 0.9 L (1.0-4.8) k/uL BUN (9-20) mg/dL POC Glucose (mg/dL) 149 H 156 H (75-99) mg/dL Calcium (8.4-10.2) mg/dL 09/10/17 Range/Units 05:33 WBC (3.8-10.6) k/uL RBC (4.30-5.90) m/uL Hgb (13.0-17.5) gm/dL Hct (39.0-53.0) % MCV (80.0-100.0) fL MCH (25.0-35.0) pg MCHC (31.0-37.0) g/dL Neutrophils # (1.3-7.7) k/uL Lymphocytes # (1.0-4.8) k/uL BUN 28 H (9-20) mg/dL POC Glucose (mg/dL) (75-99) mg/dL Calcium 8.1 L (8.4-10.2) mg/dL Microbiology - Last 24 Hours (Table) 09/07/17 11:45 Blood Culture - Preliminary Blood No Growth after 72 hours 09/07/17 18:01 Blood Culture Gram Stain - Final Blood Blood Culture - Final Escherichia coli 09/07/17 11:45 Blood Culture Gram Stain - Final Blood Blood Culture - Final Escherichia coli 09/08/17 22:00 Urine Culture - Final Urine,Voided 09/07/17 18:01 Blood Culture - Preliminary Blood No Growth after 48 hours Diabetes panel 09/10/17 Range/Units 05:33 Sodium 143 (137-145) mmol/L Potassium 3.5 (3.5-5.1) mmol/L Chloride 107 (98-107) mmol/L Carbon Dioxide 23 (22-30) mmol/L BUN 28 H (9-20) mg/dL Creatinine 0.98 (0.66-1.25) mg/dL Glucose 91 (74-99) mg/dL Calcium 8.1 L (8.4-10.2) mg/dL Calcium panel 09/10/17 Range/Units 05:33 Calcium 8.1 L (8.4-10.2) mg/dL Pituitary panel 09/10/17 Range/Units 05:33 Sodium 143 (137-145) mmol/L Potassium 3.5 (3.5-5.1) mmol/L Chloride 107 (98-107) mmol/L Carbon Dioxide 23 (22-30) mmol/L BUN 28 H (9-20) mg/dL Creatinine 0.98 (0.66-1.25) mg/dL Glucose 91 (74-99) mg/dL Calcium 8.1 L (8.4-10.2) mg/dL Adrenal panel 09/10/17 Range/Units 05:33 Sodium 143 (137-145) mmol/L Potassium 3.5 (3.5-5.1) mmol/L Chloride 107 (98-107) mmol/L Carbon Dioxide 23 (22-30) mmol/L BUN 28 H (9-20) mg/dL Creatinine 0.98 (0.66-1.25) mg/dL Glucose 91 (74-99) mg/dL Calcium 8.1 L (8.4-10.2) mg/dL Assessment and Plan Assessment: Impression A prior CVA with right-sided paralysis paroxysmal atrial fibrillation controlled ventricular response on elquis Chronic debility wheelchair bedbound due to a prior CVA No CODE STATUS per advance directives Ultrasound of the abdomen gallbladder thickening with sludge and pericholecystic fluid Echocardiogram August left ventricular systolic function low normal 50- 55% Mildly elevated troponin likely due to non-ST elevated NV Possible right lower lobe pneumonia Present on admission sepsis positive blood culture gram-negative bacilli Present on admission acute UTI Plan Continue recommendations infectious disease Dr. Savage defer to would be at an increased risk to undergo a surgical procedure to address the gallbladder thickening with sludge in pericholecystic fluid Defer to the attending to address medical issues would recommend a conservative management for treatment of cholecystitis DVT and GI prophylaxis Further recommendations after Dr. sinclair reviews the ultrasound of the gallbladder Surgical consultation note dictated for dr sinclair The above impression and plan of care have been discussed and directed by signing physician. Christine Villegas nurse practitioner acting as scribe for signing physician. <Dread Sinclair - Last Filed: 09/10/17 17:45> Surgical - Exam Osteopathic Statement: *. No significant issues noted on an osteopathic structural exam other than those noted in the History and Physical/Consult. Vital Signs Temp Pulse Resp BP Pulse Ox 98.6 F 95 20 121/56 100 09/07/17 11:39 09/07/17 11:39 09/07/17 11:39 09/07/17 11:39 02/12/18 11:39 Results - Labs 09/10/17 05:33 09/10/17 05:33 Abnormal Lab Results - Last 24 Hours (Table) 09/09/17 09/10/17 09/10/17 Range/Units 21:07 05:33 05:33 WBC 14.1 H (3.8-10.6) k/uL RBC 3.17 L (4.30-5.90) m/uL Hgb 7.6 L (13.0-17.5) gm/dL Hct 24.7 L (39.0-53.0) % MCV 78.0 L (80.0-100.0) fL MCH 24.0 L (25.0-35.0) pg MCHC 30.8 L (31.0-37.0) g/dL Neutrophils # 11.9 H (1.3-7.7) k/uL Lymphocytes # 0.9 L (1.0-4.8) k/uL BUN 28 H (9-20) mg/dL POC Glucose (mg/dL) 156 H (75-99) mg/dL Calcium 8.1 L (8.4-10.2) mg/dL 09/10/17 Range/Units 16:44 WBC (3.8-10.6) k/uL RBC (4.30-5.90) m/uL Hgb (13.0-17.5) gm/dL Hct (39.0-53.0) % MCV (80.0-100.0) fL MCH (25.0-35.0) pg MCHC (31.0-37.0) g/dL Neutrophils # (1.3-7.7) k/uL Lymphocytes # (1.0-4.8) k/uL BUN (9-20) mg/dL POC Glucose (mg/dL) 100 H (75-99) mg/dL Calcium (8.4-10.2) mg/dL Microbiology - Last 24 Hours (Table) 09/07/17 11:45 Blood Culture - Preliminary Blood No Growth after 72 hours 09/07/17 18:01 Blood Culture Gram Stain - Final Blood Blood Culture - Final Escherichia coli 09/07/17 11:45 Blood Culture Gram Stain - Final Blood Blood Culture - Final Escherichia coli 09/08/17 22:00 Urine Culture - Final Urine,Voided 09/07/17 18:01 Blood Culture - Preliminary Blood No Growth after 48 hours Diabetes panel 09/10/17 Range/Units 05:33 Sodium 143 (137-145) mmol/L Potassium 3.5 (3.5-5.1) mmol/L Chloride 107 (98-107) mmol/L Carbon Dioxide 23 (22-30) mmol/L BUN 28 H (9-20) mg/dL Creatinine 0.98 (0.66-1.25) mg/dL Glucose 91 (74-99) mg/dL Calcium 8.1 L (8.4-10.2) mg/dL Calcium panel 09/10/17 Range/Units 05:33 Calcium 8.1 L (8.4-10.2) mg/dL Pituitary panel 09/10/17 Range/Units 05:33 Sodium 143 (137-145) mmol/L Potassium 3.5 (3.5-5.1) mmol/L Chloride 107 (98-107) mmol/L Carbon Dioxide 23 (22-30) mmol/L BUN 28 H (9-20) mg/dL Creatinine 0.98 (0.66-1.25) mg/dL Glucose 91 (74-99) mg/dL Calcium 8.1 L (8.4-10.2) mg/dL Adrenal panel 09/10/17 Range/Units 05:33 Sodium 143 (137-145) mmol/L Potassium 3.5 (3.5-5.1) mmol/L Chloride 107 (98-107) mmol/L Carbon Dioxide 23 (22-30) mmol/L BUN 28 H (9-20) mg/dL Creatinine 0.98 (0.66-1.25) mg/dL Glucose 91 (74-99) mg/dL Calcium 8.1 L (8.4-10.2) mg/dL Assessment and Plan Plan: I agree with the above, Given the patients recent NSTEMI, extensive cardiac history, CVA, and pneumonia along with being on anticoagulation I do not recommend surgical intervention at this time. He is very high risk. I do not believe he would tolerate surgery at this time. If concern for acute cholecystitis persists I would recommend percutaneous cholecystostomy tube placement per IR.
[2017-09-10 16:46] LABS: Glucose,Whole Blood 100 mg/dL (75-99)
--- NOTE | 2017-09-10 16:53 | P.PN ---
Progress Note - Text Progress Note Date: 09/10/17 DATE OF SERVICE: 09/10/2017 PRESENTING COMPLAINT: Mental status changes HISTORY OF PRESENT ILLNESS: 72-year-old male with a history of right-sided weakness from previous stroke. Presented to the emergency department because patient had some mental status changes with low-grade fever. And blood pressure was 81/42 patient received a 500 mL bolus en Route. Patient did have a UTI recently Costello catheter was removed 5 days ago. Another one was placed in the emergency department. Labs revealed elevated troponin and UA positive for leukocyte esterase, admitted for the same. INTERVAL HISTORY: 09/10/2017: Lying in bed, at the bedside. Tracks with his eyes speaks a little bit nods mostly. Answers yes and no questions, somewhat inconsistently. Remains in atrial fibrillation low 100s to the 130s heart rate. No chest pain or shortness of breath requires one-to-one supervision for meals currently nothing by mouth to evaluate for possible surgery. Abdominal ultrasound revealed sludge in his gallbladder along with wall thickening surgery has been consulted. Urine culture positive for E. coli antibiotics was changed to meropenem. 09/09/2017: Lying in bed at bedside. Patient tracks with his eyes but does not really speak much nods his head sometimes to yes and no questions answers inconsistently. Patient had dropped into atrial fibrillation Cardizem drip initiated by cardiology. Remains in atrial fibrillation this morning. Rate in the low 100s to 1 teens. No chest pain or shortness of breath. Requires one-to- one supervision for meals has a good appetite eating between 75 and 100% of his meals. Primarily bedbound requires transfer assistance for moving about the bed. Urine culture Last BM prior to admission. 09/08/2017 Lying in bed daughter and at the bedside. Patient doesn't talk much nods his head answers yes and no questions. Appetite is been good, eating about 75% % of his meal. No complaints of chest pain or shortness of breath. Echocardiogram performed this morning. Primarily bedbound requires assistance for transfers and for moving about in the bed. Last BM prior to admission. REVIEW OF SYSTEMS: Unable to assess patient doesn't speak. CURRENT MEDICATIONS DuoNeb, Eliquis, aspirin, Lipitor, Sinemet, ertapenem, Lasix NovoLog, insulin detemir, tradjenta, Glucophage, Lopressor, Theragran-M vitamin, Nitrostat, nortriptyline, Protonix, Prandin, Flomax. Senokot-S PHYSICAL EXAM VITAL SIGNS: Temperature 97.6, heart rate 125, respiratory rate 18, blood pressure 160/72, oxygen saturation 98% on 4 L. GENERAL APPEARANCE: Lying in bed, not in distress. HENT: Normocephalic, JVD not raised. Mass not palpable. Oral cavity normal, external appearance of ears and nose normal. EYES:Pupils equal. Conjunctiva normal. RESPIRATORY: Respiratory effort mildly increased. Lungs diminished to auscultation with occasional cough. CARDIOVASCULAR: First and second sounds normal. No edema. ABDOMEN: Soft. Liver and spleen not palpable. No tenderness. No mass palpable. GENITOURINARY: Costello catheter in place draining clear yellow urine. PSYCHIATRY: Unable to assess due to patient's current condition. NEUROLOGIC: Patient has dysarthria no facial asymmetry is able to move all of his limbs. INVESTIGATIONS: LABS: White blood cell count 14.1, hemoglobin 7.6, BUN 28, creatinine 0.98, Accu -Cheks noted. Abdominal ultrasound: Gallbladder wall thickening with sludge and pericholecystic fluid ASSESSMENT: -Acute non-Q wave myocardial infarction in a patient with known coronary artery disease. -Acute urinary tract infection in a patient who has a Costello catheter leading likely to sepsis with positive blood cultures growing E. coli, slow to respond -Right bundle branch block. -Paroxysmal atrial fibrillation currently in atrial fibrillation with rapid ventricular rate, uncontrolled in the 120s, slow to respond -Diabetes mellitus type 2, chronically on insulin. -Abnormal abdominal ultrasound with gallbladder wall thickening and sludge, pericholecystic fluid seen by Dr. dexter from surgery. We will wait and watch. -Acute on chronic metabolic encephalopathy from underlying sepsis, slow to respond -Hyperlipidemia. -Essential hypertension. -Coronary artery disease prior history of stent and coronary artery bypass. 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 -Idiopathic Parkinson's disease. -Chronic medical debility, needs assistance. -CODE STATUS DO NOT RESUSCITATE. -Right lower lobe infiltrate suspect gram-negative organism, slow to respond -Sepsis, present on admission, probably combination of urinary tract infection and pneumonia, slow to respond -Chronic medical debility. -Chronic metabolic encephalopathy. -Moderate mitral and tricuspid regurgitation, nonrheumatic. PLAN: Beta lilia increased to 3 times a day per cardiology. Eliquis to continue for atrial fibrillation. We'll continue the patient's on meropenem, urine culture positive for E. coli. Surgery recommends conservative approach to the gallbladder as patient would be an increased risk to undergo surgical procedure to address the concerns. Patient will remain on aspiration precaution and require feeding assistance. Plan of care discussed at the bedside we'll continue to monitor closely. Discharge planning in the next 24-48 hours. Family is agreeable. He will return to home with home care LEATHER CLEANER statement: Patient was seen and examined by nurse practitioner Fátima Alcaraz and all elements of the case discussed with attending Dr. Mares
[2017-09-10] MEDS: ATORVASTATIN 80 MG TAB PO SCH (19:48)
[2017-09-10] MEDS: NORTRIPTYLINE 10 MG CAP PO SCH (19:48)
--- NOTE | 2017-09-10 20:27 | PN ---
PROGRESS NOTE DATE OF SERVICE: September 10, 2017. ATTENDING NOTE: The patient is seen and examined by me. I discussed with nurse practitioner, Ms. Saavedrajoelromulo. The patient presented with sepsis, has been more awake, tolerating a diet. Heart rate, atrial fibrillation remains on control. Lopressor was increased by Cardiology. Dr. Savage did order an ultrasound of the abdomen showing some gallbladder sludge. Blood cultures are positive for E coli. PHYSICAL EXAMINATION: Afebrile. Pulse 125, respiratory 18, blood pressure 160/72. Pulse 98% on 4 L, sitting up, tired appearing. LUNGS: Decreased breath sounds. Cardiovascular: HEART: Sounds irregular. INVESTIGATIONS: White count 14.1, hemoglobin 7.6, potassium 3.5, creatinine 0.98. ASSESSMENT: 1. Acute non-Q-wave myocardial infarction in a patient with known coronary artery disease. 2. Acute urinary tract infection in a patient has a Costello catheter leading likely to sepsis with positive blood cultures growing E coli. 3. Paroxysmal atrial fibrillation, currently in atrial fibrillation with rapid ventricular rate uncontrolled. 4. Abnormal abdominal ultrasound with gallbladder wall thickening and sludge. Pericholecystic fluid seen by Dr. Sinclair from surgery. We will wait and watch. 5. Acute on chronic metabolic encephalopathy from underlying sepsis. PLAN: The patient is currently on DuoNeb, Eliquis, aspirin. Patient is on IV Ertapenem. Lopressor was increased to 50 mg 3 times a day. This patient is also on IV Lasix. Will DC the IV fluids. Prognosis guarded. MMODL / IJN: [id number] /
[2017-09-10 21:10] LABS: Glucose,Whole Blood 96 mg/dL (75-99)
--- NOTE | 2017-09-10 21:36 | PN ---
PROGRESS NOTE DATE OF SERVICE: 09/10/2017. REASON FOR FOLLOWUP: ESBL E coli bacteremia. INTERVAL HISTORY: The patient is afebrile, seemed to be slightly more awake and alert today. He is breathing comfortably, however, not a very good historian. No nausea, vomiting has been noticed or any diarrhea per the nursing staff. The patient is not a good historian. EXAMINATION: Blood pressure 152/81 with a pulse of 85, temperature of 98.3. He is 90% on 4 L nasal cannula. General description is an elderly male lying in bed in no distress. Respiratory system: Unlabored breathing with decreased breath sounds at the bases. No wheeze. Heart S1, S2. Regular rate and rhythm. Abdomen soft. Slightly distended. No guarding or rigidity. LABS: Hemoglobin 7.6, white count 14.1 with BUN of 28, creatinine 0.98. Blood culture with an ESBL E coli. Urine is negative. Ultrasound suspicious for acute cholecystitis. DIAGNOSTIC IMPRESSION AND PLAN: Patient admitted to the hospital with sepsis with the evidence of a ESBL E coli bacteremia, source is likely abdomen with evidence of acute cholecystitis. Urine has been negative. Currently on Invanz 1 g daily. Repeat blood culture has been ordered Because of his bacteremia. Surgery has seen the patient, recommending medical therapy. He will be monitored closely and continue supportive care. MMODL / IJN: [id number] / MTDD
[2017-09-10] MEDS: INSULIN DETEMIR 100 UNIT/ML 10 ML VIAL SQ SCH (22:50)
[2017-09-11 01:36] LABS: Glucose,Whole Blood 104 mg/dL (75-99)
[2017-09-11 05:52] LABS: Glucose,Whole Blood 119 mg/dL (75-99)
[2017-09-11] MEDS: REPAGLINIDE 1 MG TAB PO SCH ×3 (06:36→17:33)
[2017-09-11] MEDS: INSULIN ASPART 100 UNIT/ML 1 ML 10 ML VIAL SQ SCH ×3 (06:36→17:33)
[2017-09-11] MEDS: metFORMIN 500 MG TAB PO SCH ×2 (06:36→17:33)
[2017-09-11] MEDS: APIXABAN 5 MG TAB PO SCH ×2 (07:59→20:21)
[2017-09-11] MEDS: CARBIDOPA-LEVODOPA 25-100 MG 1 EACH TAB PO SCH ×3 (07:59→21:25)
[2017-09-11] MEDS: PANTOPRAZOLE 40 MG TABLET PO SCH ×2 (07:59→17:33)
[2017-09-11] MEDS: ASPIRIN 81 MG PO SCH (07:59)
[2017-09-11] MEDS: ERTAPENEM 1 GM in SODIUM CHLORIDE 0.9% 50 ML IVPB SCH (08:00)
[2017-09-11] MEDS: FUROSEMIDE 10 MG/ML 4 ML VIAL IV SCH ×2 (08:00→20:21)
[2017-09-11] MEDS: LINAGLIPTIN 5 MG TABLET PO SCH (08:00)
[2017-09-11] MEDS: SENNOSIDES-DOCUSATE SODIUM 1 EACH TAB PO SCH ×2 (08:00→20:21)
[2017-09-11] MEDS: METOPROLOL TARTRATE 50 MG TAB PO SCH ×3 (08:00→21:25)
[2017-09-11] MEDS: TAMSULOSIN 0.4 MG CAP.ER.24H PO SCH (08:01)
[2017-09-11] MEDS: IPRATROPIUM-ALBUTEROL 3 ML NEB INHALATION SCH ×5 (08:53→19:14)
[2017-09-11 10:14] LABS: Basophils % (A) 0 %; Eosinophils # (A) 0.2 k/uL (0-0.7); Eosinophils % (A) 1 %; HCT 26.8 % (39.0-53.0); HGB 8.4 gm/dL (13.0-17.5); Hypochromasia Slight; Lymphocytes # (A) 0.9 k/uL (1.0-4.8); Lymphocytes % (A) 8 %; MCH 24.4 pg (25.0-35.0); MCHC 31.3 g/dL (31.0-37.0); MCV 77.9 fL (80.0-100.0); Mean Platelet Volume 9.6; Monocytes # (A) 0.5 k/uL (0-1.0); Monocytes % (A) 5 %; Neutrophils # (A) 9.5 k/uL (1.3-7.7); Neutrophils % (A) 83 %; Platelet Count 228 k/uL (150-450); RBC 3.45 m/uL (4.30-5.90); RDW 15.1 % (11.5-15.5); WBC 11.4 k/uL (3.8-10.6)
[2017-09-11 12:02] LABS: Glucose,Whole Blood 247 mg/dL (75-99)
[2017-09-11] MEDS: MULTIVITAMINS, THERA 1 EACH TAB PO SCH (12:09)
[2017-09-11] MEDS ORDERED: DILTIAZEM ORAL 60 MG TAB PO ONE (12:45)
--- NOTE | 2017-09-11 14:20 | P.PN ---
Progress Note - Text Progress Note Date: 09/11/17 DATE OF SERVICE: 09/11/2017 PRESENTING COMPLAINT: Mental status changes HISTORY OF PRESENT ILLNESS: 72-year-old male with a history of right-sided weakness from previous stroke. Presented to the emergency department because patient had some mental status changes with low-grade fever. And blood pressure was 81/42 patient received a 500 mL bolus en Route. Patient did have a UTI recently Costello catheter was removed 5 days ago. Another one was placed in the emergency department. Labs revealed elevated troponin and UA positive for leukocyte esterase, admitted for the same. INTERVAL HISTORY: 09/11/2017: Lying in bed, at bedside, appears comfortable, had a fever overnight. Continues to track with his eyes. answers questions intermittently with nods and shaking of his head. Remains in atrial fibrillation uncontrolled rate in the 120's pretty consistently. No chest pain or shortness of breath. Requires 1:1 supervision for meals. No right upper quadrant pain or any type complaints per report. Costello catheter in place. antibiotic theapy continues in the form of merropenem. 09/10/2017: Lying in bed, at the bedside. Tracks with his eyes speaks a little bit nods mostly. Answers yes and no questions, somewhat inconsistently. Remains in atrial fibrillation low 100s to the 130s heart rate. No chest pain or shortness of breath requires one-to-one supervision for meals currently nothing by mouth to evaluate for possible surgery. Abdominal ultrasound revealed sludge in his gallbladder along with wall thickening surgery has been consulted. Blood Culture positive for E. coli antibiotics was changed to meropenem. 09/09/2017: Lying in bed at bedside. Patient tracks with his eyes but does not really speak much nods his head sometimes to yes and no questions answers inconsistently. Patient had dropped into atrial fibrillation Cardizem drip initiated by cardiology. Remains in atrial fibrillation this morning. Rate in the low 100s to 1 teens. No chest pain or shortness of breath. Requires one-to- one supervision for meals has a good appetite eating between 75 and 100% of his meals. Primarily bedbound requires transfer assistance for moving about the bed. Urine culture Last BM prior to admission. 09/08/2017 Lying in bed daughter and at the bedside. Patient doesn't talk much nods his head answers yes and no questions. Appetite is been good, eating about 75% % of his meal. No complaints of chest pain or shortness of breath. Echocardiogram performed this morning. Primarily bedbound requires assistance for transfers and for moving about in the bed. Last BM prior to admission. REVIEW OF SYSTEMS: Unable to assess patient doesn't speak. CURRENT MEDICATIONS DuoNeb, Eliquis, aspirin, Lipitor, Sinemet, ertapenem, Lasix NovoLog, insulin detemir, tradjenta, Glucophage, Lopressor, Theragran-M vitamin, Nitrostat, nortriptyline, Protonix, Prandin, Flomax. Senokot-S PHYSICAL EXAM VITAL SIGNS: Temperature 99.7, pulse 122, respirations 20, blood pressure 139/70, oxygen saturation 96% on 2 L. GENERAL APPEARANCE: Lying in bed, not in distress. HENT: Normocephalic, JVD not raised. Mass not palpable. Oral cavity normal, external appearance of ears and nose normal. EYES:Pupils equal. Conjunctiva normal. RESPIRATORY: Respiratory effort mildly increased. Lungs diminished to auscultation with occasional cough. CARDIOVASCULAR: First and second sounds normal. No edema. ABDOMEN: Soft. Liver and spleen not palpable. No tenderness. No mass palpable. GENITOURINARY: Costello catheter in place draining clear yellow urine. PSYCHIATRY: Unable to assess due to patient's current condition. NEUROLOGIC: Patient has dysarthria no facial asymmetry is able to move all of his limbs. INVESTIGATIONS: LABS: White blood cell count 11.4, hemoglobin 8.4, Accu-Cheks noted Abdominal ultrasound: Gallbladder wall thickening with sludge and pericholecystic fluid ASSESSMENT: -Acute non-Q wave myocardial infarction in a patient with known coronary artery disease. -Acute urinary tract infection in a patient who has a Costello catheter leading likely to sepsis with positive blood cultures growing E. coli, slow to respond -Right bundle branch block. -Paroxysmal atrial fibrillation currently in atrial fibrillation with rapid ventricular rate uncontrolled in the 120s, slow to respond -Diabetes mellitus type 2, chronically on insulin. -Abnormal abdominal ultrasound with gallbladder wall thickening and sludge, pericholecystic fluid seen by Dr. dexter from surgery. We will wait and watch. -Acute on chronic metabolic encephalopathy from underlying sepsis, slow to respond -Hyperlipidemia. -Essential hypertension. -Coronary artery disease prior history of stent and coronary artery bypass. 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 -Idiopathic Parkinson's disease. -Chronic medical debility, needs assistance. -Right lower lobe infiltrate suspect gram-negative organism, slow to respond -Sepsis, present on admission, probably combination of urinary tract infection and pneumonia, slow to respond -Chronic medical debility. -Chronic metabolic encephalopathy. -Moderate mitral and tricuspid regurgitation, nonrheumatic. -CODE STATUS DO NOT RESUSCITATE. PLAN: Eliquis to continue for atrial fibrillation. Beta lilia increased yesterday by cardiology patient's rate remains in the 120s. Await additional input from cardiology. We'll continue the patient's on meropenem, blood culture positive for E. coli. Surgery recommends conservative approach to the gallbladder as patient would be an increased risk to undergo surgical procedure to address the concerns. Patient will remain on aspiration precaution and require feeding assistance.Family is agreeable. Plan of care discussed at the bedside we'll continue to monitor closely. TYPESETTING MACHINE OPERATOR/TENDER statement: Patient was seen and examined by nurse practitioner Fátima Alcaraz and all elements of the case discussed with attending Dr. Mares
--- NOTE | 2017-09-11 14:50 | P.PN ---
Subjective Progress Note Date: 09/11/17 this is a pleasant 72-year-old gentleman who has recently moved to the area with his , follows with Dr. Tsai in the office. He is mostly nonverbal from prior CVAs and information has been obtained from his and the medical record. He has a history of prior CVAs, diabetes, hypertension, hyperlipidemia, history of bladder cancer, CAD with prior bypass surgery and stent placement, aortic valve surgery, prior pacemaker which according to family was removed because of severe infection, Parkinson's disease and paroxysmal atrial fibrillation for which he takes Eliquis, he currently has a loop recorder in place which was placed by a career based intervention coordinator in the [facility]. patient was brought to the emergency department via EMS for significant weakness , decrease in level of consciousness. He was found to be in atrial fibrillation with rapid ventricular response. he was initially started on Cardizem drip which has been discontinued and metoprolol is currently 50 mg by mouth 3 times a day. Heart rate remains poorly controlled in the 90s to 150s. Objective - Vital Signs Vital signs: Vital Signs Temp 99.7 F H 09/11/17 12:00 Pulse 84 09/11/17 13:28 Resp 20 09/11/17 12:00 BP 139/70 09/11/17 12:00 Pulse Ox 96 09/11/17 12:00 Intake & Output 09/10/17 09/11/17 09/11/17 18:59 06:59 18:59 Intake Total 871 60 9454 Output Total 575 1770 Balance 145 -1720 1240 Weight 85.5 kg Intake: IV 600 Sodium Chloride 0.9% 1, 600 000 ml @ 100 mls/hr IV . Q10H ROSELIA Rx#:[id number] Intake, IV Titration 600 50 Amount Cefepime 2 gm In Sodium 50 Chloride 0.9% 50 ml @ 100 mls/hr IVPB Q12HR ROSELAI Rx #:[id number] Ertapenem 1 gm In Sodium 50 50 Chloride 0.9% 50 ml @ 100 mls/hr IVPB DAILY ROSELIA Rx #:[id number] Sodium Chloride 0.9% 1, 500 000 ml @ 100 mls/hr IV . Q10H ROSELIA Rx#:[id number] Oral 120 50 590 Output: Urine 575 1770 Other: Voiding Method Indwelling Catheter Indwelling Catheter Indwelling Catheter - Exam PHYSICAL EXAMINATION: HEENT: [Head is atraumatic, normocephalic. Pupils equal, round. Neck is supple. There is no elevated jugular venous pressure.] HEART EXAMINATION: [Heart sounds irregularly irregular, S1 and S2 with a systolic murmur.] CHEST EXAMINATION:[ Lungs are clear to auscultation and precussion. No chest wall tenderness is noted on palpation or with deep breathing.] ABDOMEN: [ Soft, nontender. Bowel sounds are heard. No organomegaly noted]. EXTREMITIES:[ 2+ peripheral pulses with no evidence of peripheral edema and no calf tenderness noted]. NEUROLOGIC [patient is awake but drowsy, aphasic.] . - Labs CBC & Chem 7: 09/11/17 09:59 09/10/17 05:33 Labs: Abnormal Lab Results - Last 24 Hours (Table) 09/10/17 09/11/17 09/11/17 Range/Units 16:44 01:33 05:50 WBC (3.8-10.6) k/uL RBC (4.30-5.90) m/uL Hgb (13.0-17.5) gm/dL Hct (39.0-53.0) % MCV (80.0-100.0) fL MCH (25.0-35.0) pg Neutrophils # (1.3-7.7) k/uL Lymphocytes # (1.0-4.8) k/uL POC Glucose (mg/dL) 100 H 104 H 119 H (75-99) mg/dL 09/11/17 09/11/17 Range/Units 09:59 11:37 WBC 11.4 H (3.8-10.6) k/uL RBC 3.45 L (4.30-5.90) m/uL Hgb 8.4 L (13.0-17.5) gm/dL Hct 26.8 L (39.0-53.0) % MCV 77.9 L (80.0-100.0) fL MCH 24.4 L (25.0-35.0) pg Neutrophils # 9.5 H (1.3-7.7) k/uL Lymphocytes # 0.9 L (1.0-4.8) k/uL POC Glucose (mg/dL) 247 H (75-99) mg/dL Microbiology - Last 24 Hours (Table) 09/07/17 18:01 Blood Culture - Final Blood 09/07/17 11:45 Blood Culture - Final Blood Assessment and Plan Assessment: #1 worsening mental status changes with associated right-sided weakness in a patient with prior CVAs with residual expressive aphasia #2 Parkinson's #3 possible non-ST elevation AR #4 history of CAD with prior bypass surgery as well as aortic valve replacement #5 hypertension #6 hyperlipidemia #7 paroxysmal atrial fibrillation with rapid ventricular response, anticoagulated #8 sepsis with possible pneumonia, positive UTI Plan: from cardiology's perspective, continue metoprolol 50 mg by mouth 3 times a day. We will add Cardizem 60 mg by mouth 3 times a day. Continue to follow the patient provide further recommendations accordingly. MEDIA PROFESSIONAL note has been reviewed, I agree with a documented findings and plan of care. Patient was seen and examined.
--- NOTE | 2017-09-11 14:54 | P.PN ---
Subjective Progress Note Date: 09/11/17 patient doing well today. No complaints of pain no acute events overnight Objective - Vital Signs Vital signs: Vital Signs Temp 99.7 F H 09/11/17 12:00 Pulse 84 09/11/17 13:28 Resp 20 09/11/17 12:00 BP 139/70 09/11/17 12:00 Pulse Ox 96 09/11/17 12:00 Intake & Output 09/10/17 09/11/17 09/11/17 18:59 06:59 18:59 Intake Total 308 14 6539 Output Total 575 1770 Balance 145 -1720 1240 Weight 85.5 kg Intake: IV 600 Sodium Chloride 0.9% 1, 600 000 ml @ 100 mls/hr IV . Q10H ROSELIA Rx#:[id number] Intake, IV Titration 600 50 Amount Cefepime 2 gm In Sodium 50 Chloride 0.9% 50 ml @ 100 mls/hr IVPB Q12HR ROSELIA Rx #:[id number] Ertapenem 1 gm In Sodium 50 50 Chloride 0.9% 50 ml @ 100 mls/hr IVPB DAILY ROSELIA Rx #:[id number] Sodium Chloride 0.9% 1, 500 000 ml @ 100 mls/hr IV . Q10H ROSELIA Rx#:[id number] Oral 120 50 590 Output: Urine 575 1770 Other: Voiding Method Indwelling Catheter Indwelling Catheter Indwelling Catheter - Constitutional General appearance: Present: average body habitus - Respiratory Details: nonlabored - Gastrointestinal Gastrointestinal Comment(s): soft nondistended nontender - Labs CBC & Chem 7: 09/11/17 09:59 09/10/17 05:33 Labs: Abnormal Lab Results - Last 24 Hours (Table) 09/10/17 09/11/17 09/11/17 Range/Units 16:44 01:33 05:50 WBC (3.8-10.6) k/uL RBC (4.30-5.90) m/uL Hgb (13.0-17.5) gm/dL Hct (39.0-53.0) % MCV (80.0-100.0) fL MCH (25.0-35.0) pg Neutrophils # (1.3-7.7) k/uL Lymphocytes # (1.0-4.8) k/uL POC Glucose (mg/dL) 100 H 104 H 119 H (75-99) mg/dL 09/11/17 09/11/17 Range/Units 09:59 11:37 WBC 11.4 H (3.8-10.6) k/uL RBC 3.45 L (4.30-5.90) m/uL Hgb 8.4 L (13.0-17.5) gm/dL Hct 26.8 L (39.0-53.0) % MCV 77.9 L (80.0-100.0) fL MCH 24.4 L (25.0-35.0) pg Neutrophils # 9.5 H (1.3-7.7) k/uL Lymphocytes # 0.9 L (1.0-4.8) k/uL POC Glucose (mg/dL) 247 H (75-99) mg/dL Microbiology - Last 24 Hours (Table) 09/07/17 18:01 Blood Culture - Final Blood 09/07/17 11:45 Blood Culture - Final Blood Assessment and Plan Assessment: R/O acute cholecystitis Plan: Clinically patient is improved today. I agree with plan for conservative therapy with antibiotics and should concern for choelcystitis persist or he becomes symptomatic I would recommend percutaneous cholecystostomy tube placement per IR.
[2017-09-11 17:19] LABS: Glucose,Whole Blood 178 mg/dL (75-99)
[2017-09-11] MEDS: DILTIAZEM ORAL 60 MG TAB PO SCH ×2 (17:32→23:26)
--- NOTE | 2017-09-11 19:46 | PN ---
PROGRESS NOTE DATE OF SERVICE: 09/11/2017 REASON FOR FOLLOWUP: ESBL E coli bacteremia, source likely abdominal. INTERVAL HISTORY: The patient did have a low-grade fever this morning of 100.7. However, the patient has been afebrile since then. He seems to be more awake and alert, and is being fed by his . At the time of evaluation, no nausea or vomiting had been noted. Denied significant pain to me; and no diarrhea. PHYSICAL EXAMINATION: Blood pressure 131/62 with a pulse of 78, temperature 97.9. He is 97% on 4 L nasal cannula. General description is an elderly male up in the bed in no distress. RESPIRATORY SYSTEM: Unlabored breathing with decreased breath sounds at the bases. No wheeze. HEART: S1, S2. Regular rate and rhythm. ABDOMEN: Soft. No tenderness. LABS: Hemoglobin 8.4, white count 11.4. Urine culture has been negative. Blood culture with ESBL E coli. Repeat blood culture of 09/10 currently pending. DIAGNOSTIC IMPRESSION AND PLAN: Patient with ESBL Escherichia coli bacteremia. Source is likely abdominal in a patient with possible acute cholecystitis. Surgery considers him to be high risk for any surgical procedure and is recommending medical therapy. The patient will be continued on Invanz. If the patient's white count continues to improve and no fever, we will be continuing the patient on antibiotic therapy alone; however, if any persistent elevated white count or fever, he may need a CT-guided cholecystectomy. Plan of care was discussed with his present at the bedside. All her questions were answered. MMKADEL / IJN: [id number] /
[2017-09-11] MEDS: ATORVASTATIN 80 MG TAB PO SCH (20:21)
[2017-09-11] MEDS: NORTRIPTYLINE 10 MG CAP PO SCH (20:21)
[2017-09-11 21:25] LABS: Glucose,Whole Blood 155 mg/dL (75-99)
[2017-09-11] MEDS: INSULIN DETEMIR 100 UNIT/ML 10 ML VIAL SQ SCH (21:26)
--- NOTE | 2017-09-11 23:22 | PN ---
PROGRESS NOTE DATE OF SERVICE: 09/11/2017 ATTENDING NOTE: The patient seen and examined by me. I discussed with my nurse practitioner, Ms. Alcaraz. Patient is overall doing better. Fever has continued to come down. Tolerating his diet, though atrial fibrillation remains uncontrolled. EXAMINATION: Temperature 100.7, heart rate in the 120s. LUNGS: Decreased breath sounds. The patient has a chronic right-sided weakness. White count 11.4, hemoglobin 8.4. ASSESSMENT: 1. Acute non-Q-wave myocardial infarction. 2. Acute urinary tract infection in a patient secondary to Costello catheter causing sepsis with positive blood cultures, Escherichia coli, source felt to be urine. 3. Paroxysmal atrial fibrillation, currently in atrial fibrillation with rapid ventricular rate, uncontrolled. 4. Acute on chronic metabolic encephalopathy. PLAN: Overall, patient is actually improving. White count continues to come down from 23,000 down to 11,400. Fever is also coming down. Patient responding well to the current antibiotic in the form of ertapenem. Heart rate is still uncontrolled. The patient is on Lopressor 50 mg 3 times a day and p.o. Cardizem was added. Follow. MMODL / IJN: [id number] /
[2017-09-12 05:04] LABS: Glucose,Whole Blood 124 mg/dL (75-99)
[2017-09-12 06:32] LABS: Glucose,Whole Blood 118 mg/dL (75-99)
[2017-09-12] MEDS: INSULIN ASPART 100 UNIT/ML 1 ML 10 ML VIAL SQ SCH ×3 (07:45→17:22)
[2017-09-12] MEDS: metFORMIN 500 MG TAB PO SCH ×2 (08:24→17:22)
[2017-09-12] MEDS: REPAGLINIDE 1 MG TAB PO SCH ×3 (08:24→17:23)
[2017-09-12] MEDS: MULTIVITAMINS, THERA 1 EACH TAB PO SCH (08:24)
[2017-09-12] MEDS: TAMSULOSIN 0.4 MG CAP.ER.24H PO SCH (08:24)
[2017-09-12] MEDS: SENNOSIDES-DOCUSATE SODIUM 1 EACH TAB PO SCH ×2 (08:24→20:13)
[2017-09-12] MEDS: CARBIDOPA-LEVODOPA 25-100 MG 1 EACH TAB PO SCH ×3 (08:24→21:17)
[2017-09-12] MEDS: APIXABAN 5 MG TAB PO SCH ×2 (08:25→20:13)
[2017-09-12] MEDS: FUROSEMIDE 10 MG/ML 4 ML VIAL IV SCH ×2 (08:25→20:13)
[2017-09-12] MEDS: DILTIAZEM ORAL 60 MG TAB PO SCH ×3 (08:25→21:17)
[2017-09-12] MEDS: ASPIRIN 81 MG PO SCH (08:25)
[2017-09-12] MEDS: METOPROLOL TARTRATE 50 MG TAB PO SCH ×3 (08:26→21:16)
[2017-09-12] MEDS: ERTAPENEM 1 GM in SODIUM CHLORIDE 0.9% 50 ML IVPB SCH (08:26)
[2017-09-12] MEDS: PANTOPRAZOLE 40 MG TABLET PO SCH ×2 (08:26→17:57)
[2017-09-12] MEDS: LINAGLIPTIN 5 MG TABLET PO SCH (08:26)
[2017-09-12] MEDS: IPRATROPIUM-ALBUTEROL 3 ML NEB INHALATION SCH ×4 (09:25→19:42)
[2017-09-12 12:34] LABS: Glucose,Whole Blood 123 mg/dL (75-99)
--- NOTE | 2017-09-12 17:23 | PN ---
PROGRESS NOTE DATE OF SERVICE: 09/12/2017 REASON FOR FOLLOWUP: ESBL E coli bacteremia, likely abdominal source. INTERVAL HISTORY: The patient is afebrile. He has been breathing comfortably. He seems to be awake and alert, being fed by the nurse aide. No nausea, vomiting or any choking on food or any diarrhea reported. PHYSICAL EXAMINATION: Blood pressure 138/70 with a pulse of 64, temperature of 98. He is 97% on 3 L nasal cannula. General description is an elderly male up in the bed in no distress. RESPIRATORY SYSTEM: Unlabored breathing with decreased breath sounds at the bases. No wheeze. HEART: S1, S2. Regular rate and rhythm. ABDOMEN: Soft. No tenderness. No guarding or rigidity. LABS: Hemoglobin 8.4, white count of 11.4. No BMP has been done. Blood culture repeat on 09/10 has been negative so far. DIAGNOSTIC IMPRESSION AND PLAN: Patient ESBL Escherichia coli bacteremia, source likely abdominal in a patient with concern about possible cholecystitis. His urine was negative. Plan at this time is to keep the patient on Invanz 1 gram daily. He will get a PICC line on Thursday to finish his course of therapy with 2 weeks of IV Invanz. Continue with supportive care. MMODL / IJN: [id number] /
[2017-09-12 17:29] LABS: Glucose,Whole Blood 94 mg/dL (75-99)
[2017-09-12] MEDS: ATORVASTATIN 80 MG TAB PO SCH (20:13)
[2017-09-12] MEDS: NORTRIPTYLINE 10 MG CAP PO SCH (20:13)
[2017-09-12 21:12] LABS: Glucose,Whole Blood 250 mg/dL (75-99)
[2017-09-12] MEDS: INSULIN DETEMIR 100 UNIT/ML 10 ML VIAL SQ SCH (21:17)
--- NOTE | 2017-09-12 23:14 | PN ---
PROGRESS NOTE DATE OF SERVICE: 09/12/2017 The patient seen for Dr. Mares. The patient has ESBL positive E. coli bacteremia. The patient in bed, opens eyes to verbal stimulation. Denies any complaints. VITAL SIGNS: Temperature of 98, pulse 64, respirations 18, blood pressure 138/70, O2 saturation 97% on 3L. HEENT: Atraumatic, normocephalic. Pupils equal and reactive to light. Extraocular movements intact. Buccal mucosa is moist. Neck is supple. No goiter or lymphadenopathy. JVD is negative. No carotid bruit heard. Lungs are clear to auscultate. No rales, rhonchi or wheezes. Heart is regular rate and rhythm without any murmurs or gallop rhythm. Abdomen is soft, nontender, nondistended. Bowel sounds positive. EXTREMITIES: Trace edema, both lower extremities. Pulses are palpable. NEUROLOGICAL: Patient is awake, alert, oriented x3. No gross motor or sensory deficit. LAB: CBC: Hemoglobin 8.4, white blood count of 11.4. Skin is warm and dry. ASSESSMENT: 1. Extended-spectrum beta lactamase Escherichia coli bacteremia, possibly an abdominal source. The patient is admitted with possible cholecystitis. Urine was negative. The patient is being followed by Infectious Disease, remains on 1 g of Invanz daily. Plan is for the patient to have a percutaneously inserted central catheter line placed on Thursday and to complete a 2-week course of IV Invanz per Infectious Disease recommendation. 2. Acute non-Q-wave myocardial infarction, clinically stable. 3. Paroxysmal atrial fibrillation with rapid ventricular response. The patient is being followed by Cardiology, remains on Lopressor. Cardizem is added. Heart rate controlled at this point. 4. Acute on chronic metabolic encephalopathy. The patient is awake and responsive at this point. Will continue all current medications and treatment plan. As indicated, the patient is a is to have a percutaneously inserted central catheter line placed on Thursday to complete a total 2-week course of IV Invanz. MMODL / IJN: [id number] /
[2017-09-13 06:22] LABS: Glucose,Whole Blood 160 mg/dL (75-99)
[2017-09-13 07:08] LABS: Basophils # (A) 0.1 k/uL (0-0.2); Basophils % (A) 0 %; Eosinophils # (A) 0.5 k/uL (0-0.7); Eosinophils % (A) 5 %; HCT 26.6 % (39.0-53.0); HGB 8.1 gm/dL (13.0-17.5); Hypochromasia Slight; Lymphocytes # (A) 1.2 k/uL (1.0-4.8); Lymphocytes % (A) 10 %; MCH 23.7 pg (25.0-35.0); MCHC 30.6 g/dL (31.0-37.0); MCV 77.5 fL (80.0-100.0); Mean Platelet Volume 7.9; Monocytes # (A) 0.8 k/uL (0-1.0); Monocytes % (A) 7 %; Neutrophils # (A) 8.4 k/uL (1.3-7.7); Neutrophils % (A) 74 %; Platelet Count 277 k/uL (150-450); RBC 3.43 m/uL (4.30-5.90); RDW 15.2 % (11.5-15.5); WBC 11.4 k/uL (3.8-10.6)
[2017-09-13 07:27] LABS: Anion Gap 11 mmol/L; Blood Urea Nitrogen 29 mg/dL (9-20); Calcium 8.5 mg/dL (8.4-10.2); Carbon Dioxide 28 mmol/L (22-30); Chloride 104 mmol/L (98-107); Glucose 150 mg/dL (74-99); Potassium 3.2 mmol/L (3.5-5.1); Sodium 143 mmol/L (137-145)
[2017-09-13] MEDS: INSULIN ASPART 100 UNIT/ML 1 ML 10 ML VIAL SQ SCH ×3 (07:41→16:25)
[2017-09-13] MEDS: REPAGLINIDE 1 MG TAB PO SCH ×3 (07:41→16:26)
[2017-09-13] MEDS: PANTOPRAZOLE 40 MG TABLET PO SCH ×2 (07:41→17:18)
[2017-09-13] MEDS: DILTIAZEM ORAL 60 MG TAB PO SCH ×3 (07:41→20:58)
[2017-09-13] MEDS: APIXABAN 5 MG TAB PO SCH ×2 (07:41→20:49)
[2017-09-13] MEDS: metFORMIN 500 MG TAB PO SCH ×2 (07:41→16:26)
[2017-09-13] MEDS: ASPIRIN 81 MG PO SCH (07:41)
[2017-09-13] MEDS: LINAGLIPTIN 5 MG TABLET PO SCH (07:42)
[2017-09-13] MEDS: FUROSEMIDE 10 MG/ML 4 ML VIAL IV SCH ×2 (07:42→20:49)
[2017-09-13] MEDS: CARBIDOPA-LEVODOPA 25-100 MG 1 EACH TAB PO SCH ×3 (07:42→20:58)
[2017-09-13] MEDS: METOPROLOL TARTRATE 50 MG TAB PO SCH ×3 (07:42→20:58)
[2017-09-13] MEDS: SENNOSIDES-DOCUSATE SODIUM 1 EACH TAB PO SCH ×2 (07:42→20:48)
[2017-09-13] MEDS: TAMSULOSIN 0.4 MG CAP.ER.24H PO SCH (07:43)
[2017-09-13] MEDS: MULTIVITAMINS, THERA 1 EACH TAB PO SCH (07:43)
[2017-09-13] MEDS: ERTAPENEM 1 GM in SODIUM CHLORIDE 0.9% 50 ML IVPB SCH (08:40)
[2017-09-13] MEDS: IPRATROPIUM-ALBUTEROL 3 ML NEB INHALATION SCH ×4 (08:46→20:15)
[2017-09-13 11:27] LABS: Glucose,Whole Blood 177 mg/dL (75-99)
--- NOTE | 2017-09-13 15:10 | PN ---
PROGRESS NOTE DATE OF SERVICE: 09/13/2017 Patient is seen for follow up on the ESBL positive E coli bacteremia. The patient in bed, opens eyes on verbal stimulation and he is awake and alert. VITAL SIGNS: Temperature 98.6, pulse 82, respirations 16, blood pressure 110/56, O2 saturation 95% on 3 L. HEENT: Atraumatic, normocephalic. Pupils equal, round and reactive to light. Extraocular movements intact. Buccal mucosa is moist. Neck is supple. No goiter or lymphadenopathy. JVD is negative. No carotid bruit heard. RESPIRATORY SYSTEM: Lungs are clear to auscultate. No rales, rhonchi, or wheezes. CARDIOVASCULAR: Heart is regular rate and rhythm without any murmurs or gallop rhythm. Abdomen is soft, nontender, nondistended. No guarding or rigidity. Bowel sounds are positive. EXTREMITIES: Trace edema. No erythema, induration. Pulses are palpable. NEUROLOGICAL EXAMINATION: Patient is awake, alert, oriented x3. No gross motor or sensory deficit. LAB DATA: CBC: White count of 11.4, hemoglobin 8.1, hematocrit 26.6, and platelet count of 277. Chemical profile: Sodium 143, potassium 3.2, chloride 104, bicarb 28, BUN 29, creatinine 0.93. ASSESSMENT: 1. ESBL positive E coli bacteremia, possibly an abdominal source. 2. Possible cholecystitis. 3. Urinary tract infection ruled out. 4. Acute non-Q-wave myocardial infarction. 5. Paroxysmal atrial fibrillation with controlled ventricular response. 6. Acute on chronic metabolic encephalopathy possibly secondary to bacteremia. 7. Hypokalemia. The patient remains on IV Invanz. ID is following and recommending a PICC line insertion for 2 week course of IV Invanz. Patient is clinically stable. Will supplement potassium and repeat electrolytes tomorrow morning. Patient's white blood count is slightly elevated. I will monitor CBC and vital signs. The patient is planned to have a PICC line placed tomorrow for possible discharge planning. MMODL / IJN: [id number] /
[2017-09-13 16:36] LABS: Glucose,Whole Blood 95 mg/dL (75-99)
[2017-09-13] MEDS: POTASSIUM BICARBONATE/CIT AC 20 MEQ TABLET.EFF PO SCH (17:17)
[2017-09-13] MEDS: ATORVASTATIN 80 MG TAB PO SCH (20:48)
[2017-09-13] MEDS: NORTRIPTYLINE 10 MG CAP PO SCH (20:48)
[2017-09-13 21:06] LABS: Glucose,Whole Blood 168 mg/dL (75-99)
[2017-09-13] MEDS: INSULIN DETEMIR 100 UNIT/ML 10 ML VIAL SQ SCH (21:12)
--- NOTE | 2017-09-13 23:01 | PN ---
PROGRESS NOTE DATE OF SERVICE: 09/13/2017. REASON FOR FOLLOW UP: ESBL E coli bacteremia, source likely abdominal. INTERVAL HISTORY: The patient is afebrile. He has been breathing comfortably, hemodynamically stable with no nausea, vomiting has been noticed or any diarrhea. He is unable to provide any reliable history. EXAMINATION: Blood pressure 122/58 with a pulse of 75, temperature of 98.6. He is 98% on 3 L nasal cannula. General description is an elderly male lying in bed in no distress. Respiratory system unlabored breathing. Clear to auscultation anteriorly. Heart S1, S2. Regular rate and rhythm. Abdomen soft, mildly distended. No organomegaly. EXTREMITIES: No edema of feet. LABS: Hemoglobin 8.1 with white count 11.4, BUN of 29, creatinine 0.93. Blood cultures repeat 09/10 has been negative. DIAGNOSTIC IMPRESSION AND PLAN: Patient ESBL E coli bacteremia source could be the acute cholecystitis. Patient is considered to be a very high risk for any surgical intervention. No further fevers. Blood culture repeat has been negative. We will get a PICC line tomorrow for outpatient IV Invanz for another 10 days. Continue supportive care. was present at bedside. Their questions and concerns were answered. MMODL / IJN: [id number] /
[2017-09-14 06:08] LABS: Glucose,Whole Blood 137 mg/dL (75-99)
[2017-09-14 06:35] LABS: Basophils # (A) 0.1 k/uL (0-0.2); Basophils % (A) 1 %; Eosinophils # (A) 0.6 k/uL (0-0.7); Eosinophils % (A) 6 %; HCT 26.2 % (39.0-53.0); Hypochromasia Slight; Lymphocytes # (A) 1.5 k/uL (1.0-4.8); Lymphocytes % (A) 16 %; MCH 23.7 pg (25.0-35.0); MCHC 30.4 g/dL (31.0-37.0); MCV 77.9 fL (80.0-100.0); Mean Platelet Volume 8.5; Monocytes # (A) 0.6 k/uL (0-1.0); Monocytes % (A) 6 %; Neutrophils # (A) 6.7 k/uL (1.3-7.7); Neutrophils % (A) 68 %; Platelet Count 336 k/uL (150-450); RBC 3.37 m/uL (4.30-5.90); RDW 15.4 % (11.5-15.5); WBC 9.9 k/uL (3.8-10.6)
[2017-09-14 06:45] LABS: Anion Gap 11 mmol/L; Blood Urea Nitrogen 31 mg/dL (9-20); Calcium 8.4 mg/dL (8.4-10.2); Carbon Dioxide 31 mmol/L (22-30); Chloride 102 mmol/L (98-107); Glucose 136 mg/dL (74-99); Potassium 3.5 mmol/L (3.5-5.1); Sodium 144 mmol/L (137-145)
[2017-09-14] MEDS: REPAGLINIDE 1 MG TAB PO SCH ×3 (07:04→17:25)
[2017-09-14] MEDS: metFORMIN 500 MG TAB PO SCH ×2 (07:04→17:25)
[2017-09-14] MEDS: INSULIN ASPART 100 UNIT/ML 1 ML 10 ML VIAL SQ SCH ×3 (07:08→17:23)
[2017-09-14] MEDS: IPRATROPIUM-ALBUTEROL 3 ML NEB INHALATION SCH ×4 (07:56→21:22)
[2017-09-14] MEDS: TAMSULOSIN 0.4 MG CAP.ER.24H PO SCH (07:59)
[2017-09-14] MEDS: DILTIAZEM ORAL 60 MG TAB PO SCH ×3 (07:59→21:10)
[2017-09-14] MEDS: SENNOSIDES-DOCUSATE SODIUM 1 EACH TAB PO SCH ×2 (07:59→21:10)
[2017-09-14] MEDS: CARBIDOPA-LEVODOPA 25-100 MG 1 EACH TAB PO SCH ×3 (07:59→21:10)
[2017-09-14] MEDS: MULTIVITAMINS, THERA 1 EACH TAB PO SCH (07:59)
[2017-09-14] MEDS: METOPROLOL TARTRATE 50 MG TAB PO SCH ×3 (08:00→21:10)
[2017-09-14] MEDS: APIXABAN 5 MG TAB PO SCH (08:00)
[2017-09-14] MEDS: POTASSIUM BICARBONATE/CIT AC 20 MEQ TABLET.EFF PO SCH (08:00)
[2017-09-14] MEDS: PANTOPRAZOLE 40 MG TABLET PO SCH ×2 (08:00→17:24)
[2017-09-14] MEDS: ASPIRIN 81 MG PO SCH (08:00)
[2017-09-14] MEDS: LINAGLIPTIN 5 MG TABLET PO SCH (08:01)
[2017-09-14] MEDS: FUROSEMIDE 10 MG/ML 4 ML VIAL IV SCH ×2 (08:01→21:11)
[2017-09-14] MEDS: ERTAPENEM 1 GM in SODIUM CHLORIDE 0.9% 50 ML IVPB SCH (08:04)
[2017-09-14 11:47] LABS: Glucose,Whole Blood 135 mg/dL (75-99)
[2017-09-14 17:20] LABS: Glucose,Whole Blood 85 mg/dL (75-99)
--- NOTE | 2017-09-14 20:17 | PN ---
PROGRESS NOTE DATE OF SERVICE: 09/14/2017 Patient was seen in the room and evaluated by the bedside. Patient's was at the bedside, too. There are no new complaints. PHYSICAL EXAMINATION: Patient is awake and alert. He is in no acute distress. VITAL SIGNS: Temperature 98.6, pulse 75, respiration 18, oxygen saturation 98% on 3 L. Blood pressure 122/58. HEENT: Atraumatic, normocephalic. Pupils equal and reactive to light. Extraocular movements intact. Buccal mucosa is fair. NECK: Supple. No goiter or lymphadenopathy. JVD is negative. No carotid bruit heard. LUNGS: Scattered rhonchi without any wheezing or rales. Heart is regular rate and rhythm without murmur or gallop rhythm. ABDOMEN: Soft, nontender, nondistended. Bowel sounds positive. EXTREMITIES: No edema, clubbing, cyanosis. NEUROLOGICAL EXAMINATION: Cranial nerves 2-12 grossly intact. No gross motor or sensory deficit. Skin is warm, dry and intact. LAB: CBC: White blood count of 9.9, hemoglobin 8.0, hematocrit 26.2 and platelet count of 336. Chemical profile: Sodium 144, potassium 3.5, chloride 102, bicarb 31. BUN 31, creatinine 1, glucose of 137. ASSESSMENT: 1. Extended-spectrum aftf-dfhuecwpz-bvgihokh Escherichia coli bacteremia from abdominal source and previous acute cholecystitis and a previous urinary tract infection ruled out. 2. Acute non-Q-wave myocardial infarction. 3. Paroxysmal atrial fibrillation with controlled ventricular response. 4. Acute on chronic metabolic encephalopathy, possibly secondary to bacteremia. 5. Hypokalemia which has resolved. Patient remains on IV Invanz. ID is following and recommending a PICC line insertion for a 2-week course of antibiotic therapy. The patient is stable. Electrolytes are stable. White blood count is normal. I will order PICC line placement for discharge planning. Case Management is aware. MMODL / IJN: [id number] /
[2017-09-14 21:02] LABS: Glucose,Whole Blood 122 mg/dL (75-99)
[2017-09-14] MEDS: NORTRIPTYLINE 10 MG CAP PO SCH (21:10)
[2017-09-14] MEDS: ATORVASTATIN 80 MG TAB PO SCH (21:11)
[2017-09-14] MEDS: INSULIN DETEMIR 100 UNIT/ML 10 ML VIAL SQ SCH (21:12)
--- NOTE | 2017-09-14 22:43 | PN ---
PROGRESS NOTE DATE OF SERVICE: 09/14/2016. REASON FOR FOLLOWUP: ESBL E coli bacteremia abdominal source. INTERVAL HISTORY: The patient is afebrile, he has been hemodynamically stable, breathing comfortably, not a very good historian. No nausea, vomiting, or any diarrhea. No nausea or vomiting. Suspicious for abdominal pain. He denied. PHYSICAL EXAMINATION: Blood pressure 122/74 with a pulse of 125, temperature of 97.5. He is 92% on 3 L nasal cannula. General description is an elderly male up in the bed in no distress. Respiratory system unlabored breathing, clear to auscultation anteriorly. Heart S1, S2. Regular rate and rhythm. Abdomen soft, mildly distended. No guarding or rigidity. LAB: Hemoglobin with a white count of 9.9 with a BUN of 31, creatinine 1.0. Blood cultures repeat has been negative. DIAGNOSTIC IMPRESSION AND PLAN: Patient with ESBL E coli bacteremia, source is abdominal with concern for possible cholecystitis and per recommendation of surgery being treated medically. Currently waiting for a PICC line placement for outpatient IV Invanz to finish a 2-week course of therapy. Continue supportive care. Script was provided to the adult protective caseworker to arrange for the outpatient antibiotics. MMODL / IJN: [id number] / MTDJoanne
[2017-09-15 06:12] LABS: Basophils # (A) 0.1 k/uL (0-0.2); Basophils % (A) 1 %; Eosinophils # (A) 0.5 k/uL (0-0.7); Eosinophils % (A) 6 %; HCT 25.8 % (39.0-53.0); HGB 8.3 gm/dL (13.0-17.5); Hypochromasia Slight; Lymphocytes # (A) 1.5 k/uL (1.0-4.8); Lymphocytes % (A) 16 %; MCH 25.5 pg (25.0-35.0); MCHC 32.1 g/dL (31.0-37.0); MCV 79.4 fL (80.0-100.0); Mean Platelet Volume 8.4; Monocytes # (A) 0.4 k/uL (0-1.0); Monocytes % (A) 5 %; Neutrophils # (A) 6.5 k/uL (1.3-7.7); Neutrophils % (A) 71 %; Platelet Count 345 k/uL (150-450); RBC 3.25 m/uL (4.30-5.90); RDW 15.8 % (11.5-15.5); WBC 9.2 k/uL (3.8-10.6)
[2017-09-15] MEDS: metFORMIN 500 MG TAB PO SCH ×2 (06:19→16:48)
[2017-09-15] MEDS: REPAGLINIDE 1 MG TAB PO SCH ×3 (06:19→16:48)
[2017-09-15 06:20] LABS: Glucose,Whole Blood 76 mg/dL (75-99)
[2017-09-15] MEDS: INSULIN ASPART 100 UNIT/ML 1 ML 10 ML VIAL SQ SCH ×3 (06:20→16:50)
[2017-09-15 06:23] LABS: Anion Gap 14 mmol/L; Blood Urea Nitrogen 31 mg/dL (9-20); Calcium 8.5 mg/dL (8.4-10.2); Carbon Dioxide 29 mmol/L (22-30); Chloride 101 mmol/L (98-107); Glucose 78 mg/dL (74-99); Potassium 3.7 mmol/L (3.5-5.1); Sodium 144 mmol/L (137-145)
[2017-09-15] MEDS: METOPROLOL TARTRATE 50 MG TAB PO SCH ×3 (07:10→22:00)
[2017-09-15] MEDS: POTASSIUM BICARBONATE/CIT AC 20 MEQ TABLET.EFF PO SCH (08:00)
[2017-09-15] MEDS: DILTIAZEM ORAL 60 MG TAB PO SCH ×2 (08:01→14:23)
[2017-09-15] MEDS: ASPIRIN 81 MG PO SCH (08:01)
[2017-09-15] MEDS: CARBIDOPA-LEVODOPA 25-100 MG 1 EACH TAB PO SCH ×3 (08:01→21:57)
[2017-09-15] MEDS: PANTOPRAZOLE 40 MG TABLET PO SCH ×2 (08:01→14:23)
[2017-09-15] MEDS: FUROSEMIDE 10 MG/ML 4 ML VIAL IV SCH ×2 (08:02→21:57)
[2017-09-15] MEDS: LINAGLIPTIN 5 MG TABLET PO SCH (08:02)
[2017-09-15] MEDS: SENNOSIDES-DOCUSATE SODIUM 1 EACH TAB PO SCH ×2 (08:03→21:58)
[2017-09-15] MEDS: MULTIVITAMINS, THERA 1 EACH TAB PO SCH (08:03)
[2017-09-15] MEDS: TAMSULOSIN 0.4 MG CAP.ER.24H PO SCH (08:03)
[2017-09-15] MEDS: ERTAPENEM 1 GM in SODIUM CHLORIDE 0.9% 50 ML IVPB SCH (08:04)
[2017-09-15] MEDS: IPRATROPIUM-ALBUTEROL 3 ML NEB INHALATION SCH ×4 (08:23→19:41)
--- NOTE | 2017-09-15 10:44 | CDI ---
Last Revision, June 2017 Documentation Clarification Form Date: 09/15/2017 10:32:00 AM From: Felicitas MunguiaSATNAM, CCDS Admit Date: 09/07/2017 4:52:00 PM Patient Name: Jorgito Jalloh Visit Number: [id number] Discharge Date: ATTENTION: The Clinical Documentation Specialists (CDI) and [facility] Coding Staff appreciate your assistance in clarifying documentation. Please respond to the clarification below the line at the bottom and electronically sign. The CDI & [facility] Coding staff will review the response and follow-up if needed. Please note: Queries are made part of the Legal Health Record. If you have any questions, please contact the author of this message via ITS. Dr. Tena Birch: Per the attending documentation (Dr. Mares): "Acute urinary tract infection in a patient secondary to Costello catheter causing sepsis with positive blood cultures, Escherichia coli, source felt to be urine." Per your 09/14 progress note: "Extended-spectrum coix-nlzoxwsmc-vylomoze Escherichia coli bacteremia from abdominal source and previous acute cholecystitis and a previous urinary tract infection ruled out." History/Risk factors: Atrial fibrillation, CAD, CVA x3 with dysarthria & poor balance, DM II, GERD, Hyperlipidemia, Bladder CA sp surgery. Clinical Indicators: Urinalysis 09/07: cloudy, 2+ prot, tr ket, mod blood, Lg esterase, RBC 25, WBC 176. Urine culture: Neg @ 18 hours. Lab results: WBC 23.2, Neut 20.60, Lactic Acid 4.6 Treatment: IV fluid rate 100, IV fluid bolus, IV MagSulfate, IV Zosyn, IV Levaquin. Waiting PICC line placement for 2 wk duration of outpatient antibiotics. In your professional opinion, can you please clarify the following and include if present on admission: UTI o Ruled in or Ruled out o With or Without Sepsis If present, due to: o Costello catheter o Suprapubic catheter Other condition, please specify Unable to determine Please continue to document in your progress notes and discharge summary in order to capture severity of illness and risk of mortality. Include clinical findings that support your diagnosis. UTI ruled out MTDD
[2017-09-15 11:59] LABS: Glucose,Whole Blood 130 mg/dL (75-99)
--- NOTE | 2017-09-15 15:50 | XR ---
EXAMINATION TYPE: XR chest 1V DATE OF EXAM: 09/15/2017 COMPARISON: 09/08/2017 HISTORY: 72-year-old male follow-up CHF TECHNIQUE: Single frontal view of the chest is obtained. FINDINGS: Heart upper limits of normal in size. Median sternotomy wires are present. Loop recorder projects ove r the left chest. Interstitial densities are similar. Patchy bibasilar areas of consolidation are inc reased. Suspect a small right effusion. IMPRESSION: Mixed interstitial and airspace disease greatest at the lung bases, increased from 09/08/2017. Pulmona ry edema is in the differential. Suspect a small right effusion.
[2017-09-15] MEDS ORDERED: DILTIAZEM 5 MG/ML 5 ML VIAL IVP STA ×2 (16:19→18:25)
[2017-09-15] MEDS: DILTIAZEM 125 MG in SODIUM CHLORIDE 0.9% 100 ML IV SCH (16:44)
[2017-09-15 16:47] LABS: Glucose,Whole Blood 158 mg/dL (75-99)
--- NOTE | 2017-09-15 17:19 | P.PN ---
Subjective Patient was admitted admitted for sepsis secondary to E. coli bacteremia, intra- abdominal source is being considered associated infection. Surgery infectious disease is following the patient patient will be discharged with PICC line and IV antibiotics the form of ertapenem but patient went into atrial fibrillation with rapid ventricular rate today. Patient is presently on oral Cardizem IV Cardizem was discontinued Cardiology is following the patient. Objective - Vital Signs Vital signs: Vital Signs Temp 96.4 F L 09/15/17 12:00 Pulse 146 H 09/15/17 12:00 Resp 18 09/15/17 12:00 BP 115/70 09/15/17 12:00 Pulse Ox 93 L 09/15/17 12:00 Intake & Output 09/14/17 09/15/17 09/15/17 18:59 06:59 18:59 Intake Total 720 140 358 Output Total 1300 2000 600 Balance -580 -1860 -242 Weight 82 kg 79 kg Intake: IV 140 normal saline 140 Oral 720 358 Output: Urine 1300 2000 600 Other: Voiding Method Indwelling Catheter Indwelling Catheter Indwelling Catheter # Bowel Movements 0 - Exam PHYSICAL EXAMINATION: GENERAL: The patient is alert and oriented x3, not in any acute distress. Well developed, well nourished. HEENT: Pupils are round and equally reacting to light. EOMI. No scleral icterus. No conjunctival pallor. Normocephalic, atraumatic. No pharyngeal erythema. No thyromegaly. CARDIOVASCULAR: S1 and S2 present. No murmurs, rubs, or gallops. Tachycardic irregularly irregular rhythm PULMONARY: Chest is clear to auscultation, no wheezing or crackles. ABDOMEN: Soft, nontender, nondistended, normoactive bowel sounds. No palpable organomegaly. MUSCULOSKELETAL: No joint swelling or deformity. EXTREMITIES: No cyanosis, clubbing, or pedal edema. NEUROLOGICAL: Gross neurological examination did not reveal any focal deficits. SKIN: No rashes. - Labs CBC & Chem 7: 09/15/17 05:32 09/15/17 05:32 Labs: Abnormal Lab Results - Last 24 Hours (Table) 09/14/17 09/15/17 09/15/17 Range/Units 20:40 05:32 05:32 RBC 3.25 L (4.30-5.90) m/uL Hgb 8.3 L (13.0-17.5) gm/dL Hct 25.8 L (39.0-53.0) % MCV 79.4 L (80.0-100.0) fL RDW 15.8 H (11.5-15.5) % BUN 31 H (9-20) mg/dL POC Glucose (mg/dL) 122 H (75-99) mg/dL 09/15/17 09/15/17 Range/Units 11:50 16:44 RBC (4.30-5.90) m/uL Hgb (13.0-17.5) gm/dL Hct (39.0-53.0) % MCV (80.0-100.0) fL RDW (11.5-15.5) % BUN (9-20) mg/dL POC Glucose (mg/dL) 130 H 158 H (75-99) mg/dL Microbiology - Last 24 Hours (Table) 09/10/17 19:45 Blood Culture - Preliminary Blood No Growth after 96 hours Assessment and Plan Plan: -Sepsis: Secondary to enterococcal bacteremia possible intra-abdominal source. Continue with IV antibiotics. -Atrial fibrillation with rapid and regular rate continue with present medications will discuss with cardiology will monitor heart rate continue with anticoagulation. -Toxic and Metabolic encephalopathy acute:: Secondary bacteremia and sepsis -Possible non-ST elevation microinfarction: Cardiology is following the patient patient is status post bypass surgery coronary artery disease that require replacement in the past -Hyperlipidemia -Parkinson
--- NOTE | 2017-09-15 20:21 | PN ---
PROGRESS NOTE DATE OF SERVICE: 09/15/2017. REASON FOR FOLLOWUP: ESBL E. coli bacteremia secondary to abdominal source. INTERVAL HISTORY: The patient is afebrile. He seemed to be breathing comfortably. Hemodynamically stable. No nausea, vomiting or diarrhea. Not a very good historian. EXAMINATION: Blood pressure is 118/61 with a pulse of 149, temperature 97.4. He is 96% on room air. General description is an elderly male lying in bed in no distress. RESPIRATORY SYSTEM: Unlabored breathing. Clear to auscultation anteriorly. HEART: S1, S2. Regular rate and rhythm. ABDOMEN: Soft. No tenderness. No guarding or rigidity. LABS: Hemoglobin 8.3 with a white count of 9.2. BUN of 31, creatinine 0.98. Blood culture repeat has been negative so far. DIAGNOSTIC IMPRESSION AND PLAN: Patient with extended-spectrum beta lactamase Escherichia coli bacteremia, source likely abdominal, question of possible cholecystitis. Surgery recommended medical therapy. He has a high risk of surgical procedure. Followup blood culture have been negative. Recommending a total 2 weeks from his negative blood culture with Invanz tomorrow before discharge in the outpatient setting. Continue supportive care. MMODL / IJN: [id number] / CHADD
[2017-09-15 20:44] LABS: Glucose,Whole Blood 171 mg/dL (75-99)
[2017-09-15] MEDS: ATORVASTATIN 80 MG TAB PO SCH (21:57)
[2017-09-15] MEDS: NORTRIPTYLINE 10 MG CAP PO SCH (21:57)
[2017-09-15] MEDS: INSULIN DETEMIR 100 UNIT/ML 10 ML VIAL SQ SCH (21:59)
[2017-09-16] MEDS: DILTIAZEM 125 MG in SODIUM CHLORIDE 0.9% 100 ML IV SCH ×2 (04:19→18:43)
[2017-09-16 06:09] LABS: Glucose,Whole Blood 94 mg/dL (75-99)
[2017-09-16] MEDS: INSULIN ASPART 100 UNIT/ML 1 ML 10 ML VIAL SQ SCH ×3 (06:23→17:22)
[2017-09-16] MEDS: metFORMIN 500 MG TAB PO SCH (06:25)
[2017-09-16] MEDS: REPAGLINIDE 1 MG TAB PO SCH ×3 (06:25→17:23)
[2017-09-16 07:03] LABS: HCT 25.3 % (39.0-53.0); HGB 7.7 gm/dL (13.0-17.5); Hypochromasia Slight; MCH 23.4 pg (25.0-35.0); MCHC 30.3 g/dL (31.0-37.0); Mean Platelet Volume 7.7; Platelet Count 371 k/uL (150-450); RBC 3.29 m/uL (4.30-5.90); RDW 14.9 % (11.5-15.5); WBC 10.6 k/uL (3.8-10.6)
[2017-09-16 07:21] LABS: Anion Gap 11 mmol/L; Blood Urea Nitrogen 33 mg/dL (9-20); Calcium 8.3 mg/dL (8.4-10.2); Carbon Dioxide 31 mmol/L (22-30); Chloride 100 mmol/L (98-107); Glucose 88 mg/dL (74-99); Potassium 4.2 mmol/L (3.5-5.1); Sodium 142 mmol/L (137-145)
[2017-09-16] MEDS: IPRATROPIUM-ALBUTEROL 3 ML NEB INHALATION SCH ×4 (08:26→19:54)
[2017-09-16] MEDS: FUROSEMIDE 10 MG/ML 4 ML VIAL IV SCH ×2 (08:47→20:41)
[2017-09-16] MEDS: ASPIRIN 81 MG PO SCH (08:47)
[2017-09-16] MEDS: POTASSIUM BICARBONATE/CIT AC 20 MEQ TABLET.EFF PO SCH (08:48)
[2017-09-16] MEDS: LINAGLIPTIN 5 MG TABLET PO SCH (08:48)
[2017-09-16] MEDS: CARBIDOPA-LEVODOPA 25-100 MG 1 EACH TAB PO SCH ×3 (08:48→20:41)
[2017-09-16] MEDS: METOPROLOL TARTRATE 50 MG TAB PO SCH ×3 (08:48→20:40)
[2017-09-16] MEDS: PANTOPRAZOLE 40 MG TABLET PO SCH ×2 (08:48→16:12)
[2017-09-16] MEDS: SENNOSIDES-DOCUSATE SODIUM 1 EACH TAB PO SCH ×2 (08:49→20:41)
[2017-09-16] MEDS: TAMSULOSIN 0.4 MG CAP.ER.24H PO SCH (08:49)
[2017-09-16] MEDS: ERTAPENEM 1 GM in SODIUM CHLORIDE 0.9% 50 ML IVPB SCH (10:16)
[2017-09-16 11:47] LABS: Glucose,Whole Blood 176 mg/dL (75-99)
[2017-09-16] MEDS: MULTIVITAMINS, THERA 1 EACH TAB PO SCH (12:36)
--- NOTE | 2017-09-16 14:24 | P.PN ---
Subjective Progress Note Date: 09/16/17 this is a pleasant 72-year-old gentleman who has recently moved to the area with his , follows with Dr. Tsai in the office. He is mostly nonverbal from prior CVAs and information has been obtained from his and the medical record. He has a history of prior CVAs, diabetes, hypertension, hyperlipidemia, history of bladder cancer, CAD with prior bypass surgery and stent placement, aortic valve surgery, prior pacemaker which according to family was removed because of severe infection, Parkinson's disease and paroxysmal atrial fibrillation for which he takes Eliquis, he currently has a loop recorder in place which was placed by a winch stripper in the [facility]. patient was brought to the emergency department via EMS for significant weakness , decrease in level of consciousness. He was found to be in atrial fibrillation with rapid ventricular response. He was initially started on Cardizem drip which has been discontinued and metoprolol is currently 50 mg by mouth 3 times a day. Heart rate remains poorly controlled in the 90s to 150s. Cardizem drip has been reinitiated. Heart rates remaining in the 130s. Objective - Vital Signs Vital signs: Vital Signs Temp 97.6 F 09/16/17 11:19 Pulse 135 H 09/16/17 11:19 Resp 18 09/16/17 11:19 BP 112/67 09/16/17 11:19 Pulse Ox 94 L 09/16/17 11:19 Intake & Output 09/15/17 09/16/17 09/16/17 18:59 06:59 18:59 Intake Total 956 241.083 318 Output Total 900 400 Balance 56 -158.917 318 Weight 78.5 kg Intake: IV 125 normal saline 125 Intake, IV Titration 116.083 Amount Diltiazem 125 mg In 116.083 Sodium Chloride 0.9% 100 ml @ 10 MG/HR 10 mls/hr IV .[id number] [facility] Rx#: [id number] Oral 956 318 Output: Urine 900 400 Other: Voiding Method Indwelling Catheter Indwelling Catheter Indwelling Catheter # Bowel Movements 1 1 - Exam PHYSICAL EXAMINATION: HEENT: [Head is atraumatic, normocephalic. Pupils equal, round. Neck is supple. There is no elevated jugular venous pressure.] HEART EXAMINATION: [Heart sounds irregularly irregular, S1 and S2 with a systolic murmur.] CHEST EXAMINATION:[ Lungs are clear to auscultation and precussion. No chest wall tenderness is noted on palpation or with deep breathing.] ABDOMEN: [ Soft, nontender. Bowel sounds are heard. No organomegaly noted]. EXTREMITIES:[ 2+ peripheral pulses with no evidence of peripheral edema and no calf tenderness noted]. NEUROLOGIC [patient is awake but drowsy, aphasic.] . - Labs CBC & Chem 7: 09/16/17 06:10 09/16/17 06:10 Labs: Abnormal Lab Results - Last 24 Hours (Table) 09/15/17 09/15/17 09/16/17 Range/Units 16:44 20:40 06:10 RBC 3.29 L (4.30-5.90) m/uL Hgb 7.7 L (13.0-17.5) gm/dL Hct 25.3 L (39.0-53.0) % MCV 77.0 L (80.0-100.0) fL MCH 23.4 L (25.0-35.0) pg MCHC 30.3 L (31.0-37.0) g/dL Carbon Dioxide (22-30) mmol/L BUN (9-20) mg/dL POC Glucose (mg/dL) 158 H 171 H (75-99) mg/dL Calcium (8.4-10.2) mg/dL 09/16/17 09/16/17 Range/Units 06:10 11:40 RBC (4.30-5.90) m/uL Hgb (13.0-17.5) gm/dL Hct (39.0-53.0) % MCV (80.0-100.0) fL MCH (25.0-35.0) pg MCHC (31.0-37.0) g/dL Carbon Dioxide 31 H (22-30) mmol/L BUN 33 H (9-20) mg/dL POC Glucose (mg/dL) 176 H (75-99) mg/dL Calcium 8.3 L (8.4-10.2) mg/dL Microbiology - Last 24 Hours (Table) 09/10/17 19:45 Blood Culture - Preliminary Blood No Growth after 120 hours Assessment and Plan Assessment: #1 worsening mental status changes with associated right-sided weakness in a patient with prior CVAs with residual expressive aphasia #2 Parkinson's #3 possible non-ST elevation IA #4 history of CAD with prior bypass surgery as well as aortic valve replacement #5 hypertension #6 hyperlipidemia #7 paroxysmal atrial fibrillation with rapid ventricular response, anticoagulated #8 sepsis with possible pneumonia, positive UTI Plan: from cardiology's perspective, continue metoprolol 50 mg by mouth 3 times a day. We will add amiodarone 200 mg by mouth twice a day. We will continue to follow the patient provide further recommendations accordingly. UNMANNED EQUIPMENT OPERATOR note has been reviewed, I agree with a documented findings and plan of care. Patient was seen and examined.
[2017-09-16] MEDS: AMIODARONE 200 MG TAB PO SCH ×2 (14:42→20:16)
--- NOTE | 2017-09-16 15:07 | PN ---
PROGRESS NOTE DATE OF SERVICE: 09/16/2017 REASON FOR FOLLOWUP: ESBL E coli bacteremia secondary to abdominal source. INTERVAL HISTORY: The patient is afebrile. PICC was ordered, however, radiology could not place it, hence waiting for a PICC line placement later this afternoon. Patient is a more awake alert, and breathing comfortably. Denies any chest pain. No cough. No abdominal pain and no diarrhea. PHYSICAL EXAMINATION: Blood pressure 124/67 with a pulse of 135, temperature of 97.6. He is 94% on 2 L nasal cannula. General description is an elderly male, lying in bed in no distress. RESPIRATORY SYSTEM: Unlabored breathing, clear to auscultation anteriorly. HEART: S1, S2. Regular rate and rhythm. ABDOMEN: Soft, no tenderness. LABS: Hemoglobin 7.7, white count 10.6, BUN of 33, creatinine 1.08. DIAGNOSTIC IMPRESSION AND PLAN: Patient with an ESBL Escherichia coli bacteremia secondary to abdominal source, possible cholecystitis. Patient would be high risk for any surgical procedure. Currently on Invanz 1 g daily. Awaiting a PICC line placement for outpatient IV Invanz for another week to 10 days with close outpatient followup. MMODL / IJN: [id number] / MTDJoanne
--- NOTE | 2017-09-16 15:54 | P.PN ---
Subjective Patient was admitted admitted for sepsis secondary to E. coli bacteremia, intra- abdominal source is being considered associated infection. Surgery infectious disease is following the patient patient will be discharged with PICC line and IV antibiotics the form of ertapenem but patient went into atrial fibrillation with rapid ventricular rate today. Patient is presently on oral Cardizem IV Cardizem was discontinued Cardiology is following the patient. 09/16/2017 Patient's heart rate is still not well controlled was started on amiodarone by cardiology Objective - Vital Signs Vital signs: Vital Signs Temp 97.6 F 09/16/17 11:19 Pulse 135 H 09/16/17 11:19 Resp 18 09/16/17 11:19 BP 112/67 09/16/17 11:19 Pulse Ox 94 L 09/16/17 11:19 Intake & Output 09/15/17 09/16/17 09/16/17 18:59 06:59 18:59 Intake Total 956 241.083 318 Output Total 671 250 7556 Balance 56 -158.917 -1682 Weight 78.5 kg Intake: IV 125 normal saline 125 Intake, IV Titration 116.083 Amount Diltiazem 125 mg In 116.083 Sodium Chloride 0.9% 100 ml @ 10 MG/HR 10 mls/hr IV .[id number] [facility] Rx#: [id number] Oral 956 318 Output: Urine 145 333 9326 Other: Voiding Method Indwelling Catheter Indwelling Catheter Indwelling Catheter # Bowel Movements 1 1 - Exam PHYSICAL EXAMINATION: GENERAL: The patient is alert and oriented x3, not in any acute distress. Well developed, well nourished. HEENT: Pupils are round and equally reacting to light. EOMI. No scleral icterus. No conjunctival pallor. Normocephalic, atraumatic. No pharyngeal erythema. No thyromegaly. CARDIOVASCULAR: S1 and S2 present. No murmurs, rubs, or gallops. Tachycardic irregularly irregular rhythm PULMONARY: Chest is clear to auscultation, no wheezing or crackles. ABDOMEN: Soft, nontender, nondistended, normoactive bowel sounds. No palpable organomegaly. MUSCULOSKELETAL: No joint swelling or deformity. EXTREMITIES: No cyanosis, clubbing, or pedal edema. NEUROLOGICAL: Gross neurological examination did not reveal any focal deficits. SKIN: No rashes. - Labs CBC & Chem 7: 09/16/17 06:10 09/16/17 06:10 Labs: Abnormal Lab Results - Last 24 Hours (Table) 09/15/17 09/15/17 09/16/17 Range/Units 16:44 20:40 06:10 RBC 3.29 L (4.30-5.90) m/uL Hgb 7.7 L (13.0-17.5) gm/dL Hct 25.3 L (39.0-53.0) % MCV 77.0 L (80.0-100.0) fL MCH 23.4 L (25.0-35.0) pg MCHC 30.3 L (31.0-37.0) g/dL Carbon Dioxide (22-30) mmol/L BUN (9-20) mg/dL POC Glucose (mg/dL) 158 H 171 H (75-99) mg/dL Calcium (8.4-10.2) mg/dL 09/16/17 09/16/17 Range/Units 06:10 11:40 RBC (4.30-5.90) m/uL Hgb (13.0-17.5) gm/dL Hct (39.0-53.0) % MCV (80.0-100.0) fL MCH (25.0-35.0) pg MCHC (31.0-37.0) g/dL Carbon Dioxide 31 H (22-30) mmol/L BUN 33 H (9-20) mg/dL POC Glucose (mg/dL) 176 H (75-99) mg/dL Calcium 8.3 L (8.4-10.2) mg/dL Microbiology - Last 24 Hours (Table) 09/10/17 19:45 Blood Culture - Preliminary Blood No Growth after 120 hours Assessment and Plan Plan: -Sepsis: Secondary to enterococcal bacteremia possible intra-abdominal source. Continue with IV antibiotics. -Atrial fibrillation with rapid and regular rate continue with present medications will discuss with cardiology will monitor heart rate continue with anticoagulation. Patient was started on amiodarone by cardiology today -Toxic and Metabolic encephalopathy acute:: Secondary bacteremia and sepsis -Possible non-ST elevation microinfarction: Cardiology is following the patient patient is status post bypass surgery coronary artery disease that require replacement in the past -Hyperlipidemia -Parkinson
[2017-09-16 16:55] LABS: Glucose,Whole Blood 141 mg/dL (75-99)
[2017-09-16] MEDS ORDERED: METOPROLOL TARTRATE 50 MG TAB PO STA (17:06)
[2017-09-16] MEDS: APIXABAN 5 MG TAB PO SCH (17:24)
[2017-09-16] MEDS: INSULIN DETEMIR 100 UNIT/ML 10 ML VIAL SQ SCH (20:40)
[2017-09-16] MEDS: NORTRIPTYLINE 10 MG CAP PO SCH (20:41)
[2017-09-16] MEDS: ATORVASTATIN 80 MG TAB PO SCH (20:41)
[2017-09-16 21:55] LABS: Glucose,Whole Blood 165 mg/dL (75-99)
[2017-09-17 05:58] LABS: Glucose,Whole Blood 94 mg/dL (75-99)
[2017-09-17] MEDS: DILTIAZEM 125 MG in SODIUM CHLORIDE 0.9% 100 ML IV SCH (06:21)
[2017-09-17] MEDS: REPAGLINIDE 1 MG TAB PO SCH ×3 (06:23→17:37)
[2017-09-17] MEDS: INSULIN ASPART 100 UNIT/ML 1 ML 10 ML VIAL SQ SCH ×3 (06:23→17:37)
[2017-09-17] MEDS: METOPROLOL TARTRATE 50 MG TAB PO SCH ×2 (08:36→21:22)
[2017-09-17] MEDS: POTASSIUM BICARBONATE/CIT AC 20 MEQ TABLET.EFF PO SCH (08:37)
[2017-09-17] MEDS: PANTOPRAZOLE 40 MG TABLET PO SCH ×2 (08:37→15:51)
[2017-09-17] MEDS: AMIODARONE 200 MG TAB PO SCH ×2 (08:37→21:22)
[2017-09-17] MEDS: LINAGLIPTIN 5 MG TABLET PO SCH (08:39)
[2017-09-17] MEDS: ASPIRIN 81 MG PO SCH (08:39)
[2017-09-17] MEDS: CARBIDOPA-LEVODOPA 25-100 MG 1 EACH TAB PO SCH ×3 (08:39→21:23)
[2017-09-17] MEDS: APIXABAN 5 MG TAB PO SCH ×2 (08:39→21:22)
[2017-09-17] MEDS: SENNOSIDES-DOCUSATE SODIUM 1 EACH TAB PO SCH ×2 (08:40→21:22)
[2017-09-17] MEDS: ERTAPENEM 1 GM in SODIUM CHLORIDE 0.9% 50 ML IVPB SCH (08:40)
[2017-09-17] MEDS: TAMSULOSIN 0.4 MG CAP.ER.24H PO SCH (08:40)
[2017-09-17] MEDS: FUROSEMIDE 10 MG/ML 4 ML VIAL IV SCH (08:41)
[2017-09-17] MEDS: IPRATROPIUM-ALBUTEROL 3 ML NEB INHALATION SCH ×4 (08:43→21:16)
[2017-09-17] MEDS ORDERED: LIDOCAINE 2% INJ 20 MG/ML (20 ML MDV) ONE (10:17)
--- NOTE | 2017-09-17 11:31 | P.PN ---
Subjective Progress Note Date: 09/17/17 This is a 72-year-old gentleman who has recently moved to this area with his , he follows with Dr. Tsai in the office as an outpatient. He is mostly nonverbal from prior CVAs, history was obtained from the daughter and who are at bedside. Patient does have history of prior CVAs, diabetes, hypertension, hyperlipidemia, history of bladder cancer, coronary artery disease with prior bypass surgery and stent placement, aortic valve surgery, prior pacemaker, which according to the daughter had to be removed because of severe infection, Parkinson's disease, paroxysmal atrial fibrillation for which he takes Eliquis, he also has a loop recorder in place, which was placed by a sloop captain in the [facility]. Patient also recently had some difficulty with urinating, and had a Costello catheter in place. According to the daughter, he's been pulling a lot on his catheter, so she recently removed it. The daughter states that the patient over the past 24-48 hours has had significant decrease in appetite, yesterday, she states that he had significant weakness on the right side of his body, they were trying to get him up into his wheelchair, and he just leaned forward to the right. It appeared to her as though he had another stroke. He also was staring off into space, and not responding to them like he usually does. For this reason EMS was called and the patient was brought to the hospital for further evaluation. Patient does have mild expressive aphasia and difficulty with balance after his strokes. On EMS arrival, blood pressure was 80/40, heart rate in the 90s, respirations 12. Oxygenation 82%, temperature 101.4. EKG on arrival here showed a normal sinus rhythm with a right bundle branch block pattern and nonspecific ST-T wave changes. Chest x-ray showed a right lower lobe infiltrate with small right pleural effusion. Repeat chest x-ray performed showed pulmonary edema with increasing pleural thickening. Blood pressure 120/64, heart rate in the 80s, 95 % on 4 L of oxygen. White blood cell count 23,000 on admission, 18,000 this morning. Hemoglobin down to 8 this morning. Platelet count 163. Sodium 141, potassium 4.0, BUN 31, creatinine 1.2. Magnesium level I.0. It was 0.7 on admission. Troponins 7.3, 6.9, 5.1. His UA shows large amount of leukocyte Estrace 2+ protein. Influenza A and B-. At the time of my examination this morning, patient is nonverbal, denies chest pain. 09/09/2017 Patient seen and examined this morning, continues to be aphasic, does open eyes in response to voice. Blood pressure 128/60 with a heart rate of 110. As x- ray performed this morning reveals pulmonary edema with a right-sided pleural effusion. Overall improved aeration from the right long as compared with yesterday. Pulmonary edema is worse on the left side as compared with yesterday. Patient was initiated on a Cardizem drip through the night last night, we will discontinue the Cardizem drip and increase his dose of Lopressor this morning. We will also give the patient 2 doses of IV Lasix today. Check lytes BUN and creatinine in the morning. 09/10/2017 Cardiology was asked to see the patient again today, because the heart rate this morning was noted to be up in the 120 range, blood pressure slightly elevated. The patient was on metoprolol 50 mg 1 tablet 3 times a day, we will increase that dose to 3 times a day today. 09/17/2017 Patient was seen and examined this morning, family at bedside. Heart rate up into the 130s. Still on a Cardizem drip. Heart rate was down in the 60s are heard. Going down for PICC line insertion today. Objective - Vital Signs Vital signs: Vital Signs Temp 96.0 F L 09/17/17 11:09 Pulse 67 09/17/17 11:09 Resp 17 09/17/17 11:09 BP 112/57 09/17/17 11:09 Pulse Ox 99 09/17/17 11:09 Intake & Output 09/16/17 09/17/17 09/17/17 18:59 06:59 18:59 Intake Total 390 73.5 Output Total 2300 Balance -1910 73.5 Weight 80 kg Intake: Intake, IV Titration 72 73.5 Amount Diltiazem 125 mg In 72 73.5 Sodium Chloride 0.9% 100 ml @ 10 MG/HR 10 mls/hr IV .[id number] [facility] Rx#: [id number] Oral 318 Output: Urine 2300 Other: Voiding Method Indwelling Catheter Incontinent Diaper Incontinent # Voids 1 # Bowel Movements 1 1 - Exam PHYSICAL EXAMINATION: HEENT: Head is atraumatic, normocephalic. Pupils equal, round. Neck is supple. There is elevated jugular venous pressure. HEART EXAMINATION: Heart S1 and S2 systolic ejection murmur is heard CHEST EXAMINATION: Lungs reveal crackles to bilateral bases. ABDOMEN: Soft, nontender. Bowel sounds are heard. No organomegaly noted. EXTREMITIES: 2+ peripheral pulses with no evidence of peripheral edema and no calf tenderness noted. NEUROLOGIC [patient is awake, alert , aphasic - Labs CBC & Chem 7: 09/16/17 06:10 09/16/17 06:10 Labs: Abnormal Lab Results - Last 24 Hours (Table) 09/16/17 09/16/17 09/16/17 Range/Units 11:40 16:46 21:26 POC Glucose (mg/dL) 176 H 141 H 165 H (75-99) mg/dL Microbiology - Last 24 Hours (Table) 09/10/17 19:45 Blood Culture - Final Blood No Growth after 144 hours Assessment and Plan Plan: Assessment and plan #1 worsening mental status changes with associated right-sided weakness. #2 history of prior CVAs with residual mild expressive aphasia #3 Parkinson's #4 possible non-Q-wave myocardial infarction #5 known history of coronary artery disease with prior bypass surgery and aortic valve replacement #6Hypertension #7 hyperlipidemia #8 diabetes #9 paroxysmal atrial fibrillation on Eliquis for anticoagulation #10 anemia #11 sepsis with possible pneumonia, positive UTI #12 hypomagnesemia Plan From cardiology's perspective, we'll recommend to continue the patient on his current medications which includeEliquis 5 mg one tablet by mouth twice a day, amiodarone 200 mg one tablet by mouth twice a day, Lipitor 80 mg daily, metoprolol 100 mg by mouth twice a day, we will also discontinue the IV Lasix and start the patient on Lasix 40 mg one tablet by mouth daily. He may be able to be discharged from cardiology's perspective. DNP note has been reviewed, I agree with a documented findings and plan of care. Patient was seen and examined.
[2017-09-17 11:43] LABS: Glucose,Whole Blood 160 mg/dL (75-99)
[2017-09-17] MEDS: MULTIVITAMINS, THERA 1 EACH TAB PO SCH (12:23)
[2017-09-17] MEDS ORDERED: DEXTROSE 5% IN WATER 100 ML with AMIODARONE 150 MG IV ONE (14:34)
--- NOTE | 2017-09-17 14:35 | P.PN ---
Subjective Patient was admitted admitted for sepsis secondary to E. coli bacteremia, intra- abdominal source is being considered associated infection. Surgery infectious disease is following the patient patient will be discharged with PICC line and IV antibiotics the form of ertapenem but patient went into atrial fibrillation with rapid ventricular rate today. Patient is presently on oral Cardizem IV Cardizem was discontinued Cardiology is following the patient. 09/16/2017 Patient's heart rate is still not well controlled was started on amiodarone by cardiology 09/17/2017 Patient heart rate is still not well controlled in spite of multiple medications. Patient's Lasix was switched to oral patient is still excessively sleepy because of the nortriptyline he received today morning which will be changed to nighttime patient didn't give me any history as he is too drowsy Objective - Vital Signs Vital signs: Vital Signs Temp 96.0 F L 09/17/17 11:09 Pulse 78 09/17/17 12:08 Resp 16 09/17/17 12:00 BP 112/57 09/17/17 11:09 Pulse Ox 99 09/17/17 11:09 Intake & Output 09/16/17 09/17/17 09/17/17 18:59 06:59 18:59 Intake Total 390 73.5 360 Output Total 2300 Balance -1910 73.5 360 Weight 80 kg Intake: Intake, IV Titration 72 73.5 Amount Diltiazem 125 mg In 72 73.5 Sodium Chloride 0.9% 100 ml @ 10 MG/HR 10 mls/hr IV .[id number] [facility] Rx#: [id number] Oral 318 360 Output: Urine 2300 Other: Voiding Method Indwelling Catheter Incontinent Diaper Incontinent # Voids 1 1 # Bowel Movements 1 1 - Exam PHYSICAL EXAMINATION: GENERAL: The patient is alert and oriented x3, not in any acute distress. Well developed, well nourished. HEENT: Pupils are round and equally reacting to light. EOMI. No scleral icterus. No conjunctival pallor. Normocephalic, atraumatic. No pharyngeal erythema. No thyromegaly. CARDIOVASCULAR: S1 and S2 present. No murmurs, rubs, or gallops. Tachycardic irregularly irregular rhythm PULMONARY: Chest is clear to auscultation, no wheezing or crackles. ABDOMEN: Soft, nontender, nondistended, normoactive bowel sounds. No palpable organomegaly. MUSCULOSKELETAL: No joint swelling or deformity. EXTREMITIES: No cyanosis, clubbing, or pedal edema. NEUROLOGICAL: Gross neurological examination did not reveal any focal deficits. SKIN: No rashes. - Labs CBC & Chem 7: 09/16/17 06:10 09/16/17 06:10 Labs: Abnormal Lab Results - Last 24 Hours (Table) 09/16/17 09/16/17 09/17/17 Range/Units 16:46 21:26 11:41 POC Glucose (mg/dL) 141 H 165 H 160 H (75-99) mg/dL Microbiology - Last 24 Hours (Table) 09/10/17 19:45 Blood Culture - Final Blood No Growth after 144 hours Assessment and Plan Plan: -Sepsis: Secondary to enterococcal bacteremia possible intra-abdominal source. Continue with IV antibiotics. -Atrial fibrillation with rapid and regular rate continue with present medications will discuss with cardiology will monitor heart rate continue with anticoagulation. Patient was started on amiodarone, patient is on oral Lasix. -Toxic and Metabolic encephalopathy acute:: Secondary bacteremia and sepsis -Possible non-ST elevation myocardial infarction: Cardiology is following the patient patient is status post bypass surgery coronary artery disease that require replacement in the past -Hyperlipidemia -Parkinson
--- NOTE | 2017-09-17 14:38 | IR ---
EXAMINATION TYPE: IR cvc insert >=5 years DATE OF EXAM: 09/17/2017 COMPARISON: NONE CLINICAL HISTORY: Infection Needs long-term intravenous access for antibiotics. PROCEDURE: After informed consent, the skin overlying the upper extremity vein was localized with ultrasound and noted to be compressible and patent. An ultrasound image was obtained and submitted on the patient' s chart. The overlying skin was prepped and draped and Lidocaine was used for local anesthesia. A s kin amira was made with a scalpel. Access was gained to the vein under ultrasound guidance with a 21 gauge needle and a 0.018 inch wire was advanced. Access site was dilated with Peel-Away sheath and c atheter tailored to the appropriate length and advanced such that the distal tip is at the cavoatrial junction. Spot image was obtained verifying placement. Catheter was fixed to the skin with suture and a sterile dressing was placed following hemostasis. Catheter was aspirated and flushed with sali ne. Patient was discharged in stable condition without complication.Maximal barrier technique is uti lized. Ultrasound image is documented on the chart. Ultrasound used with sterile technique. Fluoro time and fluoroscopic images submitted to document procedure: 68 intraoperative C-arm images, 0.3 minutes fluoroscopy time supplied IMPRESSION: STATUS POST ULTRASOUND AND FLUOROSCOPIC GUIDED PICC LINE PLACEMENT, READY FOR USE. THIS PROCEDURE WAS PERFORMED BY THE UNDERSIGNED.
[2017-09-17] MEDS: DILTIAZEM ORAL 60 MG TAB PO SCH ×2 (15:30→21:23)
--- NOTE | 2017-09-17 15:50 | PN ---
PROGRESS NOTE DATE OF SERVICE: 09/17/2017 REASON FOR FOLLOWUP: ESBL E coli bacteremia secondary abdominal source. INTERVAL HISTORY: The patient is afebrile. Has been breathing comfortably. Hemodynamically stable. Remains to be awake, alert, however, unable to provide any history. No nausea, vomiting, or any diarrhea per the nursing staff. EXAMINATION: Blood pressure 112/57 with a pulse of 72, temperature 96. He is 99% on 2 L nasal cannula. General description is an elderly male lying in bed in no distress. RESPIRATORY SYSTEM: Unlabored breathing. Clear to auscultation. HEART: S1, S2. Regular rhythm. ABDOMEN: Soft, no guarding, no rigidity. EXTREMITIES: No edema of the feet. LABS: No new labs been obtained today. Blood culture repeat on 09/10 has been negative. DIAGNOSTIC IMPRESSION AND PLAN: Patient with ESBL E coli bacteremia likely abdominal source. The blood culture 15 has been negative. Recommend another week of IV Invanz to finish a total of 2 week course of therapy from negative blood culture with close outpatient followup. Continue supportive care. MMODL / IJN: [id number] /
[2017-09-17 16:59] LABS: Glucose,Whole Blood 114 mg/dL (75-99)
[2017-09-17] MEDS: NORTRIPTYLINE 10 MG CAP PO SCH (17:37)
[2017-09-17 21:10] LABS: Glucose,Whole Blood 185 mg/dL (75-99)
[2017-09-17] MEDS: ATORVASTATIN 80 MG TAB PO SCH ×2 (21:22→21:42)
[2017-09-17] MEDS: INSULIN DETEMIR 100 UNIT/ML 10 ML VIAL SQ SCH (21:38)
[2017-09-18 06:00] LABS: Glucose,Whole Blood 133 mg/dL (75-99)
[2017-09-18] MEDS: REPAGLINIDE 1 MG TAB PO SCH ×3 (06:36→17:50)
[2017-09-18 06:50] LABS: HCT 27.4 % (39.0-53.0); HGB 8.3 gm/dL (13.0-17.5); Hypochromasia Slight; MCH 23.7 pg (25.0-35.0); MCHC 30.2 g/dL (31.0-37.0); MCV 78.7 fL (80.0-100.0); Mean Platelet Volume 7.5; Platelet Count 425 k/uL (150-450); RBC 3.49 m/uL (4.30-5.90); RDW 15.1 % (11.5-15.5); WBC 11.7 k/uL (3.8-10.6)
[2017-09-18] MEDS: INSULIN ASPART 100 UNIT/ML 1 ML 10 ML VIAL SQ SCH ×3 (06:57→17:50)
[2017-09-18 07:01] LABS: Anion Gap 12 mmol/L; Blood Urea Nitrogen 32 mg/dL (9-20); Calcium 8.6 mg/dL (8.4-10.2); Carbon Dioxide 30 mmol/L (22-30); Chloride 100 mmol/L (98-107); Glucose 127 mg/dL (74-99); Potassium 4.6 mmol/L (3.5-5.1); Sodium 142 mmol/L (137-145)
[2017-09-18] MEDS: IPRATROPIUM-ALBUTEROL 3 ML NEB INHALATION SCH ×4 (07:48→19:54)
[2017-09-18] MEDS: ERTAPENEM 1 GM in SODIUM CHLORIDE 0.9% 50 ML IVPB SCH (08:26)
[2017-09-18] MEDS: PANTOPRAZOLE 40 MG TABLET PO SCH ×2 (08:35→17:51)
[2017-09-18] MEDS: ASPIRIN 81 MG PO SCH (08:36)
[2017-09-18] MEDS: POTASSIUM BICARBONATE/CIT AC 20 MEQ TABLET.EFF PO SCH (08:36)
[2017-09-18] MEDS: APIXABAN 5 MG TAB PO SCH ×2 (08:36→20:53)
[2017-09-18] MEDS: AMIODARONE 200 MG TAB PO SCH ×2 (08:36→20:52)
[2017-09-18] MEDS: CARBIDOPA-LEVODOPA 25-100 MG 1 EACH TAB PO SCH ×3 (08:37→20:54)
[2017-09-18] MEDS: DILTIAZEM ORAL 60 MG TAB PO SCH ×3 (08:37→20:53)
[2017-09-18] MEDS: METOPROLOL TARTRATE 50 MG TAB PO SCH ×2 (08:39→20:52)
[2017-09-18] MEDS: LINAGLIPTIN 5 MG TABLET PO SCH (08:39)
[2017-09-18] MEDS: NORTRIPTYLINE 10 MG CAP PO SCH (08:41)
[2017-09-18] MEDS: TAMSULOSIN 0.4 MG CAP.ER.24H PO SCH (08:42)
[2017-09-18] MEDS: SENNOSIDES-DOCUSATE SODIUM 1 EACH TAB PO SCH ×2 (08:42→20:52)
[2017-09-18] MEDS ORDERED: FUROSEMIDE 40 MG TAB PO SCH (09:00)
[2017-09-18] MEDS: ACETAMINOPHEN TAB 325 MG TAB PO PRN (10:51)
[2017-09-18] MEDS: MULTIVITAMINS, THERA 1 EACH TAB PO SCH (12:31)
--- NOTE | 2017-09-18 12:31 | P.PN ---
Subjective Patient was admitted admitted for sepsis secondary to E. coli bacteremia, intra- abdominal source is being considered associated infection. Surgery infectious disease is following the patient patient will be discharged with PICC line and IV antibiotics the form of ertapenem but patient went into atrial fibrillation with rapid ventricular rate today. Patient is presently on oral Cardizem IV Cardizem was discontinued Cardiology is following the patient. 09/16/2017 Patient's heart rate is still not well controlled was started on amiodarone by cardiology 09/17/2017 Patient heart rate is still not well controlled in spite of multiple medications. Patient's Lasix was switched to oral patient is still excessively sleepy because of the nortriptyline he received today morning which will be changed to nighttime patient didn't give me any history as he is too drowsy 09/18/2017 Patient is more awake today patient slid from the chair didn't actually fall blood pressure is found to be low patient was on Lasix IV which was switched to oral yesterday patient is hypotensive chest x-ray showing some chronic interstitial changes rather than pulmonary edema patient will be given a bolus of fluid he already received 250 will give him find it more he may need more fluid. Patient is already also on metoprolol for atrial fibrillation and amiodarone for atrial fibrillation Patient is comparing of lightheadedness denied any shortness of breath fever chills abdominal pain nausea vomiting dysuria Objective - Vital Signs Vital signs: Vital Signs Temp 96.8 F L 09/18/17 11:02 Pulse 80 09/18/17 11:24 Resp 19 09/18/17 11:02 BP 101/60 09/18/17 11:02 Pulse Ox 96 09/18/17 11:02 Intake & Output 09/17/17 09/18/17 09/18/17 18:59 06:59 18:59 Intake Total 360 320 Balance 360 320 Weight 83.5 kg Intake: Oral 360 320 Other: Voiding Method Diaper Diaper Diaper Incontinent Incontinent Incontinent # Voids 1 2 2 # Bowel Movements 1 1 - Exam PHYSICAL EXAMINATION: GENERAL: The patient is alert and oriented x3, not in any acute distress. Well developed, well nourished. HEENT: Pupils are round and equally reacting to light. EOMI. No scleral icterus. No conjunctival pallor. Normocephalic, atraumatic. No pharyngeal erythema. No thyromegaly. CARDIOVASCULAR: S1 and S2 present. No murmurs, rubs, or gallops. Tachycardic irregularly irregular rhythm PULMONARY: Chest is clear to auscultation, no wheezing or crackles. ABDOMEN: Soft, nontender, nondistended, normoactive bowel sounds. No palpable organomegaly. MUSCULOSKELETAL: No joint swelling or deformity. EXTREMITIES: No cyanosis, clubbing, or pedal edema. NEUROLOGICAL: Gross neurological examination did not reveal any focal deficits. SKIN: No rashes. - Labs CBC & Chem 7: 09/18/17 05:35 09/18/17 05:35 Labs: Abnormal Lab Results - Last 24 Hours (Table) 09/17/17 09/17/17 09/18/17 Range/Units 16:54 21:09 05:35 WBC 11.7 H (3.8-10.6) k/uL RBC 3.49 L (4.30-5.90) m/uL Hgb 8.3 L (13.0-17.5) gm/dL Hct 27.4 L (39.0-53.0) % MCV 78.7 L (80.0-100.0) fL MCH 23.7 L (25.0-35.0) pg MCHC 30.2 L (31.0-37.0) g/dL BUN (9-20) mg/dL Glucose (74-99) mg/dL POC Glucose (mg/dL) 114 H 185 H (75-99) mg/dL 09/18/17 09/18/17 Range/Units 05:35 05:59 WBC (3.8-10.6) k/uL RBC (4.30-5.90) m/uL Hgb (13.0-17.5) gm/dL Hct (39.0-53.0) % MCV (80.0-100.0) fL MCH (25.0-35.0) pg MCHC (31.0-37.0) g/dL BUN 32 H (9-20) mg/dL Glucose 127 H (74-99) mg/dL POC Glucose (mg/dL) 133 H (75-99) mg/dL Assessment and Plan Plan: -Sepsis: Secondary to enterococcal bacteremia possible intra-abdominal source. Continue with IV antibiotics. -Atrial fibrillation with rapid and regular rate patient's Lasix is being held and patient is on amiodarone and metoprolol 1 hypotension secondary to excessive diuretic therapy which is being held and patient will be given IV fluids -Toxic and Metabolic encephalopathy acute:: Secondary bacteremia and sepsis -Possible non-ST elevation myocardial infarction: Cardiology is following the patient patient is status post bypass surgery coronary artery disease that require replacement in the past -Hyperlipidemia -Parkinson
[2017-09-18 12:33] LABS: Glucose,Whole Blood 150 mg/dL (75-99)
[2017-09-18] MEDS: SODIUM CHLORIDE 0.9% 1,000 ML IV SCH ×3 (13:51→18:05)
--- NOTE | 2017-09-18 16:06 | PN ---
PROGRESS NOTE DATE OF SERVICE: 09/18/2016. REASON FOR FOLLOWUP: ESBL E coli bacteremia secondary to abdominal source. INTERVAL HISTORY: The patient is afebrile. He is currently breathing comfortably and waiting for placement. Being fed by his . No nausea, vomiting, or any diarrhea. EXAMINATION: Blood pressure 101/60 with a pulse of 57, temperature 96.8. He is 96% on room air. General description is an elderly male lying in bed in no distress. Respiratory system unlabored breathing. Clear to auscultation anteriorly. Heart S1, S2. Regular rate and rhythm. Abdomen soft. No tenderness. Extremities reveal no edema of the feet. LABS: Hemoglobin 8.2, white count 11.7, BUN of 32, creatinine 0.98. DIAGNOSTIC IMPRESSION AND PLAN: Patient with ESBL E coli bacteremia, source could be more likely abdominal. Did have concern for possible cholecystitis. Considered to be high risk for any surgical procedure. Currently being treated medically. He will continue on the Invanz. Continue supportive care. MMODL / IJN: [id number] /
[2017-09-18 17:51] LABS: Glucose,Whole Blood 173 mg/dL (75-99)
[2017-09-18] MEDS: ATORVASTATIN 80 MG TAB PO SCH (20:52)
[2017-09-18 20:53] LABS: Glucose,Whole Blood 97 mg/dL (75-99)
[2017-09-18] MEDS: INSULIN DETEMIR 100 UNIT/ML 10 ML VIAL SQ SCH (20:54)
[2017-09-19 06:07] LABS: Glucose,Whole Blood 96 mg/dL (75-99)
[2017-09-19] MEDS: REPAGLINIDE 1 MG TAB PO SCH ×3 (06:27→16:41)
[2017-09-19] MEDS: INSULIN ASPART 100 UNIT/ML 1 ML 10 ML VIAL SQ SCH ×3 (06:27→20:38)
[2017-09-19] MEDS: IPRATROPIUM-ALBUTEROL 3 ML NEB INHALATION SCH ×4 (08:57→19:10)
[2017-09-19] MEDS: PANTOPRAZOLE 40 MG TABLET PO SCH ×2 (09:12→16:41)
[2017-09-19] MEDS: ASPIRIN 81 MG PO SCH (09:13)
[2017-09-19] MEDS: APIXABAN 5 MG TAB PO SCH ×2 (09:13→20:27)
[2017-09-19] MEDS: POTASSIUM BICARBONATE/CIT AC 20 MEQ TABLET.EFF PO SCH (09:13)
[2017-09-19] MEDS: AMIODARONE 200 MG TAB PO SCH ×2 (09:13→20:27)
[2017-09-19] MEDS: DILTIAZEM ORAL 60 MG TAB PO SCH ×3 (09:14→20:27)
[2017-09-19] MEDS: CARBIDOPA-LEVODOPA 25-100 MG 1 EACH TAB PO SCH ×3 (09:14→20:27)
[2017-09-19] MEDS: LINAGLIPTIN 5 MG TABLET PO SCH (09:15)
[2017-09-19] MEDS: METOPROLOL TARTRATE 50 MG TAB PO SCH ×2 (09:15→20:27)
[2017-09-19] MEDS: ERTAPENEM 1 GM in SODIUM CHLORIDE 0.9% 50 ML IVPB SCH (09:16)
[2017-09-19] MEDS: SENNOSIDES-DOCUSATE SODIUM 1 EACH TAB PO SCH ×2 (09:20→20:27)
[2017-09-19] MEDS: TAMSULOSIN 0.4 MG CAP.ER.24H PO SCH (09:20)
[2017-09-19] MEDS: NORTRIPTYLINE 10 MG CAP PO SCH (12:23)
[2017-09-19] MEDS: MULTIVITAMINS, THERA 1 EACH TAB PO SCH (12:25)
[2017-09-19 12:28] LABS: Glucose,Whole Blood 243 mg/dL (75-99)
--- NOTE | 2017-09-19 13:01 | P.PN ---
Progress Note - Text Progress Note Date: 09/19/17 This is a pleasant 72-year-old gentleman who follows with Dr. Vaughan in the office. We have been following the patient while in the hospital for atrial fibrillation with rapid ventricular response, persistent. He is currently on amiodarone 200 mg by mouth twice a day, diltiazem 60 mg by mouth 3 times a day and metoprolol 100 mg by mouth twice a day. We have reviewed patient's vital signs including the trunnion of heart rate and blood pressure. We've also reviewed medications. At this time we will continue current medications. Patient will go home on current regimen of amiodarone 200 mg by mouth twice a day, atorvastatin 80 mg by mouth daily at bedtime, Cardizem 60 mg by mouth 3 times a day and metoprolol 100 mg by mouth twice a day. At this time we will not change or increase as patient continues to have episodes of faster heart rates in the 120s as well as some heart rates during the day in the 50s and 60s. AVIATION TECHNICIAN note has been reviewed, I agree with a documented findings and plan of care.
[2017-09-19 17:17] LABS: Glucose,Whole Blood 313 mg/dL (75-99)
[2017-09-19] MEDS: ATORVASTATIN 80 MG TAB PO SCH (20:27)
[2017-09-19 20:55] LABS: Glucose,Whole Blood 341 mg/dL (75-99)
[2017-09-19] MEDS: INSULIN DETEMIR 100 UNIT/ML 10 ML VIAL SQ SCH (21:27)
[2017-09-20 06:04] LABS: Glucose,Whole Blood 105 mg/dL (75-99)
[2017-09-20] MEDS: REPAGLINIDE 1 MG TAB PO SCH ×3 (06:41→18:43)
[2017-09-20] MEDS: INSULIN ASPART 100 UNIT/ML 1 ML 10 ML VIAL SQ SCH ×3 (06:42→18:44)
[2017-09-20] MEDS: IPRATROPIUM-ALBUTEROL 3 ML NEB INHALATION SCH ×4 (06:53→20:24)
[2017-09-20] MEDS: POTASSIUM BICARBONATE/CIT AC 20 MEQ TABLET.EFF PO SCH (10:04)
[2017-09-20] MEDS: PANTOPRAZOLE 40 MG TABLET PO SCH ×2 (10:04→18:43)
[2017-09-20] MEDS: AMIODARONE 200 MG TAB PO SCH ×2 (10:04→21:43)
[2017-09-20] MEDS: DILTIAZEM ORAL 60 MG TAB PO SCH ×3 (10:05→21:43)
[2017-09-20] MEDS: ASPIRIN 81 MG PO SCH (10:05)
[2017-09-20] MEDS: CARBIDOPA-LEVODOPA 25-100 MG 1 EACH TAB PO SCH ×3 (10:05→21:42)
[2017-09-20] MEDS: APIXABAN 5 MG TAB PO SCH ×2 (10:05→21:43)
[2017-09-20] MEDS: LINAGLIPTIN 5 MG TABLET PO SCH (10:06)
[2017-09-20] MEDS: METOPROLOL TARTRATE 50 MG TAB PO SCH ×2 (10:06→21:42)
[2017-09-20] MEDS: TAMSULOSIN 0.4 MG CAP.ER.24H PO SCH (10:07)
[2017-09-20] MEDS: SENNOSIDES-DOCUSATE SODIUM 1 EACH TAB PO SCH ×2 (10:07→21:43)
--- NOTE | 2017-09-20 11:21 | PN ---
PROGRESS NOTE DATE OF SERVICE: 09/19/17. PRESENT COMPLAINT: Tired. INTERVAL HISTORY: This is a patient who is admitted with multiple problems including acute non-Q-wave. Positive blood cultures. E coli could be UTI versus cholecystitis. Also has atrial fibrillation uncontrolled. The patient does eat with some assistance. Heart rate is still somewhat uncontrolled. is at the bedside. REVIEW OF SYSTEMS: Really cannot be obtained. Patient does not really answer many questions. CURRENT MEDICATIONS: Reviewed that include DuoNeb, Cordarone, Eliquis, IV ertapenem, Cardizem. PHYSICAL EXAMINATION: Temperature 97, heart rate up to 110s to 120, respiration 18, blood pressure 130/76, pulse ox 92% on 3 L. GENERAL APPEARANCE: Lying in bed, lethargic. EYES: Pupils and conjunctivae normal. HEENT: External appearance of ears and nose normal. Oral cavity normal. NECK: JVD unable to assess. Mass not palpable. RESPIRATORY: Effort normal. Lungs diminished breath sounds. CARDIOVASCULAR: Heart sounds irregular. No edema. ABDOMEN: Soft, nontender. Liver and spleen not palpable. No mass palpable. PSYCHIATRY: Unable to assess. The patient rather somnolent and lethargic right now. INVESTIGATIONS: Blood work from yesterday showed a white count 11.7, hemoglobin 8.3, potassium 4.6, creatinine 0.98. ASSESSMENT: 1. Acute non-Q-wave myocardial infarction. 2. Sepsis with positive blood cultures, E coli could be from gallbladder or urinary tract infection. 3. Persistent atrial fibrillation with rapid ventricular rate, uncontrolled. 4. Acute on chronic metabolic encephalopathy, multifactorial. 5. Acute urinary tract infection in a patient secondary to Costello catheter. 6. Right bundle branch block. 7. Diabetes mellitus type 2, chronically on insulin. 8. Hyperlipidemia. 9. Essential hypertension. 10.Coronary artery disease with prior history of stent and coronary bypass. 11.Right-sided weakness from prior stroke. 12.Idiopathic Parkinson disease. 13.Chronic medical needs at baseline assistance. 14.CODE STATUS: DNR. 15.Possible right lower lobe infiltrate, pneumonia, suspect gram-negative organism, now improved. PLAN: Continue current medication and treatment plan. Medications being adjusted per Cardiology including rate control drugs. The patient is on IV ertapenem as per ID. Overall prognosis is guarded. Care was discussed with the at the bedside. MMODL / IJN: [id number] /
[2017-09-20 11:43] LABS: Glucose,Whole Blood 115 mg/dL (75-99)
[2017-09-20] MEDS: ERTAPENEM 1 GM in SODIUM CHLORIDE 0.9% 50 ML IVPB SCH (12:19)
[2017-09-20] MEDS: MULTIVITAMINS, THERA 1 EACH TAB PO SCH (12:20)
[2017-09-20 16:33] LABS: Glucose,Whole Blood 233 mg/dL (75-99)
[2017-09-20] MEDS: NORTRIPTYLINE 10 MG CAP PO SCH (18:43)
--- NOTE | 2017-09-20 20:51 | PN ---
PROGRESS NOTE DATE OF SERVICE: 09/20/2017 PRESENTING COMPLAINT: Tired. INTERVAL HISTORY: This is a patient admitted with multiple problems including acute non-Q-wave DC. Positive blood cultures from E. coli that could be UTI versus cholecystitis. Not felt to be a surgical candidate. Also in atrial fibrillation. Heart rate has been controlled in the 80s and 90s now. I spoke to the aide. The patient tolerating a diet. Patient does answer some simple questions very slowly. Lying in bed. REVIEW OF SYSTEMS: Cannot be done. The patient is a very poor historian. CURRENT MEDICATIONS: Reviewed and include DuoNeb, Cordarone, Eliquis, IV ertapenem, Cardizem. PHYSICAL EXAMINATION: Temperature 97.6, pulse 98, respiration 18, blood pressure 96/52, pulse ox 94% on room appearance. GENERAL APPEARANCE: Laying in bed, awake. EYES: Pupils equal, conjunctivae normal. HEENT: External appearance of nose and ears normal. Oral cavity normal> NECK: JVD unable to assess. Mass not palpable. Respiratory effort normal. LUNGS: Diminished breath sounds. CARDIOVASCULAR: Sounds irregular. No edema. ABDOMEN: Soft, nontender. Liver and spleen not palpable. No mass palpable. PSYCHIATRY: The patient is answering some questions slowly like yes, no, I am fine. normal. INVESTIGATIONS: Accu-Cheks are noted. The patient's blood cultures are negative since 09/10/2017. ASSESSMENT: 1. Acute non-Q-wave myocardial infarction, present on admission. 2. Sepsis with positive blood cultures for E. coli, could be from gallbladder or urinary tract infection. 3. Persistent atrial fibrillation, now heart rate is controlled. It is increased upon presentation. 4. Acute on chronic metabolic encephalopathy, multifactorial with some improvement. 5. Acute urinary tract infection in a patient secondary to Costello catheter. 6. Right bundle branch block. 7. Diabetes mellitus type 2, chronically on insulin. 8. Hyperlipidemia. 9. Essential hypertension. 10.Coronary artery disease with prior history of stent and coronary bypass. 11.Idiopathic Parkinson's disease. 12.Chronic medical debility at baseline, needs assistance. 13.Code status: DNR. 14.Possible right lower lobe infiltrate, pneumonia, suspect gram-negative organism present on admission, now clinically improved. PLAN: Continue current medication and treatment plan. Discussed with Dr. Savage. The patient will probably get one to two more days of antibiotic and then patient can go home on Thursday. Heart rate is controlled. Overall prognosis is guarded. MMODL / IJN: [id number] /
--- NOTE | 2017-09-20 21:15 | PN ---
PROGRESS NOTE DATE OF SERVICE: 09/20/2017. REASON FOR FOLLOWUP: ESBL E coli bacteremia secondary to abdominal source. INTERVAL HISTORY: The patient is afebrile. He is breathing comfortably. Hemodynamically stable. No nausea, vomiting has been noticed or any diarrhea. Unable to provide reliable history. EXAMINATION: Blood pressure 96/52 with a pulse of 98, temperature of 97.6. He is 94% on room air. General description is an elderly male, lying in bed in no distress. Respiratory system unlabored breathing with decreased breath sounds in the bases. No wheeze. Heart S1, S2. Regular rate and rhythm. LABS: No new labs have been obtained. Blood cultures repeat has been negative. DIAGNOSTIC IMPRESSION AND PLAN: Patient with E coli bacteremia, ESBL cultures, source likely abdominal with acute cholecystitis continues to be high risk for any surgical procedure. Treat medically. Currently Invanz will be continued to finish 2 week course of therapy. Continue supportive care. MMODL / IJN: [id number] / MTDD
[2017-09-20 21:21] LABS: Glucose,Whole Blood 158 mg/dL (75-99)
[2017-09-20] MEDS: ATORVASTATIN 80 MG TAB PO SCH (21:43)
[2017-09-20] MEDS: INSULIN DETEMIR 100 UNIT/ML 10 ML VIAL SQ SCH (21:47)
[2017-09-21 07:01] LABS: Glucose,Whole Blood 82 mg/dL (75-99)
[2017-09-21] MEDS: IPRATROPIUM-ALBUTEROL 3 ML NEB INHALATION SCH ×4 (07:24→21:10)
[2017-09-21] MEDS: APIXABAN 5 MG TAB PO SCH ×2 (08:35→21:37)
[2017-09-21] MEDS: SENNOSIDES-DOCUSATE SODIUM 1 EACH TAB PO SCH ×2 (08:35→21:37)
[2017-09-21] MEDS: AMIODARONE 200 MG TAB PO SCH ×2 (08:35→21:38)
[2017-09-21] MEDS: PANTOPRAZOLE 40 MG TABLET PO SCH ×2 (08:35→17:22)
[2017-09-21] MEDS: METOPROLOL TARTRATE 50 MG TAB PO SCH ×2 (08:35→21:38)
[2017-09-21] MEDS: MULTIVITAMINS, THERA 1 EACH TAB PO SCH (08:36)
[2017-09-21] MEDS: INSULIN ASPART 100 UNIT/ML 1 ML 10 ML VIAL SQ SCH ×3 (08:36→18:09)
[2017-09-21] MEDS: TAMSULOSIN 0.4 MG CAP.ER.24H PO SCH (08:36)
[2017-09-21] MEDS: ASPIRIN 81 MG PO SCH (08:36)
[2017-09-21] MEDS: POTASSIUM BICARBONATE/CIT AC 20 MEQ TABLET.EFF PO SCH (08:37)
[2017-09-21] MEDS: CARBIDOPA-LEVODOPA 25-100 MG 1 EACH TAB PO SCH ×3 (08:37→21:37)
[2017-09-21] MEDS: DILTIAZEM ORAL 60 MG TAB PO SCH ×3 (08:37→21:37)
[2017-09-21] MEDS: LINAGLIPTIN 5 MG TABLET PO SCH (08:37)
[2017-09-21] MEDS: REPAGLINIDE 1 MG TAB PO SCH ×3 (08:38→17:23)
[2017-09-21] MEDS: ACETAMINOPHEN TAB 325 MG TAB PO PRN ×2 (08:38→17:22)
[2017-09-21] MEDS: NORTRIPTYLINE 10 MG CAP PO SCH ×2 (10:39→17:22)
[2017-09-21] MEDS: ERTAPENEM 1 GM in SODIUM CHLORIDE 0.9% 50 ML IVPB SCH (11:35)
[2017-09-21 11:46] LABS: Glucose,Whole Blood 100 mg/dL (75-99)
[2017-09-21 16:56] LABS: Glucose,Whole Blood 194 mg/dL (75-99)
[2017-09-21 21:08] LABS: Glucose,Whole Blood 156 mg/dL (75-99)
[2017-09-21] MEDS: ATORVASTATIN 80 MG TAB PO SCH (21:38)
[2017-09-21] MEDS: INSULIN DETEMIR 100 UNIT/ML 10 ML VIAL SQ SCH (21:38)
--- NOTE | 2017-09-21 23:10 | PN ---
PROGRESS NOTE DATE OF SERVICE: 09/21/2017. REASON FOR FOLLOWUP: ESBL E coli, bacteremia secondary to abdominal source. INTERVAL HISTORY: The patient is afebrile. He has been breathing comfortably. Slightly lethargic but no nausea, vomiting, or any diarrhea. Not a good historian. EXAMINATION: Blood pressure 126/74 with a pulse of 108, temperature 96.5. He is 95% on 3 L nasal cannula. General description is an elderly male lying in bed in no distress, respiratory system unlabored breathing. Decreased breath sounds in the bases. No wheeze. Heart S1, S2. Regular rate and rhythm. Abdomen soft. No guarding or rigidity. No organomegaly. Extremities some trace edema of feet. LABS: No new labs have been obtained today. DIAGNOSTIC IMPRESSION AND PLAN: Patient with ESBL E coli bacteremia secondary to abdominal source, likely cholecystitis high risk for any surgical intervention. Currently on IV. The patient seems to have finished almost 2 weeks of IV antibiotic therapy. Recommend discontinue Invanz on discharge and remove the PICC line. was present at bedside. Questions were answered. MMODL / IJN: [id number] / MTDD
--- NOTE | 2017-09-21 23:20 | PN ---
PROGRESS NOTE DATE OF SERVICE: 09/21/2017. PRESENTING COMPLAINT: Tired. INTERVAL HISTORY: This is a patient with multiple medical problems including acute myocardial infarction, positive blood cultures with E coli that could be UTI versus cholecystitis. Not felt to be a surgical candidate. Also had been in atrial fibrillation, that is now controlled. The patient is tolerating his diet. Pretty much bedbound at baseline according to . Before coming in patient could take a few steps in his shoes. Really has not been out of bed while he has been here. REVIEW OF SYSTEMS: The patient can only answer some questions minimally, if any. CURRENT MEDICATIONS: Reviewed. EXAMINATION: Temperature 96.5, pulse 88, respiration 20, blood pressure 126/74, pulse 95% 3 L. GENERAL APPEARANCE: Lying in bed, awake EYES: Pupils equal. Conjunctivae normal. HEENT: External appearance of nose and ears normal. Oral cavity normal. NECK: JVD unable to assess. Mass not palpable. Normal respiratory effort. LUNGS: Decreased breath sounds. CARDIOVASCULAR: Heart sounds irregular. No edema. ABDOMEN: Soft, nontender. Liver and spleen not palpable. PSYCHIATRY: Patient can answer some simple questions. INVESTIGATIONS: Accu-Cheks are noted. ASSESSMENT: 1. Acute non-Q-wave myocardial infarction, present on admission. 2. Sepsis, positive blood cultures for E coli, could be from gallbladder or urinary tract infection. 3. Persistent atrial fibrillation, which was increased on presentation, now controlled. 4. Acute on chronic metabolic encephalopathy, multifactorial. Looks like patient has come back to his baseline. 5. Acute urinary tract infection in a patient secondary to Costello catheter. 6. Right bundle branch block. 7. Diabetes mellitus type 2, chronically on insulin. 8. Hyperlipidemia. 9. Essential hypertension. 10.Coronary artery disease, prior history of stent and coronary bypass. 11.Idiopathic Parkinson disease. 12.Chronic medical debility at baseline, needs assistance. 13.CODE STATUS DNR. 14.Possible right lower lobe pneumonia, suspect gram-negative organism present on admission. PLAN: I did speak to the and also spoke to the medical social worker, and also spoke to the physical therapist. The patient is not able to do much at all and even the sitting balance is not good. I did tell the medical social worker to look into it with the , patient may rehab and if he goes home the patient may need Jayme lift. I am not sure if the will be able to handle this at home. Antibiotics, the patient will get 2 more days of IV then course will be completed. ANAI / ARELISN: [id number] /
[2017-09-22 07:02] LABS: Glucose,Whole Blood 113 mg/dL (75-99)
[2017-09-22 07:05] LABS: Basophils # (A) 0.1 k/uL (0-0.2); Basophils % (A) 1 %; Eosinophils # (A) 0.3 k/uL (0-0.7); Eosinophils % (A) 3 %; HCT 28.3 % (39.0-53.0); HGB 8.2 gm/dL (13.0-17.5); Hypochromasia Marked; Lymphocytes # (A) 1.5 k/uL (1.0-4.8); Lymphocytes % (A) 12 %; MCH 23.4 pg (25.0-35.0); MCHC 29.1 g/dL (31.0-37.0); MCV 80.2 fL (80.0-100.0); Mean Platelet Volume 8.6; Monocytes # (A) 0.7 k/uL (0-1.0); Monocytes % (A) 6 %; Neutrophils # (A) 9.7 k/uL (1.3-7.7); Neutrophils % (A) 77 %; Platelet Count 574 k/uL (150-450); RBC 3.53 m/uL (4.30-5.90); RDW 15.3 % (11.5-15.5); WBC 12.6 k/uL (3.8-10.6)
[2017-09-22] MEDS: IPRATROPIUM-ALBUTEROL 3 ML NEB INHALATION SCH ×4 (08:27→20:09)
--- NOTE | 2017-09-22 09:20 | CT ---
EXAMINATION TYPE: CT brain wo con DATE OF EXAM: 09/22/2017 COMPARISON: 09/07/2017 HISTORY: Altered mental status CT DLP: 1090.4 mGycm Automated exposure control for dose reduction was used. FINDINGS: There is moderate generalized degenerative change. Areas of low-attenuation the periventricular white matter are nonspecific but likely in the bases remote microvascular ischemia. Changes of chronic sinusitis. Tiny hypodensity involving the right basal ganglia suggestive of remote lacunar infarction. Atherosclerotic change of the vasculature. IMPRESSION: DEGENERATIVE AND NONSPECIFIC WHITE MATTER CHANGES MOST TYPICAL REMOTE MICROVASCULAR ISCHEMIA. IF THER E IS CONCERN FOR ACUTE ISCHEMIA CORRELATE WITH MRI CLINICALLY WARRANTED.
[2017-09-22] MEDS: INSULIN ASPART 100 UNIT/ML 1 ML 10 ML VIAL SQ SCH ×3 (09:32→18:17)
[2017-09-22] MEDS: DILTIAZEM ORAL 60 MG TAB PO SCH ×3 (09:44→21:04)
[2017-09-22] MEDS: ASPIRIN 81 MG PO SCH (09:51)
[2017-09-22] MEDS: AMIODARONE 200 MG TAB PO SCH ×2 (09:51→21:05)
[2017-09-22] MEDS: CARBIDOPA-LEVODOPA 25-100 MG 1 EACH TAB PO SCH ×3 (09:51→21:05)
[2017-09-22] MEDS: SENNOSIDES-DOCUSATE SODIUM 1 EACH TAB PO SCH ×2 (09:51→21:05)
[2017-09-22] MEDS: REPAGLINIDE 1 MG TAB PO SCH ×3 (09:51→18:17)
[2017-09-22] MEDS: METOPROLOL TARTRATE 50 MG TAB PO SCH ×2 (09:51→21:04)
[2017-09-22] MEDS: POTASSIUM BICARBONATE/CIT AC 20 MEQ TABLET.EFF PO SCH (09:51)
[2017-09-22] MEDS: PANTOPRAZOLE 40 MG TABLET PO SCH ×2 (09:52→18:17)
[2017-09-22] MEDS: APIXABAN 5 MG TAB PO SCH ×2 (09:52→21:20)
[2017-09-22] MEDS: TAMSULOSIN 0.4 MG CAP.ER.24H PO SCH (09:52)
[2017-09-22] MEDS: LINAGLIPTIN 5 MG TABLET PO SCH (09:52)
[2017-09-22] MEDS: ERTAPENEM 1 GM in SODIUM CHLORIDE 0.9% 50 ML IVPB SCH (10:15)
[2017-09-22 11:37] LABS: Glucose,Whole Blood 150 mg/dL (75-99)
[2017-09-22] MEDS: MULTIVITAMINS, THERA 1 EACH TAB PO SCH (13:14)
[2017-09-22 14:52] VITALS: BMI 25.2
[2017-09-22 16:42] LABS: Glucose,Whole Blood 111 mg/dL (75-99)
[2017-09-22] MEDS: NORTRIPTYLINE 10 MG CAP PO SCH (18:17)
[2017-09-22 20:04] LABS: Glucose,Whole Blood 160 mg/dL (75-99)
[2017-09-22] MEDS: ATORVASTATIN 80 MG TAB PO SCH (21:05)
[2017-09-22] MEDS: INSULIN DETEMIR 100 UNIT/ML 10 ML VIAL SQ SCH (21:19)
--- NOTE | 2017-09-22 21:38 | PN ---
PROGRESS NOTE DATE OF SERVICE: September 22, 2017. PRESENTING COMPLAINT: Tired. INTERVAL HISTORY: Patient has multiple medical problems including acute myocardial infarction, positive blood cultures with E coli that could be UTI versus cholecystitis and also atrial fibrillation. Remains in bed. Has been found to be pretty unsteady per physical therapy. There is some concern if the patient had a change of mental status. I did order a CT scan, did not show any acute infarct and when I did come to see the patient, patient looks at his baseline, answering some simple questions. Tolerating his diet. REVIEW OF SYSTEMS: Really cannot be done. CURRENT MEDICATIONS: Reviewed. EXAMINATION: Temperature 97.4, pulse 86, respiration 18, blood pressure 126/77, pulse 95% on 2 L. General appearance: Lying in bed, awake. Eyes: Pupil equal. Conjunctivae normal. HEENT external appearance of nose, ears normal. Oral cavity normal. Neck JVD unable to assess. Mass not palpable. Respiratory effort normal. Lungs slightly decreased breath sounds. Cardiovascular heart sounds irregular. No edema. ABDOMEN: Soft, nontender. Liver and spleen not palpable. Psychiatry: The patient answers simple questions. Neurological: Patient is able to lift both his arms and both his legs, though slowly. INVESTIGATIONS: White count 12.6, hemoglobin 8.2. Accu-Cheks are noted. ASSESSMENT: 1. Acute non-Q-wave myocardial infarction present on admission. 2. Sepsis with positive blood cultures for E coli, could be from gallbladder or urinary tract infection. 3. Persistent atrial fibrillation, increased on presentation now controlled. 4. Acute on chronic metabolic encephalopathy, multifactorial. Patient looks at his baseline. 5. Acute urinary tract infection in a patient secondary to Costello catheter, now stable. 6. Right bundle branch block. 7. Diabetes mellitus type 2, chronically on insulin. 8. Hyperlipidemia. 9. Essential hypertension. 10.Coronary artery disease with prior history of stent and coronary artery bypass. 11.Chronic medical debility at baseline, needs assistance. 12.Possible right lobe pneumonia suspect gram-negative organism present admission, improved. 13.CODE STATUS DNR. PLAN: Spoke at length to Mey, long term care social worker. The patient will be getting a Jayme lift at home. The patient may have been better at the long-term care, but the patient's insists on taking him home and that is being coordinated. IV antibiotics to be finished while in the hospital. MMODL / IJN: [id number] /
--- NOTE | 2017-09-22 22:44 | PN ---
PROGRESS NOTE DATE OF SERVICE: 09/22/2016. REASON FOR FOLLOWUP: ESBL E coli bacteremia, abdominal source. INTERVAL HISTORY: The patient is afebrile, has been breathing comfortably. No chest pain, cough. No nausea, vomiting, diarrhea reported by nursing staff. Patient is not a good historian. EXAMINATION: Blood pressure 121/79 with a pulse of 82, temperature 97.6. He is 95% on 3 L nasal cannula. General description is an elderly male lying in bed in no distress. Respiratory system: Unlabored breathing, decreased breath sounds in the bases. No wheeze. Heart S1, S2. Regular rate and rhythm. Abdomen soft, no tenderness. LABS: Hemoglobin 8.8, white count 4.6. DIAGNOSTIC IMPRESSION AND PLAN: Patient ESBL E coli bacteremia, severe abdominal source is likely cholecystitis, considered to be a high risk for surgical procedure. Repeat blood culture has been negative. Patient is currently on Invanz to finish his antibiotic therapy. Recommend to discontinue either on 09/24 if the patient is still here or will get discharged prior to that to discontinue PICC line. Continue supportive care. MMODL / IJN: [id number] / MTDJoanne
[2017-09-23 07:15] LABS: Glucose,Whole Blood 183 mg/dL (75-99)
[2017-09-23] MEDS: IPRATROPIUM-ALBUTEROL 3 ML NEB INHALATION SCH ×3 (07:29→16:02)
[2017-09-23 08:31] LABS: Glucose,Whole Blood 186 mg/dL (75-99)
[2017-09-23] MEDS ORDERED: MORPHINE SULFATE 4 MG/ML SYRINGE IVP PRN ×4 (08:47→11:33)
[2017-09-23 09:17] LABS: ALT 28 U/L (21-72); AST 64 U/L (17-59); Alkaline Phosphatase 154 U/L (38-126); Anion Gap 12 mmol/L; Blood Urea Nitrogen 39 mg/dL (9-20); Calcium 8.6 mg/dL (8.4-10.2); Carbon Dioxide 27 mmol/L (22-30); Chloride 102 mmol/L (98-107); Glucose 199 mg/dL (74-99); Potassium 5.9 mmol/L (3.5-5.1); Sodium 141 mmol/L (137-145); Total Bilirubin 0.6 mg/dL (0.2-1.3); Total Protein 5.8 g/dL (6.3-8.2)
--- NOTE | 2017-09-23 09:21 | P.CNPUL ---
History of Present Illness Consult date: 09/23/17 Reason for consult: dyspnea, cough, hypoxemia, pneumonia, abnormal CXR/CT Chief complaint: Respiratory failure History of present illness: Consult dated 09/23/2017 72-year-old male admitted way back on [address]. Mental status changes and possible sepsis. His apparently found by EMS to have a blood pressure of only 81 systolic. The patient also had a fever at that time. He received some fluid boluses and brought into the emergency room he was evaluated. The patient seems to have a history of chronic aspiration pneumonia. His respiratory status has declined. Family is considering hospice. Currently he is on BiPAP as per my rapid response team. Chest x-ray shows diffuse bilateral infiltrates right greater than left. His overall situation is poor. Family is in the room. He is poorly responsive. This seemed to open his eyes and track a bit. Can't speak obviously because of the BiPAP device. His chest x-ray reveals very coarse breath sounds. He's got coarse rhonchi and crackles. Color is poor. Extremities are cool. He apparently has a history of atrial fibrillation coronary artery disease CVA diabetes GERD hyperlipidemia bladder cancer and multiple other medical problems. In addition, the patient had bladder surgery bypass grafting heart catheterization with stent aortic valve surgery and some other surgical procedures as well. Review of Systems ROS unobtainable: due to mental status Past Medical History Past Medical History: Atrial Fibrillation, Coronary Artery Disease (CAD), Cancer , CVA/TIA, Diabetes Mellitus, GERD/Reflux, Hyperlipidemia Additional Past Medical History / Comment(s): Pt recently admitted to [facility] on 03/03/17 with weakness L upper arm, CVA, afib. Other hx: Bladder cancer with surgery, CVAs x3-PT POOR HISTORIAN SINCE last stroke in JUN 2016-has difficulty with speech and balance after stroke affected rt side-pt says yes/no but not always accurately, NIDDM type II, UTI. History of Any Multi-Drug Resistant Organisms: ESBL Date of last positivie culture/infection: 09/07/17 MDRO Source:: blood ESBL Past Surgical History: Bladder Surgery, Coronary Bypass/CABG, Heart Catheterization With Stent Additional Past Surgical History / Comment(s): 1994 3 vessel CABG with aortic valve surgery, loop recorder, Past Anesthesia/Blood Transfusion Reactions: No Reported Reaction Date of Last Stent Placement:: 1989 Past Psychological History: No Psychological Hx Reported Additional Psychological History / Comment(s): Pt currently residing at [facility] for rehab. He is up in wheelchair and needs assist with all ADLs. He says yes/ no and not always accurate with his answer. Smoking Status: Former smoker Past Alcohol Use History: None Reported Additional Past Alcohol Use History / Comment(s): started smoking 1958 and quit 2015 Past Drug Use History: None Reported - Past Family History Father Family Medical History: Cancer Additional Family Medical History / Comment(s): prostate cancer Mother Family Medical History: Dementia, Hypertension Medications and Allergies Home Medications Medication Instructions Recorded Confirmed Type Metoprolol Tartrate [Lopressor] 25 mg PO BID 02/28/17 09/07/17 History sitaGLIPtin [Januvia] 100 mg PO DAILY 02/28/17 09/07/17 History Apixaban [Eliquis] 5 mg PO BID 03/31/17 09/07/17 History Atorvastatin [Lipitor] 80 mg PO HS 06/24/17 09/07/17 History Nortriptyline [Pamelor] 10 mg PO HS 06/24/17 09/07/17 History Pantoprazole Sodium [Protonix] 40 mg PO BID@0800,1700 06/24/17 09/07/17 History Repaglinide [Prandin] 0.5 mg PO AC-TID #1 tablet 06/29/17 09/07/17 Rx Carbidopa-Levodopa 25-100 mg 1 tab PO TID 08/12/17 09/07/17 History [Sinemet 25-100 mg] Insulin Glargine [Lantus] 10 unit SQ 08/12/17 09/07/17 History Ubidecarenone [Coenzyme Q10] 60 mg PO BID 08/12/17 09/07/17 History Aspirin EC [Ecotrin Low Dose] 81 mg PO DAILY 09/07/17 09/07/17 History Cranberry Fruit Extract [Cranberry] 200 mg PO DAILY 09/07/17 09/07/17 History Insulin Lispro [humaLOG Kwikpen] 2 unit SQ AC-TID 09/07/17 09/07/17 History Multivitamins, Thera [Multivitamin 1 tab PO DAILY 09/07/17 09/07/17 History (formulary)] Tamsulosin [Flomax] 0.4 mg PO DAILY 09/07/17 09/07/17 History metFORMIN HCL [metFORMIN HCL] 1,000 mg PO BID 09/07/17 09/07/17 History Ertapenem [INVanz] 1 gm IVPB Q24H #10 bag 09/16/17 Rx Allergies Allergy/AdvReac Type Severity Reaction Status Date / Time Sulfa (Sulfonamide Allergy Unknown Verified 08/12/17 16:21 Antibiotics) Physical Exam Osteopathic Statement: *. No significant issues noted on an osteopathic structural exam other than those noted in the History and Physical/Consult. Vitals: Vital Signs Temp Pulse Pulse Resp BP Pulse Ox 09/23/17 07:43 90 09/23/17 07:35 94 09/23/17 01:05 98.2 F 112 H 18 131/62 93 L 09/22/17 20:19 86 16 09/22/17 20:09 82 16 09/22/17 20:02 97.6 F 120 H 20 121/79 95 09/22/17 19:45 97.6 F 71 18 110/69 97 09/22/17 16:00 16 09/22/17 15:59 86 16 09/22/17 15:48 84 16 09/22/17 15:00 96.1 F L 114 H 16 108/77 94 L 09/22/17 12:07 88 09/22/17 11:56 84 09/22/17 10:22 109 H 14 112/65 Intake and Output 09/22/17 09/23/17 09/23/17 22:59 06:59 14:59 Intake Total 130 120 Balance 130 120 Intake: Oral 130 120 Other: Voiding Method Diaper Incontinent # Voids 2 1 # Bowel Movements 1 1 No acute distress, poorly responsive. BIPAP mask in place HEENT examination is grossly unremarkable. Difficult to assess because of BiPAP Neck supple. Full range of motion. No adenopathy thyromegaly or neck vein distention. Cardiovascular examination reveals irregular rhythm rate. S1-S2 normal. No S3 or S4. No discernible murmur noted. Heart sounds are distant and heart rate is about 60. Lungs reveal severe coarse bilateral breath sounds. Bilateral crackles are noted. Breath sounds are diminished. Abdomen soft bowel sounds are heard. No masses or tenderness. Extremities are cool. No mottling as yet. No edema noted. Skin is without rash or lesion. Neurologic examination could not be adequately assessed. Results - Laboratory Findings CBC and BMP: 09/22/17 06:32 09/18/17 05:35 PT/INR, D-dimer PT 12.9 sec (9.0-12.0) H 09/07/17 11:45 INR 1.4 (<1.2) H 09/07/17 11:45 Abnormal lab findings: Abnormal Labs 09/07/17 09/07/17 09/07/17 11:45 11:45 11:45 WBC 23.2 H RBC 3.87 L Hgb 9.5 L Hct 30.6 L MCV 79.1 L MCH 24.4 L MCHC 30.9 L RDW Plt Count Neutrophils # Neutrophils # (Manual) 20.60 H Lymphocytes # Lymphocytes # (Manual) 0.70 L Metamyelocytes # (Man) 0.93 H Myelocytes # (Manual) 0.23 H PT INR APTT Potassium Carbon Dioxide BUN Creatinine Glucose POC Glucose (mg/dL) Plasma Lactic Acid Jatin 4.6 H* Calcium Magnesium Total Creatine Kinase 336 H CK-MB (CK-2) 12.8 H* Troponin I 7.320 H* HDL Cholesterol Lipase Urine Protein Urine Ketones Urine Blood Ur Leukocyte Esterase Urine RBC Urine WBC Urine WBC Clumps Urine Bacteria Hyaline Casts Urine Mucus U Tricyclic Antidepress 09/07/17 09/07/17 09/07/17 11:45 11:45 11:45 WBC RBC Hgb Hct MCV MCH MCHC RDW Plt Count Neutrophils # Neutrophils # (Manual) Lymphocytes # Lymphocytes # (Manual) Metamyelocytes # (Man) Myelocytes # (Manual) PT 12.9 H INR 1.4 H APTT 30.8 H Potassium Carbon Dioxide BUN 21 H Creatinine 1.30 H Glucose POC Glucose (mg/dL) Plasma Lactic Acid Jatin Calcium Magnesium 0.7 L* Total Creatine Kinase CK-MB (CK-2) Troponin I HDL Cholesterol Lipase 11 L Urine Protein 2+ H Urine Ketones Trace H Urine Blood Moderate H Ur Leukocyte Esterase Large H Urine RBC 25 H Urine WBC 176 H Urine WBC Clumps Few H Urine Bacteria Occasional H Hyaline Casts 8 H Urine Mucus U Tricyclic Antidepress Detected H 09/07/17 09/07/17 09/07/17 18:01 18:01 18:19 WBC RBC Hgb Hct MCV MCH MCHC RDW Plt Count Neutrophils # Neutrophils # (Manual) Lymphocytes # Lymphocytes # (Manual) Metamyelocytes # (Man) Myelocytes # (Manual) PT INR APTT Potassium Carbon Dioxide BUN Creatinine Glucose POC Glucose (mg/dL) 160 H Plasma Lactic Acid Jatin 4.0 H* Calcium Magnesium Total Creatine Kinase 480 H CK-MB (CK-2) 15.3 H* Troponin I 6.900 H* HDL Cholesterol Lipase Urine Protein Urine Ketones Urine Blood Ur Leukocyte Esterase Urine RBC Urine WBC Urine WBC Clumps Urine Bacteria Hyaline Casts Urine Mucus U Tricyclic Antidepress 09/07/17 09/07/17 09/07/17 21:58 23:27 23:27 WBC RBC Hgb Hct MCV MCH MCHC RDW Plt Count Neutrophils # Neutrophils # (Manual) Lymphocytes # Lymphocytes # (Manual) Metamyelocytes # (Man) Myelocytes # (Manual) PT INR APTT Potassium Carbon Dioxide BUN Creatinine Glucose POC Glucose (mg/dL) 181 H Plasma Lactic Acid Jatin 5.8 H* Calcium Magnesium Total Creatine Kinase 649 H CK-MB (CK-2) 15.4 H* Troponin I 5.160 H* HDL Cholesterol Lipase Urine Protein Urine Ketones Urine Blood Ur Leukocyte Esterase Urine RBC Urine WBC Urine WBC Clumps Urine Bacteria Hyaline Casts Urine Mucus U Tricyclic Antidepress 09/08/17 09/08/17 09/08/17 03:29 03:29 03:29 WBC 18.6 H RBC 3.31 L Hgb 8.0 L D Hct 26.3 L MCV 79.4 L MCH 24.1 L MCHC 30.3 L RDW Plt Count Neutrophils # 17.3 H Neutrophils # (Manual) Lymphocytes # 0.5 L Lymphocytes # (Manual) Metamyelocytes # (Man) Myelocytes # (Manual) PT INR APTT Potassium Carbon Dioxide BUN 31 H Creatinine Glucose 139 H POC Glucose (mg/dL) Plasma Lactic Acid Jatin 2.1 H* Calcium 7.5 L Magnesium Total Creatine Kinase CK-MB (CK-2) Troponin I HDL Cholesterol 36 L Lipase Urine Protein Urine Ketones Urine Blood Ur Leukocyte Esterase Urine RBC Urine WBC Urine WBC Clumps Urine Bacteria Hyaline Casts Urine Mucus U Tricyclic Antidepress 09/08/17 09/08/17 09/08/17 06:04 06:29 11:54 WBC RBC Hgb Hct MCV MCH MCHC RDW Plt Count Neutrophils # Neutrophils # (Manual) Lymphocytes # Lymphocytes # (Manual) Metamyelocytes # (Man) Myelocytes # (Manual) PT INR APTT Potassium Carbon Dioxide BUN Creatinine Glucose POC Glucose (mg/dL) 150 H 166 H Plasma Lactic Acid Jatin Calcium Magnesium 1.0 L* Total Creatine Kinase CK-MB (CK-2) Troponin I HDL Cholesterol Lipase Urine Protein Urine Ketones Urine Blood Ur Leukocyte Esterase Urine RBC Urine WBC Urine WBC Clumps Urine Bacteria Hyaline Casts Urine Mucus U Tricyclic Antidepress 09/08/17 09/08/17 09/08/17 16:39 20:42 22:00 WBC RBC Hgb Hct MCV MCH MCHC RDW Plt Count Neutrophils # Neutrophils # (Manual) Lymphocytes # Lymphocytes # (Manual) Metamyelocytes # (Man) Myelocytes # (Manual) PT INR APTT Potassium Carbon Dioxide BUN Creatinine Glucose POC Glucose (mg/dL) 166 H 158 H Plasma Lactic Acid Jatin Calcium Magnesium Total Creatine Kinase CK-MB (CK-2) Troponin I HDL Cholesterol Lipase Urine Protein 1+ H Urine Ketones Urine Blood Small H Ur Leukocyte Esterase Large H Urine RBC 6 H Urine WBC 55 H Urine WBC Clumps Urine Bacteria Rare H Hyaline Casts Urine Mucus Rare H U Tricyclic Antidepress 09/09/17 09/09/17 09/09/17 05:58 11:36 16:31 WBC RBC Hgb Hct MCV MCH MCHC RDW Plt Count Neutrophils # Neutrophils # (Manual) Lymphocytes # Lymphocytes # (Manual) Metamyelocytes # (Man) Myelocytes # (Manual) PT INR APTT Potassium Carbon Dioxide BUN Creatinine Glucose POC Glucose (mg/dL) 110 H 104 H 149 H Plasma Lactic Acid Jatin Calcium Magnesium Total Creatine Kinase CK-MB (CK-2) Troponin I HDL Cholesterol Lipase Urine Protein Urine Ketones Urine Blood Ur Leukocyte Esterase Urine RBC Urine WBC Urine WBC Clumps Urine Bacteria Hyaline Casts Urine Mucus U Tricyclic Antidepress 09/09/17 09/10/17 09/10/17 21:07 05:33 05:33 WBC 14.1 H RBC 3.17 L Hgb 7.6 L Hct 24.7 L MCV 78.0 L MCH 24.0 L MCHC 30.8 L RDW Plt Count Neutrophils # 11.9 H Neutrophils # (Manual) Lymphocytes # 0.9 L Lymphocytes # (Manual) Metamyelocytes # (Man) Myelocytes # (Manual) PT INR APTT Potassium Carbon Dioxide BUN 28 H Creatinine Glucose POC Glucose (mg/dL) 156 H Plasma Lactic Acid Jatin Calcium 8.1 L Magnesium Total Creatine Kinase CK-MB (CK-2) Troponin I HDL Cholesterol Lipase Urine Protein Urine Ketones Urine Blood Ur Leukocyte Esterase Urine RBC Urine WBC Urine WBC Clumps Urine Bacteria Hyaline Casts Urine Mucus U Tricyclic Antidepress 09/10/17 09/11/17 09/11/17 16:44 01:33 05:50 WBC RBC Hgb Hct MCV MCH MCHC RDW Plt Count Neutrophils # Neutrophils # (Manual) Lymphocytes # Lymphocytes # (Manual) Metamyelocytes # (Man) Myelocytes # (Manual) PT INR APTT Potassium Carbon Dioxide BUN Creatinine Glucose POC Glucose (mg/dL) 100 H 104 H 119 H Plasma Lactic Acid Jatin Calcium Magnesium Total Creatine Kinase CK-MB (CK-2) Troponin I HDL Cholesterol Lipase Urine Protein Urine Ketones Urine Blood Ur Leukocyte Esterase Urine RBC Urine WBC Urine WBC Clumps Urine Bacteria Hyaline Casts Urine Mucus U Tricyclic Antidepress 09/11/17 09/11/17 09/11/17 09:59 11:37 17:10 WBC 11.4 H RBC 3.45 L Hgb 8.4 L Hct 26.8 L MCV 77.9 L MCH 24.4 L MCHC RDW Plt Count Neutrophils # 9.5 H Neutrophils # (Manual) Lymphocytes # 0.9 L Lymphocytes # (Manual) Metamyelocytes # (Man) Myelocytes # (Manual) PT INR APTT Potassium Carbon Dioxide BUN Creatinine Glucose POC Glucose (mg/dL) 247 H 178 H Plasma Lactic Acid Jatin Calcium Magnesium Total Creatine Kinase CK-MB (CK-2) Troponin I HDL Cholesterol Lipase Urine Protein Urine Ketones Urine Blood Ur Leukocyte Esterase Urine RBC Urine WBC Urine WBC Clumps Urine Bacteria Hyaline Casts Urine Mucus U Tricyclic Antidepress 09/11/17 09/12/17 09/12/17 21:24 04:30 06:20 WBC RBC Hgb Hct MCV MCH MCHC RDW Plt Count Neutrophils # Neutrophils # (Manual) Lymphocytes # Lymphocytes # (Manual) Metamyelocytes # (Man) Myelocytes # (Manual) PT INR APTT Potassium Carbon Dioxide BUN Creatinine Glucose POC Glucose (mg/dL) 155 H 124 H 118 H Plasma Lactic Acid Jatin Calcium Magnesium Total Creatine Kinase CK-MB (CK-2) Troponin I HDL Cholesterol Lipase Urine Protein Urine Ketones Urine Blood Ur Leukocyte Esterase Urine RBC Urine WBC Urine WBC Clumps Urine Bacteria Hyaline Casts Urine Mucus U Tricyclic Antidepress 09/12/17 09/12/17 09/13/17 12:13 21:11 06:21 WBC RBC Hgb Hct MCV MCH MCHC RDW Plt Count Neutrophils # Neutrophils # (Manual) Lymphocytes # Lymphocytes # (Manual) Metamyelocytes # (Man) Myelocytes # (Manual) PT INR APTT Potassium Carbon Dioxide BUN Creatinine Glucose POC Glucose (mg/dL) 123 H 250 H 160 H Plasma Lactic Acid Jatin Calcium Magnesium Total Creatine Kinase CK-MB (CK-2) Troponin I HDL Cholesterol Lipase Urine Protein Urine Ketones Urine Blood Ur Leukocyte Esterase Urine RBC Urine WBC Urine WBC Clumps Urine Bacteria Hyaline Casts Urine Mucus U Tricyclic Antidepress 09/13/17 09/13/17 09/13/17 06:52 06:52 11:18 WBC 11.4 H RBC 3.43 L Hgb 8.1 L Hct 26.6 L MCV 77.5 L MCH 23.7 L MCHC 30.6 L RDW Plt Count Neutrophils # 8.4 H Neutrophils # (Manual) Lymphocytes # Lymphocytes # (Manual) Metamyelocytes # (Man) Myelocytes # (Manual) PT INR APTT Potassium 3.2 L Carbon Dioxide BUN 29 H Creatinine Glucose 150 H POC Glucose (mg/dL) 177 H Plasma Lactic Acid Jatin Calcium Magnesium Total Creatine Kinase CK-MB (CK-2) Troponin I HDL Cholesterol Lipase Urine Protein Urine Ketones Urine Blood Ur Leukocyte Esterase Urine RBC Urine WBC Urine WBC Clumps Urine Bacteria Hyaline Casts Urine Mucus U Tricyclic Antidepress 09/13/17 09/14/17 09/14/17 21:04 06:03 06:03 WBC RBC 3.37 L Hgb 8.0 L Hct 26.2 L MCV 77.9 L MCH 23.7 L MCHC 30.4 L RDW Plt Count Neutrophils # Neutrophils # (Manual) Lymphocytes # Lymphocytes # (Manual) Metamyelocytes # (Man) Myelocytes # (Manual) PT INR APTT Potassium Carbon Dioxide 31 H BUN 31 H Creatinine Glucose 136 H POC Glucose (mg/dL) 168 H Plasma Lactic Acid Jatin Calcium Magnesium Total Creatine Kinase CK-MB (CK-2) Troponin I HDL Cholesterol Lipase Urine Protein Urine Ketones Urine Blood Ur Leukocyte Esterase Urine RBC Urine WBC Urine WBC Clumps Urine Bacteria Hyaline Casts Urine Mucus U Tricyclic Antidepress 09/14/17 09/14/17 09/14/17 06:03 11:36 20:40 WBC RBC Hgb Hct MCV MCH MCHC RDW Plt Count Neutrophils # Neutrophils # (Manual) Lymphocytes # Lymphocytes # (Manual) Metamyelocytes # (Man) Myelocytes # (Manual) PT INR APTT Potassium Carbon Dioxide BUN Creatinine Glucose POC Glucose (mg/dL) 137 H 135 H 122 H Plasma Lactic Acid Jatin Calcium Magnesium Total Creatine Kinase CK-MB (CK-2) Troponin I HDL Cholesterol Lipase Urine Protein Urine Ketones Urine Blood Ur Leukocyte Esterase Urine RBC Urine WBC Urine WBC Clumps Urine Bacteria Hyaline Casts Urine Mucus U Tricyclic Antidepress 09/15/17 09/15/17 09/15/17 05:32 05:32 11:50 WBC RBC 3.25 L Hgb 8.3 L Hct 25.8 L MCV 79.4 L MCH MCHC RDW 15.8 H Plt Count Neutrophils # Neutrophils # (Manual) Lymphocytes # Lymphocytes # (Manual) Metamyelocytes # (Man) Myelocytes # (Manual) PT INR APTT Potassium Carbon Dioxide BUN 31 H Creatinine Glucose POC Glucose (mg/dL) 130 H Plasma Lactic Acid Jatin Calcium Magnesium Total Creatine Kinase CK-MB (CK-2) Troponin I HDL Cholesterol Lipase Urine Protein Urine Ketones Urine Blood Ur Leukocyte Esterase Urine RBC Urine WBC Urine WBC Clumps Urine Bacteria Hyaline Casts Urine Mucus U Tricyclic Antidepress 09/15/17 09/15/17 09/16/17 16:44 20:40 06:10 WBC RBC 3.29 L Hgb 7.7 L Hct 25.3 L MCV 77.0 L MCH 23.4 L MCHC 30.3 L RDW Plt Count Neutrophils # Neutrophils # (Manual) Lymphocytes # Lymphocytes # (Manual) Metamyelocytes # (Man) Myelocytes # (Manual) PT INR APTT Potassium Carbon Dioxide BUN Creatinine Glucose POC Glucose (mg/dL) 158 H 171 H Plasma Lactic Acid Jatin Calcium Magnesium Total Creatine Kinase CK-MB (CK-2) Troponin I HDL Cholesterol Lipase Urine Protein Urine Ketones Urine Blood Ur Leukocyte Esterase Urine RBC Urine WBC Urine WBC Clumps Urine Bacteria Hyaline Casts Urine Mucus U Tricyclic Antidepress 09/16/17 09/16/17 09/16/17 06:10 11:40 16:46 WBC RBC Hgb Hct MCV MCH MCHC RDW Plt Count Neutrophils # Neutrophils # (Manual) Lymphocytes # Lymphocytes # (Manual) Metamyelocytes # (Man) Myelocytes # (Manual) PT INR APTT Potassium Carbon Dioxide 31 H BUN 33 H Creatinine Glucose POC Glucose (mg/dL) 176 H 141 H Plasma Lactic Acid Jatin Calcium 8.3 L Magnesium Total Creatine Kinase CK-MB (CK-2) Troponin I HDL Cholesterol Lipase Urine Protein Urine Ketones Urine Blood Ur Leukocyte Esterase Urine RBC Urine WBC Urine WBC Clumps Urine Bacteria Hyaline Casts Urine Mucus U Tricyclic Antidepress 09/16/17 09/17/17 09/17/17 21:26 11:41 16:54 WBC RBC Hgb Hct MCV MCH MCHC RDW Plt Count Neutrophils # Neutrophils # (Manual) Lymphocytes # Lymphocytes # (Manual) Metamyelocytes # (Man) Myelocytes # (Manual) PT INR APTT Potassium Carbon Dioxide BUN Creatinine Glucose POC Glucose (mg/dL) 165 H 160 H 114 H Plasma Lactic Acid Jatin Calcium Magnesium Total Creatine Kinase CK-MB (CK-2) Troponin I HDL Cholesterol Lipase Urine Protein Urine Ketones Urine Blood Ur Leukocyte Esterase Urine RBC Urine WBC Urine WBC Clumps Urine Bacteria Hyaline Casts Urine Mucus U Tricyclic Antidepress 09/17/17 09/18/17 09/18/17 21:09 05:35 05:35 WBC 11.7 H RBC 3.49 L Hgb 8.3 L Hct 27.4 L MCV 78.7 L MCH 23.7 L MCHC 30.2 L RDW Plt Count Neutrophils # Neutrophils # (Manual) Lymphocytes # Lymphocytes # (Manual) Metamyelocytes # (Man) Myelocytes # (Manual) PT INR APTT Potassium Carbon Dioxide BUN 32 H Creatinine Glucose 127 H POC Glucose (mg/dL) 185 H Plasma Lactic Acid Jatin Calcium Magnesium Total Creatine Kinase CK-MB (CK-2) Troponin I HDL Cholesterol Lipase Urine Protein Urine Ketones Urine Blood Ur Leukocyte Esterase Urine RBC Urine WBC Urine WBC Clumps Urine Bacteria Hyaline Casts Urine Mucus U Tricyclic Antidepress 09/18/17 09/18/17 09/18/17 05:59 12:11 17:28 WBC RBC Hgb Hct MCV MCH MCHC RDW Plt Count Neutrophils # Neutrophils # (Manual) Lymphocytes # Lymphocytes # (Manual) Metamyelocytes # (Man) Myelocytes # (Manual) PT INR APTT Potassium Carbon Dioxide BUN Creatinine Glucose POC Glucose (mg/dL) 133 H 150 H 173 H Plasma Lactic Acid Jatin Calcium Magnesium Total Creatine Kinase CK-MB (CK-2) Troponin I HDL Cholesterol Lipase Urine Protein Urine Ketones Urine Blood Ur Leukocyte Esterase Urine RBC Urine WBC Urine WBC Clumps Urine Bacteria Hyaline Casts Urine Mucus U Tricyclic Antidepress 09/19/17 09/19/17 09/19/17 12:07 16:54 20:54 WBC RBC Hgb Hct MCV MCH MCHC RDW Plt Count Neutrophils # Neutrophils # (Manual) Lymphocytes # Lymphocytes # (Manual) Metamyelocytes # (Man) Myelocytes # (Manual) PT INR APTT Potassium Carbon Dioxide BUN Creatinine Glucose POC Glucose (mg/dL) 243 H 313 H 341 H Plasma Lactic Acid Jatin Calcium Magnesium Total Creatine Kinase CK-MB (CK-2) Troponin I HDL Cholesterol Lipase Urine Protein Urine Ketones Urine Blood Ur Leukocyte Esterase Urine RBC Urine WBC Urine WBC Clumps Urine Bacteria Hyaline Casts Urine Mucus U Tricyclic Antidepress 09/20/17 09/20/17 09/20/17 06:03 11:41 16:31 WBC RBC Hgb Hct MCV MCH MCHC RDW Plt Count Neutrophils # Neutrophils # (Manual) Lymphocytes # Lymphocytes # (Manual) Metamyelocytes # (Man) Myelocytes # (Manual) PT INR APTT Potassium Carbon Dioxide BUN Creatinine Glucose POC Glucose (mg/dL) 105 H 115 H 233 H Plasma Lactic Acid Jatin Calcium Magnesium Total Creatine Kinase CK-MB (CK-2) Troponin I HDL Cholesterol Lipase Urine Protein Urine Ketones Urine Blood Ur Leukocyte Esterase Urine RBC Urine WBC Urine WBC Clumps Urine Bacteria Hyaline Casts Urine Mucus U Tricyclic Antidepress 09/20/17 09/21/17 09/21/17 21:20 11:26 16:55 WBC RBC Hgb Hct MCV MCH MCHC RDW Plt Count Neutrophils # Neutrophils # (Manual) Lymphocytes # Lymphocytes # (Manual) Metamyelocytes # (Man) Myelocytes # (Manual) PT INR APTT Potassium Carbon Dioxide BUN Creatinine Glucose POC Glucose (mg/dL) 158 H 100 H 194 H Plasma Lactic Acid Jatin Calcium Magnesium Total Creatine Kinase CK-MB (CK-2) Troponin I HDL Cholesterol Lipase Urine Protein Urine Ketones Urine Blood Ur Leukocyte Esterase Urine RBC Urine WBC Urine WBC Clumps Urine Bacteria Hyaline Casts Urine Mucus U Tricyclic Antidepress 09/21/17 09/22/17 09/22/17 21:03 06:32 07:00 WBC 12.6 H RBC 3.53 L Hgb 8.2 L Hct 28.3 L MCV MCH 23.4 L MCHC 29.1 L RDW Plt Count 574 H Neutrophils # 9.7 H Neutrophils # (Manual) Lymphocytes # Lymphocytes # (Manual) Metamyelocytes # (Man) Myelocytes # (Manual) PT INR APTT Potassium Carbon Dioxide BUN Creatinine Glucose POC Glucose (mg/dL) 156 H 113 H Plasma Lactic Acid Jatin Calcium Magnesium Total Creatine Kinase CK-MB (CK-2) Troponin I HDL Cholesterol Lipase Urine Protein Urine Ketones Urine Blood Ur Leukocyte Esterase Urine RBC Urine WBC Urine WBC Clumps Urine Bacteria Hyaline Casts Urine Mucus U Tricyclic Antidepress 09/22/17 09/22/17 09/22/17 11:35 16:35 19:49 WBC RBC Hgb Hct MCV MCH MCHC RDW Plt Count Neutrophils # Neutrophils # (Manual) Lymphocytes # Lymphocytes # (Manual) Metamyelocytes # (Man) Myelocytes # (Manual) PT INR APTT Potassium Carbon Dioxide BUN Creatinine Glucose POC Glucose (mg/dL) 150 H 111 H 160 H Plasma Lactic Acid Jatin Calcium Magnesium Total Creatine Kinase CK-MB (CK-2) Troponin I HDL Cholesterol Lipase Urine Protein Urine Ketones Urine Blood Ur Leukocyte Esterase Urine RBC Urine WBC Urine WBC Clumps Urine Bacteria Hyaline Casts Urine Mucus U Tricyclic Antidepress 09/23/17 09/23/17 07:12 08:00 WBC RBC Hgb Hct MCV MCH MCHC RDW Plt Count Neutrophils # Neutrophils # (Manual) Lymphocytes # Lymphocytes # (Manual) Metamyelocytes # (Man) Myelocytes # (Manual) PT INR APTT Potassium Carbon Dioxide BUN Creatinine Glucose POC Glucose (mg/dL) 183 H 186 H Plasma Lactic Acid Jatin Calcium Magnesium Total Creatine Kinase CK-MB (CK-2) Troponin I HDL Cholesterol Lipase Urine Protein Urine Ketones Urine Blood Ur Leukocyte Esterase Urine RBC Urine WBC Urine WBC Clumps Urine Bacteria Hyaline Casts Urine Mucus U Tricyclic Antidepress - Diagnostic Findings Chest x-ray: image reviewed (Labs x-rays a medications are reviewed.) Assessment and Plan Assessment: Assessment Impending hypoxemic respiratory failure secondary to severe bilateral pneumonia thought to be related to aspiration. History of atrial fibrillation CAD with previous bypass grafting and aortic valve surgery. History of bladder cancer History of CVA Diabetes mellitus Gastroesophageal reflux disease Hyperlipidemia Multiple other medical problems and comorbidities Plan: Plan dated 09/23/2017 Chest x-rays reviewed. This shows diffuse bilateral right greater than left pulmonary infiltrates. They have all all 4 quadrants of the chest. The patient is currently on BiPAP. Apparently the plan is to remove BiPAP place him on morphine and oxygen therapy once all the family members have arrived. He 'll be made comfort measures only. Apparently that's what he would've wanted according to his . He has been here and unfortunately since September 07. Time with Patient: Greater than 30
[2017-09-23 09:29] LABS: HCT 24.8 % (39.0-53.0); HGB 7.7 gm/dL (13.0-17.5); Hypochromasia Moderate; MCH 24.4 pg (25.0-35.0); MCHC 31.2 g/dL (31.0-37.0); MCV 78.3 fL (80.0-100.0); Mean Platelet Volume 10.2; Platelet Count 549 k/uL (150-450); RBC 3.17 m/uL (4.30-5.90); RDW 15.8 % (11.5-15.5); WBC 12.1 k/uL (3.8-10.6)
--- NOTE | 2017-09-23 09:29 | XR ---
EXAMINATION TYPE: XR chest 1V portable DATE OF EXAM: 09/23/2017 HISTORY: Shortness of breath. COMPARISON: August 2017 TECHNIQUE: Single view of the chest is submitted. FINDINGS: Demonstrated are scattered senescent parenchymal change. Diffuse airspace infiltrates are seen throughout both lung yoder with pleural effusions. Correlate f or acute pulmonary edema, diffuse bilateral pneumonia and/or ARDS. The heart is stable. Hilar and mediastinal structures are within normal limits. Degenerative changes are seen of the dorsal spine. IMPRESSION: 1. Diffuse airspace infiltrates are seen throughout both lung yoder with pleural effusions. Correla te for acute pulmonary edema, diffuse bilateral pneumonia and/or ARDS.
[2017-09-23] MEDS: INSULIN ASPART 100 UNIT/ML 1 ML 10 ML VIAL SQ SCH ×3 (09:37→18:21)
[2017-09-23] MEDS: APIXABAN 5 MG TAB PO SCH (09:37)
[2017-09-23] MEDS: DILTIAZEM ORAL 60 MG TAB PO SCH ×2 (09:37→18:21)
[2017-09-23] MEDS: AMIODARONE 200 MG TAB PO SCH (09:37)
[2017-09-23] MEDS: REPAGLINIDE 1 MG TAB PO SCH ×3 (09:37→18:21)
[2017-09-23] MEDS: POTASSIUM BICARBONATE/CIT AC 20 MEQ TABLET.EFF PO SCH (09:37)
[2017-09-23] MEDS: PANTOPRAZOLE 40 MG TABLET PO SCH ×2 (09:37→18:21)
[2017-09-23] MEDS: ASPIRIN 81 MG PO SCH (09:37)
[2017-09-23] MEDS: CARBIDOPA-LEVODOPA 25-100 MG 1 EACH TAB PO SCH ×2 (09:37→18:21)
[2017-09-23] MEDS: LINAGLIPTIN 5 MG TABLET PO SCH (09:38)
[2017-09-23] MEDS: TAMSULOSIN 0.4 MG CAP.ER.24H PO SCH (09:38)
[2017-09-23] MEDS: METOPROLOL TARTRATE 50 MG TAB PO SCH (09:38)
[2017-09-23] MEDS: ERTAPENEM 1 GM in SODIUM CHLORIDE 0.9% 50 ML IVPB SCH (09:38)
[2017-09-23] MEDS: SENNOSIDES-DOCUSATE SODIUM 1 EACH TAB PO SCH (09:38)
[2017-09-23 10:13] LABS: Anisocytosis (M) Present; Lymphocytes # (M) 1.09 k/uL (1.0-4.8); Monocytes # (M) 0.85 k/uL (0-1.0); Neutrophils # (M) 10.16 k/uL (1.3-7.7); Neutrophils % (M) 84 %; Nucleated Red Blood Cells 0 /100 WBC (0-0); Poikilocytosis (M) Present; Total Cells Counted 100
[2017-09-23 10:14] LABS: RBC Fragments Present
[2017-09-23] MEDS: MORPHINE SULFATE 4 MG/ML SYRINGE IVP PRN ×3 (12:00→19:00)
[2017-09-23] MEDS: MULTIVITAMINS, THERA 1 EACH TAB PO SCH (13:12)
[2017-09-23 15:25] VITALS: BP 94/53; PULSE 104; RESP 20; TEMP 97.1
[2017-09-23] MEDS: NORTRIPTYLINE 10 MG CAP PO SCH (18:21)
--- NOTE | 2017-09-23 22:42 | DS ---
DISCHARGE SUMMARY DATE OF ADMISSION: 09/07/2017. DATE OF DISCHARGE: 09/23/2017 FINAL DIAGNOSES: 1. Acute non-Q-wave myocardial infarction, present on admission. 2. Sepsis with positive blood cultures for Escherichia coli; possibly acute cholecystitis and/or urinary tract infection. 3. Persistent atrial fibrillation with uncontrolled rate on presentation. 4. Acute on chronic metabolic encephalopathy, multifactorial. 5. Acute urinary tract infection with Escherichia coli secondary to Costello catheter, present on admission. 6. Right bundle block. 7. Diabetes mellitus, type 2, chronically on insulin. 8. Hyperlipidemia. 9. Essential hypertension. 10.Coronary artery disease with prior history of stent and coronary artery bypass. 11.Chronic medical debility at baseline. Needs assistance. 12.Possible right lobe pneumonia. Suspect Gram-negative organism. Present on admission. Could be aspiration from mental status changes. 13.CODE STATUS DNR. HOSPITAL COURSE: This patient presented initially with acute PR, sepsis. It was possible that patient may have also had cholecystitis, but he was not felt to be a good surgical candidate. The patient continued to deteriorate. At baseline he could only take 1 or 2 steps. The patient again then became hypotensive. I met with the family and they were okay with taking the patient home. ADVANCED CARE PLANNING: I had a family meeting with the patient's daughter and and other family members. Given overall poor prognosis, they decided to go ahead and make the patient hospice, stop other medications. Blood pressure also had been dropping. They already had [facility], and [facility] staff was being contacted. I also did talk to them. Total time spent for advanced care planning in addition to discharge planning was about 20 to 25 minutes. PHYSICAL EXAMINATION: On examination, decreased breath sounds. The patient does follow some commands. DISCHARGE MEDICATIONS: 1. Ativan 0.5 mg q.6 p.r.n. 2. Roxanol 20 mg/mL 5 mg p.o. q.4 p.r.n. 3. Scopolamine 1.5 mg patch every 72 hours. DISPOSITION: Home with Hospice. Discharge planning more than 35 minutes. CONSULTATIONS DURING THE HOSPITAL STAY: 1. Dr. Brown from Pulmonary. 2. Dr. Sinclair from General Surgery. 3. Dr. Savage from Infectious Disease. Discharge planning more than 35 minutes. MMKADEL / ARELISN: [id number] /
== END 2017-09-23 20:18 | disposition home or self-care (01) | DRG 698 ==
LOC: EC 11:36 → 6SEL 16:52 → 3SUR 09-21 00:32
PROVIDERS: ADMIT Hospitalist; ATTEND Hospitalist
PROC: 02HV33Z Insertion of Infusion Device into Superior Vena Cava, Percutaneous Approach (ICD-10-PCS; principal; 2017-09-23)
DX: T83.511A Infection and inflammatory reaction due to indwelling urethral catheter, initial encounter (principal); A41.51 Sepsis due to Escherichia coli [E. coli]; I21.4 Non-ST elevation (NSTEMI) myocardial infarction; J96.91 Respiratory failure, unspecified with hypoxia; J69.0 Pneumonitis due to inhalation of food and vomit; J15.6 Pneumonia due to other Gram-negative bacteria; G93.41 Metabolic encephalopathy; J81.1 Chronic pulmonary edema; J90 Pleural effusion, not elsewhere classified; K81.0 Acute cholecystitis; I48.1 Persistent atrial fibrillation; I69.351 Hemiplegia and hemiparesis following cerebral infarction affecting right dominant side; G20 Parkinson's disease; I08.1 Rheumatic disorders of both mitral and tricuspid valves; E83.42 Hypomagnesemia; D64.9 Anemia, unspecified; E11.9 Type 2 diabetes mellitus without complications; E78.5 Hyperlipidemia, unspecified; E87.6 Hypokalemia; I10 Essential (primary) hypertension; I25.10 Atherosclerotic heart disease of native coronary artery without angina pectoris; I45.10 Unspecified right bundle-branch block; I48.0 Paroxysmal atrial fibrillation; I48.2 Chronic atrial fibrillation; I69.320 Aphasia following cerebral infarction; K21.9 Gastro-esophageal reflux disease without esophagitis; N39.0 Urinary tract infection, site not specified; Z66 Do not resuscitate; Y73.8 Miscellaneous gastroenterology and urology devices associated with adverse incidents, not elsewhere classified; Z74.01 Bed confinement status; Z79.01 Long term (current) use of anticoagulants; Z79.4 Long term (current) use of insulin; Z79.82 Long term (current) use of aspirin; Z79.899 Other long term (current) drug therapy; Z80.42 Family history of malignant neoplasm of prostate; Z81.8 Family history of other mental and behavioral disorders; Z82.49 Family history of ischemic heart disease and other diseases of the circulatory system; Z85.51 Personal history of malignant neoplasm of bladder; Z87.440 Personal history of urinary (tract) infections; Z87.891 Personal history of nicotine dependence; Z88.2 Allergy status to sulfonamides; Z95.0 Presence of cardiac pacemaker; Z95.1 Presence of aortocoronary bypass graft; Z95.2 Presence of prosthetic heart valve; Z95.5 Presence of coronary angioplasty implant and graft; Z99.3 Dependence on wheelchair
CPT/HCPCS: 00000; 36415; 36569; 70450; 71045; 71046; 76700; 76937; 77001; 80048; 80053; 80061; 80306; 81001; 82140; 82550; 82553; 83605; 83690; 83735; 83880; 84484; 85025; 85027; 85610; 85730; 87040; 87077; 87086; 87186; 87502; 93005; 93306; 94640; 94660; 94760; 96361; 96365; 96368; 99291